=== PATIENT | male | born 1930 | race African-American/Black ===

== ENCOUNTER 2019-09-06 21:34 | Inpatient (IN) | payer MEDICARE, MEDICAID ==
[~2019-09-06] VITALS: Ht 170.2 cm; Wt 59.1 kg
--- NOTE | 2019-09-06 21:49 | Emergency Room Report ---
History of Present Illness General Chief Complaint: Generalized Weakness Source: Patient Present Illness HPI Is an 88-year-old male with no significant past medical history. He occasionally takes hydrochlorothiazide for high blood pressure. He presents with chief complaint of generalized weakness. He lives by himself. He said he did not eat much yesterday and decided to go to the nearby grocery store to get some food. He said as he was walking out from the grocery store to the bus station he felt increasing weakness. He said he was not diaphoretic. He has no pain. He has no nausea no vomiting. He just felt weakness. Got better when he grabbed on to something. Bystander noticed his condition and called 911. He got better once EMS got there and lay him down. He is asymptomatic right now. Never had this problem before. Denies any other complaint. No focal deficit. No slurred speech. Allergies: Coded Allergies: No Known Allergies (Unverified , 09/06/19) Patient History Past Medical History: see triage record, old chart reviewed Past Surgical History: none Pertinent Family History: none Social History: Denies: smoking Immunizations: other Reviewed Nursing Documentation: PMH: Agreed; PSxH: Agreed Nursing Documentation-PMH Past Medical History: No Stated History Review of Systems Constitutional: Reports: weakness Eye: Denies: eye pain, blurred vision ENT: Denies: ear pain, nose congestion, throat swelling Respiratory: Denies: cough, shortness of breath Cardiovascular: Denies: chest pain, palpitations Gastrointestinal: Denies: abdominal pain, diarrhea, nausea, vomiting Musculoskeletal: Denies: back pain, joint pain Skin: Denies: rash Neurological: Denies: headache, numbness Endocrine: Denies: increased thirst, increased urine Hematologic/Lymphatic: Denies: easy bruising All Other Systems: negative except mentioned in HPI Physical Exam Vital Signs Date Time Temp Pulse Resp B/P (MAP) Pulse Ox O2 Delivery O2 Flow Rate FiO2 09/06/19 21:30 97.5 104 18 170/109 (129) 98 Room Air Vitals with high blood pressure Sp02 EP Interpretation: reviewed, normal General Appearance: well appearing, no apparent distress, alert Head: normocephalic, atraumatic Eyes: bilateral eye PERRL, bilateral eye EOMI ENT: hearing grossly normal, normal pharynx Neck: full range of motion, supple, no meningismus Respiratory: chest non-tender, lungs clear, normal breath sounds Cardiovascular #1: regular rate, rhythm, no murmur Gastrointestinal: normal bowel sounds, non tender, no mass, no organomegaly, no bruit, non-distended Musculoskeletal: back normal, gait/station normal, normal range of motion Psychiatric: mood/affect normal Medical Decision Making Diagnostic Impression: Primary Impression: Episode of generalized weakness Additional Impressions: Near syncope Hypertension Qualified Codes: I10 - Essential (primary) hypertension ER Course Presents with acute onset of generalized weakness and near syncope. Blood pressure here initially was on the low end. Now normal after IV fluid. No evidence of ACS, PE, dissection. No focal deficit to indicate TIA or CVA. No arrhythmia here. Because of his age, will admit for further work-up. I discussed the case with Dr. Duong who will admit for Dr. Jones. EKG Diagnostic Results Rate: normal Rhythm: NSR ST Segments: no acute changes Rhythm Strip Diag. Results EP Interpretation: yes Rate: 84 Rhythm: NSR, no PVC's, no ectopy Chest X-Ray Diagnostic Results Chest X-Ray Diagnostic Results : Chest X-Ray Ordered: Yes # of Views/Limited/Complete: 1 View Indication: Shortness of Breath EP Interpretation: Yes Interpretation: no consolidation, no effusion, no pneumothorax, no acute cardiopulmonary disease Impression: No acute disease Electronically Signed by: Randy Fu MD Last Vital Signs Date Time Temp Pulse Resp B/P (MAP) Pulse Ox O2 Delivery O2 Flow Rate FiO2 09/06/19 21:30 97.5 104 18 170/109 (129) 98 Room Air Status: improved Disposition: ADMITTED INPATIENT Condition: Serious Randy Fu MD Sep 06, 2019 21:49
[2019-09-06 22:04] VITALS: BP 170/109
--- NOTE | 2019-09-06 22:15 | NUR ---
ED Nurse Note: Patient was brought in by ambulance c/o generalzied weaknesss. Pt stated he was walking and felt weak, sat down and wanted to be checked out. Patient presented calm, AAO x4, VSS at this time, skinis warm to touch.
[2019-09-06 22:25] LABS: BASOPHILS % (AUTO) 2.2 % (0.0-2.0); EOSINOPHILS % (AUTO) 0.3 % (0.0-3.0); HEMATOCRIT 50.3 % (42.0-52.0); HEMOGLOBIN 16.3 G/DL (14.2-18.0); LYMPHOCYTES % (AUTO) 11.9 % (20.0-45.0); MEAN CORPUSCULAR VOLUME 80 FL (80-99); MONOCYTES % (AUTO) 10.3 % (1.0-10.0); NEUTROPHILS % (AUTO) 75.3 % (45.0-75.0); PLATELET COUNT 705 K/UL (150-450); RED BLOOD COUNT 6.26 M/UL (4.70-6.10); RED CELL DISTRIBUTION WIDTH 12.9 % (11.6-14.8); WHITE BLOOD COUNT 9.8 K/UL (4.8-10.8)
--- NOTE | 2019-09-06 22:25 | Diagnostic Imaging Report ---
EXAM: XR Chest, 1 View CLINICAL HISTORY: SYNCOPE TECHNIQUE: Frontal view of the chest. COMPARISON: No relevant prior studies available. FINDINGS: Lungs: Unremarkable. No consolidation. Pleural space: Unremarkable. No pneumothorax. Heart: Unremarkable. No cardiomegaly. Mediastinum: Unremarkable. Bones joints: Unremarkable. IMPRESSION: No radiographic evidence of acute cardiopulmonary disease.
--- NOTE | 2019-09-06 22:29 | NUR ---
ED Nurse Note: Pt with x-ray tech.
[2019-09-06 22:33] LABS: ANION GAP 9 mmol/L (5-15); BLOOD UREA NITROGEN 15 mg/dL (7-18); CALCIUM 10.2 MG/DL (8.5-10.1); CARBON DIOXIDE 29 MMOL/L (21-32); CHLORIDE 104 MMOL/L (98-107); CREATININE 1.3 MG/DL (0.55-1.30); POTASSIUM 3.8 MMOL/L (3.5-5.1); SODIUM 142 MMOL/L (136-145)
[2019-09-06 22:34] LABS: ALANINE AMINOTRANSFERASE 23 U/L (12-78); ALBUMIN 3.8 G/DL (3.4-5.0); ALBUMIN/GLOBULIN RATIO 0.8 (1.0-2.7); ALKALINE PHOSPHATASE 92 U/L (46-116); ASPARTATE AMINO TRANSFERASE 22 U/L (15-37); BILIRUBIN,TOTAL 0.5 MG/DL (0.2-1.0)
[2019-09-06 23:54] VITALS: BP 122/96
[2019-09-07] VITALS (10 sets, daily range): BP systolic 117–190; BP diastolic 75–128
--- NOTE | 2019-09-07 | NUR ---
NURSE NOTES: Received pt from ELOY Pitts. Pt awake, alert, and talkative. Bed in lowest position. Call light within reach. Lung sounds clear. BP elevated. Pt ambulates steadily. Will call Dr. Duong and will continue to monitor.
--- NOTE | 2019-09-07 00:05 | NUR ---
ED Nurse Note: Patient was admited to Tele due to generalized weakness. Patient was transfered to the unit via gurney, by ACLS protocol, with all belongings. Patient AAO x4, VSS at this time.
[2019-09-07] MEDS ORDERED: HYDROCHLOROTH12.5 M2 ORAL (01:42)
--- NOTE | 2019-09-07 01:52 | NUR ---
NURSE NOTES: Called and left a message with Dr. Karen kennedy regarding admission orders. Awaiting call back
--- NOTE | 2019-09-07 02:08 | NUR ---
NURSE NOTES: Dr. Duong called back with the following meds: - tylenol 650 prn - ambulatory for DVT - troponin am - cbc bmp am - reg diet - hydralazine 10mg iv q6 prn for sbp>160 - continue home meds Will input orders and will continue to monitor.
--- NOTE | 2019-09-07 07:17 | NUR ---
HAND-OFF: Report given to ELOY Mac. Pt stable.
--- NOTE | 2019-09-07 07:20 | NUR ---
NURSE NOTES: Nurse report given by ELOY Guajardo. Patient's awake in bed, AO x 4, denies pain, no s/s of distress or SOB. Bed low and locked, call light within reach, side rails x2, cardiac cath lab radiology technologist is applied. IV is saline locked, patent and asymptomatic. All needs met. Will continue to monitor.
--- NOTE | 2019-09-07 08:35 | History and Physical ---
History of Present Illness General Date patient seen: Sep 07, 2019 Reason for Hospitalization: Generalized Weakness Present Illness HPI 88-year-old male with no significant past medical history. He occasionally takes hydrochlorothiazide for high blood pressure. He presents with chief complaint of generalized weakness. He lives by himself. He said he did not eat much the day of admission and decided to go to the nearby grocery store ( [facility]) to get some food at around 8 pm. He said as he was walking out from the grocery store to the bus station and he felt increasing weakness. He sat down and was unable to get up. Bystander called 911. He denies chest pain, sob, palpitations, loc, dizziness, lightheadedness,fever, chills, or diaphoresis. This has never happened to him in the past. He had no focal neurologic deficits , no slurred speech. No bowel or bladder incontinence or tongue biting PMH: HTN PSH: none social history: Denies toxic habits, lives alone, independent of ADLs family history: unknown to patient. . 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 Resuscitation status Full Code Advanced Directive on File Review of Systems Constitutional: Reports: weakness - all muscles; Denies: no symptoms, see HPI, chills, sweats, fever, malaise, other Eye: Denies: no symptoms, see HPI, eye pain, blurred vision, tearing, double vision, nose pain, nose congestion, acuity changes, discharge, other ENT: Denies: no symptoms, see HPI, ear pain, ear discharge, nose pain, nose congestion, throat pain, throat swelling, mouth pain, hearing loss, nasal discharge, other Respiratory: Denies: no symptoms, see HPI, cough, orthopnea, shortness of breath, stridor, wheezing, EVANS, sputum, other Cardiovascular: Denies: no symptoms, see HPI, chest pain, edema, palpitations, syncope, PND, other Gastrointestinal: Denies: no symptoms, see HPI, abdominal pain, constipation, diarrhea, nausea, vomiting, melena, hematemesis, other Genitourinary: Denies: no symptoms, see HPI, discharge, dysuria, frequency, hematuria, pain, retention, incontinence, urgency, vag bleed/dc, other Musculoskeletal: Denies: no symptoms, see HPI, back pain, gout, joint pain, joint swelling, muscle pain, muscle stiffness, other Skin: Denies: no symptoms, see HPI, rash, change in color, change in hair/nails , dryness, lesions, other Psychiatric: Denies: no symptoms, see HPI, prior hx, anxiety, depressed feelings, emotional problems, SI, HI, hallucinations, other Neurological: Denies: no symptoms, see HPI, headache, numbness, paresthesia, seizure, tingling, tremors, focal weakness, syncope, dizziness, other Endocrine: Denies: no symptoms, see HPI, excessive sweating, flushing, intolerance to temperature, increased thirst, increased urine, unexplained weight loss, other Hematologic/Lymphatic: Denies: no symptoms, see HPI, anemia, blood clots, easy bleeding, easy bruising, swollen glands, diathesis, other Physical Exam Physical Exam Narrative General Appearance: well appearing, no apparent distress, alert Head: normocephalic, atraumatic Eyes: bilateral eye PERRL, bilateral eye EOMI ENT: hearing grossly normal, normal pharynx, MM dry Neck: full range of motion, supple, no meningismus Respiratory: chest non-tender, lungs clear, normal breath sounds Cardiovascular: regular rate, rhythm, no murmur, no edema Gastrointestinal: normal bowel sounds, non tender, no mass, no organomegaly, no bruit, non-distended Musculoskeletal: back normal, gait/station normal, normal range of motion Psychiatric: mood/affect normal Neuro: Grossly intact Last 24 Hour Vital Signs Date Time Temp Pulse Resp B/P (MAP) Pulse Ox O2 Delivery O2 Flow Rate FiO2 09/07/19 07:59 98.0 96 18 150/98 (115) 95 09/07/19 05:37 97.5 58 18 164/102 94 Room Air 09/07/19 04:56 164/102 09/07/19 04:40 164/102 (122) 09/07/19 04:00 58 173/84 (113) 94 09/07/19 04:00 54 09/07/19 02:23 135/89 (104) 09/07/19 02:22 62 131/89 (103) 94 09/07/19 01:43 Room Air 09/07/19 01:22 81 190/114 (139) 95 09/07/19 01:19 82 09/07/19 00:00 83 183/128 (146) 09/06/19 23:54 97.5 67 18 122/96 98 Room Air 09/06/19 22:04 104 18 Room Air 09/06/19 22:04 97.5 18 170/109 98 Room Air 09/06/19 21:30 97.5 104 18 170/109 (129) 98 Room Air Intake and Output 09/06/19 09/07/19 19:00 07:00 # Voids 3 Laboratory Tests Test 09/06/19 22:00 09/06/19 22:11 White Blood Count 9.8 K/UL (4.8-10.8) Red Blood Count 6.26 M/UL (4.70-6.10) H Hemoglobin 16.3 G/DL (14.2-18.0) Hematocrit 50.3 % (42.0-52.0) Mean Corpuscular Volume 80 FL (80-99) Mean Corpuscular Hemoglobin 26.1 PG (27.0-31.0) L Mean Corpuscular Hemoglobin Concent 32.4 G/DL (32.0-36.0) Red Cell Distribution Width 12.9 % (11.6-14.8) Platelet Count 705 K/UL (150-450) H Mean Platelet Volume 5.6 FL (6.5-10.1) L Neutrophils (%) (Auto) 75.3 % (45.0-75.0) H Lymphocytes (%) (Auto) 11.9 % (20.0-45.0) L Monocytes (%) (Auto) 10.3 % (1.0-10.0) H Eosinophils (%) (Auto) 0.3 % (0.0-3.0) Basophils (%) (Auto) 2.2 % (0.0-2.0) H Sodium Level 142 MMOL/L (136-145) Potassium Level 3.8 MMOL/L (3.5-5.1) Chloride Level 104 MMOL/L (98-107) Carbon Dioxide Level 29 MMOL/L (21-32) Anion Gap 9 mmol/L (5-15) Blood Urea Nitrogen 15 mg/dL (7-18) Creatinine 1.3 MG/DL (0.55-1.30) Estimat Glomerular Filtration Rate mL/min (>60) Glucose Level 109 MG/DL (74-106) H Calcium Level 10.2 MG/DL (8.5-10.1) H Total Bilirubin 0.5 MG/DL (0.2-1.0) Aspartate Amino Transf (AST/SGOT) 22 U/L (15-37) Alanine Aminotransferase (ALT/SGPT) 23 U/L (12-78) Alkaline Phosphatase 92 U/L (46-116) Troponin I 0.019 ng/mL (0.000-0.056) Total Protein 8.6 G/DL (6.4-8.2) H Albumin 3.8 G/DL (3.4-5.0) Globulin 4.8 g/dL Albumin/Globulin Ratio 0.8 (1.0-2.7) L Urine Color Pending Urine Appearance Pending Urine pH Pending Urine Specific [place] Pending Urine Protein Pending Urine Glucose (UA) Pending Urine Ketones Pending Urine Blood Pending Urine Nitrite Pending Urine Bilirubin Pending Urine Urobilinogen Pending Urine Leukocyte Esterase Pending Height (Feet): 5 Height (Inches): 7.00 Weight (Pounds): 145 Medications Current Medications Medications (Trade) Dose Ordered Sig/Elliot Route PRN Reason Start Time Stop Time Status Last Admin Dose Admin Acetaminophen (Tylenol) 650 mg Q6H PRN ORAL Mild Pain/Temp > 100.5 09/07/19 02:15 10/07/19 02:14 Hydralazine HCl (Apresoline) 10 mg Q6H PRN IV for sbp>160 09/07/19 02:15 10/07/19 02:14 09/07/19 04:56 Hydrochlorothiazide (Hydrodiuril) 12.5 mg DAILY ORAL 09/07/19 09:00 10/07/19 08:59 Objective Narrative ECG , strip personally reviewed by me: NSR no acute st-t changes Assessment/Plan Problem List: (1) Hypertension ICD Codes: I10 - Essential (primary) hypertension SNOMED: 07616956 Qualifiers: Qualified Codes: I10 - Essential (primary) hypertension (2) Near syncope ICD Codes: R55 - Syncope and collapse SNOMED: 917885553 (3) Episode of generalized weakness ICD Codes: R53.1 - Weakness SNOMED: 20339480 Status: stable Assessment/Plan: 88 year old male with HTN presents with weakness and near syncope #Near syncope #weakness #Dehydration -Admit to telemetry -Cardiology consult -Hold HCTZ and DC on discharge -Start Amlodipine 5 mg daily. Hydralazine prn -Cardiology consult with Dr. Magallanes #LAUREL -Pre-renal due to dehydration in the setting of HCTZ -monitor renal function -Avoid nephrotoxic medications #Hypercalcemia -due to dehydration, monitor #HTN -discontinue HCTZ -Start Amlodipine 5 mg daily -Continue Hydralazine prn # Gamma gap- due to dehydration -Monitor VTEppx: scd and ambulation GI ppx: not needed Code status: Full code Diet: Cardiac I spent 70 minutes on this encounter. >50% spent on counselling and care coordination. I spent an additional 31 minutes in chart review. Time of this note may not reflect time of encounter Be Soares M.D. Sep 07, 2019 08:35
[2019-09-07] MEDS ORDERED: hydroCHLOROthiazide 12.5mg TAB ORAL SCH (09:00)
[2019-09-07 09:24] LABS: BASOPHILS % (AUTO) 1.6 % (0.0-2.0); EOSINOPHILS % (AUTO) 0.5 % (0.0-3.0); HEMATOCRIT 48.9 % (42.0-52.0); HEMOGLOBIN 15.8 G/DL (14.2-18.0); MEAN CORPUSCULAR VOLUME 81 FL (80-99); MONOCYTES % (AUTO) 17.3 % (1.0-10.0); NEUTROPHILS % (AUTO) 64.6 % (45.0-75.0); PLATELET COUNT 715 K/UL (150-450); RED BLOOD COUNT 6.06 M/UL (4.70-6.10); RED CELL DISTRIBUTION WIDTH 13.9 % (11.6-14.8)
[2019-09-07 10:12] LABS: ANION GAP 10 mmol/L (5-15); BLOOD UREA NITROGEN 12 mg/dL (7-18); CALCIUM 9.5 MG/DL (8.5-10.1); CARBON DIOXIDE 24 MMOL/L (21-32); CHLORIDE 104 MMOL/L (98-107); POTASSIUM 3.5 MMOL/L (3.5-5.1); SODIUM 138 MMOL/L (136-145)
--- NOTE | 2019-09-07 16:29 | Cardiac Electrophysiology PN ---
Subjective Subjective [id number] Objective Last 24 Hour Vital Signs Date Time Temp Pulse Resp B/P (MAP) Pulse Ox O2 Delivery O2 Flow Rate FiO2 09/07/19 12:30 161/102 09/07/19 12:00 81 09/07/19 12:00 98.5 86 18 161/102 (121) 96 09/07/19 09:11 Room Air 09/07/19 08:00 102 09/07/19 07:59 98.0 96 18 150/98 (115) 95 09/07/19 05:37 97.5 58 18 164/102 94 Room Air 09/07/19 04:56 164/102 09/07/19 04:40 164/102 (122) 09/07/19 04:00 58 173/84 (113) 94 09/07/19 04:00 54 09/07/19 02:23 135/89 (104) 09/07/19 02:22 62 131/89 (103) 94 09/07/19 01:43 Room Air 09/07/19 01:22 81 190/114 (139) 95 09/07/19 01:19 82 09/07/19 00:00 83 183/128 (146) 09/06/19 23:54 97.5 67 18 122/96 98 Room Air 09/06/19 22:04 104 18 Room Air 09/06/19 22:04 97.5 18 170/109 98 Room Air 09/06/19 21:30 97.5 104 18 170/109 (129) 98 Room Air Intake and Output 09/06/19 09/07/19 19:00 07:00 # Voids 3 Laboratory Tests Test 09/06/19 22:00 09/06/19 22:11 09/07/19 07:59 White Blood Count 9.8 K/UL (4.8-10.8) 11.0 K/UL (4.8-10.8) H Red Blood Count 6.26 M/UL (4.70-6.10) H 6.06 M/UL (4.70-6.10) Hemoglobin 16.3 G/DL (14.2-18.0) 15.8 G/DL (14.2-18.0) Hematocrit 50.3 % (42.0-52.0) 48.9 % (42.0-52.0) Mean Corpuscular Volume 80 FL (80-99) 81 FL (80-99) Mean Corpuscular Hemoglobin 26.1 PG (27.0-31.0) L 26.1 PG (27.0-31.0) L Mean Corpuscular Hemoglobin Concent 32.4 G/DL (32.0-36.0) 32.4 G/DL (32.0-36.0) Red Cell Distribution Width 12.9 % (11.6-14.8) 13.9 % (11.6-14.8) Platelet Count 705 K/UL (150-450) H 715 K/UL (150-450) H Mean Platelet Volume 5.6 FL (6.5-10.1) L 5.3 FL (6.5-10.1) L Neutrophils (%) (Auto) 75.3 % (45.0-75.0) H 64.6 % (45.0-75.0) Lymphocytes (%) (Auto) 11.9 % (20.0-45.0) L 16.0 % (20.0-45.0) L Monocytes (%) (Auto) 10.3 % (1.0-10.0) H 17.3 % (1.0-10.0) H Eosinophils (%) (Auto) 0.3 % (0.0-3.0) 0.5 % (0.0-3.0) Basophils (%) (Auto) 2.2 % (0.0-2.0) H 1.6 % (0.0-2.0) Sodium Level 142 MMOL/L (136-145) 138 MMOL/L (136-145) Potassium Level 3.8 MMOL/L (3.5-5.1) 3.5 MMOL/L (3.5-5.1) Chloride Level 104 MMOL/L (98-107) 104 MMOL/L (98-107) Carbon Dioxide Level 29 MMOL/L (21-32) 24 MMOL/L (21-32) Anion Gap 9 mmol/L (5-15) 10 mmol/L (5-15) Blood Urea Nitrogen 15 mg/dL (7-18) 12 mg/dL (7-18) Creatinine 1.3 MG/DL (0.55-1.30) 1.0 MG/DL (0.55-1.30) Estimat Glomerular Filtration Rate mL/min (>60) mL/min (>60) Glucose Level 109 MG/DL (74-106) H 100 MG/DL (74-106) Calcium Level 10.2 MG/DL (8.5-10.1) H 9.5 MG/DL (8.5-10.1) Total Bilirubin 0.5 MG/DL (0.2-1.0) Aspartate Amino Transf (AST/SGOT) 22 U/L (15-37) Alanine Aminotransferase (ALT/SGPT) 23 U/L (12-78) Alkaline Phosphatase 92 U/L (46-116) Troponin I 0.019 ng/mL (0.000-0.056) 0.017 ng/mL (0.000-0.056) Total Protein 8.6 G/DL (6.4-8.2) H Albumin 3.8 G/DL (3.4-5.0) Globulin 4.8 g/dL Albumin/Globulin Ratio 0.8 (1.0-2.7) L Urine Color Pending Urine Appearance Pending Urine pH Pending Urine Specific [place] Pending Urine Protein Pending Urine Glucose (UA) Pending Urine Ketones Pending Urine Blood Pending Urine Nitrite Pending Urine Bilirubin Pending Urine Urobilinogen Pending Urine Leukocyte Esterase Pending Nik Acuna MD Sep 07, 2019 16:29
--- NOTE | 2019-09-07 19:46 | NUR ---
NURSE NOTES: Nurse report given by ELOY Mac. Patient's awake in bed, AO x 3, denies pain, no s/s of distress or SOB. Bed low and locked, call light within reach, side rails x2, senior label specialist is on. IV is saline locked, patent and asymptomatic. All needs met. Will continue to monitor.
--- NOTE | 2019-09-07 19:48 | NUR ---
HAND-OFF: Report given to ELOY Dexter. Plan of care endorsed, patient's stable.
--- NOTE | 2019-09-07 21:30 | Consultation ---
DATE OF CONSULTATION: 09/07/2019 CARDIOLOGY CONSULTATION CONSULTING PHYSICIAN: Nik Acuna M.D. REFERRING PHYSICIAN: Antonio Jones M.D. REASON FOR CONSULTATION: hypertension and presyncope. HISTORY OF PRESENT ILLNESS: The patient is an 88-year-old gentleman with history of hypertension for which he takes hydrochlorothiazide, presented to the emergency with generalized weakness. The patient lives by himself. He said he did not eat much yesterday and decided to go to a nearby grocery store to get some food. As he was walking out from the grocery store, he felt increasing weakness. He was not diaphoretic and did not completely passed out. A bystander noticed his condition and called 911. Once the paramedics got there, they laid him on the floor and he felt better. The patient was then brought to the emergency room. His EKG shows sinus rhythm with left atrial enlargement and left axis deviation. REVIEW OF SYSTEMS: Negative other than what was mentioned in the history of present illness. PAST MEDICAL HISTORY: As mentioned above. FAMILY HISTORY: Noncontributory. SOCIAL HISTORY: He lives at home. Does not smoke or drink alcohol. PHYSICAL EXAMINATION: VITAL SIGNS: Blood pressure 165/102, pulse 86, respirations 18, and temperature 98.5. HEAD AND NECK: Showed no JVD or carotid bruits. LUNGS: Clear. CARDIOVASCULAR: Shows regular S1 and S2 with no gallop or murmur. ABDOMEN: Soft. EXTREMITIES: No pitting edema. LABORATORY AND DIAGNOSTIC DATA: His labs show white count of 11, hematocrit of 15.9, hematocrit of 49, and platelet count of 715,000. Sodium 138, potassium 3.5, BUN 12, and creatinine 1.1. Glucose of 100. Troponin negative x2. ASSESSMENT AND PLAN: 1. Sudden onset of weakness. His troponins are negative. EKG shows left axis deviation and no acute ischemic changes. We will get the echocardiogram and carotid duplex for further evaluation. 2. Hypertension. The patient is on p.r.n. hydralazine. I will discontinue hydrochlorothiazide and start him on Norvasc 5 mg daily. Continue on p.r.n. medications. 3. Severe thrombocytosis with platelet count of 715,000. Thank you very much for allowing me to participate in the care of this patient. Please do not hesitate to contact me for any questions regarding my evaluation. Nik Acuna M.D. DR: GET JOB#: [id number] CC:
--- NOTE | 2019-09-07 21:30 | NUR ---
NURSE NOTES: Pt became very confused and belligerent- alert x2, confused, angry, began to walk up and down the hallway and yell and tried to swat us, stating that he is in his apartment where he has lived for the past 10 years, pays rent here and that everyone here needs to leave, yelling profanities and that he would call the police and the [employer]
--- NOTE | 2019-09-07 21:40 | NUR ---
NURSE NOTES: MD Karen vu and Dr Luis Pandey called back, informed of current situation and to administer haldol 5 mg IM x1 and repeat dose once more if it is not effective in calming the patient and monitor response. Patient heart rate became very elevated, Dr said to give haldol and apply restraints if necessary. Reasses to see after haldol if heart rate decreases. No other new orders.
[2019-09-07] MEDS ORDERED: Haloperidol 5mg/ml Inj IM SCH (21:50)
--- NOTE | 2019-09-07 21:50 | NUR ---
NURSE NOTES: After trying to verbally calm patient unsuccessfully multiple times. Pt became very combative and was trying to hit, had to reapply restraints in order to calm patient, protect other patients and to administer medication haldol to calm patient.
[2019-09-07] MEDS ORDERED: Haloperidol 5mg/ml Inj IM PRN (22:00)
--- NOTE | 2019-09-08 00:29 | NUR ---
NURSE NOTES: Pt now resting in bed, heart rate decreased to 111 bpm.
[2019-09-08] MEDS ORDERED: Haloperidol 5mg/ml Inj IM SCH (03:35)
--- NOTE | 2019-09-08 04:00 | NUR ---
NURSE NOTES: Pt became very agitated and restless, trying to get up, yelling obscenities and threatening staff. Administered second dose of haldol IM. will continue to monitor
--- NOTE | 2019-09-08 07:55 | NUR ---
NURSE NOTES: Nurse report given by ELOY Dexter. Patient's awake, restless, agitated, yelling obscenities and threatening staffs. AO x 1. Bed low and locked, call light within reach, side rais x 3, safety precautions are applied, nonbehavioral restraints applied. Will continue to monitor.
--- NOTE | 2019-09-08 07:56 | Cardiac Electrophysiology PN ---
Assessment/Plan Assessment/Plan 1. Sudden onset of weakness. His troponins are negative. EKG shows left axis deviation and no acute ischemic changes. Echocardiogram and carotid duplex pending 2. Hypertension. The patient is on p.r.n. hydralazine and Norvasc 5 mg daily. 3. Severe thrombocytosis with platelet count of 715,000. 4. Agitation? etiology In restraints. ?Psych consult DW RN Subjective Subjective Very confused. In restraints after got agitated and kicking RN at 10 pm. Had sinus tach in 160s when agitated. Objective Last 24 Hour Vital Signs Date Time Temp Pulse Resp B/P (MAP) Pulse Ox O2 Delivery O2 Flow Rate FiO2 09/08/19 04:00 111 09/08/19 00:00 69 09/07/19 21:40 150 09/07/19 21:00 Room Air 09/07/19 20:00 84 09/07/19 20:00 98.4 91 20 122/84 (97) 99 09/07/19 16:00 97 09/07/19 16:00 97.9 95 18 117/75 (89) 99 09/07/19 12:30 161/102 09/07/19 12:00 81 09/07/19 12:00 98.5 86 18 161/102 (121) 96 09/07/19 09:11 Room Air 09/07/19 08:00 102 09/07/19 07:59 98.0 96 18 150/98 (115) 95 Intake and Output 09/07/19 09/08/19 19:00 07:00 Intake Total 1060 ml Balance 1060 ml Intake Oral 1060 ml # Voids 5 2 Laboratory Tests Test 09/07/19 07:59 White Blood Count 11.0 K/UL (4.8-10.8) H Red Blood Count 6.06 M/UL (4.70-6.10) Hemoglobin 15.8 G/DL (14.2-18.0) Hematocrit 48.9 % (42.0-52.0) Mean Corpuscular Volume 81 FL (80-99) Mean Corpuscular Hemoglobin 26.1 PG (27.0-31.0) L Mean Corpuscular Hemoglobin Concent 32.4 G/DL (32.0-36.0) Red Cell Distribution Width 13.9 % (11.6-14.8) Platelet Count 715 K/UL (150-450) H Mean Platelet Volume 5.3 FL (6.5-10.1) L Neutrophils (%) (Auto) 64.6 % (45.0-75.0) Lymphocytes (%) (Auto) 16.0 % (20.0-45.0) L Monocytes (%) (Auto) 17.3 % (1.0-10.0) H Eosinophils (%) (Auto) 0.5 % (0.0-3.0) Basophils (%) (Auto) 1.6 % (0.0-2.0) Sodium Level 138 MMOL/L (136-145) Potassium Level 3.5 MMOL/L (3.5-5.1) Chloride Level 104 MMOL/L (98-107) Carbon Dioxide Level 24 MMOL/L (21-32) Anion Gap 10 mmol/L (5-15) Blood Urea Nitrogen 12 mg/dL (7-18) Creatinine 1.0 MG/DL (0.55-1.30) Estimat Glomerular Filtration Rate mL/min (>60) Glucose Level 100 MG/DL (74-106) Calcium Level 9.5 MG/DL (8.5-10.1) Troponin I 0.017 ng/mL (0.000-0.056) Objective HEAD AND NECK: Showed no JVD or carotid bruits. LUNGS: Clear. CARDIOVASCULAR: Shows regular S1 and S2 with no gallop or murmur. ABDOMEN: Soft. EXTREMITIES: No pitting edema. Nik Acuna MD Sep 08, 2019 07:56
--- NOTE | 2019-09-08 07:57 | NUR ---
HAND-OFF: Report given to ELOY Mac.
--- NOTE | 2019-09-08 08:42 | NUR ---
NURSE NOTES: Nurse assessed patient and asked if he wants to take his morning medications and take blood pressure. He still agitated, belligerent and spoke profound languages. Patient refused everything. Will continue to monitor closely.
--- NOTE | 2019-09-08 08:46 | NUR ---
NURSE NOTES: Spoke to Viridiana from Dr. Jones and left message for covering Dr. Soares and informed the patient's situation. Requested psych consult for him and and psych medication PRN for him at this point. Waiting for response.
--- NOTE | 2019-09-08 08:57 | NUR ---
NURSE NOTES: Dr Soares called back and I informed her the patient's situation again. Doctor is aware and no new order at this time.
--- NOTE | 2019-09-08 10:15 | General Progress Note ---
Assessment/Plan Problem List: (1) Hypertension ICD Codes: I10 - Essential (primary) hypertension SNOMED: 43752825 Qualifiers: Qualified Codes: I10 - Essential (primary) hypertension (2) Near syncope ICD Codes: R55 - Syncope and collapse SNOMED: 951785049 (3) Episode of generalized weakness ICD Codes: R53.1 - Weakness SNOMED: 10518962 Status: stable Assessment/Plan: 88 year old male with HTN presents with weakness and near syncope #Near syncope #weakness #Dehydration -telemetry -Hold HCTZ and DC on discharge -Start Amlodipine 5 mg daily. Hydralazine prn -Cardiology consult with Dr. Magallanes -Echocardiogram, carotid US #agitation. ?Hospital delirium, no known psych history -psych consult -Haldol prn #LAUREL- resolving -Pre-renal due to dehydration in the setting of HCTZ -monitor renal function -Avoid nephrotoxic medications #Hypercalcemia -due to dehydration, monitor #Thrombosis- likely due to dehydration. Continue to monitor #HTN -discontinue HCTZ -Start Amlodipine 5 mg daily -Continue Hydralazine prn # Gamma gap- due to dehydration -Monitor VTEppx: scd and ambulation GI ppx: not needed Code status: Full code Diet: Cardiac I spent 36 minutes on this encounter. >50% spent on counselling and care coordination. d/w rn, d/w cardiology Time of this note may not reflect time of encounter Subjective Date patient seen: Sep 08, 2019 Allergies: Coded Allergies: No Known Allergies (Unverified , 09/06/19) Subjective Sleeping now after being very agitated. Reportedly patient became very agitated last night and had to be restrained. No psych history. VSS Objective Last 24 Hour Vital Signs Date Time Temp Pulse Resp B/P (MAP) Pulse Ox O2 Delivery O2 Flow Rate FiO2 09/08/19 09:00 Room Air 09/08/19 08:54 64 122/84 09/08/19 08:00 64 09/08/19 08:00 103 09/08/19 04:00 111 09/08/19 00:00 69 09/07/19 21:40 150 09/07/19 21:00 Room Air 09/07/19 20:00 84 09/07/19 20:00 98.4 91 20 122/84 (97) 99 09/07/19 16:00 97 09/07/19 16:00 97.9 95 18 117/75 (89) 99 09/07/19 12:30 161/102 09/07/19 12:00 81 09/07/19 12:00 98.5 86 18 161/102 (121) 96 Intake and Output 09/07/19 09/08/19 19:00 07:00 Intake Total 1060 ml Balance 1060 ml Intake Oral 1060 ml # Voids 5 2 Height (Feet): 5 Height (Inches): 7.00 Weight (Pounds): 145 Objective General Appearance: well appearing, no apparent distress, sleeping Neck: no jvd Respiratory: lungs clear, normal breath sounds Cardiovascular: regular rate, rhythm, no murmur, no edema Gastrointestinal: normal bowel sounds, non tender, no mass, no organomegaly, no bruit, non-distended Musculoskeletal: back normal, gait/station normal, normal range of motion Neuro: unable to assess Be Soares M.D. Sep 08, 2019 10:15
--- NOTE | 2019-09-08 16:42 | NUR ---
NURSE NOTES: Left message for Dr. Soares regarding update on patient's current situation. Patient wet himself and I wanted to clean him up and he is still agitated, belligerent and combative. I dont have any psych meds PRN for him. So I left message to Kristen from Dr. Jones's office. Awaiting for response.
--- NOTE | 2019-09-08 17:00 | NUR ---
NURSE NOTES: Spoke to Dr. soares about patient's situation and his wish to leave AMA. Dr. Soares stated that he cannot leave and there is a psych consult for him. Dr. Soares also orders Haloperidol 5mg IM PRN q6hr because patient is agitated and wanted to leave AMA and did not want to be clean. Orders acknowledged and carried out.
--- NOTE | 2019-09-08 17:15 | NUR ---
NURSE NOTES: Patient is noted with soiled clothing. Offered to help clean patient, patient refuses and attempts to kick staff. Attempted to explain to patient reason for being on restraints, patient becomes belligerent and agitated. Patient remained on bilateral soft wrist restraints for safety of others. Noted. Will continue to monitor patient.
--- NOTE | 2019-09-08 17:43 | NUR ---
NURSE NOTES: Spoke to Nurse washing and screening plant supervisor and she advised to call patient's family member to pick the patient home because patient is AO x 4 and wants to leave AMA, patient assessment showed sign of aggressiveness and belligerent, yet no confusion. Called patient' brother and left message, awaiting for response. No release of restraints at this time. Will let Dr. Soares know once patient's brother called back. Awaiting for update.
--- NOTE | 2019-09-08 19:00 | NUR ---
NURSE NOTES: Nurse able to convinced patient to be changed. Haldol was not used on patient. Patient is still agitated but followed command. Will continue to monitor.
--- NOTE | 2019-09-08 19:00 | NUR ---
NURSE NOTES: Patient stated he's hungry and he has not been eating since morning. However, patient has been refused meals since this morning and state: Get it out, I don't want it. I will eat when I get home."
--- NOTE | 2019-09-08 19:41 | NUR ---
HAND-OFF: Report given to ELOY Dexter. Plan of care endorsed. Patient's stable.
--- NOTE | 2019-09-08 19:43 | NUR ---
NURSE NOTES: Nurse report given by ELOY Mac. Patient's awake, sitting up in bed, AO x 3, denies pain, no s/s of distress or SOB. Bed low and locked, call light within reach, side rails x2, athletic monitor is on. IV is saline locked, patent and asymptomatic. All needs met. Bilateral soft wrist restraints on at this time but will reevaluate. Pt is following commands but still claiming he wants to leave. He knows he is at the hospital but we are monitoring carefully as pt is gathering belongings and told me he has told them all day he wants to leave and go home. Will continue to monitor. Addendum: 09/08/19 at 2058 by Guerita Rojas RN Pt alert x2, is confused at times from one conversation to the next. He recalls what he said and states something different once I ask him again. Addendum: 09/08/19 at 2102 by Guerita Rojas RN pt is trying to remove IV
[2019-09-08 20:00] VITALS: BP 172/116
--- NOTE | 2019-09-08 20:23 | NUR ---
NURSE NOTES: Pt BP is currently elevated at 172/116 and HR 106. Pt is sitting still, a little restless, but will recheck at 20:30. In no acute distress, breathing even and unlabored, no complaints of pain, all needs attended and monitoring pt close to nursing station
--- NOTE | 2019-09-08 20:45 | NUR ---
NURSE NOTES: Pt is alert x2, is confused at times from one conversation to the next. He recalls what he said and states something different once I ask him again- for instance, pt stated he wanted to go home and is expecting to go tomorrow to the charge nurse, but told me he is going home tonight. He is refusing to allow me to help him get cleaned up, is refusing food and drink, urinated on the linens and will not let me assist him to get cleaned. BP is still high at 167/108, will give hydralazine prn and reassess, closely monitoring pt at this time and will continue to .
--- NOTE | 2019-09-08 21:21 | NUR ---
NURSE NOTES: Pt initially refused hydralazine, before I wasted it, I was able to get pt to accept hydralazine, so readmin. Gave total 10 mg hydralazine IV.
--- NOTE | 2019-09-08 21:30 | NUR ---
NURSE NOTES: pt is resting in bed but does not want BP to be taken at this time. will try later.
--- NOTE | 2019-09-09 | NUR ---
NURSE NOTES: Pt refused orthostatic VS
--- NOTE | 2019-09-09 00:30 | Consultation ---
DATE OF CONSULTATION: 09/08/2019 CONSULTING PHYSICIAN: Adriana Contreras M.D. HISTORY OF PRESENT ILLNESS: This is an 88-year-old male with a history of hypertension who has been admitted to the hospital for medical stabilization. The patient is more confused than baseline. I was consulted to assess the patient for confusion and refusing care. The patient has been uncooperative with the staff and at times, refusing medications, refusing food, refusing to drink, refusing care. The patient has memory impairment. The patient is unable to understand, process, communicate rationally. His thought process is high and is refusing medication. The patient has episodes of confusion and forgetful. PAST PSYCHIATRY HISTORY: None known. He is not taking psychotropic medication outside of the hospital. PAST MEDICAL HISTORY: Hypertension. ALLERGIES: No known drug allergies. SUBSTANCE ABUSE HISTORY: No known history of illicit drug use or alcohol. MENTAL STATUS EXAMINATION: The patient is alert, oriented times self, place. Mood is irritable and anxious. Affect is flat. Thought process is concrete. Thought content, no suicidal or homicidal ideation. Cognition is impaired. Insight and judgment is impaired. ASSESSMENT: Madison I Acute encephalopathy, rule out dementia. Madison II Deferred. Madison III As above. Madison IV Low to moderate. Madison V 25. PLAN: 1. Start the patient on Zyprexa 5 mg at bedtime. 2. Continue Haldol 5 mg IM p.r.n. for agitation. 3. The patient lacks capacity to make decisions. The patient may now refuse medication or care. Adriana Contreras M.D. DR: MEHUL JOB#: [id number] CC:
--- NOTE | 2019-09-09 05:00 | NUR ---
NURSE NOTES: Discontinued bilateral soft wrist restraints. Pt is alert and oriented at this time, is cooperative and following commands. Pt is still not wanting to eat but did have some water, pt is high fall risk as he has unsteady gait and requires assistance. Pt is currently lying in semi fowlers in bed, bed is locked in lowest position, call light within reach, side rails x3 and bed alarm on. will continue to monitor.
[2019-09-09 07:12] LABS: BASOPHILS % (AUTO) 1.8 % (0.0-2.0); EOSINOPHILS % (AUTO) 0.4 % (0.0-3.0); HEMOGLOBIN 16.2 G/DL (14.2-18.0); LYMPHOCYTES % (AUTO) 13.1 % (20.0-45.0); MEAN CORPUSCULAR VOLUME 80 FL (80-99); MONOCYTES % (AUTO) 14.6 % (1.0-10.0); PLATELET COUNT 699 K/UL (150-450); RED BLOOD COUNT 6.22 M/UL (4.70-6.10); RED CELL DISTRIBUTION WIDTH 14.7 % (11.6-14.8)
[2019-09-09 07:32] LABS: ANION GAP 12 mmol/L (5-15); BLOOD UREA NITROGEN 16 mg/dL (7-18); CALCIUM 9.9 MG/DL (8.5-10.1); CARBON DIOXIDE 26 MMOL/L (21-32); CHLORIDE 103 MMOL/L (98-107); CREATININE 1.1 MG/DL (0.55-1.30); POTASSIUM 3.3 MMOL/L (3.5-5.1); SODIUM 141 MMOL/L (136-145)
--- NOTE | 2019-09-09 07:51 | NUR ---
HAND-OFF: Report given to ELOY Fischer.
[2019-09-09 08:00] VITALS: BP 131/91
[2019-09-09 12:00] VITALS: BP 133/77
--- NOTE | 2019-09-09 14:18 | Cardiology Report ---
APPROVED REPORT EXAM: Two-dimensional and M-mode echocardiogram with Doppler and color Doppler. INDICATION Dyspnea M-Mode DIMENSIONS IVSd1.3 (0.7-1.1cm)Left Atrium (MM)3.1 (1.6-4.0cm) LVDd4.7 (3.5-5.6cm)Aortic Root3.7 (2.0-3.7cm) PWd1.1 (0.7-1.1cm)Aortic Cusp Exc.1.6 (1.5-2.0cm) IVSs1.6 cm LVDs3.1 (2.5-4.0cm) PWs0.9 cm Technically difficult study due to poor acoustical windows. Normal left ventricular chamber size, systolic function and wall motion to extent visualized. Left ventricular ejection fraction estimated to be 60-65%. All other cardiac chamber sizes are within normal limits. Aortic valve calcification with normal cusp excursion . Mildly thickened mitral valve leaflets with normal excursion. Mild mitral annulus and aortic root calcification. Pulmonic valve not well visualized. IVC at normal size with physiologic collapse . A color flow and spectral Doppler study was performed and revealed: Mitral inflow indicates normal left ventricular diastolic function. Trace mitral regurgitation. Trace tricuspid regurgitation. Tricuspid systolic velocities suggests peak right ventricular systolic pressure of 13mmHg.
[2019-09-09 16:00] VITALS: BP 123/85
--- NOTE | 2019-09-09 16:11 | Cardiac Electrophysiology PN ---
Assessment/Plan Assessment/Plan 1. Sudden onset of weakness. His troponins are negative. EKG shows left axis deviation and no acute ischemic changes. Echocardiogram Nl EF and carotid duplex no blockage 2. Hypertension. The patient is on p.r.n. hydralazine and Norvasc 5 mg daily. 3. Severe thrombocytosis with platelet count of 715,000. 4. Agitation? etiology In restraints. DW RN Subjective Subjective Much more alert off restraints No CP or SOB. Objective Last 24 Hour Vital Signs Date Time Temp Pulse Resp B/P (MAP) Pulse Ox O2 Delivery O2 Flow Rate FiO2 09/09/19 12:00 97.7 85 20 133/77 (95) 96 09/09/19 12:00 70 09/09/19 09:17 109 131/91 09/09/19 09:00 Room Air 09/09/19 08:00 97.9 109 20 131/91 (104) 99 09/09/19 08:00 105 09/09/19 04:11 86 09/09/19 04:04 78 09/09/19 00:00 120 09/09/19 00:00 98 09/08/19 21:21 168/108 09/08/19 21:00 Room Air 09/08/19 20:00 97.7 106 20 172/116 (134) 96 09/08/19 20:00 96 Intake and Output 09/08/19 09/09/19 19:00 07:00 Intake Total 118 ml Balance 118 ml Intake Oral 118 ml # Voids 1 3 Laboratory Tests Test 09/09/19 06:25 White Blood Count 11.0 K/UL (4.8-10.8) H Red Blood Count 6.22 M/UL (4.70-6.10) H Hemoglobin 16.2 G/DL (14.2-18.0) Hematocrit 50.0 % (42.0-52.0) Mean Corpuscular Volume 80 FL (80-99) Mean Corpuscular Hemoglobin 25.9 PG (27.0-31.0) L Mean Corpuscular Hemoglobin Concent 32.3 G/DL (32.0-36.0) Red Cell Distribution Width 14.7 % (11.6-14.8) Platelet Count 699 K/UL (150-450) H Mean Platelet Volume 5.4 FL (6.5-10.1) L Neutrophils (%) (Auto) 70.0 % (45.0-75.0) Lymphocytes (%) (Auto) 13.1 % (20.0-45.0) L Monocytes (%) (Auto) 14.6 % (1.0-10.0) H Eosinophils (%) (Auto) 0.4 % (0.0-3.0) Basophils (%) (Auto) 1.8 % (0.0-2.0) Sodium Level 141 MMOL/L (136-145) Potassium Level 3.3 MMOL/L (3.5-5.1) L Chloride Level 103 MMOL/L (98-107) Carbon Dioxide Level 26 MMOL/L (21-32) Anion Gap 12 mmol/L (5-15) Blood Urea Nitrogen 16 mg/dL (7-18) Creatinine 1.1 MG/DL (0.55-1.30) Estimat Glomerular Filtration Rate mL/min (>60) Glucose Level 70 MG/DL (74-106) L Calcium Level 9.9 MG/DL (8.5-10.1) Objective HEAD AND NECK: No JVD or carotid bruits. LUNGS: Clear. CARDIOVASCULAR: Regular S1 and S2 with no gallop or murmur. ABDOMEN: Soft. EXTREMITIES: No pitting edema. Nik Acuna MD Sep 09, 2019 16:11
--- NOTE | 2019-09-09 17:28 | General Progress Note ---
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 SNOMED: 9087814 (2) Hypokalemia ICD Codes: E87.6 - Hypokalemia SNOMED: 16858016 (3) Acute encephalopathy ICD Codes: G93.40 - Encephalopathy, unspecified SNOMED: 03898695, 270565218 (4) Hypertension ICD Codes: I10 - Essential (primary) hypertension SNOMED: 76448252 Qualifiers: Qualified Codes: I10 - Essential (primary) hypertension (5) Near syncope ICD Codes: R55 - Syncope and collapse SNOMED: 509434535 (6) Episode of generalized weakness ICD Codes: R53.1 - Weakness SNOMED: 35500602 (7) Acute kidney injury ICD Codes: N17.9 - Acute kidney failure, unspecified SNOMED: 3389080, 16385475 Status: stable Assessment/Plan: 88 year old male with HTN presents with weakness and near syncope #Near syncope #generalized weakness #Dehydration #essential hypertension > TTE normal > Carotid ultrasound: negative >CXR negative -continue telemetry -Hold HCTZ and DC on discharge -Continue Amlodipine 5 mg daily. Hydralazine prn -Cardiology consult with Dr. Acuna- no further interventions -physical therapy evaluation today #acute encephlopathy, metabolic vs. psychiatric. Suspect possible underlying psychiatric disorder. Rule out dementia. May have had component of dehydration- IMPROVING agitation. ?Hospital delirium, no known psych history -Appreciate psych consult: Dr. Contreras -zyprexa 5mg PO QHS -Haldol prn -Per psychiatry patient lacks capacity to refuse care -Social work consult to locate family. Patient currently lives at home by himself #LAUREL- resolved -Holding HCTZ as above -monitor renal function -Avoid nephrotoxic medications #Hypercalcemia - resolved -due to dehydration, monitor #Thrombocytosis- -has not been improving with hydration -Appreciate hematology oncology consult, Dr. Su #HTN -discontinue HCTZ -Continue Amlodipine 5 mg daily -Continue Hydralazine prn FENPPX DVTPPX: Heparin SBQ GI PPX: none needed Fluids: NS @ 75 cc/hr Diet: Regular Lines: Peripheral PT/OT: Ordered Code status: Full code Dispo: Home with home health vs. SNF Reason for Continued Hospitalization: Acute encephalopathy, psychiatric disorder 38 minutes spent on this encounter. Discussed with RN, patient. > 50% spent on counseling and care coordination. Time of note may not reflect time patient was seen. Subjective Date patient seen: Sep 09, 2019 Constitutional: Denies: chills, diaphoresis, fever, malaise, weakness, other HEENT: Denies: eye pain, blurred vision, tearing, double vision, ear pain, ear discharge, nose pain, nose congestion, throat pain, throat swelling, mouth pain , mouth swelling, other Cardiovascular: Denies: chest pain, edema, irregular heart rate, lightheadedness, palpitations, syncope, other Respiratory: Denies: cough, orthopnea, shortness of breath, SOB with excertion , SOB at rest, sputum, stridor, wheezing, other Gastrointestinal/Abdominal: Denies: abdomen distended, abdominal pain, black stools, tarry stools, blood in stool, constipated, diarrhea, difficulty swallowing, nausea, poor appetite, poor fluid intake, rectal bleeding, vomiting , other Genitourinary: Denies: burning, discharge, frequency, flank pain, hematuria, incontinence, pain, urgency, other Neurologic/Psychiatric: Denies: anxiety, depressed, emotional problems, headache, numbness, paresthesia, pre-existing deficit, seizure, tingling, tremors, weakness, other Endocrine: Denies: excessive sweating, flushing, intolerance to cold, intolerance to heat, increased hunger, increased thirst, increased urine, unexplained weight gain, unexplained weight loss, other Hematologic/Lymphatic: Denies: anemia, easy bleeding, easy bruising, other Allergies: Coded Allergies: No Known Allergies (Unverified , 09/06/19) Subjective No acute events overnight per nursing patient in normal sinus rhythm throughout the night with occasional episodes of sinus tachycardia up to 120. No further episodes of near syncope or syncope. The patient feels stronger. Per bedside nurse patient is having less episodes of agitation. Patient denies any chest pain palpitations shortness of breath headache dizziness lightheadedness fever or chills. Objective Last 24 Hour Vital Signs Date Time Temp Pulse Resp B/P (MAP) Pulse Ox O2 Delivery O2 Flow Rate FiO2 09/09/19 12:00 97.7 85 20 133/77 (95) 96 09/09/19 12:00 70 09/09/19 09:17 109 131/91 09/09/19 09:00 Room Air 09/09/19 08:00 97.9 109 20 131/91 (104) 99 09/09/19 08:00 105 09/09/19 04:11 86 09/09/19 04:04 78 09/09/19 00:00 120 09/09/19 00:00 98 09/08/19 21:21 168/108 09/08/19 21:00 Room Air 09/08/19 20:00 97.7 106 20 172/116 (134) 96 09/08/19 20:00 96 Intake and Output 09/08/19 09/09/19 19:00 07:00 Intake Total 118 ml Balance 118 ml Intake Oral 118 ml # Voids 1 3 Laboratory Tests 09/09/19 06:25: White Blood Count 11.0H, Red Blood Count 6.22H, Hemoglobin 16.2, Hematocrit 50.0 , Mean Corpuscular Volume 80, Mean Corpuscular Hemoglobin 25.9L, Mean Corpuscular Hemoglobin Concent 32.3, Red Cell Distribution Width 14.7, Platelet Count 699H, Mean Platelet Volume 5.4L, Neutrophils (%) (Auto) 70.0, Lymphocytes (%) (Auto) 13.1L, Monocytes (%) (Auto) 14.6H, Eosinophils (%) (Auto) 0.4, Basophils (%) (Auto) 1.8, Sodium Level 141, Potassium Level 3.3L, Chloride Level 103, Carbon Dioxide Level 26, Anion Gap 12, Blood Urea Nitrogen 16, Creatinine 1.1, Estimat Glomerular Filtration Rate , Glucose Level 70L, Calcium Level 9.9 Height (Feet): 5 Height (Inches): 7.00 Weight (Pounds): 145 General Appearance: WD/WN, no apparent distress, alert EENT: PERRL/EOMI, normal ENT inspection Neck: non-tender, normal alignment Cardiovascular: normal peripheral pulses, normal rate, no JVD Respiratory/Chest: chest wall non-tender, lungs clear, normal breath sounds Abdomen: normal bowel sounds, non tender, soft, no organomegaly, no mass Extremities: normal range of motion, non-tender, other - Long fingernails Edema: other - No lower extremity edema bilaterally Neurologic: hotel clerk II-XII grossly normal, no motor/sensory deficits, alert, oriented x 3, responsive, normal mood/affect Skin: normal pigmentation, warm/dry Jace Cheung D.O. Sep 09, 2019 17:28
--- NOTE | 2019-09-09 19:55 | NUR ---
NURSE NOTES:REPORT GIVEN TO SIDDHARTH LYONS.
[2019-09-09 20:00] VITALS: BP 141/80
--- NOTE | 2019-09-09 20:10 | NUR ---
NURSE NOTES: Received Pt is resting on the bed and awake and alert and forgetful. On Tele monitor with SR. IV site intact and no sign of infiltration noted. Denied pain at this time. Educated Pt regarding urine specimen collection and Pt is verbally understanding. Placed fall precaution. Will continue to care plan.
[2019-09-09] MEDS: Heparin 5000 units/ml inj SUBQ SCH (21:37)
[2019-09-09 22:40] LABS: APPEARANCE,URINE SLIGHTLY CLOUDY; BILIRUBIN, URINE NEGATIVE (NEGATIVE); GLUCOSE, URINE (UA) NEGATIVE (NEGATIVE); KETONES,URINE 1+ (NEGATIVE); LEUKOCYTE ESTERASE ,URINE 1+ (NEGATIVE); NITRITE,URINE NEGATIVE (NEGATIVE); PH,URINE 5 (4.5-8.0); PROTEIN,URINE 1+ (NEGATIVE); UROBILINOGEN,URINE NORMAL MG/DL (0.0-1.0)
[2019-09-09 22:41] LABS: COLOR,URINE YELLOW
[2019-09-10] VITALS (7 sets, daily range): BP systolic 117–180; BP diastolic 81–110
[2019-09-10] MEDS: Haloperidol 5mg/ml Inj IM PRN ×2 (02:58→11:03)
--- NOTE | 2019-09-10 03:00 | NUR ---
NURSE NOTES: Pt is confused, agitated, resisting care and combative trying to kick to staff. Given Haldol prn medication and continue to monitor any change of condition. Placed fall precaution. motion alarms on. Will continue to care plan.
[2019-09-10] MEDS: Heparin 5000 units/ml inj SUBQ SCH ×2 (06:00→21:54)
--- NOTE | 2019-09-10 07:23 | NUR ---
HAND-OFF: Report given to ELOY Quiñones. Pt is resting on the bed and no sign of acute distress noted. .
--- NOTE | 2019-09-10 07:25 | NUR ---
NURSE NOTES: Received report from Peter Alaniz RN. Patient asleep in bed, opens eyes spontaneously, combative, resistive to care. On room air, respirations even and unlabored. Right upper arm 18g IV site infusing NS @ 75 cc/hr, asymptomatic. Bed locked in lowest position with side rails up x 3. All needs attended to. Call light within reach. Will continue to monitor.
--- NOTE | 2019-09-10 10:43 | NUR ---
NURSE NOTES: Patient refused lab draw x 2, explained need for labs and plan of care but patient is resistive to care. Dr. Cheung made aware.
--- NOTE | 2019-09-10 11:13 | Cardiac Electrophysiology PN ---
Assessment/Plan Assessment/Plan 1. Weakness. His troponins are negative. EKG shows left axis deviation and no acute ischemic changes. Echocardiogram Nl EF and carotid duplex no blockage 2. Hypertension. The patient is on p.r.n. hydralazine and Norvasc 5 mg daily. 3. Severe thrombocytosis with platelet count of 715,000. 4. Agitation? etiology In restraints. FU Psychiatry DW RN Subjective Subjective Alert off restraints No CP or SOB.Was agitated again today. Awaiting placement Objective Last 24 Hour Vital Signs Date Time Temp Pulse Resp B/P (MAP) Pulse Ox O2 Delivery O2 Flow Rate FiO2 09/10/19 08:37 63 117/81 09/10/19 08:00 97.5 63 18 117/81 (93) 97 09/10/19 07:48 57 09/10/19 04:00 77 09/10/19 04:00 97.2 96 19 165/105 (125) 97 09/10/19 03:51 165/105 09/10/19 00:00 95 09/10/19 00:00 97.5 82 19 150/85 (106) 97 09/09/19 21:00 Room Air 09/09/19 20:00 77 09/09/19 20:00 98.6 91 19 141/80 (100) 97 09/09/19 16:00 90 09/09/19 16:00 97.5 87 20 123/85 (98) 95 09/09/19 12:00 97.7 85 20 133/77 (95) 96 09/09/19 12:00 70 Intake and Output 09/09/19 09/10/19 19:00 07:00 Intake Total 600 ml 977 ml Output Total 400 ml Balance 200 ml 977 ml Intake Oral 600 ml 120 ml IV Total 857 ml Output Urine Total 400 ml # Voids 2 3 # Bowel Movements 4 Laboratory Tests Test 09/09/19 22:00 Urine Color Yellow Urine Appearance Slightly cloudy Urine pH 5 (4.5-8.0) Urine Specific [place] 1.025 (1.005-1.035) Urine Protein 1+ (NEGATIVE) H Urine Glucose (UA) Negative (NEGATIVE) Urine Ketones 1+ (NEGATIVE) H Urine Blood Negative (NEGATIVE) Urine Nitrite Negative (NEGATIVE) Urine Bilirubin Negative (NEGATIVE) Urine Urobilinogen Normal MG/DL (0.0-1.0) Urine Leukocyte Esterase 1+ (NEGATIVE) H Urine RBC 0 /HPF (0 - 0) Urine WBC 10-15 /HPF (0 - 0) H Urine Squamous Epithelial Cells Few /LPF (NONE/OCC) Urine Bacteria Few /HPF (NONE) Objective HEAD AND NECK: No JVD or carotid bruits. LUNGS: Clear. CARDIOVASCULAR: Regular S1 and S2 with no gallop or murmur. ABDOMEN: Soft. EXTREMITIES: No pitting edema. Nik Acuna MD Sep 10, 2019 11:13
--- NOTE | 2019-09-10 11:20 | NUR ---
PT NOTE Received MD order for PT evaluation. Patient currently combative, Nuria LYONS requesting to defer PT evaluation at this time. Will follow.
--- NOTE | 2019-09-10 12:00 | NUR ---
NURSE NOTES: Patient noted to be agitated, attempting to get out of bed with unsteady gait and attempting to remove devices. PRN haldol already given. Dr. Cheung notified and received order for bilateral soft wrist restraints, order noted and carried out. Will continue to monitor and attempt to educate on removal criteria.
--- NOTE | 2019-09-10 13:34 | Diagnostic Imaging Report ---
APPROVED REPORT CPT Code: 12928 Vascular Symptoms Syncope CAROTID (BILATERAL) - Imaging reveals no significant plaque within the right and left extracranial carotid arteries. The Doppler spectral flow analysis is within normal limits throughout the extracranial carotid arteries bilaterally. SUBCLAVIANS/VERTEBRALS - Imaging reveals both subclavians and vertebral arteries to be patent, without evidence of stenosis or steal.
[2019-09-10] MEDS ORDERED: Haloperidol 5mg/ml Inj IM PRN (13:56)
--- NOTE | 2019-09-10 13:58 | NUR ---
TRANSFER TO FLOOR: Patient transferred to med-surg room 410-1, per Dr. Cheung. Report given to ELOY Mills. Belongings given to receiving nurse
--- NOTE | 2019-09-10 14:05 | NUR ---
NURSE NOTES: Received pt from [facility] 1996. Pt is confused and sleepy. pt has bi wrist restrain. pt has intact iv access ANU 18G SL. skin is intact. all needs attended, bed is locked and is in the lowest position. call light within easy reach. will con ti8nue to monitor.
--- NOTE | 2019-09-10 16:00 | NUR ---
NURSE NOTES: called Dr YANG left massage regarding BP 180/110, waiting to call back. will continue to monitor.
--- NOTE | 2019-09-10 16:24 | General Progress Note ---
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 SNOMED: 1969988 (2) Hypokalemia ICD Codes: E87.6 - Hypokalemia SNOMED: 56946569 (3) Acute encephalopathy ICD Codes: G93.40 - Encephalopathy, unspecified SNOMED: 77320409, 875697877 (4) Hypertension ICD Codes: I10 - Essential (primary) hypertension SNOMED: 17936564 Qualifiers: Qualified Codes: I10 - Essential (primary) hypertension (5) Near syncope ICD Codes: R55 - Syncope and collapse SNOMED: 243523627 (6) Episode of generalized weakness ICD Codes: R53.1 - Weakness SNOMED: 72665982 (7) Acute kidney injury ICD Codes: N17.9 - Acute kidney failure, unspecified SNOMED: 7346785, 94585504 Status: stable Assessment/Plan: 88 year old male with HTN presents with weakness and near syncope #Near syncope #generalized weakness #Dehydration > TTE normal > Carotid ultrasound: negative >CXR negative > no events on telemetry -discontinue telemetry. Transfer to med surg -Cardiology consult with Dr. Acuna- no further interventions -physical therapy evaluation today #acute encephlopathy, metabolic vs. psychiatric. Suspect possible underlying psychiatric disorder vs. dementia. May have had component of dehydration- stable agitation. ?Hospital delirium, no known psych history -Appreciate psych consult: Dr. Contreras -zyprexa 5mg PO QHS -Haldol prn -Per psychiatry patient lacks capacity to refuse care -Social work consult to locate family. Patient currently lives at home by himself #LAUREL- resolved -Holding HCTZ as above -monitor renal function -Avoid nephrotoxic medications #Hypercalcemia - resolved -due to dehydration, monitor #Thrombocytosis- -has not been improving with hydration -Appreciate hematology oncology consult, Dr. Su #HTN -Hold HCTZ and DC on discharge -Increase Amlodipine to 10 mg daily. Hydralazine prn -Continue Amlodipine 5 mg daily -Continue Hydralazine prn FENPPX DVTPPX: Heparin SBQ GI PPX: none needed Fluids: none Diet: Regular Lines: Peripheral PT/OT: Ordered Code status: Full code Dispo: Home with home health vs. SNF Reason for Continued Hospitalization: Acute encephalopathy, psychiatric disorder 37 minutes spent on this encounter. Discussed with RN, patient and psychiatry. > 50% spent on counseling and care coordination. Time of note may not reflect time patient was seen. Subjective Date patient seen: Sep 10, 2019 ROS Limited/Unobtainable: Yes - Patient refusing to answer questions Allergies: Coded Allergies: No Known Allergies (Unverified , 09/06/19) Subjective No acute events overnight per nursing. Patient in normal sinus rhythm overnight. At night patient with episode of agitation, trying to kick staff. Currently refusing to answer any questions. Resting comfortably in bed Objective Last 24 Hour Vital Signs Date Time Temp Pulse Resp B/P (MAP) Pulse Ox O2 Delivery O2 Flow Rate FiO2 09/10/19 12:00 81 20 09/10/19 11:54 81 09/10/19 09:00 Room Air 09/10/19 08:37 63 117/81 09/10/19 08:00 97.5 63 18 117/81 (93) 97 09/10/19 07:48 57 09/10/19 04:00 77 09/10/19 04:00 97.2 96 19 165/105 (125) 97 09/10/19 03:51 165/105 09/10/19 00:00 95 09/10/19 00:00 97.5 82 19 150/85 (106) 97 09/09/19 21:00 Room Air 09/09/19 20:00 77 09/09/19 20:00 98.6 91 19 141/80 (100) 97 Intake and Output 09/09/19 09/10/19 19:00 07:00 Intake Total 600 ml 977 ml Output Total 400 ml Balance 200 ml 977 ml Intake Oral 600 ml 120 ml IV Total 857 ml Output Urine Total 400 ml # Voids 2 3 # Bowel Movements 4 Laboratory Tests 09/09/19 22:00: Urine Color Yellow, Urine Appearance Slightly cloudy, Urine pH 5, Urine Specific [place] 1.025, Urine Protein 1+H, Urine Glucose (UA) Negative, Urine Ketones 1+H, Urine Blood Negative, Urine Nitrite Negative, Urine Bilirubin Negative, Urine Urobilinogen Normal, Urine Leukocyte Esterase 1+H, Urine RBC 0, Urine WBC 10-15H, Urine Squamous Epithelial Cells Few, Urine Bacteria Few Height (Feet): 5 Height (Inches): 7.00 Weight (Pounds): 145 General Appearance: WD/WN, no apparent distress, alert EENT: PERRL/EOMI Neck: non-tender, normal alignment Cardiovascular: normal peripheral pulses, normal rate, regular rhythm, no JVD Respiratory/Chest: chest wall non-tender, lungs clear, normal breath sounds Abdomen: normal bowel sounds, non tender, soft, no organomegaly, no mass Extremities: normal range of motion, non-tender, normal inspection Edema: other - No lower extremity edema bilaterally Neurologic: immigration judge II-XII grossly normal, no motor/sensory deficits, alert, oriented x 3, responsive Skin: normal pigmentation, warm/dry Jace Cheung D.O. Sep 10, 2019 16:24
--- NOTE | 2019-09-10 16:45 | Cardiology Report ---
APPROVED REPORT EKG Measurement Heart [id number] Normal sinus rhythm Left axis deviation Minimal voltage criteria for LVH, may be normal variant Abnormal ECG
--- NOTE | 2019-09-10 16:59 | Cardiology Report ---
APPROVED REPORT EKG Measurement Heart [id number] Normal sinus rhythm Possible Left atrial enlargement Left axis deviation Abnormal ECG
[2019-09-10] MEDS: HydrALAZINE 25mg tab ORAL PRN (17:15)
--- NOTE | 2019-09-10 17:30 | Consultation ---
History of Present Illness General Chief Complaint: Generalized Weakness Present Illness Allergies: Coded Allergies: No Known Allergies (Unverified , 09/06/19) Medication History Scheduled Hydrochlorothiazide* (Hydrochlorothiazide*), 12.5 MG ORAL DAILY, (Reported) Patient History Healthcare decision maker research and insights executive filey Resuscitation status Full Code Advanced Directive on File Physical Exam Last 24 Hour Vital Signs Date Time Temp Pulse Resp B/P (MAP) Pulse Ox O2 Delivery O2 Flow Rate FiO2 09/10/19 17:15 180/110 09/10/19 17:15 82 180/110 09/10/19 16:00 97.9 82 17 180/110 (133) 99 09/10/19 14:00 97.9 82 18 158/108 (125) 99 09/10/19 12:00 81 20 09/10/19 11:54 81 09/10/19 09:00 Room Air 09/10/19 08:37 63 117/81 09/10/19 08:00 97.5 63 18 117/81 (93) 97 09/10/19 07:48 57 09/10/19 04:00 77 09/10/19 04:00 97.2 96 19 165/105 (125) 97 09/10/19 03:51 165/105 09/10/19 00:00 95 09/10/19 00:00 97.5 82 19 150/85 (106) 97 09/09/19 21:00 Room Air 09/09/19 20:00 77 09/09/19 20:00 98.6 91 19 141/80 (100) 97 Intake and Output 09/09/19 09/10/19 19:00 07:00 Intake Total 600 ml 977 ml Output Total 400 ml Balance 200 ml 977 ml Intake Oral 600 ml 120 ml IV Total 857 ml Output Urine Total 400 ml # Voids 2 3 # Bowel Movements 4 Laboratory Tests Test 09/09/19 22:00 Urine Color Yellow Urine Appearance Slightly cloudy Urine pH 5 (4.5-8.0) Urine Specific [place] 1.025 (1.005-1.035) Urine Protein 1+ (NEGATIVE) H Urine Glucose (UA) Negative (NEGATIVE) Urine Ketones 1+ (NEGATIVE) H Urine Blood Negative (NEGATIVE) Urine Nitrite Negative (NEGATIVE) Urine Bilirubin Negative (NEGATIVE) Urine Urobilinogen Normal MG/DL (0.0-1.0) Urine Leukocyte Esterase 1+ (NEGATIVE) H Urine RBC 0 /HPF (0 - 0) Urine WBC 10-15 /HPF (0 - 0) H Urine Squamous Epithelial Cells Few /LPF (NONE/OCC) Urine Bacteria Few /HPF (NONE) Height (Feet): 5 Height (Inches): 7.00 Weight (Pounds): 145 Medications Current Medications Medications (Trade) Dose Ordered Sig/Elliot Route PRN Reason Start Time Stop Time Status Last Admin Dose Admin Acetaminophen (Tylenol) 650 mg Q6H PRN ORAL Mild Pain/Temp > 100.5 09/10/19 13:56 10/10/19 13:55 Amlodipine Besylate (Norvasc) 5 mg ONCE ORAL 09/10/19 17:00 09/10/19 18:00 09/10/19 17:15 Amlodipine Besylate (Norvasc) 10 mg DAILY ORAL 09/11/19 09:00 10/11/19 08:59 Haloperidol Lactate (Haldol) 5 mg Q6H PRN IM Agitation 09/10/19 13:56 10/10/19 13:55 Heparin Sodium (Porcine) (Heparin 5000 units/ml) 5,000 units EVERY 8 HOURS SUBQ 09/10/19 22:00 10/09/19 21:59 Hydralazine HCl (Apresoline) 25 mg Q6H PRN ORAL SBP >160 09/10/19 17:00 10/10/19 16:59 09/10/19 17:15 Olanzapine (ZyPREXA) 5 mg BEDTIME ORAL 09/10/19 21:00 10/09/19 20:59 Assessment/Plan Assessment/Plan: Dictated note -- prim issue high plt Virgilio Su MD Sep 10, 2019 17:30
--- NOTE | 2019-09-10 19:14 | NUR ---
HAND-OFF: Report given to RICHA Giron RN. Pt is awake and stable. Endorsed to monitor BP.
--- NOTE | 2019-09-10 19:30 | NUR ---
NURSE NOTES: Received patient in no apparent distress. A&OX2 with confusion. IV site patent and intact. Restraint noted on bilateral wrist, radial pulse present, skin intact. Bed in lowest position. Call light within reach. Will continue to monitor.
[2019-09-11] VITALS (7 sets, daily range): BP systolic 105–161; BP diastolic 69–106
--- NOTE | 2019-09-11 | NUR ---
NURSE NOTES: Unable to do orthostatic VS. Patient combative, non compliant.
[2019-09-11] MEDS: Heparin 5000 units/ml inj SUBQ SCH ×3 (05:56→21:12)
--- NOTE | 2019-09-11 06:09 | Hematology/Onc Progress Note ---
Assessment/Plan Assessment/Plan # Thrombocytosis, likely reactive v from primary source --> for workup, at this time, have ordered for jak2 --> will evaluate liver and spleen r/o hepatosplenomegaly --> obtain peripheral smear, reviewed and no early immature cells noted # Erythrocytosis with elevated hgb for age --> currently 16.2 --> also may be related to underlying myeloprolif disorder --> jak2 has been ordered, pending --> fluids have been started # LEukocytosis r/o reactive process --> abx as needed # Hypercalcemia -- with elev Ca on admission --> current 10.2-->9.5 --> likely improved with ivf --> w/u if worsens # Near syncope --> generalized weakness # Dehydration --> ivf started # Essential hypertension --> per cards, TTE normal --> imaging reviewed --> Continue Amlodipine 5 mg daily. Hydralazine prn # Acute encephlopathy, metabolic vs. psychiatric. dehydration v psych --> psych eval --> Social work consult to locate family. Patient currently lives at home by himself # LAUREL- resolved --> Holding HCTZ as above --> monitor renal function Appreciate consultation and saurabh RN Subjective Constitutional: Denies: no symptoms, chills, fever, malaise, weakness, other HEENT: Denies: no symptoms, eye pain, blurred vision, tearing, double vision, ear pain, ear discharge, nose pain, nose congestion, throat pain, throat swelling, mouth pain, mouth swelling, other Cardiovascular: Denies: no symptoms, chest pain, edema, irregular heart rate, lightheadedness, palpitations, syncope, other Respiratory: Denies: no symptoms, cough, shortness of breath, SOB with excertion, SOB at rest, sputum, wheezing, other Gastrointestinal/Abdominal: Denies: no symptoms, abdomen distended, abdominal pain, black stools, tarry stools, blood in stool, constipated, diarrhea, difficulty swallowing, nausea, poor appetite, poor fluid intake, rectal bleeding , vomiting, other Genitourinary: Denies: no symptoms, burning, discharge, frequency, flank pain, hematuria, incontinence, pain, urgency, other Neurologic/Psychiatric: Denies: no symptoms, anxiety, depressed, emotional problems, headache, numbness, paresthesia, pre-existing deficit, seizure, tingling, tremors, weakness, other Endocrine: Denies: no symptoms, excessive sweating, flushing, intolerance to cold, intolerance to heat, increased hunger, increased thirst, increased urine, unexplained weight gain, unexplained weight loss, other Allergies: Coded Allergies: No Known Allergies (Unverified , 09/06/19) Subjective 09/11: no events to report, plt count pending, no f/c Objective Objective Current Medications Medications (Trade) Dose Ordered Sig/Elliot Route PRN Reason Start Time Stop Time Status Last Admin Dose Admin Acetaminophen (Tylenol) 650 mg Q6H PRN ORAL Mild Pain/Temp > 100.5 09/10/19 13:56 10/10/19 13:55 Amlodipine Besylate (Norvasc) 10 mg DAILY ORAL 09/11/19 09:00 10/11/19 08:59 Haloperidol Lactate (Haldol) 5 mg Q6H PRN IM Agitation 09/10/19 13:56 10/10/19 13:55 Heparin Sodium (Porcine) (Heparin 5000 units/ml) 5,000 units EVERY 8 HOURS SUBQ 09/10/19 22:00 10/09/19 21:59 09/11/19 05:56 Hydralazine HCl (Apresoline) 25 mg Q6H PRN ORAL SBP >160 09/10/19 17:00 10/10/19 16:59 09/10/19 17:15 Olanzapine (ZyPREXA) 5 mg BEDTIME ORAL 09/10/19 21:00 10/09/19 20:59 Last 24 Hour Vital Signs Date Time Temp Pulse Resp B/P (MAP) Pulse Ox O2 Delivery O2 Flow Rate FiO2 09/11/19 04:00 97.9 85 20 150/100 (117) 95 09/11/19 00:00 98.6 94 20 152/94 (113) 97 09/10/19 21:00 Room Air 09/10/19 20:00 98.3 92 21 147/90 (109) 97 09/10/19 18:04 161/102 (121) 09/10/19 17:15 180/110 09/10/19 17:15 82 180/110 09/10/19 16:00 97.9 82 17 180/110 (133) 99 09/10/19 14:00 97.9 82 18 158/108 (125) 99 09/10/19 12:00 81 20 09/10/19 11:54 81 09/10/19 09:00 Room Air 09/10/19 08:37 63 117/81 09/10/19 08:00 97.5 63 18 117/81 (93) 97 09/10/19 07:48 57 09/10/19 04:00 77 09/10/19 04:00 97.2 96 19 165/105 (125) 97 09/10/19 03:51 165/105 09/10/19 00:00 95 09/10/19 00:00 97.5 82 19 150/85 (106) 97 09/09/19 21:00 Room Air 09/09/19 20:00 77 09/09/19 20:00 98.6 91 19 141/80 (100) 97 09/09/19 16:00 90 09/09/19 16:00 97.5 87 20 123/85 (98) 95 09/09/19 12:00 97.7 85 20 133/77 (95) 96 09/09/19 12:00 70 09/09/19 09:17 109 131/91 09/09/19 09:00 Room Air 09/09/19 08:00 97.9 109 20 131/91 (104) 99 09/09/19 08:00 105 Intake and Output 09/10/19 09/11/19 19:00 07:00 Intake Total 32.5 ml Balance 32.5 ml IV Total 32.5 ml # Voids 2 Labs Test 09/09/19 06:25 09/09/19 22:00 White Blood Count 11.0 K/UL (4.8-10.8) Red Blood Count 6.22 M/UL (4.70-6.10) Hemoglobin 16.2 G/DL (14.2-18.0) Hematocrit 50.0 % (42.0-52.0) Mean Corpuscular Volume 80 FL (80-99) Mean Corpuscular Hemoglobin 25.9 PG (27.0-31.0) Mean Corpuscular Hemoglobin Concent 32.3 G/DL (32.0-36.0) Red Cell Distribution Width 14.7 % (11.6-14.8) Platelet Count 699 K/UL (150-450) Mean Platelet Volume 5.4 FL (6.5-10.1) Neutrophils (%) (Auto) 70.0 % (45.0-75.0) Lymphocytes (%) (Auto) 13.1 % (20.0-45.0) Monocytes (%) (Auto) 14.6 % (1.0-10.0) Eosinophils (%) (Auto) 0.4 % (0.0-3.0) Basophils (%) (Auto) 1.8 % (0.0-2.0) Sodium Level 141 MMOL/L (136-145) Potassium Level 3.3 MMOL/L (3.5-5.1) Chloride Level 103 MMOL/L (98-107) Carbon Dioxide Level 26 MMOL/L (21-32) Anion Gap 12 mmol/L (5-15) Blood Urea Nitrogen 16 mg/dL (7-18) Creatinine 1.1 MG/DL (0.55-1.30) Estimat Glomerular Filtration Rate mL/min (>60) Glucose Level 70 MG/DL (74-106) Calcium Level 9.9 MG/DL (8.5-10.1) Urine Color Yellow Urine Appearance Slightly cloudy Urine pH 5 (4.5-8.0) Urine Specific [place] 1.025 (1.005-1.035) Urine Protein 1+ (NEGATIVE) Urine Glucose (UA) Negative (NEGATIVE) Urine Ketones 1+ (NEGATIVE) Urine Blood Negative (NEGATIVE) Urine Nitrite Negative (NEGATIVE) Urine Bilirubin Negative (NEGATIVE) Urine Urobilinogen Normal MG/DL (0.0-1.0) Urine Leukocyte Esterase 1+ (NEGATIVE) Urine RBC 0 /HPF (0 - 0) Urine WBC 10-15 /HPF (0 - 0) Urine Squamous Epithelial Cells Few /LPF (NONE/OCC) Urine Bacteria Few /HPF (NONE) Height (Feet): 5 Height (Inches): 7.00 Weight (Pounds): 145 Objective Gen: Nad Pulm: Ctab, no cwr CV: rrr, no mgr Abd: soft, nt, nd Ext: no cce ++ restraints Virgilio Su MD Sep 11, 2019 06:09
[2019-09-11 06:22] LABS: BASOPHILS % (AUTO) 1.4 % (0.0-2.0); EOSINOPHILS % (AUTO) 0.4 % (0.0-3.0); HEMATOCRIT 52.7 % (42.0-52.0); HEMOGLOBIN 17.3 G/DL (14.2-18.0); MEAN CORPUSCULAR VOLUME 80 FL (80-99); MONOCYTES % (AUTO) 14.4 % (1.0-10.0); NEUTROPHILS % (AUTO) 69.8 % (45.0-75.0); PLATELET COUNT 722 K/UL (150-450); RED BLOOD COUNT 6.58 M/UL (4.70-6.10); RED CELL DISTRIBUTION WIDTH 14.3 % (11.6-14.8); WHITE BLOOD COUNT 10.5 K/UL (4.8-10.8)
[2019-09-11 06:44] LABS: ANION GAP 11 mmol/L (5-15); BLOOD UREA NITROGEN 15 mg/dL (7-18); CALCIUM 9.7 MG/DL (8.5-10.1); CARBON DIOXIDE 25 MMOL/L (21-32); CHLORIDE 105 MMOL/L (98-107); PHOSPHORUS 2.3 MG/DL (2.5-4.9); POTASSIUM 3.6 MMOL/L (3.5-5.1); SODIUM 141 MMOL/L (136-145)
--- NOTE | 2019-09-11 07:18 | NUR ---
HAND-OFF: Report given to Geen LYONS.
--- NOTE | 2019-09-11 07:30 | NUR ---
NURSE NOTES: Received pt from ELOY CHAUDHRY. Pt is confused and sleepy. pt has intact iv access ANU 18G SL. skin is intact. pt is NPO due to abd US. all needs attended, bed is locked and is in the lowest position. call light within easy reach. will con ti8nue to monitor.
[2019-09-11] MEDS: cefTRIAXone 1 GM in D5W 55 ML IVPB SCH (09:54)
--- NOTE | 2019-09-11 11:04 | Diagnostic Imaging Report ---
Indication: Abdominal pain Technique: Grayscale and duplex Doppler imaging of the abdomen performed. Comparison: None Findings: The liver is unremarkable. Doppler interrogation of the main portal vein shows patency with hepatopedal, monophasic flow. There is no biliary ductal dilatation identified. Gallbladder is unremarkable. CBD is 4.7 mm. The pancreas, aorta and IVC are largely obscured by bowel gas. Both kidneys appear unremarkable. There is no hydronephrosis. IMPRESSION: No acute findings
--- NOTE | 2019-09-11 11:30 | NUR ---
PT EVALUATION NOTE Patient seen for initial evaluation, see complete evaluation for details. Patient presents with generalized weakness and impaired balance which affects patient's ability to perform mobility tasks safely. Patient requires CGA/min assist for transfers and ambulation. Patient requires FWW for increased gait stability and safety. Patient will benefit from skilled inpatient PT intervention to address strength, balance and safety for improved level of functional mobility and increased safety awareness. Recommend discharge to SNF for further rehab once medically cleared by MD. Recommend FWW for transfers and ambulation. Addendum: 09/11/19 at 1240 by ARTURO TAYLOR PT Amended: Links added.
--- NOTE | 2019-09-11 11:33 | NUR ---
NURSE NOTES: Dr VALE visited pt and is notified about HTN and other V/S and lab results, no new order to RN. Will continue to monitor.
[2019-09-11] MEDS: HydrALAZINE 25mg tab ORAL PRN (11:47)
--- NOTE | 2019-09-11 14:07 | General Progress Note ---
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 SNOMED: 5656705 (2) Hypokalemia ICD Codes: E87.6 - Hypokalemia SNOMED: 87940929 (3) Acute encephalopathy ICD Codes: G93.40 - Encephalopathy, unspecified SNOMED: 29872986, 671881005 (4) Hypertension ICD Codes: I10 - Essential (primary) hypertension SNOMED: 57544344 Qualifiers: Qualified Codes: I10 - Essential (primary) hypertension (5) Near syncope ICD Codes: R55 - Syncope and collapse SNOMED: 499938585 (6) Episode of generalized weakness ICD Codes: R53.1 - Weakness SNOMED: 01219255 (7) Acute kidney injury ICD Codes: N17.9 - Acute kidney failure, unspecified SNOMED: 2380711, 25420704 Status: stable Assessment/Plan: 88 year old male with HTN presents with weakness and near syncope #Near syncope. No further episodes of near syncope or syncope while hospitalized. #generalized weakness, improving #Dehydration, improving > TTE normal > Carotid ultrasound: negative >CXR negative > no events on telemetry -Continue med surg -Cardiology consult with Dr. Acuna- no further interventions -physical therapy evaluation today #acute encephlopathy, metabolic vs. psychiatric. Suspect possible underlying psychiatric disorder vs. dementia and component of possible infection (uti). Likely had component of dehydration- stable agitation. ?Hospital delirium, no known psych history -Appreciate psych consult: Dr. Contreras -zyprexa 5mg PO QHS -Haldol prn -Per psychiatry patient lacks capacity to refuse care -Social work consult to locate family. Patient currently lives at home by himself #UTI > 1+ leik esterase, 10-15 WBC - Start Rocephin 1gm IV Q24hr (09/11 - ), plan for 5 days. - f/u urine culture #LAUREL- resolved -Holding HCTZ as above -monitor renal function -Avoid nephrotoxic medications #Hypercalcemia - resolved -due to dehydration, monitor #Thrombocytosis- -has not been improving with hydration -Appreciate hematology oncology consult, Dr. Su: Vinicius 2 sent, abdominal ultrasound to evaluate splenomegaly. May have underlying MDS. #HTN -Hold HCTZ and DC on discharge -Increase Amlodipine to 10 mg daily. Hydralazine prn FENPPX DVTPPX: Heparin SBQ GI PPX: none needed Fluids: none Diet: Regular Lines: Peripheral PT/OT: Ordered, pending today Code status: Full code Dispo: Home with home health vs. SNF Reason for Continued Hospitalization: Acute encephalopathy, psychiatric disorder , r/o dementia. Pending PT eval 36 minutes spent on this encounter. Discussed with RN and patient. > 50% spent on counseling and care coordination. Time of note may not reflect time patient was seen. Subjective Date patient seen: Sep 11, 2019 Constitutional: Denies: chills, diaphoresis, fever, malaise, weakness, other HEENT: Denies: eye pain, blurred vision, tearing, double vision, ear pain, ear discharge, nose pain, nose congestion, throat pain, throat swelling, mouth pain , mouth swelling, other Cardiovascular: Denies: chest pain, edema, irregular heart rate, lightheadedness, palpitations, syncope, other Respiratory: Denies: cough, orthopnea, shortness of breath, SOB with excertion , SOB at rest, sputum, stridor, wheezing, other Gastrointestinal/Abdominal: Denies: abdomen distended, abdominal pain, black stools, tarry stools, blood in stool, constipated, diarrhea, difficulty swallowing, nausea, poor appetite, poor fluid intake, rectal bleeding, vomiting , other Genitourinary: Denies: burning, discharge, frequency, flank pain, hematuria, incontinence, pain, urgency, other Neurologic/Psychiatric: Denies: anxiety, depressed, emotional problems, headache, numbness, paresthesia, pre-existing deficit, seizure, tingling, tremors, weakness, other Endocrine: Denies: excessive sweating, flushing, intolerance to cold, intolerance to heat, increased hunger, increased thirst, increased urine, unexplained weight gain, unexplained weight loss, other Hematologic/Lymphatic: Denies: anemia, easy bleeding, easy bruising, other Allergies: Coded Allergies: No Known Allergies (Unverified , 09/06/19) Subjective No acute events overnight per nursing. Patient continues to have agitation at night. But is calm during the day. Denies any other complaints. Denies chest pain, palpitations, fever, chills, cough, shortness of breath. Resting comfortably in bed eating. Patient refused to work with physical therapy yesterday so unable to complete evaluation Objective Last 24 Hour Vital Signs Date Time Temp Pulse Resp B/P (MAP) Pulse Ox O2 Delivery O2 Flow Rate FiO2 09/11/19 11:47 161/91 09/11/19 11:32 97.7 100 20 161/91 (114) 95 09/11/19 08:44 83 158/106 09/11/19 08:18 Room Air 09/11/19 08:00 98.2 83 20 158/106 (123) 97 09/11/19 04:00 97.9 85 20 150/100 (117) 95 09/11/19 00:00 98.6 94 20 152/94 (113) 97 09/10/19 21:00 Room Air 09/10/19 20:00 98.3 92 21 147/90 (109) 97 09/10/19 18:04 161/102 (121) 09/10/19 17:15 180/110 09/10/19 17:15 82 180/110 09/10/19 16:00 97.9 82 17 180/110 (133) 99 Intake and Output 09/10/19 09/11/19 19:00 07:00 Intake Total 32.5 ml 120 ml Balance 32.5 ml 120 ml Intake Oral 120 ml IV Total 32.5 ml # Voids 2 2 Laboratory Tests 09/11/19 04:38: White Blood Count 10.5, Red Blood Count 6.58H, Hemoglobin 17.3, Hematocrit 52.7H , Mean Corpuscular Volume 80, Mean Corpuscular Hemoglobin 26.3L, Mean Corpuscular Hemoglobin Concent 32.8, Red Cell Distribution Width 14.3, Platelet Count 722H, Mean Platelet Volume 5.3L, Neutrophils (%) (Auto) 69.8, Lymphocytes (%) (Auto) 14.0L, Monocytes (%) (Auto) 14.4H, Eosinophils (%) (Auto) 0.4, Basophils (%) (Auto) 1.4, Sodium Level 141, Potassium Level 3.6, Chloride Level 105, Carbon Dioxide Level 25, Anion Gap 11, Blood Urea Nitrogen 15, Creatinine 1.0, Estimat Glomerular Filtration Rate , Glucose Level 87, Calcium Level 9.7, Phosphorus Level 2.3L, Magnesium Level 2.2 Height (Feet): 5 Height (Inches): 7.00 Weight (Pounds): 130 General Appearance: WD/WN, no apparent distress, alert EENT: PERRL/EOMI, normal ENT inspection Neck: non-tender, normal alignment, supple Cardiovascular: normal peripheral pulses, normal rate, regular rhythm, no JVD Respiratory/Chest: chest wall non-tender, lungs clear, normal breath sounds Abdomen: normal bowel sounds, non tender, soft, no organomegaly, no mass Extremities: normal range of motion, non-tender, normal inspection Edema: other - No lower extremity edema bilaterally Neurologic: plant cytologist II-XII grossly normal, no motor/sensory deficits, alert, oriented x 3 Skin: normal pigmentation, warm/dry Jace Cheung D.O. Sep 11, 2019 14:07
--- NOTE | 2019-09-11 14:33 | Cardiac Electrophysiology PN ---
Assessment/Plan Assessment/Plan 1. Weakness. His troponins are negative. EKG shows left axis deviation and no acute ischemic changes. Echocardiogram Nl EF and carotid duplex no blockage 2. Hypertension. The patient is on p.r.n. hydralazine and Norvasc 5 mg daily. 3. Severe thrombocytosis with platelet count of 715,000. 4. Agitation? etiology FU Psychiatry DW RN Subjective Subjective Alert off restraints today No CP or SOB Objective Last 24 Hour Vital Signs Date Time Temp Pulse Resp B/P (MAP) Pulse Ox O2 Delivery O2 Flow Rate FiO2 09/11/19 11:47 161/91 09/11/19 11:32 97.7 100 20 161/91 (114) 95 09/11/19 08:44 83 158/106 09/11/19 08:18 Room Air 09/11/19 08:00 98.2 83 20 158/106 (123) 97 09/11/19 04:00 97.9 85 20 150/100 (117) 95 09/11/19 00:00 98.6 94 20 152/94 (113) 97 09/10/19 21:00 Room Air 09/10/19 20:00 98.3 92 21 147/90 (109) 97 09/10/19 18:04 161/102 (121) 09/10/19 17:15 180/110 09/10/19 17:15 82 180/110 09/10/19 16:00 97.9 82 17 180/110 (133) 99 Intake and Output 09/10/19 09/11/19 19:00 07:00 Intake Total 32.5 ml 120 ml Balance 32.5 ml 120 ml Intake Oral 120 ml IV Total 32.5 ml # Voids 2 2 Laboratory Tests Test 09/11/19 04:38 White Blood Count 10.5 K/UL (4.8-10.8) Red Blood Count 6.58 M/UL (4.70-6.10) H Hemoglobin 17.3 G/DL (14.2-18.0) Hematocrit 52.7 % (42.0-52.0) H Mean Corpuscular Volume 80 FL (80-99) Mean Corpuscular Hemoglobin 26.3 PG (27.0-31.0) L Mean Corpuscular Hemoglobin Concent 32.8 G/DL (32.0-36.0) Red Cell Distribution Width 14.3 % (11.6-14.8) Platelet Count 722 K/UL (150-450) H Mean Platelet Volume 5.3 FL (6.5-10.1) L Neutrophils (%) (Auto) 69.8 % (45.0-75.0) Lymphocytes (%) (Auto) 14.0 % (20.0-45.0) L Monocytes (%) (Auto) 14.4 % (1.0-10.0) H Eosinophils (%) (Auto) 0.4 % (0.0-3.0) Basophils (%) (Auto) 1.4 % (0.0-2.0) Sodium Level 141 MMOL/L (136-145) Potassium Level 3.6 MMOL/L (3.5-5.1) Chloride Level 105 MMOL/L (98-107) Carbon Dioxide Level 25 MMOL/L (21-32) Anion Gap 11 mmol/L (5-15) Blood Urea Nitrogen 15 mg/dL (7-18) Creatinine 1.0 MG/DL (0.55-1.30) Estimat Glomerular Filtration Rate mL/min (>60) Glucose Level 87 MG/DL (74-106) Calcium Level 9.7 MG/DL (8.5-10.1) Phosphorus Level 2.3 MG/DL (2.5-4.9) L Magnesium Level 2.2 MG/DL (1.8-2.4) Microbiology Date/Time Source Procedure Growth Status 09/09/19 22:00 Urine,Clean Catch Urine Culture - Preliminary NO GROWTH AFTER 24 HOURS Resulted Objective HEAD AND NECK: No JVD or carotid bruits. LUNGS: Clear. CARDIOVASCULAR: Regular S1 and S2 with no gallop or murmur. ABDOMEN: Soft. EXTREMITIES: No pitting edema. Nik Acuna MD Sep 11, 2019 14:33
--- NOTE | 2019-09-11 19:24 | NUR ---
HAND-OFF: Report given to RICHA Giron RN. Pt is awake and stable.
--- NOTE | 2019-09-11 19:30 | NUR ---
NURSE NOTES: Received patient in no apparent distress. A&OX2 with confusion. IV site patent and intact. Bed in lowest position. Call light within reach. Will continue to monitor.
[2019-09-12] VITALS: BP 132/89
[2019-09-12 04:00] VITALS: BP 135/86
[2019-09-12] MEDS: Heparin 5000 units/ml inj SUBQ SCH ×3 (05:27→21:31)
[2019-09-12 06:11] LABS: BASOPHILS % (AUTO) 2.1 % (0.0-2.0); EOSINOPHILS % (AUTO) 0.8 % (0.0-3.0); HEMATOCRIT 48.1 % (42.0-52.0); HEMOGLOBIN 15.7 G/DL (14.2-18.0); LYMPHOCYTES % (AUTO) 13.9 % (20.0-45.0); MEAN CORPUSCULAR VOLUME 80 FL (80-99); MONOCYTES % (AUTO) 15.8 % (1.0-10.0); NEUTROPHILS % (AUTO) 67.5 % (45.0-75.0); PLATELET COUNT 643 K/UL (150-450); RED BLOOD COUNT 5.99 M/UL (4.70-6.10); RED CELL DISTRIBUTION WIDTH 14.5 % (11.6-14.8); WHITE BLOOD COUNT 9.6 K/UL (4.8-10.8)
[2019-09-12 06:24] LABS: ANION GAP 4 mmol/L (5-15); BLOOD UREA NITROGEN 23 mg/dL (7-18); CALCIUM 9.2 MG/DL (8.5-10.1); CARBON DIOXIDE 27 MMOL/L (21-32); CHLORIDE 106 MMOL/L (98-107); CREATININE 1.2 MG/DL (0.55-1.30); POTASSIUM 3.8 MMOL/L (3.5-5.1); SODIUM 137 MMOL/L (136-145)
--- NOTE | 2019-09-12 07:29 | NUR ---
HAND-OFF: Report given to Osito LYONS.
--- NOTE | 2019-09-12 07:55 | NUR ---
NURSE NOTES: Received patient on bed, asleep. IV intact and patent. Bed in low and locked position, call light in reach. No signs of respiratory distress or pain. Room board updated, will continue to monitor.
[2019-09-12 08:00] VITALS: BP 149/97
[2019-09-12] MEDS: cefTRIAXone 1 GM in D5W 55 ML IVPB SCH (09:26)
--- NOTE | 2019-09-12 10:42 | Cardiac Electrophysiology PN ---
Assessment/Plan Assessment/Plan 1. Weakness. Troponins are negative. EKG shows left axis deviation and no acute ischemic changes. Echocardiogram Nl EF and carotid duplex no blockage 2. Hypertension. The patient is on p.r.n. hydralazine and Norvasc 5 mg daily. 3. Severe thrombocytosis with platelet count of 715,000. 4. Agitation? etiology FU Psychiatry 5. Placement DW RN Subjective Subjective Alert off restraints. Awaiting Home with home health vs SNIF. No CP or SOB Objective Last 24 Hour Vital Signs Date Time Temp Pulse Resp B/P (MAP) Pulse Ox O2 Delivery O2 Flow Rate FiO2 09/12/19 09:26 74 149/97 09/12/19 09:00 Room Air 09/12/19 08:00 97.6 18 149/97 (114) 98 09/12/19 04:00 98.0 74 19 135/86 (102) 95 09/12/19 00:00 97.6 90 19 132/89 (103) 95 09/11/19 20:17 Room Air 09/11/19 20:00 98.1 93 19 122/86 (98) 96 09/11/19 16:00 98.4 91 20 105/69 (81) 94 09/11/19 14:00 142/85 (104) 09/11/19 11:47 161/91 09/11/19 11:32 97.7 100 20 161/91 (114) 95 Intake and Output 09/11/19 09/12/19 18:59 06:59 Intake Total 775 ml 240 ml Output Total 200 ml Balance 575 ml 240 ml Intake Oral 720 ml 240 ml IV Total 55 ml Output Urine Total 200 ml # Voids 2 2 # Bowel Movements 2 Laboratory Tests Test 09/12/19 05:39 White Blood Count 9.6 K/UL (4.8-10.8) Red Blood Count 5.99 M/UL (4.70-6.10) Hemoglobin 15.7 G/DL (14.2-18.0) Hematocrit 48.1 % (42.0-52.0) Mean Corpuscular Volume 80 FL (80-99) Mean Corpuscular Hemoglobin 26.3 PG (27.0-31.0) L Mean Corpuscular Hemoglobin Concent 32.7 G/DL (32.0-36.0) Red Cell Distribution Width 14.5 % (11.6-14.8) Platelet Count 643 K/UL (150-450) H Mean Platelet Volume 5.4 FL (6.5-10.1) L Neutrophils (%) (Auto) 67.5 % (45.0-75.0) Lymphocytes (%) (Auto) 13.9 % (20.0-45.0) L Monocytes (%) (Auto) 15.8 % (1.0-10.0) H Eosinophils (%) (Auto) 0.8 % (0.0-3.0) Basophils (%) (Auto) 2.1 % (0.0-2.0) H Sodium Level 137 MMOL/L (136-145) Potassium Level 3.8 MMOL/L (3.5-5.1) Chloride Level 106 MMOL/L (98-107) Carbon Dioxide Level 27 MMOL/L (21-32) Anion Gap 4 mmol/L (5-15) L Blood Urea Nitrogen 23 mg/dL (7-18) H Creatinine 1.2 MG/DL (0.55-1.30) Estimat Glomerular Filtration Rate mL/min (>60) Glucose Level 104 MG/DL (74-106) Calcium Level 9.2 MG/DL (8.5-10.1) Microbiology Date/Time Source Procedure Growth Status 09/09/19 22:00 Urine,Clean Catch Urine Culture - Final NO GROWTH AFTER 48 HOURS Complete Objective HEAD AND NECK: No JVD or carotid bruits. LUNGS: Clear. CARDIOVASCULAR: Regular S1 and S2 with no gallop or murmur. ABDOMEN: Soft. EXTREMITIES: No pitting edema. Nik Acuna MD Sep 12, 2019 10:42
[2019-09-12] MEDS ORDERED: OLANZapine 2.5mg tab ORAL PRN (10:45)
[2019-09-12 12:00] VITALS: BP 148/100
--- NOTE | 2019-09-12 15:29 | Hematology/Onc Progress Note ---
Assessment/Plan Assessment/Plan # Thrombocytosis, likely reactive v from primary source --> for workup, at this time, have ordered for jak2 --> will evaluate liver and spleen r/o hepatosplenomegaly --> obtain peripheral smear, reviewed and no early immature cells noted --> plt trend 705k-->643k # Erythrocytosis with elevated hgb for age --> currently 16.2-->15.7 --> also may be related to underlying myeloprolif disorder --> jak2 has been ordered, pending --> fluids have been started --> OUTPATIENT sleep study as needed r/o aristeo # LEukocytosis r/o reactive process --> abx as needed # Hypercalcemia -- with elev Ca on admission --> current 10.2-->9.5 --> likely improved with ivf --> w/u if worsens # Near syncope --> generalized weakness # Dehydration --> ivf started # Essential hypertension --> per cards, TTE normal --> imaging reviewed --> Continue Amlodipine 5 mg daily. Hydralazine prn # Acute encephlopathy, metabolic vs. psychiatric. dehydration v psych --> psych eval --> Social work consult to locate family. Patient currently lives at home by himself # LAUREL- resolved --> Holding HCTZ as above --> monitor renal function # DVt ppx with scds Appreciate consultation and saurabh RN Subjective Constitutional: Denies: no symptoms, chills, fever, malaise, weakness, other HEENT: Denies: no symptoms, eye pain, blurred vision, tearing, double vision, ear pain, ear discharge, nose pain, nose congestion, throat pain, throat swelling, mouth pain, mouth swelling, other Cardiovascular: Denies: no symptoms, chest pain, edema, irregular heart rate, lightheadedness, palpitations, syncope, other Respiratory: Denies: no symptoms, cough, shortness of breath, SOB with excertion, SOB at rest, sputum, wheezing, other Gastrointestinal/Abdominal: Denies: no symptoms, abdomen distended, abdominal pain, black stools, tarry stools, blood in stool, constipated, diarrhea, difficulty swallowing, nausea, poor appetite, poor fluid intake, rectal bleeding , vomiting, other Genitourinary: Denies: no symptoms, burning, discharge, frequency, flank pain, hematuria, incontinence, pain, urgency, other Neurologic/Psychiatric: Denies: no symptoms, anxiety, depressed, emotional problems, headache, numbness, paresthesia, pre-existing deficit, seizure, tingling, tremors, weakness, other Allergies: Coded Allergies: No Known Allergies (Unverified , 09/06/19) Subjective 09/11: no events to report, plt count pending, no f/c 09/12: no events, no bleeding, A+O x2, labs reviewd, psych f/u Objective Objective Current Medications Medications (Trade) Dose Ordered Sig/Elliot Route PRN Reason Start Time Stop Time Status Last Admin Dose Admin Acetaminophen (Tylenol) 650 mg Q6H PRN ORAL Mild Pain/Temp > 100.5 09/10/19 13:56 10/10/19 13:55 Amlodipine Besylate (Norvasc) 10 mg DAILY ORAL 09/11/19 09:00 10/11/19 08:59 09/12/19 09:26 Ceftriaxone Sodium 1 gm/ Dextrose 55 ml @ 110 mls/hr Q24H IVPB 09/11/19 09:00 09/18/19 08:59 09/12/19 09:26 Haloperidol Lactate (Haldol) 5 mg Q6H PRN IM Agitation 09/10/19 13:56 10/10/19 13:55 Heparin Sodium (Porcine) (Heparin 5000 units/ml) 5,000 units EVERY 8 HOURS SUBQ 09/10/19 22:00 10/09/19 21:59 09/12/19 14:34 Hydralazine HCl (Apresoline) 25 mg Q6H PRN ORAL SBP >160 09/10/19 17:00 10/10/19 16:59 09/11/19 11:47 Olanzapine (ZyPREXA) 2.5 mg Q4H PRN ORAL agitation 09/12/19 10:45 10/12/19 10:44 Olanzapine (ZyPREXA) 5 mg BEDTIME ORAL 09/10/19 21:00 10/09/19 20:59 09/11/19 21:12 Last 24 Hour Vital Signs Date Time Temp Pulse Resp B/P (MAP) Pulse Ox O2 Delivery O2 Flow Rate FiO2 09/12/19 12:00 97.1 75 18 148/100 (116) 97 09/12/19 09:26 74 149/97 09/12/19 09:00 Room Air 09/12/19 08:00 97.6 18 149/97 (114) 98 09/12/19 04:00 98.0 74 19 135/86 (102) 95 09/12/19 00:00 97.6 90 19 132/89 (103) 95 09/11/19 20:17 Room Air 09/11/19 20:00 98.1 93 19 122/86 (98) 96 09/11/19 16:00 98.4 91 20 105/69 (81) 94 09/11/19 14:00 142/85 (104) 09/11/19 11:47 161/91 09/11/19 11:32 97.7 100 20 161/91 (114) 95 09/11/19 08:44 83 158/106 09/11/19 08:18 Room Air 09/11/19 08:00 98.2 83 20 158/106 (123) 97 09/11/19 04:00 97.9 85 20 150/100 (117) 95 09/11/19 00:00 98.6 94 20 152/94 (113) 97 09/10/19 21:00 Room Air 09/10/19 20:00 98.3 92 21 147/90 (109) 97 09/10/19 18:04 161/102 (121) 09/10/19 17:15 180/110 09/10/19 17:15 82 180/110 09/10/19 16:00 97.9 82 17 180/110 (133) 99 Intake and Output 09/11/19 09/12/19 18:59 06:59 Intake Total 775 ml 240 ml Output Total 200 ml Balance 575 ml 240 ml Intake Oral 720 ml 240 ml IV Total 55 ml Output Urine Total 200 ml # Voids 2 2 # Bowel Movements 2 Labs Test 09/09/19 22:00 09/11/19 04:38 09/12/19 05:39 Urine Color Yellow Urine Appearance Slightly cloudy Urine pH 5 (4.5-8.0) Urine Specific Graham 1.025 (1.005-1.035) Urine Protein 1+ (NEGATIVE) Urine Glucose (UA) Negative (NEGATIVE) Urine Ketones 1+ (NEGATIVE) Urine Blood Negative (NEGATIVE) Urine Nitrite Negative (NEGATIVE) Urine Bilirubin Negative (NEGATIVE) Urine Urobilinogen Normal MG/DL (0.0-1.0) Urine Leukocyte Esterase 1+ (NEGATIVE) Urine RBC 0 /HPF (0 - 0) Urine WBC 10-15 /HPF (0 - 0) Urine Squamous Epithelial Cells Few /LPF (NONE/OCC) Urine Bacteria Few /HPF (NONE) White Blood Count 10.5 K/UL (4.8-10.8) 9.6 K/UL (4.8-10.8) Red Blood Count 6.58 M/UL (4.70-6.10) 5.99 M/UL (4.70-6.10) Hemoglobin 17.3 G/DL (14.2-18.0) 15.7 G/DL (14.2-18.0) Hematocrit 52.7 % (42.0-52.0) 48.1 % (42.0-52.0) Mean Corpuscular Volume 80 FL (80-99) 80 FL (80-99) Mean Corpuscular Hemoglobin 26.3 PG (27.0-31.0) 26.3 PG (27.0-31.0) Mean Corpuscular Hemoglobin Concent 32.8 G/DL (32.0-36.0) 32.7 G/DL (32.0-36.0) Red Cell Distribution Width 14.3 % (11.6-14.8) 14.5 % (11.6-14.8) Platelet Count 722 K/UL (150-450) 643 K/UL (150-450) Mean Platelet Volume 5.3 FL (6.5-10.1) 5.4 FL (6.5-10.1) Neutrophils (%) (Auto) 69.8 % (45.0-75.0) 67.5 % (45.0-75.0) Lymphocytes (%) (Auto) 14.0 % (20.0-45.0) 13.9 % (20.0-45.0) Monocytes (%) (Auto) 14.4 % (1.0-10.0) 15.8 % (1.0-10.0) Eosinophils (%) (Auto) 0.4 % (0.0-3.0) 0.8 % (0.0-3.0) Basophils (%) (Auto) 1.4 % (0.0-2.0) 2.1 % (0.0-2.0) Sodium Level 141 MMOL/L (136-145) 137 MMOL/L (136-145) Potassium Level 3.6 MMOL/L (3.5-5.1) 3.8 MMOL/L (3.5-5.1) Chloride Level 105 MMOL/L (98-107) 106 MMOL/L (98-107) Carbon Dioxide Level 25 MMOL/L (21-32) 27 MMOL/L (21-32) Anion Gap 11 mmol/L (5-15) 4 mmol/L (5-15) Blood Urea Nitrogen 15 mg/dL (7-18) 23 mg/dL (7-18) Creatinine 1.0 MG/DL (0.55-1.30) 1.2 MG/DL (0.55-1.30) Estimat Glomerular Filtration Rate mL/min (>60) mL/min (>60) Glucose Level 87 MG/DL (74-106) 104 MG/DL (74-106) Calcium Level 9.7 MG/DL (8.5-10.1) 9.2 MG/DL (8.5-10.1) Phosphorus Level 2.3 MG/DL (2.5-4.9) Magnesium Level 2.2 MG/DL (1.8-2.4) Height (Feet): 5 Height (Inches): 7.00 Weight (Pounds): 130 Objective Gen: Nad Pulm: Ctab, no cwr CV: rrr, no mgr Abd: soft, nt, nd Ext: no cce ++ restraints Virgilio Su MD Sep 12, 2019 15:29
[2019-09-12 16:00] VITALS: BP 128/83
--- NOTE | 2019-09-12 19:21 | General Progress Note ---
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 SNOMED: 2388438 (2) Hypokalemia ICD Codes: E87.6 - Hypokalemia SNOMED: 96611193 (3) Acute encephalopathy ICD Codes: G93.40 - Encephalopathy, unspecified SNOMED: 58537258, 333816524 (4) Hypertension ICD Codes: I10 - Essential (primary) hypertension SNOMED: 24372907 Qualifiers: Qualified Codes: I10 - Essential (primary) hypertension (5) Near syncope ICD Codes: R55 - Syncope and collapse SNOMED: 745699964 (6) Episode of generalized weakness ICD Codes: R53.1 - Weakness SNOMED: 56345975 (7) Acute kidney injury ICD Codes: N17.9 - Acute kidney failure, unspecified SNOMED: 8185156, 69711403 Status: stable Assessment/Plan: 88 year old male with HTN presents with weakness and near syncope #Near syncope. No further episodes of near syncope or syncope while hospitalized. #generalized weakness, improving #Dehydration, improving > TTE normal > Carotid ultrasound: negative >CXR negative > no events on telemetry -Continue med surg -Cardiology consult with Dr. Acuna- no further interventions -physical therapy evaluation- recommending SNF rehab #acute encephlopathy, metabolic vs. psychiatric. Suspect possible underlying psychiatric disorder vs. dementia and component of possible infection (uti). Likely had component of dehydration- stable agitation. ?Hospital delirium, no known psych history -Appreciate psych consult: Dr. Contreras -zyprexa 5mg PO QHS -Haldol prn -Per psychiatry patient lacks capacity to refuse care -Social work consult to locate family. Patient currently lives at home by himself #UTI > 1+ leik esterase, 10-15 WBC - Continue Rocephin 1gm IV Q24hr (09/11 - ), plan for 5 days. - f/u urine culture- no growth so far #LAUREL- resolved -Holding HCTZ as above -monitor renal function -Avoid nephrotoxic medications #Hypercalcemia - resolved -due to dehydration, monitor #Thrombocytosis- -improving -Appreciate hematology oncology consult, Dr. Su: Vinicius 2 sent, abdominal ultrasound to evaluate splenomegaly. May have underlying MDS. #HTN -Hold HCTZ and DC on discharge -Increase Amlodipine to 10 mg daily. Hydralazine prn FENPPX DVTPPX: Heparin SBQ GI PPX: none needed Fluids: none Diet: Regular Lines: Peripheral PT/OT: Ordered, pending today Code status: Full code Dispo: SNF for rehab Reason for Continued Hospitalization: Placement 28 minutes spent on this encounter. Discussed with RN and patient. > 50% spent on counseling and care coordination. Time of note may not reflect time patient was seen. Subjective Date patient seen: Sep 12, 2019 Constitutional: Denies: chills, diaphoresis, fever, malaise, weakness, other HEENT: Denies: eye pain, blurred vision, tearing, double vision, ear pain, ear discharge, nose pain, nose congestion, throat pain, throat swelling, mouth pain , mouth swelling, other Cardiovascular: Denies: chest pain, edema, irregular heart rate, lightheadedness, palpitations, syncope, other Respiratory: Denies: cough, orthopnea, shortness of breath, SOB with excertion , SOB at rest, sputum, stridor, wheezing, other Gastrointestinal/Abdominal: Denies: abdomen distended, abdominal pain, black stools, tarry stools, blood in stool, constipated, diarrhea, difficulty swallowing, nausea, poor appetite, poor fluid intake, rectal bleeding, vomiting , other Genitourinary: Denies: burning, discharge, frequency, flank pain, hematuria, incontinence, pain, urgency, other Neurologic/Psychiatric: Denies: anxiety, depressed, emotional problems, headache, numbness, paresthesia, pre-existing deficit, seizure, tingling, tremors, weakness, other Endocrine: Denies: excessive sweating, flushing, intolerance to cold, intolerance to heat, increased hunger, increased thirst, increased urine, unexplained weight gain, unexplained weight loss, other Hematologic/Lymphatic: Denies: anemia, easy bleeding, easy bruising, other Allergies: Coded Allergies: No Known Allergies (Unverified , 09/06/19) Subjective No acute events overnight per nursing. Patient continues to have agitation at night. No agitation at night. Denies any other complaints. Denies chest pain, palpitations, fever, chills, cough, shortness of breath. Objective Last 24 Hour Vital Signs Date Time Temp Pulse Resp B/P (MAP) Pulse Ox O2 Delivery O2 Flow Rate FiO2 09/12/19 16:00 98.3 92 18 128/83 (98) 97 09/12/19 12:00 97.1 75 18 148/100 (116) 97 09/12/19 09:26 74 149/97 09/12/19 09:00 Room Air 09/12/19 08:00 97.6 18 149/97 (114) 98 09/12/19 04:00 98.0 74 19 135/86 (102) 95 09/12/19 00:00 97.6 90 19 132/89 (103) 95 09/11/19 20:17 Room Air 09/11/19 20:00 98.1 93 19 122/86 (98) 96 Intake and Output 09/11/19 09/12/19 19:00 07:00 Intake Total 775 ml 240 ml Output Total 200 ml Balance 575 ml 240 ml Intake Oral 720 ml 240 ml IV Total 55 ml Output Urine Total 200 ml # Voids 2 2 # Bowel Movements 2 Laboratory Tests 09/12/19 05:39: White Blood Count 9.6, Red Blood Count 5.99, Hemoglobin 15.7, Hematocrit 48.1, Mean Corpuscular Volume 80, Mean Corpuscular Hemoglobin 26.3L, Mean Corpuscular Hemoglobin Concent 32.7, Red Cell Distribution Width 14.5, Platelet Count 643H, Mean Platelet Volume 5.4L, Neutrophils (%) (Auto) 67.5, Lymphocytes (%) (Auto) 13.9L, Monocytes (%) (Auto) 15.8H, Eosinophils (%) (Auto) 0.8, Basophils (%) ( Auto) 2.1H, Sodium Level 137, Potassium Level 3.8, Chloride Level 106, Carbon Dioxide Level 27, Anion Gap 4L, Blood Urea Nitrogen 23H, Creatinine 1.2, Estimat Glomerular Filtration Rate , Glucose Level 104, Calcium Level 9.2 Height (Feet): 5 Height (Inches): 7.00 Weight (Pounds): 130 General Appearance: WD/WN, no apparent distress, alert EENT: PERRL/EOMI, normal ENT inspection Neck: non-tender, normal alignment, supple Cardiovascular: normal peripheral pulses, normal rate, regular rhythm, no JVD Respiratory/Chest: chest wall non-tender, lungs clear, normal breath sounds Abdomen: normal bowel sounds, non tender, soft, no organomegaly, no mass Extremities: normal range of motion, non-tender, normal inspection Edema: other - No lower extremity edema bilaterally 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 Sep 12, 2019 19:21
--- NOTE | 2019-09-12 19:30 | NUR ---
NURSE NOTES: Received report from ELOY Mcneill. Received pt laying in bed, AOx2, denies any pain, no distress noted. IV right upper arm patent and intact. Bed in lowest position and locked, side rails up x 3, call light within reach. Will continue to monitor.
--- NOTE | 2019-09-12 19:52 | NUR ---
HAND-OFF: Report given to RN Daus.
[2019-09-12 20:00] VITALS: BP 134/89
--- NOTE | 2019-09-12 21:12 | NUR ---
NURSE NOTES: Refused Zyprexa and Heparin sub. cut medication.
[2019-09-13] VITALS: BP 139/94
--- NOTE | 2019-09-13 01:03 | Progress Note ---
DATE: 09/12/2019 SUBJECTIVE: The patient is more alert and follows directions, however, he still has poor memory, as he is forgetful pulling out the IV while he was attempting to go to the bathroom. He is having waxing and waning consciousness, poor memory. MENTAL STATUS EXAMINATION: The patient is alert and oriented times to self. He knows he is in the hospital. He knew it is August. Mood is irritable. Affect is flat. Thought process is concrete. Thought content, no suicidal or homicidal ideation. Cognition is impaired. ASSESSMENT: Acute encephalopathy, improving. PLAN: 1. We will continue the olanzapine. 2. The patient may leave when medically cleared. Adriana Contreras M.D. DR: SIMON JOB#: [id number] CC:
[2019-09-13 04:00] VITALS: BP 142/101
[2019-09-13] MEDS: Heparin 5000 units/ml inj SUBQ SCH ×2 (05:31→22:00)
--- NOTE | 2019-09-13 07:00 | NUR ---
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 pt refusing to sit in bed, so the patient is standing by the counter inside the room pt refused medication, dr Che aware of noncompliance, per md not a candidate to sign ama or go home. House Sup aware
--- NOTE | 2019-09-13 07:01 | NUR ---
HAND-OFF: Report given to ELOY Mcneill. Pt sitting in the chair, stable condition.
[2019-09-13] MEDS: DiphenhydrAMINE 50mg/ml Inj IM SCH ×2 (07:34→08:42)
[2019-09-13] MEDS: LORazepam Inj 2mg/ml 1ml IM SCH ×2 (07:34→08:42)
--- NOTE | 2019-09-13 07:45 | NUR ---
NURSE NOTES: Patient became agitated and attempted to leave. Security was contacted as well as Dr. Contreras and Dr. Chinedu Scott. Patient refused IM dose prescribed by Dr. Contreras. Dr. Che placed another PO order but patient also refused. patient was talked back into his room but is still wanting to leave. MD Che stated patient cannot leave as his cognition is impaired as well as his gait and overall safety. A sitter order was placed. Charge nurse Long and mix house tender Ankit were also made aware.
[2019-09-13] MEDS ORDERED: LORazepam 1mg tab ORAL SCH (08:00)
--- NOTE | 2019-09-13 08:38 | NUR ---
NURSE NOTES: Dr. Che stated to give the IM dose per Dr. Contreras's order,a nd ok to hold patient for medication administration. Charge nurse and warehouse helper made aware. Security also notified.
--- NOTE | 2019-09-13 10:19 | NUR ---
NURSE NOTES: AT 1000, PATIENT IN THE ROOM IN THE SQUAT POSITION BY THE TV. PT REFUSED TO SIT IN BED. PT WALKED OUTSIDE THE ROOM, UNSTEADY GAIT, BALANCE ISSUES, THEN THE PATIENT FELL TO THE FLOOR FALL WAS WITNESSED BY P.T. STAFF AND GLAZIER HELPER. ASSISTED PT TO CHAIR, PT DENIES ANY PAIN, NO SKIN ISSUES PAGED AND TALKED TO DR JOHNSON, ONLY STAT EKG ORDERED DUE TO ELEVATED HR 120s. AWAITING EKG. HOUSE SUP AWARE. Addendum: 09/13/19 at 1022 by EMELINA JACOBSEN RN SITTER AT BEDSIDE NOW
--- NOTE | 2019-09-13 10:32 | NUR ---
*-* DISCHARGE PLANNING *-* PATIENT HAS BEEN REFERRED TO: [facility] P: [phone] F: [phone] EMAIL: [email or web address] Addendum: 09/13/19 at 1103 by SEBASTIEN BARBA also sent to : [facility] p: [phone] f: [phone] efax: [phone] email: [email or web address]
[2019-09-13] MEDS: cefTRIAXone 1 GM in D5W 55 ML IVPB SCH (10:41)
--- NOTE | 2019-09-13 11:00 | NUR ---
NURSE NOTES: Patient was was rechecked. Pupils are equal and reactive to light 3mm in diameter. Patient oriented to person, place and purpose but thought the year was 1998. Patient bilateral upper extremity strength is 3/5, peripheral pulses present. Bi lateral lower extremity strength 3/5. patient denies any pain and stated he did not fall on his head. patient was placed with a 1 to 1 sitter. He was educated on fall prevention and told to use his call light to summon a nurse or assistance before getting out of bed. He was asked if need to void and he replied no. he was advised that he would need assistance to get out of bed for any reason as he fell earlier. Patient said he understood.
--- NOTE | 2019-09-13 11:00 | NUR ---
NURSE NOTES: New IV started on right forearm 22 gauge. Site is intact, patent and asymptomatic. Old IV access removed and site covered.
--- NOTE | 2019-09-13 11:18 | Hematology/Onc Progress Note ---
Assessment/Plan Assessment/Plan # Thrombocytosis, likely reactive v from primary source --> will evaluate liver and spleen r/o hepatosplenomegaly --> obtain peripheral smear, reviewed and no early immature cells noted --> JAK2 as per pcp --> plt trend 705k-->643k # Erythrocytosis with elevated hgb for age --> currently 16.2-->15.7 --> also may be related to underlying myeloprolif disorder --> jak2 has been ordered, pending --> fluids have been started --> OUTPATIENT sleep study as needed r/o aristeo # LEukocytosis r/o reactive process --> abx as needed # Hypercalcemia -- with elev Ca on admission --> current 10.2-->9.5 --> likely improved with ivf --> w/u if worsens # Near syncope --> generalized weakness # Dehydration --> ivf started # Essential hypertension --> per cards, TTE normal --> imaging reviewed --> Continue Amlodipine 5 mg daily. Hydralazine prn # Acute encephlopathy, metabolic vs. psychiatric. dehydration v psych --> psych eval --> Social work consult to locate family. Patient currently lives at home by himself # LAUREL- resolved --> Holding HCTZ as above --> monitor renal function # DVt ppx with scds Appreciate consultation and saurabh RN Subjective Constitutional: Denies: no symptoms, chills, fever, malaise, weakness, other HEENT: Denies: no symptoms, eye pain, blurred vision, tearing, double vision, ear pain, ear discharge, nose pain, nose congestion, throat pain, throat swelling, mouth pain, mouth swelling, other Cardiovascular: Denies: no symptoms, chest pain, edema, irregular heart rate, lightheadedness, palpitations, syncope, other Respiratory: Denies: no symptoms, cough, shortness of breath, SOB with excertion, SOB at rest, sputum, wheezing, other Genitourinary: Denies: no symptoms, burning, discharge, frequency, flank pain, hematuria, incontinence, pain, urgency, other Neurologic/Psychiatric: Denies: no symptoms, anxiety, depressed, emotional problems, headache, numbness, paresthesia, pre-existing deficit, seizure, tingling, tremors, weakness, other Endocrine: Denies: no symptoms, excessive sweating, flushing, intolerance to cold, intolerance to heat, increased hunger, increased thirst, increased urine, unexplained weight gain, unexplained weight loss, other Allergies: Coded Allergies: No Known Allergies (Unverified , 09/06/19) Subjective 09/11: no events to report, plt count pending, no f/c 09/12: no events, no bleeding, A+O x2, labs reviewd, psych f/u 09/13: still remains somewhat anxious, labs noted, plt high Objective Objective Current Medications Medications (Trade) Dose Ordered Sig/Elliot Route PRN Reason Start Time Stop Time Status Last Admin Dose Admin Acetaminophen (Tylenol) 650 mg Q6H PRN ORAL Mild Pain/Temp > 100.5 09/10/19 13:56 10/10/19 13:55 Amlodipine Besylate (Norvasc) 10 mg DAILY ORAL 09/11/19 09:00 10/11/19 08:59 09/12/19 09:26 Ceftriaxone Sodium 1 gm/ Dextrose 55 ml @ 110 mls/hr Q24H IVPB 09/11/19 09:00 09/18/19 08:59 09/13/19 10:41 Haloperidol Lactate (Haldol) 5 mg Q6H PRN IM Agitation 09/10/19 13:56 10/10/19 13:55 Heparin Sodium (Porcine) (Heparin 5000 units/ml) 5,000 units EVERY 8 HOURS SUBQ 09/10/19 22:00 10/09/19 21:59 09/12/19 14:34 Hydralazine HCl (Apresoline) 25 mg Q6H PRN ORAL SBP >160 09/10/19 17:00 10/10/19 16:59 09/11/19 11:47 Olanzapine (ZyPREXA) 2.5 mg Q4H PRN ORAL agitation 09/12/19 10:45 10/12/19 10:44 Olanzapine (ZyPREXA) 5 mg BEDTIME ORAL 09/10/19 21:00 10/09/19 20:59 09/11/19 21:12 Last 24 Hour Vital Signs Date Time Temp Pulse Resp B/P (MAP) Pulse Ox O2 Delivery O2 Flow Rate FiO2 09/13/19 10:15 118 120 120 09/13/19 09:00 Room Air 09/13/19 04:00 98.0 72 19 142/101 (115) 97 09/13/19 00:00 98.2 77 19 139/94 (109) 96 09/12/19 21:00 Room Air 09/12/19 20:51 95 90 120 09/12/19 20:00 98.2 95 19 134/89 (104) 97 09/12/19 16:00 98.3 92 18 128/83 (98) 97 09/12/19 12:00 97.1 75 18 148/100 (116) 97 09/12/19 09:26 74 149/97 09/12/19 09:00 Room Air 09/12/19 08:00 97.6 18 149/97 (114) 98 09/12/19 04:00 98.0 74 19 135/86 (102) 95 09/12/19 00:00 97.6 90 19 132/89 (103) 95 09/11/19 20:17 Room Air 09/11/19 20:00 98.1 93 19 122/86 (98) 96 09/11/19 16:00 98.4 91 20 105/69 (81) 94 09/11/19 14:00 142/85 (104) 09/11/19 11:47 161/91 09/11/19 11:32 97.7 100 20 161/91 (114) 95 Intake and Output 09/12/19 09/13/19 19:00 07:00 Intake Total 655 ml Output Total 700 ml Balance 655 ml -700 ml Intake Oral 600 ml IV Total 55 ml Output Urine Total 700 ml # Voids 1 Labs Test 09/11/19 04:38 09/12/19 05:39 White Blood Count 10.5 K/UL (4.8-10.8) 9.6 K/UL (4.8-10.8) Red Blood Count 6.58 M/UL (4.70-6.10) 5.99 M/UL (4.70-6.10) Hemoglobin 17.3 G/DL (14.2-18.0) 15.7 G/DL (14.2-18.0) Hematocrit 52.7 % (42.0-52.0) 48.1 % (42.0-52.0) Mean Corpuscular Volume 80 FL (80-99) 80 FL (80-99) Mean Corpuscular Hemoglobin 26.3 PG (27.0-31.0) 26.3 PG (27.0-31.0) Mean Corpuscular Hemoglobin Concent 32.8 G/DL (32.0-36.0) 32.7 G/DL (32.0-36.0) Red Cell Distribution Width 14.3 % (11.6-14.8) 14.5 % (11.6-14.8) Platelet Count 722 K/UL (150-450) 643 K/UL (150-450) Mean Platelet Volume 5.3 FL (6.5-10.1) 5.4 FL (6.5-10.1) Neutrophils (%) (Auto) 69.8 % (45.0-75.0) 67.5 % (45.0-75.0) Lymphocytes (%) (Auto) 14.0 % (20.0-45.0) 13.9 % (20.0-45.0) Monocytes (%) (Auto) 14.4 % (1.0-10.0) 15.8 % (1.0-10.0) Eosinophils (%) (Auto) 0.4 % (0.0-3.0) 0.8 % (0.0-3.0) Basophils (%) (Auto) 1.4 % (0.0-2.0) 2.1 % (0.0-2.0) Sodium Level 141 MMOL/L (136-145) 137 MMOL/L (136-145) Potassium Level 3.6 MMOL/L (3.5-5.1) 3.8 MMOL/L (3.5-5.1) Chloride Level 105 MMOL/L (98-107) 106 MMOL/L (98-107) Carbon Dioxide Level 25 MMOL/L (21-32) 27 MMOL/L (21-32) Anion Gap 11 mmol/L (5-15) 4 mmol/L (5-15) Blood Urea Nitrogen 15 mg/dL (7-18) 23 mg/dL (7-18) Creatinine 1.0 MG/DL (0.55-1.30) 1.2 MG/DL (0.55-1.30) Estimat Glomerular Filtration Rate mL/min (>60) mL/min (>60) Glucose Level 87 MG/DL (74-106) 104 MG/DL (74-106) Calcium Level 9.7 MG/DL (8.5-10.1) 9.2 MG/DL (8.5-10.1) Phosphorus Level 2.3 MG/DL (2.5-4.9) Magnesium Level 2.2 MG/DL (1.8-2.4) Height (Feet): 5 Height (Inches): 7.00 Weight (Pounds): 130 Objective Gen: Nad Pulm: Ctab, no cwr CV: rrr, no mgr Abd: soft, nt, nd Ext: no cce ++ restraints Virgilio uS MD Sep 13, 2019 11:18
--- NOTE | 2019-09-13 11:22 | NUR ---
PT NOTE PT treatment deferred per Osito LYONS request, patient sedated due to agitation earlier. Will follow.
--- NOTE | 2019-09-13 12:19 | Cardiac Electrophysiology PN ---
Assessment/Plan Assessment/Plan 1. Weakness. Troponins are negative. EKG shows left axis deviation and no acute ischemic changes. Echocardiogram Nl EF and carotid duplex no blockage 2. Hypertension. The patient is on p.r.n. hydralazine and Norvasc 5 mg daily. 3. Severe thrombocytosis with platelet count of 715,000. 4. Agitation? etiology FU Psychiatry 5. Placement DW RN Subjective Subjective Alert off restraints. Sitter at bedside. Had a fall earlier today but no pain. No CP or SOB Objective Last 24 Hour Vital Signs Date Time Temp Pulse Resp B/P (MAP) Pulse Ox O2 Delivery O2 Flow Rate FiO2 09/13/19 10:15 118 120 120 09/13/19 09:00 Room Air 09/13/19 04:00 98.0 72 19 142/101 (115) 97 09/13/19 00:00 98.2 77 19 139/94 (109) 96 09/12/19 21:00 Room Air 09/12/19 20:51 95 90 120 09/12/19 20:00 98.2 95 19 134/89 (104) 97 09/12/19 16:00 98.3 92 18 128/83 (98) 97 Intake and Output 09/12/19 09/13/19 19:00 07:00 Intake Total 655 ml Output Total 700 ml Balance 655 ml -700 ml Intake Oral 600 ml IV Total 55 ml Output Urine Total 700 ml # Voids 1 Objective HEAD AND NECK: No JVD or carotid bruits. LUNGS: Clear. CARDIOVASCULAR: Regular S1 and S2 with no gallop or murmur. ABDOMEN: Soft. EXTREMITIES: No pitting edema. Nik Acuna MD Sep 13, 2019 12:19
[2019-09-13 12:26] LABS: BASOPHILS % (AUTO) 2.4 % (0.0-2.0); EOSINOPHILS % (AUTO) 0.2 % (0.0-3.0); HEMATOCRIT 52.9 % (42.0-52.0); HEMOGLOBIN 16.9 G/DL (14.2-18.0); LYMPHOCYTES % (AUTO) 12.9 % (20.0-45.0); MEAN CORPUSCULAR VOLUME 80 FL (80-99); MONOCYTES % (AUTO) 12.1 % (1.0-10.0); NEUTROPHILS % (AUTO) 72.4 % (45.0-75.0); PLATELET COUNT 745 K/UL (150-450); RED BLOOD COUNT 6.62 M/UL (4.70-6.10); RED CELL DISTRIBUTION WIDTH 14.5 % (11.6-14.8); WHITE BLOOD COUNT 8.1 K/UL (4.8-10.8)
--- NOTE | 2019-09-13 13:06 | General Progress Note ---
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 SNOMED: 8803561 (2) Hypokalemia ICD Codes: E87.6 - Hypokalemia SNOMED: 49904398 (3) Acute encephalopathy ICD Codes: G93.40 - Encephalopathy, unspecified SNOMED: 89615875, 534384128 (4) Hypertension ICD Codes: I10 - Essential (primary) hypertension SNOMED: 56039097 Qualifiers: Qualified Codes: I10 - Essential (primary) hypertension (5) Near syncope ICD Codes: R55 - Syncope and collapse SNOMED: 955893431 (6) Episode of generalized weakness ICD Codes: R53.1 - Weakness SNOMED: 82399866 (7) Acute kidney injury ICD Codes: N17.9 - Acute kidney failure, unspecified SNOMED: 3023422, 70593092 Status: stable Assessment/Plan: 88 year old male with HTN presents with weakness and near syncope #Near syncope. No further episodes of near syncope or syncope while hospitalized. #generalized weakness, improving #Dehydration, improving > TTE normal > Carotid ultrasound: negative >CXR negative > no events on telemetry -Continue med surg -Cardiology consult with Dr. Acuna- no further interventions -physical therapy evaluation- recommending SNF rehab #acute encephlopathy, metabolic vs. psychiatric. Suspect possible underlying psychiatric disorder vs. dementia and component of possible infection (uti). Likely had component of dehydration- Worsening agitation. ?Hospital delirium, no known psych history #mechanical fall. Suspected 2/2 weakness. No LOC or head trauma. -Appreciate psych consult: Dr. Contreras -zyprexa 5mg PO QHS -Haldol prn -Bilateral soft wrist restraints intermittently for agitation and combativeness. Patient has tried to hit and kicked the staff. -Per psychiatry patient lacks capacity to refuse care or Leave the hospital AMA -Social work consult to locate family. Patient currently lives at home by himself -CT head today - continue PT when able #UTI > 1+ leik esterase, 10-15 WBC - Continue Rocephin 1gm IV Q24hr (09/11 - ), plan for 5 days. - f/u urine culture- no growth so far #LAUREL- resolved -Holding HCTZ as above -monitor renal function -Avoid nephrotoxic medications #Hypercalcemia - resolved -due to dehydration, monitor #Thrombocytosis- -improving -Appreciate hematology oncology consult, Dr. Su: Vinicius 2 sent, abdominal ultrasound to evaluate splenomegaly. May have underlying MDS. #HTN -Hold HCTZ and DC on discharge -Increase Amlodipine to 10 mg daily. Hydralazine prn FENPPX DVTPPX: Heparin SBQ GI PPX: none needed Fluids: none Diet: Regular Lines: Peripheral PT/OT: Ordered Code status: Full code Dispo: SNF for rehab Reason for Continued Hospitalization: Placement, agitation/delerium 38 minutes spent on this encounter. Discussed with RN and patient. > 50% spent on counseling and care coordination. Time of note may not reflect time patient was seen. Subjective Date patient seen: Sep 13, 2019 ROS Limited/Unobtainable: Yes - Patient altered Allergies: Coded Allergies: No Known Allergies (Unverified , 09/06/19) Subjective No acute events overnight per nursing. Patient was agitated overnight. Requiring soft wrist restraints on and off. Given Haldol and Ativan PRN. The patient got out of bed and started to walk towards the elevator and had a witnessed fall. No loss of consciousness. No head trauma. The patient was not complaining of any pain anywhere. No bruising or bleeding noted anywhere. Denies chest pain, palpitations, fever, chills, cough, shortness of breath. Objective Last 24 Hour Vital Signs Date Time Temp Pulse Resp B/P (MAP) Pulse Ox O2 Delivery O2 Flow Rate FiO2 09/13/19 10:15 118 120 120 09/13/19 09:00 Room Air 09/13/19 04:00 98.0 72 19 142/101 (115) 97 09/13/19 00:00 98.2 77 19 139/94 (109) 96 09/12/19 21:00 Room Air 09/12/19 20:51 95 90 120 09/12/19 20:00 98.2 95 19 134/89 (104) 97 09/12/19 16:00 98.3 92 18 128/83 (98) 97 Intake and Output 09/12/19 09/13/19 18:59 06:59 Intake Total 655 ml Output Total 700 ml Balance 655 ml -700 ml Intake Oral 600 ml IV Total 55 ml Output Urine Total 700 ml # Voids 1 Laboratory Tests 09/13/19 11:40: White Blood Count 8.1, Red Blood Count 6.62H, Hemoglobin 16.9, Hematocrit 52.9H , Mean Corpuscular Volume 80, Mean Corpuscular Hemoglobin 25.6L, Mean Corpuscular Hemoglobin Concent 32.0, Red Cell Distribution Width 14.5, Platelet Count 745H, Mean Platelet Volume 5.5L, Neutrophils (%) (Auto) 72.4, Lymphocytes (%) (Auto) 12.9L, Monocytes (%) (Auto) 12.1H, Eosinophils (%) (Auto) 0.2, Basophils (%) (Auto) 2.4H Height (Feet): 5 Height (Inches): 7.00 Weight (Pounds): 130 General Appearance: WD/WN, alert, confused EENT: PERRL/EOMI, normal ENT inspection Neck: non-tender, normal alignment, supple Cardiovascular: normal peripheral pulses, normal rate, regular rhythm, no JVD Respiratory/Chest: chest wall non-tender, lungs clear, normal breath sounds Abdomen: normal bowel sounds, non tender, soft, no organomegaly, no mass Edema: other - No lower extremity edema bilaterally 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 Sep 13, 2019 13:06
--- NOTE | 2019-09-13 13:24 | NUR ---
NURSE NOTES: Patient became irate and attempted to get out of bed and strike [facility] sitter. MD Che was notified and bi lateral soft wrist restraints were initiated. Charge nurse aware.
--- NOTE | 2019-09-13 14:18 | NUR ---
RD ASSESSMENT & RECOMMENDATIONS SEE CARE ACTIVITY FOR COMPLETE ASSESSMENT DAILY ESTIMATED NEEDS: Needs based on Cardiac, 59kg 25-30 kcals/kg 9665-9723 total kcals 1-1.2 g protein/kg 59-71 g total protein 25-30 mL/kg 0141-2277 total fluid mLs NUTRITION DIAGNOSIS: Decreased sodium intake needs R/T HTN as evidenced by elev BPs, pt on hypotensive meds. CURRENT DIET: REGULAR PO DIET RECOMMENDATIONS: LOW NA, texture as tolerated ADDITIONAL RECOMMENDATIONS: * Calibrated bedscale wt * Monitor lytes, replete as needed (low mag 1.6), check f/up lytes * Monitor for continued good PO intake
[2019-09-13] MEDS ORDERED: LORazepam Inj 2mg/ml 1ml IV SCH (14:20)
[2019-09-13] MEDS ORDERED: LORazepam Inj 2mg/ml 1ml IV ONE (15:15)
[2019-09-13] MEDS ORDERED: Haloperidol 5mg/ml Inj IM PRN (15:15)
[2019-09-13] MEDS ORDERED: OLANZapine 2.5mg tab ORAL PRN (15:15)
--- NOTE | 2019-09-13 15:15 | NUR ---
PT UNABLE TO STAY STILL OR EVEN TO STAY IN BED. PT PUSHING AWAY SITTER LYNNE WHO IS JUST TRYING TO KEEP PT SAFE. CAN NOT SAFELY PERFORM CT HEAD, EVEN THOUGH IV SEDATION WAS GIVEN. BOTH ELOY KINGSTON AND FLOUR BLENDER HAS BEEN INFORMED. TJCiara 14:45
--- NOTE | 2019-09-13 15:20 | NUR ---
NURSE NOTES: Patient transferred down to telemetry. Report given to ELOY Odom. MRI Staff refused to take patient stating he was a risk. Endorsed to ELOY Odom who will notify MD Chinedu Scott. ARY Bartlett stayed as sitter.
--- NOTE | 2019-09-13 15:44 | NUR ---
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 98.0 HR 118 RR 19 B/P 142/101 IS: IVF NS @ 75ML/HR ROCEPHIN IV HEPARIN SUBC STEP DOWN STATUS
--- NOTE | 2019-09-13 15:46 | NUR ---
NURSE NOTES: Pt was transfered from 4E to tele room 212-1 pt is agitated, scratching, and attempting to bite staff.
[2019-09-13 16:00] VITALS: BP 149/109
[2019-09-13] MEDS ORDERED: HydrALAZINE 25mg tab ORAL PRN (17:00)
--- NOTE | 2019-09-13 19:54 | NUR ---
HAND-OFF: Report given to ghazala harrison.
--- NOTE | 2019-09-13 19:55 | NUR ---
NURSE NOTES: Got report from Neto LYONS. Pt in stable condition. Denies any pain. No s/s of distress or discomfort noted. Pt resting in bed comfortably. Bed in low and locked position, call light within reach, bedside table within reach. Continue to monitor.
--- NOTE | 2019-09-14 04:15 | Progress Note ---
DATE: 09/13/2019 SUBJECTIVE: The patient is easily agitated, was combative, and wants to leave against medical advice. The patient lacks capacity to make decision. The patient has poor insight. The patient is illogical, attempting to leave AMA, however, the patient lacks capacity . MENTAL STATUS EXAMINATION: The patient is alert and oriented times self. . Mood is agitated. Affect is flat. Thought process is concrete. Thought content, no suicidal or homicidal ideation. ASSESSMENT: Currently calm and stable. PLAN: 1. We will start the patient on Ativan t.i.d. 2. The patient's Zyprexa will be increased per primary physician. 3. Continue to follow and readjust the medications. Adriana Contreras M.D. DR: NOEMI JOB#: [id number] CC:
[2019-09-14] MEDS: Heparin 5000 units/ml inj SUBQ SCH ×3 (06:00→21:13)
--- NOTE | 2019-09-14 07:00 | NUR ---
HAND-OFF: Report given to Dia LYONS.
--- NOTE | 2019-09-14 07:52 | NUR ---
NURSE NOTES: I received the patient resting in bed. Patient does not display any signs of distress or SOB. Bed in the lowest position and call light within reach. I will continue to monitor the patient and implement care.
[2019-09-14 08:00] VITALS: BP 166/125
[2019-09-14] MEDS: LORazepam 0.5mg tab ORAL SCH ×3 (08:23→18:00)
[2019-09-14 09:00] VITALS: BP 148/108
[2019-09-14] MEDS: cefTRIAXone 1 GM in D5W 55 ML IVPB SCH (10:21)
[2019-09-14 10:26] LABS: BASOPHILS % (AUTO) 1.8 % (0.0-2.0); EOSINOPHILS % (AUTO) 0.3 % (0.0-3.0); HEMATOCRIT 51.8 % (42.0-52.0); HEMOGLOBIN 16.7 G/DL (14.2-18.0); LYMPHOCYTES % (AUTO) 13.7 % (20.0-45.0); MEAN CORPUSCULAR VOLUME 80 FL (80-99); MONOCYTES % (AUTO) 10.2 % (1.0-10.0); NEUTROPHILS % (AUTO) 74.1 % (45.0-75.0); PLATELET COUNT 757 K/UL (150-450); RED BLOOD COUNT 6.49 M/UL (4.70-6.10); RED CELL DISTRIBUTION WIDTH 14.3 % (11.6-14.8); WHITE BLOOD COUNT 8.7 K/UL (4.8-10.8)
[2019-09-14 10:36] LABS: ANION GAP 11 mmol/L (5-15); BLOOD UREA NITROGEN 18 mg/dL (7-18); CARBON DIOXIDE 25 MMOL/L (21-32); CHLORIDE 106 MMOL/L (98-107); POTASSIUM 3.6 MMOL/L (3.5-5.1); SODIUM 142 MMOL/L (136-145)
[2019-09-14 10:37] LABS: ALANINE AMINOTRANSFERASE 41 U/L (12-78); ALBUMIN 3.6 G/DL (3.4-5.0); ALBUMIN/GLOBULIN RATIO 0.8 (1.0-2.7); ALKALINE PHOSPHATASE 97 U/L (46-116); ASPARTATE AMINO TRANSFERASE 45 U/L (15-37); BILIRUBIN,TOTAL 0.5 MG/DL (0.2-1.0); CALCIUM 9.4 MG/DL (8.5-10.1); PHOSPHORUS 2.6 MG/DL (2.5-4.9)
[2019-09-14 10:50] VITALS: BP 144/101
[2019-09-14 12:00] VITALS: BP 148/108
--- NOTE | 2019-09-14 12:06 | NUR ---
PT Note Patient has been transferred to telemetry. Will hold off on PT for now; will need new orders to resume physical therapy.
--- NOTE | 2019-09-14 13:10 | NUR ---
NURSE NOTES: Patient is very combative and non-compliant. Patient is kicking at staff and trying to get out of bed. Patient refused to take his ativan. Soft wrist restraints are on the patient. Patient is screaming in his room. Bed in the lowest position and call light within reach.
--- NOTE | 2019-09-14 13:46 | General Progress Note ---
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 SNOMED: 3305143 (2) Hypokalemia ICD Codes: E87.6 - Hypokalemia SNOMED: 77276355 (3) Acute encephalopathy ICD Codes: G93.40 - Encephalopathy, unspecified SNOMED: 15887173, 047164930 (4) Hypertension ICD Codes: I10 - Essential (primary) hypertension SNOMED: 17299739 Qualifiers: Qualified Codes: I10 - Essential (primary) hypertension (5) Near syncope ICD Codes: R55 - Syncope and collapse SNOMED: 769844724 (6) Episode of generalized weakness ICD Codes: R53.1 - Weakness SNOMED: 64501840 (7) Acute kidney injury ICD Codes: N17.9 - Acute kidney failure, unspecified SNOMED: 4160408, 77301522 Status: stable Assessment/Plan: 88 year old male with HTN presents with weakness and near syncope #Near syncope. No further episodes of near syncope or syncope while hospitalized. #generalized weakness, improving #Dehydration, improving > TTE normal > Carotid ultrasound: negative >CXR negative > no events on telemetry -Continue med surg -Cardiology consult with Dr. Acuna- no further interventions -physical therapy evaluation- recommending SNF rehab #acute encephlopathy, metabolic vs. psychiatric. Suspect possible underlying psychiatric disorder vs. dementia and component of possible infection (uti). Likely had component of dehydration- Worsening agitation. ?Hospital delirium, no known psych history #mechanical fall. Suspected 2/2 weakness. No LOC or head trauma. -Appreciate psych consult: Dr. Contreras -zyprexa 5mg PO QHS -Haldol prn -Bilateral soft wrist restraints intermittently for agitation and combativeness. Patient has tried to hit and kicked the staff. -Per psychiatry patient lacks capacity to refuse care or Leave the hospital AMA -Social work consult to locate family. Patient currently lives at home by himself -CT head today - continue PT when able #UTI > 1+ leik esterase, 10-15 WBC - Continue Rocephin 1gm IV Q24hr (09/11 - ), plan for 5 days. - f/u urine culture- no growth so far #LAUREL- resolved -Holding HCTZ as above -monitor renal function -Avoid nephrotoxic medications #Hypercalcemia - resolved -due to dehydration, monitor #Thrombocytosis- -improving -Appreciate hematology oncology consult, Dr. Su: Vinicius 2 sent, abdominal ultrasound to evaluate splenomegaly. May have underlying MDS. #HTN -Hold HCTZ and DC on discharge -Increase Amlodipine to 10 mg daily. Hydralazine prn FENPPX DVTPPX: Heparin SBQ GI PPX: none needed Fluids: none Diet: Regular Lines: Peripheral PT/OT: Ordered Code status: Full code Dispo: SNF for rehab Reason for Continued Hospitalization: Placement, agitation/delerium 38 minutes spent on this encounter. Discussed with RN and patient. > 50% spent on counseling and care coordination. Time of note may not reflect time patient was seen. Subjective Allergies: Coded Allergies: No Known Allergies (Unverified , 09/06/19) Subjective No acute events overnight per nursing. Patient was agitated overnight. Requiring soft wrist restraints on and off. Given Haldol and Ativan PRN. The patient got out of bed and started to walk towards the elevator and had a witnessed fall. No loss of consciousness. No head trauma. The patient was not complaining of any pain anywhere. No bruising or bleeding noted anywhere. Denies chest pain, palpitations, fever, chills, cough, shortness of breath. Objective Last 24 Hour Vital Signs Date Time Temp Pulse Resp B/P (MAP) Pulse Ox O2 Delivery O2 Flow Rate FiO2 09/14/19 12:00 98.2 98 18 148/108 (121) 97 09/14/19 11:40 77 09/14/19 10:50 97 144/101 (115) 09/14/19 09:00 98.2 98 18 148/108 (121) 97 09/14/19 09:00 Room Air 09/14/19 08:24 116 166/125 09/14/19 08:00 97.0 116 20 166/125 (139) 93 09/14/19 07:49 116 09/14/19 04:00 107 09/14/19 00:00 99 09/13/19 21:00 Room Air 09/13/19 16:00 96.6 80 18 149/109 (122) 99 09/13/19 15:59 91 Intake and Output 09/13/19 09/14/19 19:00 07:00 Intake Total 655 ml Balance 655 ml Intake Oral 600 ml IV Total 55 ml # Voids 4 2 Laboratory Tests 09/14/19 09:28: White Blood Count 8.7, Red Blood Count 6.49H, Hemoglobin 16.7, Hematocrit 51.8, Mean Corpuscular Volume 80, Mean Corpuscular Hemoglobin 25.8L, Mean Corpuscular Hemoglobin Concent 32.3, Red Cell Distribution Width 14.3, Platelet Count 757H, Mean Platelet Volume 5.3L, Neutrophils (%) (Auto) 74.1, Lymphocytes (%) (Auto) 13.7L, Monocytes (%) (Auto) 10.2H, Eosinophils (%) (Auto) 0.3, Basophils (%) ( Auto) 1.8, Sodium Level 142, Potassium Level 3.6, Chloride Level 106, Carbon Dioxide Level 25, Anion Gap 11, Blood Urea Nitrogen 18, Creatinine 1.0, Estimat Glomerular Filtration Rate , Glucose Level 138H, Calcium Level 9.4, Phosphorus Level 2.6, Magnesium Level 2.1, Total Bilirubin 0.5, Aspartate Amino Transf (AST /SGOT) 45H, Alanine Aminotransferase (ALT/SGPT) 41, Alkaline Phosphatase 97, Total Protein 8.2, Albumin 3.6, Globulin 4.6, Albumin/Globulin Ratio 0.8L Height (Feet): 5 Height (Inches): 7.00 Weight (Pounds): 130 Jace Cheung D.O. Sep 14, 2019 13:46
--- NOTE | 2019-09-14 15:13 | Cardiac Electrophysiology PN ---
Assessment/Plan Assessment/Plan 1. Weakness. Troponins are negative. EKG shows left axis deviation and no acute ischemic changes. Echo Nl EF and carotid duplex no blockage 2. Hypertension. On Norvasc 5 mg daily. 3. Severe thrombocytosis with platelet count of 715,000. 4. Agitation? etiology FU Psychiatry 5. Placement DW RN Subjective Subjective Off restraints.Confused. Had a fall yesterday but no pain. No CP or SOB Objective Last 24 Hour Vital Signs Date Time Temp Pulse Resp B/P (MAP) Pulse Ox O2 Delivery O2 Flow Rate FiO2 09/14/19 12:00 98.2 98 18 148/108 (121) 97 09/14/19 11:40 77 09/14/19 10:50 97 144/101 (115) 09/14/19 09:00 98.2 98 18 148/108 (121) 97 09/14/19 09:00 Room Air 09/14/19 08:24 116 166/125 09/14/19 08:00 97.0 116 20 166/125 (139) 93 09/14/19 07:49 116 09/14/19 04:00 107 09/14/19 00:00 99 09/13/19 21:00 Room Air 09/13/19 16:00 96.6 80 18 149/109 (122) 99 09/13/19 15:59 91 Intake and Output 09/13/19 09/14/19 19:00 07:00 Intake Total 655 ml Balance 655 ml Intake Oral 600 ml IV Total 55 ml # Voids 4 2 Laboratory Tests Test 09/14/19 09:28 White Blood Count 8.7 K/UL (4.8-10.8) Red Blood Count 6.49 M/UL (4.70-6.10) H Hemoglobin 16.7 G/DL (14.2-18.0) Hematocrit 51.8 % (42.0-52.0) Mean Corpuscular Volume 80 FL (80-99) Mean Corpuscular Hemoglobin 25.8 PG (27.0-31.0) L Mean Corpuscular Hemoglobin Concent 32.3 G/DL (32.0-36.0) Red Cell Distribution Width 14.3 % (11.6-14.8) Platelet Count 757 K/UL (150-450) H Mean Platelet Volume 5.3 FL (6.5-10.1) L Neutrophils (%) (Auto) 74.1 % (45.0-75.0) Lymphocytes (%) (Auto) 13.7 % (20.0-45.0) L Monocytes (%) (Auto) 10.2 % (1.0-10.0) H Eosinophils (%) (Auto) 0.3 % (0.0-3.0) Basophils (%) (Auto) 1.8 % (0.0-2.0) Sodium Level 142 MMOL/L (136-145) Potassium Level 3.6 MMOL/L (3.5-5.1) Chloride Level 106 MMOL/L (98-107) Carbon Dioxide Level 25 MMOL/L (21-32) Anion Gap 11 mmol/L (5-15) Blood Urea Nitrogen 18 mg/dL (7-18) Creatinine 1.0 MG/DL (0.55-1.30) Estimat Glomerular Filtration Rate mL/min (>60) Glucose Level 138 MG/DL (74-106) H Calcium Level 9.4 MG/DL (8.5-10.1) Phosphorus Level 2.6 MG/DL (2.5-4.9) Magnesium Level 2.1 MG/DL (1.8-2.4) Total Bilirubin 0.5 MG/DL (0.2-1.0) Aspartate Amino Transf (AST/SGOT) 45 U/L (15-37) H Alanine Aminotransferase (ALT/SGPT) 41 U/L (12-78) Alkaline Phosphatase 97 U/L (46-116) Total Protein 8.2 G/DL (6.4-8.2) Albumin 3.6 G/DL (3.4-5.0) Globulin 4.6 g/dL Albumin/Globulin Ratio 0.8 (1.0-2.7) L Objective HEAD AND NECK: No JVD or carotid bruits. LUNGS: Clear. CARDIOVASCULAR: Regular S1 and S2 with no gallop or murmur. ABDOMEN: Soft. EXTREMITIES: No pitting edema. Nik Acuna MD Sep 14, 2019 15:13
[2019-09-14 16:00] VITALS: BP 147/96
--- NOTE | 2019-09-14 19:26 | NUR ---
HAND-OFF: Report given to Citlaly Figueroa RN.
[2019-09-14 20:00] VITALS: BP 150/110
--- NOTE | 2019-09-14 20:19 | General Progress Note ---
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 SNOMED: 4918691 (2) Hypokalemia ICD Codes: E87.6 - Hypokalemia SNOMED: 09076712 (3) Acute encephalopathy ICD Codes: G93.40 - Encephalopathy, unspecified SNOMED: 39547747, 983240318 (4) Hypertension ICD Codes: I10 - Essential (primary) hypertension SNOMED: 45209251 Qualifiers: Qualified Codes: I10 - Essential (primary) hypertension (5) Near syncope ICD Codes: R55 - Syncope and collapse SNOMED: 705960843 (6) Episode of generalized weakness ICD Codes: R53.1 - Weakness SNOMED: 97225112 (7) Acute kidney injury ICD Codes: N17.9 - Acute kidney failure, unspecified SNOMED: 8219050, 37450657 Status: stable Assessment/Plan: 88 year old male with HTN presents with weakness and near syncope #Near syncope. No further episodes of near syncope or syncope while hospitalized. #generalized weakness, improving #Dehydration, improving > TTE normal > Carotid ultrasound: negative >CXR negative > no events on telemetry -Continue med surg -Cardiology consult with Dr. Acuna- no further interventions -physical therapy evaluation- recommending SNF rehab #acute encephlopathy, metabolic and psychiatric. Suspect possible underlying psychiatric disorder vs. dementia and component of infection (uti). Likely had component of dehydration- Worsening agitation. ?Hospital delirium, no known psych history #mechanical fall. Suspected 2/2 weakness. No LOC or head trauma. -Appreciate psych consult: Dr. Contreras -zyprexa 5mg PO QHS -Haldol prn -Bilateral soft wrist restraints intermittently for agitation and combativeness. Patient has tried to hit and kicked the staff. -Per psychiatry patient lacks capacity to refuse care or Leave the hospital AMA -Social work consult to locate family. Patient currently lives at home by himself -CT head today. Will attempt to obtain CT head today. - continue PT when able #UTI > 1+ leik esterase, 10-15 WBC - Continue Rocephin 1gm IV Q24hr (09/11 - ), plan for 5 days. 09/15/19 - f/u urine culture- no growth so far #LAUREL- resolved -Holding HCTZ as above -monitor renal function -Avoid nephrotoxic medications #Hypercalcemia - resolved -due to dehydration, monitor #Thrombocytosis- -improving -Appreciate hematology oncology consult, Dr. Su: Vinicius 2 sent, abdominal ultrasound to evaluate splenomegaly. May have underlying MDS. #HTN -Hold HCTZ and DC on discharge -Continue amlodipine to 10 mg daily. Hydralazine prn FENPPX DVTPPX: Heparin SBQ GI PPX: none needed Fluids: none Diet: Regular Lines: Peripheral PT/OT: Ordered Code status: Full code Dispo: SNF for rehab Reason for Continued Hospitalization: Placement 39 minutes spent on this encounter. Discussed with RN and patient. > 50% spent on counseling and care coordination. Time of note may not reflect time patient was seen. Subjective Date patient seen: Sep 14, 2019 Constitutional: Denies: chills, diaphoresis, fever, malaise, weakness, other HEENT: Denies: eye pain, blurred vision, tearing, double vision, ear pain, ear discharge, nose pain, nose congestion, throat pain, throat swelling, mouth pain , mouth swelling, other Cardiovascular: Denies: chest pain, edema, irregular heart rate, lightheadedness, palpitations, syncope, other Respiratory: Denies: cough, orthopnea, shortness of breath, SOB with excertion , SOB at rest, sputum, stridor, wheezing, other Gastrointestinal/Abdominal: Denies: abdomen distended, abdominal pain, black stools, tarry stools, blood in stool, constipated, diarrhea, difficulty swallowing, nausea, poor appetite, poor fluid intake, rectal bleeding, vomiting , other Genitourinary: Denies: burning, discharge, frequency, flank pain, hematuria, incontinence, pain, urgency, other Neurologic/Psychiatric: Denies: anxiety, depressed, emotional problems, headache, numbness, paresthesia, pre-existing deficit, seizure, tingling, tremors, weakness, other Endocrine: Denies: excessive sweating, flushing, intolerance to cold, intolerance to heat, increased hunger, increased thirst, increased urine, unexplained weight gain, unexplained weight loss, other Hematologic/Lymphatic: Denies: anemia, easy bleeding, easy bruising, other Allergies: Coded Allergies: No Known Allergies (Unverified , 09/06/19) Subjective No acute events overnight per nursing. Patient's behavior is much improved. He still requires bilateral wrist restraints because of being combative and trying to hit staff periodically. Unable to obtain CT head yesterday due to patient agitation. Denies chest pain, palpitations, fever, chills, cough, shortness of breath. Objective Last 24 Hour Vital Signs Date Time Temp Pulse Resp B/P (MAP) Pulse Ox O2 Delivery O2 Flow Rate FiO2 09/14/19 16:07 65 09/14/19 16:00 98.7 79 20 147/96 (113) 98 09/14/19 12:00 98.2 98 18 148/108 (121) 97 09/14/19 11:40 77 09/14/19 10:50 97 144/101 (115) 09/14/19 09:00 98.2 98 18 148/108 (121) 97 09/14/19 09:00 Room Air 09/14/19 08:24 116 166/125 09/14/19 08:00 97.0 116 20 166/125 (139) 93 09/14/19 07:49 116 09/14/19 04:00 107 09/14/19 00:00 99 09/13/19 21:00 Room Air Intake and Output 09/13/19 09/14/19 18:59 06:59 Intake Total 655 ml Balance 655 ml Intake Oral 600 ml IV Total 55 ml # Voids 4 2 Laboratory Tests 09/14/19 09:28: White Blood Count 8.7, Red Blood Count 6.49H, Hemoglobin 16.7, Hematocrit 51.8, Mean Corpuscular Volume 80, Mean Corpuscular Hemoglobin 25.8L, Mean Corpuscular Hemoglobin Concent 32.3, Red Cell Distribution Width 14.3, Platelet Count 757H, Mean Platelet Volume 5.3L, Neutrophils (%) (Auto) 74.1, Lymphocytes (%) (Auto) 13.7L, Monocytes (%) (Auto) 10.2H, Eosinophils (%) (Auto) 0.3, Basophils (%) ( Auto) 1.8, Sodium Level 142, Potassium Level 3.6, Chloride Level 106, Carbon Dioxide Level 25, Anion Gap 11, Blood Urea Nitrogen 18, Creatinine 1.0, Estimat Glomerular Filtration Rate , Glucose Level 138H, Calcium Level 9.4, Phosphorus Level 2.6, Magnesium Level 2.1, Total Bilirubin 0.5, Aspartate Amino Transf (AST /SGOT) 45H, Alanine Aminotransferase (ALT/SGPT) 41, Alkaline Phosphatase 97, Total Protein 8.2, Albumin 3.6, Globulin 4.6, Albumin/Globulin Ratio 0.8L Height (Feet): 5 Height (Inches): 7.00 Weight (Pounds): 130 General Appearance: WD/WN, no apparent distress, alert, confused EENT: PERRL/EOMI, normal ENT inspection Neck: non-tender, normal alignment, supple Cardiovascular: normal peripheral pulses, normal rate, regular rhythm, no JVD Respiratory/Chest: chest wall non-tender, lungs clear, normal breath sounds Abdomen: normal bowel sounds, non tender, soft, no mass Extremities: normal range of motion, non-tender, normal inspection Edema: other - No lower extremity edema bilaterally Neurologic: tearer II-XII grossly normal, no motor/sensory deficits, alert, oriented x 3 Skin: normal pigmentation, warm/dry Jace Cheung D.O. Sep 14, 2019 20:19
[2019-09-15] VITALS: BP 158/117
[2019-09-15 04:00] VITALS: BP 150/110
[2019-09-15] MEDS: Heparin 5000 units/ml inj SUBQ SCH ×3 (06:00→21:07)
--- NOTE | 2019-09-15 07:00 | NUR ---
HAND-OFF: Report given to Ebenezer LYONS.
--- NOTE | 2019-09-15 07:47 | NUR ---
NURSE NOTES: Received report from ELOY Cohen. Patient in bed resting, no active s/s cardiac, respiratory distress noticed at this time. Patient on room air, SR with HR 78, AOx0-1. Patient on bilateral soft restraints, cap refill <3 sec, able to move. IV on right FA 22G, asymptomatic, patent, intact. Bed in lowest position, side rails upx3, call light within reach. Will continue to monitor.
[2019-09-15 08:00] VITALS: BP 141/96
--- NOTE | 2019-09-15 08:24 | Hematology/Onc Progress Note ---
Assessment/Plan Assessment/Plan # Thrombocytosis, likely reactive v from primary source --> will evaluate liver and spleen r/o hepatosplenomegaly --> obtain peripheral smear, reviewed and no early immature cells noted --> JAK2 as per pcp --> have called rn to f/u with results --> plt trend 705k-->643k # Erythrocytosis with elevated hgb for age --> currently 16.2-->15.7 --> also may be related to underlying myeloprolif disorder --> jak2 has been ordered, pending --> fluids have been started --> OUTPATIENT sleep study as needed r/o aristeo # LEukocytosis r/o reactive process --> abx as needed # Hypercalcemia -- with elev Ca on admission --> current 10.2-->9.5 --> likely improved with ivf --> w/u if worsens # Near syncope --> generalized weakness # Dehydration --> ivf started # Essential hypertension --> per cards, TTE normal --> imaging reviewed --> Continue Amlodipine 5 mg daily. Hydralazine prn # Acute encephlopathy, metabolic vs. psychiatric. dehydration v psych --> psych eval --> Social work consult to locate family. Patient currently lives at home by himself # LAUREL- resolved --> Holding HCTZ as above --> monitor renal function # DVt ppx with heparin sq Appreciate consultation and dw RN Subjective Constitutional: Denies: no symptoms, chills, fever, malaise, weakness, other HEENT: Denies: no symptoms, eye pain, blurred vision, tearing, double vision, ear pain, ear discharge, nose pain, nose congestion, throat pain, throat swelling, mouth pain, mouth swelling, other Cardiovascular: Denies: no symptoms, chest pain, edema, irregular heart rate, lightheadedness, palpitations, syncope, other Respiratory: Denies: no symptoms, cough, shortness of breath, SOB with excertion, SOB at rest, sputum, wheezing, other Gastrointestinal/Abdominal: Denies: no symptoms, abdomen distended, abdominal pain, black stools, tarry stools, blood in stool, constipated, diarrhea, difficulty swallowing, nausea, poor appetite, poor fluid intake, rectal bleeding , vomiting, other Genitourinary: Denies: no symptoms, burning, discharge, frequency, flank pain, hematuria, incontinence, pain, urgency, other Neurologic/Psychiatric: Denies: no symptoms, anxiety, depressed, emotional problems, headache, numbness, paresthesia, pre-existing deficit, seizure, tingling, tremors, weakness, other Endocrine: Denies: no symptoms, excessive sweating, flushing, intolerance to cold, intolerance to heat, increased hunger, increased thirst, increased urine, unexplained weight gain, unexplained weight loss, other Allergies: Coded Allergies: No Known Allergies (Unverified , 09/06/19) Subjective 09/11: no events to report, plt count pending, no f/c 09/12: no events, no bleeding, A+O x2, labs reviewd, psych f/u 09/13: still remains somewhat anxious, labs noted, plt high 09/15: no events, no bleeding, resting on room air, slightly combative Objective Objective Current Medications Medications (Trade) Dose Ordered Sig/Elliot Route PRN Reason Start Time Stop Time Status Last Admin Dose Admin Acetaminophen (Tylenol) 650 mg Q6H PRN ORAL Mild Pain/Temp > 100.5 09/13/19 15:30 10/10/19 15:29 Amlodipine Besylate (Norvasc) 10 mg DAILY ORAL 09/14/19 09:00 10/11/19 08:59 09/14/19 08:24 Ceftriaxone Sodium 1 gm/ Dextrose 55 ml @ 110 mls/hr Q24H IVPB 09/14/19 09:00 09/18/19 08:59 09/14/19 10:21 Haloperidol Lactate (Haldol) 5 mg Q6H PRN IM Agitation 09/13/19 15:15 10/10/19 15:14 09/14/19 13:03 Heparin Sodium (Porcine) (Heparin 5000 units/ml) 5,000 units EVERY 8 HOURS SUBQ 09/13/19 22:00 10/09/19 21:59 Hydralazine HCl (Apresoline) 25 mg Q6H PRN ORAL SBP >160 09/13/19 17:00 10/10/19 16:59 Lorazepam (Ativan) 0.5 mg TID ORAL 09/14/19 09:00 09/21/19 08:59 09/14/19 08:23 Olanzapine (ZyPREXA) 2.5 mg Q4H PRN ORAL agitation 09/13/19 15:15 10/12/19 15:14 Olanzapine (ZyPREXA) 5 mg BEDTIME ORAL 09/13/19 21:00 10/09/19 20:59 Sodium Chloride 1,000 ml @ 75 mls/hr [id number] IV 09/13/19 15:15 10/13/19 13:59 09/13/19 15:58 Last 24 Hour Vital Signs Date Time Temp Pulse Resp B/P (MAP) Pulse Ox O2 Delivery O2 Flow Rate FiO2 09/15/19 08:00 97.7 80 18 141/96 (111) 97 09/15/19 04:00 78 09/15/19 04:00 97.9 95 20 150/110 (123) 99 09/15/19 00:00 63 09/15/19 00:00 97.8 97 20 158/117 (131) 96 09/14/19 21:00 Room Air 09/14/19 20:00 114 09/14/19 20:00 97.4 100 20 150/110 (123) 97 09/14/19 16:07 65 09/14/19 16:00 98.7 79 20 147/96 (113) 98 09/14/19 12:00 98.2 98 18 148/108 (121) 97 09/14/19 11:40 77 09/14/19 10:50 97 144/101 (115) 09/14/19 09:00 98.2 98 18 148/108 (121) 97 09/14/19 09:00 Room Air 09/14/19 08:24 116 166/125 09/14/19 08:00 97.0 116 20 166/125 (139) 93 09/14/19 07:49 116 09/14/19 04:00 107 09/14/19 00:00 99 09/13/19 21:00 Room Air 09/13/19 20:00 120 09/13/19 16:00 96.6 80 18 149/109 (122) 99 09/13/19 15:59 91 09/13/19 10:15 118 120 120 09/13/19 09:00 Room Air Intake and Output 09/14/19 09/15/19 19:00 07:00 Intake Total 300 ml Balance 300 ml Intake Oral 300 ml # Voids 2 2 Labs Test 09/13/19 11:40 09/14/19 09:28 White Blood Count 8.1 K/UL (4.8-10.8) 8.7 K/UL (4.8-10.8) Red Blood Count 6.62 M/UL (4.70-6.10) 6.49 M/UL (4.70-6.10) Hemoglobin 16.9 G/DL (14.2-18.0) 16.7 G/DL (14.2-18.0) Hematocrit 52.9 % (42.0-52.0) 51.8 % (42.0-52.0) Mean Corpuscular Volume 80 FL (80-99) 80 FL (80-99) Mean Corpuscular Hemoglobin 25.6 PG (27.0-31.0) 25.8 PG (27.0-31.0) Mean Corpuscular Hemoglobin Concent 32.0 G/DL (32.0-36.0) 32.3 G/DL (32.0-36.0) Red Cell Distribution Width 14.5 % (11.6-14.8) 14.3 % (11.6-14.8) Platelet Count 745 K/UL (150-450) 757 K/UL (150-450) Mean Platelet Volume 5.5 FL (6.5-10.1) 5.3 FL (6.5-10.1) Neutrophils (%) (Auto) 72.4 % (45.0-75.0) 74.1 % (45.0-75.0) Lymphocytes (%) (Auto) 12.9 % (20.0-45.0) 13.7 % (20.0-45.0) Monocytes (%) (Auto) 12.1 % (1.0-10.0) 10.2 % (1.0-10.0) Eosinophils (%) (Auto) 0.2 % (0.0-3.0) 0.3 % (0.0-3.0) Basophils (%) (Auto) 2.4 % (0.0-2.0) 1.8 % (0.0-2.0) Sodium Level 142 MMOL/L (136-145) Potassium Level 3.6 MMOL/L (3.5-5.1) Chloride Level 106 MMOL/L (98-107) Carbon Dioxide Level 25 MMOL/L (21-32) Anion Gap 11 mmol/L (5-15) Blood Urea Nitrogen 18 mg/dL (7-18) Creatinine 1.0 MG/DL (0.55-1.30) Estimat Glomerular Filtration Rate mL/min (>60) Glucose Level 138 MG/DL (74-106) Calcium Level 9.4 MG/DL (8.5-10.1) Phosphorus Level 2.6 MG/DL (2.5-4.9) Magnesium Level 2.1 MG/DL (1.8-2.4) Total Bilirubin 0.5 MG/DL (0.2-1.0) Aspartate Amino Transf (AST/SGOT) 45 U/L (15-37) Alanine Aminotransferase (ALT/SGPT) 41 U/L (12-78) Alkaline Phosphatase 97 U/L (46-116) Total Protein 8.2 G/DL (6.4-8.2) Albumin 3.6 G/DL (3.4-5.0) Globulin 4.6 g/dL Albumin/Globulin Ratio 0.8 (1.0-2.7) Height (Feet): 5 Height (Inches): 7.00 Weight (Pounds): 130 Objective Gen: Nad Pulm: Ctab, no cwr CV: rrr, no mgr Abd: soft, nt, nd Ext: no cce ++ restraints Virgilio Su MD Sep 15, 2019 08:24
[2019-09-15] MEDS: LORazepam 0.5mg tab ORAL SCH ×4 (09:00→18:24)
[2019-09-15] MEDS: cefTRIAXone 1 GM in D5W 55 ML IVPB SCH (09:54)
--- NOTE | 2019-09-15 10:02 | NUR ---
NURSE NOTES: Patient able to answer date of today, stated my birthday [birth year], patient knows where he is, AAOx3-4 at this time, explained risk and disadvantages of not getting medication, patient refused.
--- NOTE | 2019-09-15 10:41 | NUR ---
NURSE NOTES: Called lab to clarify regard CASH-2 test, was informed they sent out test on 09/11, during the weekend result cannot be received. Dr. Su made aware, no new order given at this time. Will continue to monitor.
--- NOTE | 2019-09-15 10:52 | NUR ---
NURSE NOTES: Dr. Cheung at the bedside, made aware patient refused morning medication. Per MD administer antianxiety med when patient more agitated. Will continue to monitor.
--- NOTE | 2019-09-15 11:51 | NUR ---
TRANSFER TO FLOOR: Patient transferred to , per Dr. Cheung. Report given to ELOY Nava. Belongings and medications given to ELOY Nava. Family and or S/O informed of transfer.
[2019-09-15 12:00] VITALS: BP 130/89
--- NOTE | 2019-09-15 12:30 | NUR ---
NURSE NOTES: Received report from Ebenezer Owusu RN. Patient transferred to from Tele. Patient A&Ox3. On room air, no signs of distress or labored breathing. IV intact, patent, and infusing IV fluids. Restraints on, bilateral soft wrist. Bed in lowest position with call light in reach. Belongings checked and all accounted and validated. Will continue with plan of care.
[2019-09-15] MEDS ORDERED: Haloperidol 5mg/ml Inj IM PRN (15:15)
[2019-09-15] MEDS ORDERED: OLANZapine 2.5mg tab ORAL PRN (15:15)
--- NOTE | 2019-09-15 15:22 | General Progress Note ---
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 SNOMED: 0034262 (2) Hypokalemia ICD Codes: E87.6 - Hypokalemia SNOMED: 61290500 (3) Acute encephalopathy ICD Codes: G93.40 - Encephalopathy, unspecified SNOMED: 21736576, 908117431 (4) Hypertension ICD Codes: I10 - Essential (primary) hypertension SNOMED: 96928648 Qualifiers: Qualified Codes: I10 - Essential (primary) hypertension (5) Near syncope ICD Codes: R55 - Syncope and collapse SNOMED: 988482979 (6) Episode of generalized weakness ICD Codes: R53.1 - Weakness SNOMED: 26492750 (7) Acute kidney injury ICD Codes: N17.9 - Acute kidney failure, unspecified SNOMED: 6362058, 76601467 Status: stable Assessment/Plan: 88 year old male with HTN presents with weakness and near syncope #Near syncope. No further episodes of near syncope or syncope while hospitalized. #generalized weakness, improving #Dehydration, improving > TTE normal > Carotid ultrasound: negative >CXR negative > no events on telemetry -Continue med surg -Cardiology consult with Dr. Acuna- no further interventions -physical therapy evaluation- recommending SNF rehab #acute encephlopathy, psychiatric. Suspect possible underlying psychiatric disorder vs. dementia vs. delerium vs component of infection (uti) now treated. Likely had component of dehydration- Improving. No known psych history #mechanical fall. Suspected 2/2 weakness. No LOC or head trauma. -Appreciate psych consult: Dr. Contreras -zyprexa 5mg PO QHS -Haldol prn -Bilateral soft wrist restraints intermittently for agitation and combativeness. Patient has tried to hit and kicked the staff. -Per psychiatry patient lacks capacity to refuse care or Leave the hospital AMA -Social work consult to locate family. Patient currently lives at home by himself -CT head today. Will attempt to obtain CT head today. - continue PT when able #UTI > 1+ leik esterase, 10-15 WBC - s/p 5 days of Rocephin 1gm IV Q24hr (09/11 - 09/15/19) - f/u urine culture- no growth so far #LAUREL- resolved -Holding HCTZ as above -monitor renal function -Avoid nephrotoxic medications #Hypercalcemia - resolved -due to dehydration, monitor #Thrombocytosis- -improving -Appreciate hematology oncology consult, Dr. Su: Vinicius 2 sent, abdominal ultrasound to evaluate splenomegaly. May have underlying MDS. #HTN -Hold HCTZ and DC on discharge -Continue amlodipine to 10 mg daily. Hydralazine prn FENPPX DVTPPX: Heparin SBQ GI PPX: none needed Fluids: none Diet: Regular Lines: Peripheral PT/OT: Ordered Code status: Full code Dispo: SNF for rehab. Discharge to [facility] tomorrow Reason for Continued Hospitalization: Placement 37 minutes spent on this encounter. Discussed with RN and patient. > 50% spent on counseling and care coordination. Time of note may not reflect time patient was seen. Subjective Date patient seen: Sep 15, 2019 Constitutional: Denies: chills, diaphoresis, fever, malaise, weakness, other HEENT: Denies: eye pain, blurred vision, tearing, double vision, ear pain, ear discharge, nose pain, nose congestion, throat pain, throat swelling, mouth pain , mouth swelling, other Cardiovascular: Denies: chest pain, edema, irregular heart rate, lightheadedness, palpitations, syncope, other Respiratory: Denies: cough, orthopnea, shortness of breath, SOB with excertion , SOB at rest, sputum, stridor, wheezing, other Gastrointestinal/Abdominal: Denies: abdomen distended, abdominal pain, black stools, tarry stools, blood in stool, constipated, diarrhea, difficulty swallowing, nausea, poor appetite, poor fluid intake, rectal bleeding, vomiting , other Genitourinary: Denies: burning, discharge, frequency, flank pain, hematuria, incontinence, pain, urgency, other Neurologic/Psychiatric: Denies: anxiety, depressed, emotional problems, headache, numbness, paresthesia, pre-existing deficit, seizure, tingling, tremors, weakness, other Endocrine: Denies: excessive sweating, flushing, intolerance to cold, intolerance to heat, increased hunger, increased thirst, increased urine, unexplained weight gain, unexplained weight loss, other Hematologic/Lymphatic: Denies: anemia, easy bleeding, easy bruising, other Allergies: Coded Allergies: No Known Allergies (Unverified , 09/06/19) Subjective No acute events overnight per nursing. Patient more alert today. Per psychiatry still unable to make decisions for himself. Continues to be in restraints as patient is combative and trying to hit staff. Unable to obtain CT head due to patient agitation. Denies chest pain, palpitations, fever, chills, cough, shortness of breath. Objective Last 24 Hour Vital Signs Date Time Temp Pulse Resp B/P (MAP) Pulse Ox O2 Delivery O2 Flow Rate FiO2 09/15/19 12:00 97.7 77 18 130/89 (103) 98 09/15/19 09:00 80 141/96 09/15/19 09:00 Room Air 09/15/19 08:00 84 09/15/19 08:00 97.7 80 18 141/96 (111) 97 09/15/19 04:00 78 09/15/19 04:00 97.9 95 20 150/110 (123) 99 09/15/19 00:00 63 09/15/19 00:00 97.8 97 20 158/117 (131) 96 09/14/19 21:00 Room Air 09/14/19 20:00 114 09/14/19 20:00 97.4 100 20 150/110 (123) 97 09/14/19 16:07 65 09/14/19 16:00 98.7 79 20 147/96 (113) 98 Intake and Output 09/14/19 09/15/19 19:00 07:00 Intake Total 300 ml Balance 300 ml Intake Oral 300 ml # Voids 2 2 Height (Feet): 5 Height (Inches): 7.00 Weight (Pounds): 130 General Appearance: WD/WN, no apparent distress, alert, confused EENT: PERRL/EOMI, normal ENT inspection Neck: non-tender, normal alignment, supple Cardiovascular: normal peripheral pulses, normal rate, regular rhythm, no JVD Respiratory/Chest: chest wall non-tender, lungs clear, normal breath sounds Abdomen: normal bowel sounds, non tender, soft, no organomegaly Extremities: normal range of motion, non-tender Edema: other - No lower extremity edema bilaterally 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 Sep 15, 2019 15:22
[2019-09-15 16:00] VITALS: BP 120/80
[2019-09-15] MEDS ORDERED: HydrALAZINE 25mg tab ORAL PRN (17:00)
--- NOTE | 2019-09-15 18:22 | Cardiac Electrophysiology PN ---
Assessment/Plan Assessment/Plan 1. Weakness. No SD. EKG shows left axis deviation and no ischemic changes. Echo Nl EF and carotid duplex no blockage 2. Hypertension. On Norvasc 5 mg daily. 3. Severe thrombocytosis with platelet count of 715,000. 4. Agitation? etiology FU Psychiatry 5. Placement DW RN Subjective Subjective Off restraints.Confused. Couldn't stay still for CT scan. No CP or SOB Objective Last 24 Hour Vital Signs Date Time Temp Pulse Resp B/P (MAP) Pulse Ox O2 Delivery O2 Flow Rate FiO2 09/15/19 12:00 97.7 77 18 130/89 (103) 98 09/15/19 09:00 80 141/96 09/15/19 09:00 Room Air 09/15/19 08:00 84 09/15/19 08:00 97.7 80 18 141/96 (111) 97 09/15/19 04:00 78 09/15/19 04:00 97.9 95 20 150/110 (123) 99 09/15/19 00:00 63 09/15/19 00:00 97.8 97 20 158/117 (131) 96 09/14/19 21:00 Room Air 09/14/19 20:00 114 09/14/19 20:00 97.4 100 20 150/110 (123) 97 Intake and Output 09/14/19 09/15/19 19:00 07:00 Intake Total 300 ml Balance 300 ml Intake Oral 300 ml # Voids 2 2 Objective HEAD AND NECK: No JVD or carotid bruits. LUNGS: Clear. CARDIOVASCULAR: Regular S1 and S2 with no gallop or murmur. ABDOMEN: Soft. EXTREMITIES: No pitting edema. Nik Acuna MD Sep 15, 2019 18:22
--- NOTE | 2019-09-15 19:53 | NUR ---
HAND-OFF: Report given to ELOY Rangel and ELOY Dangelo.
[2019-09-15 20:00] VITALS: BP 138/89
--- NOTE | 2019-09-15 20:00 | NUR ---
NURSE NOTES: Received pt in bed and resting, no acute distress noticed at this time. Patient on bilateral soft restraints, skin intact. Bed in lowest position, call light within reach. Will continue to provide plan of care.
[2019-09-16 00:40] VITALS: BP 124/80
[2019-09-16 04:00] VITALS: BP 131/93
[2019-09-16] MEDS: Heparin 5000 units/ml inj SUBQ SCH ×2 (06:05→13:20)
--- NOTE | 2019-09-16 07:34 | NUR ---
HAND-OFF: Report given to Charles LYONS.
--- NOTE | 2019-09-16 07:43 | NUR ---
NURSE NOTES: Received pt in bed, sleeping. No s/s of distress/pain. IV on R FA 22g intact and patent, running NS @ 75 ml/hr. Bilateral soft restraints noted. No swelling and pulse present. Side rails x 3. Bed in the lowest, locked, and alarm on. Call light within reach. Will continue to monitor
[2019-09-16 08:00] VITALS: BP 168/115
[2019-09-16] MEDS: LORazepam 0.5mg tab ORAL SCH ×3 (09:00→12:17)
[2019-09-16] MEDS ORDERED: cefTRIAXone 1 GM in D5W 55 ML IVPB SCH (09:00)
[2019-09-16 12:00] VITALS: BP 161/95
--- NOTE | 2019-09-16 14:03 | Cardiac Electrophysiology PN ---
Assessment/Plan Assessment/Plan 1. Weakness. No NJ. EKG shows left axis deviation and no ischemic changes. Echo Nl EF and carotid duplex no blockage 2. Hypertension. On Norvasc 5 mg daily. 3. Severe thrombocytosis with platelet count of 715,000. 4. Agitation? etiology FU Psychiatry 5. Awaiting SNIF Placement DW RN Subjective Subjective On restraints.Confused. Couldn't stay still for CT scan. No CP or SOB Objective Last 24 Hour Vital Signs Date Time Temp Pulse Resp B/P (MAP) Pulse Ox O2 Delivery O2 Flow Rate FiO2 09/16/19 12:17 161/95 09/16/19 12:00 98.4 75 18 161/95 (117) 96 09/16/19 09:00 Room Air 09/16/19 09:00 92 168/115 09/16/19 08:00 97.2 92 20 168/115 (132) 97 09/16/19 04:00 97.5 71 19 131/93 (106) 95 09/16/19 00:40 97.8 58 19 124/80 (95) 09/15/19 21:00 Room Air 09/15/19 20:00 98.6 87 19 138/89 (105) 97 09/15/19 16:00 98.1 92 20 120/80 (93) 95 Intake and Output 09/15/19 09/16/19 19:00 07:00 Intake Total 1350 ml Balance 1350 ml Intake Oral 600 ml IV Total 750 ml # Voids 1 1 Objective HEAD AND NECK: No JVD or carotid bruits. LUNGS: Clear. CARDIOVASCULAR: Regular S1 and S2 with no gallop or murmur. ABDOMEN: Soft. EXTREMITIES: No pitting edema. Nik Acuna MD Sep 16, 2019 14:03
--- NOTE | 2019-09-16 14:08 | General Progress Note ---
Assessment/Plan Problem List: (1) Hypertension ICD Codes: I10 - Essential (primary) hypertension SNOMED: 82774569 Qualifiers: Qualified Codes: I10 - Essential (primary) hypertension (2) Near syncope ICD Codes: R55 - Syncope and collapse SNOMED: 456089413 (3) Episode of generalized weakness ICD Codes: R53.1 - Weakness SNOMED: 63708138 Status: stable Assessment/Plan: 88 year old male with HTN presents with weakness and near syncope #Near syncope #weakness #Dehydration -telemetry -Hold HCTZ and DC on discharge -Start Amlodipine 5 mg daily. Hydralazine prn -Cardiology consult with Dr. Magallanes -Echocardiogram, carotid US #agitation. ?Hospital delirium, no known psych history -psych consult -Haldol prn #LAUREL- resolving -Pre-renal due to dehydration in the setting of HCTZ -monitor renal function -Avoid nephrotoxic medications #Hypercalcemia -due to dehydration, monitor #Thrombosis- likely due to dehydration. Continue to monitor #HTN -discontinue HCTZ -Start Amlodipine 5 mg daily -Continue Hydralazine prn # Gamma gap- due to dehydration -Monitor VTEppx: scd and ambulation GI ppx: not needed Code status: Full code Diet: Cardiac I spent 36 minutes on this encounter. >50% spent on counselling and care coordination. d/w rn, d/w cardiology Time of this note may not reflect time of encounter Subjective Allergies: Coded Allergies: No Known Allergies (Unverified , 09/06/19) Subjective Sleeping now after being very agitated. Reportedly patient became very agitated last night and had to be restrained. No psych history. VSS Objective Last 24 Hour Vital Signs Date Time Temp Pulse Resp B/P (MAP) Pulse Ox O2 Delivery O2 Flow Rate FiO2 09/16/19 12:17 161/95 09/16/19 12:00 98.4 75 18 161/95 (117) 96 09/16/19 09:00 Room Air 09/16/19 09:00 92 168/115 09/16/19 08:00 97.2 92 20 168/115 (132) 97 09/16/19 04:00 97.5 71 19 131/93 (106) 95 09/16/19 00:40 97.8 58 19 124/80 (95) 09/15/19 21:00 Room Air 09/15/19 20:00 98.6 87 19 138/89 (105) 97 09/15/19 16:00 98.1 92 20 120/80 (93) 95 Intake and Output 09/15/19 09/16/19 19:00 07:00 Intake Total 1350 ml Balance 1350 ml Intake Oral 600 ml IV Total 750 ml # Voids 1 1 Height (Feet): 5 Height (Inches): 7.00 Weight (Pounds): 130 Objective General Appearance: well appearing, no apparent distress, sleeping Neck: no jvd Respiratory: lungs clear, normal breath sounds Cardiovascular: regular rate, rhythm, no murmur, no edema Gastrointestinal: normal bowel sounds, non tender, no mass, no organomegaly, no bruit, non-distended Musculoskeletal: back normal, gait/station normal, normal range of motion Neuro: unable to assess Be Soares M.D. Sep 16, 2019 14:08
--- NOTE | 2019-09-16 14:08 | Discharge Summary ---
Discharge Summary Hospital Course Date of Admission Sep 06, 2019 at 22:26 Date of Discharge Admitting Diagnosis SYNCOPE,WEAKNESS HPI Mane Cronin is a 89 year old male who was admitted on Sep 06, 2019 at 22:26 for Syncope, Weakness Consultations cardiology, Heme/onc, psychiatry Procedures Telemetry, ekg, echocardiogram Hospital Course 88 year old male with HTN presents with weakness and near syncope #Near syncope. No further episodes of near syncope or syncope while hospitalized. #generalized weakness, improving #Dehydration, improving > TTE normal > Carotid ultrasound: negative >CXR negative > no events on telemetry -Cardiology consult with Dr. Acnua- no further interventions -Discontinued HCTZ, started amlodipine -physical therapy evaluation- recommending SNF rehab #acute encephalopathy, psychiatric. Suspect possible underlying psychiatric disorder vs. dementia vs. delirium vs component of infection (uti) now treated. Likely had component of dehydration- Improved. No known psych history #mechanical fall. Suspected 2/2 weakness. No LOC or head trauma. -Appreciate psych consult: Dr. Contreras -zyprexa 5mg PO QHS -Haldol prn -Per psychiatry patient lacks capacity to refuse care or Leave the hospital AMA -Social work consult to locate family. Patient currently lives at home by himself #UTI > 1+ leuk esterase, 10-15 WBC - s/p 5 days of Rocephin 1gm IV Q24hr (09/11 - 09/15/19) - f/u urine culture- no growth so far #LAUREL- resolved -Discontinued HCTZ as above -monitor renal function -Avoid nephrotoxic medications #Hypercalcemia - resolved -due to dehydration, monitor #Thrombocytosis- -improving -Appreciate hematology oncology consult, Dr. Su: Vinicius 2 sent, abdominal US negative for splenomegaly.May have underlying MDS. #HTN -Held HCTZ and DC on discharge -Continue amlodipine to 10 mg daily. Hydralazine prn FENPPX DVTPPX: Heparin SBQ GI PPX: none needed Fluids: none Diet: Regular Lines: Peripheral PT/OT: Ordered Code status: Full code Dispo: SNF for rehab. 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 Discussed with RN and patient. > 50% spent on counseling and care coordination. Time of note may not reflect time patient was seen. Discharge Medications Continued Medications: Amlodipine Besylate* (Amlodipine Besylate*) 5 Mg Tablet 5 MG ORAL DAILY, TAB (This prescription has been renewed) Lorazepam* (Ativan*) 0.5 Mg Tablet 0.5 MG ORAL THREE TIMES A DAY, TAB (This prescription has been renewed) Olanzapine* (Zyprexa*) 5 Mg Tablet 5 MG ORAL BEDTIME, TAB (This prescription has been renewed) Discontinued Medications: Hydrochlorothiazide* (Hydrochlorothiazide*) 12.5 Mg Capsule 12.5 MG ORAL DAILY, CAP Discharge Condition Upon Discharge: stable Discharge Disposition Patient was discharged to [facility] Discharge Diagnoses: (1) Hypertension (2) Near syncope (3) Thrombocytosis (4) Acute encephalopathy (5) Acute kidney injury (6) Hypokalemia (7) Episode of generalized weakness Be Soares M.D. Sep 16, 2019 14:08
[2019-09-16 16:00] VITALS: BP 159/98
--- NOTE | 2019-09-16 16:00 | Hematology/Onc Progress Note ---
Assessment/Plan Assessment/Plan # Thrombocytosis, likely reactive v from primary source --> will evaluate liver and spleen r/o hepatosplenomegaly --> obtain peripheral smear, reviewed and no early immature cells noted --> JAK2 as per pcp --> have called rn to f/u with results (pending) --> plt trend 705k-->643k-->757k # Erythrocytosis with elevated hgb for age --> currently 16.2-->15.7 --> also may be related to underlying myeloprolif disorder --> jak2 has been ordered, pending --> fluids have been started --> OUTPATIENT sleep study as needed r/o aristeo # LEukocytosis r/o reactive process --> abx as needed # Hypercalcemia -- with elev Ca on admission --> current 10.2-->9.5 --> likely improved with ivf --> w/u if worsens # Near syncope --> generalized weakness # Dehydration --> ivf started # Essential hypertension --> per cards, TTE normal --> imaging reviewed --> Continue Amlodipine 5 mg daily. Hydralazine prn # Acute encephlopathy, metabolic vs. psychiatric. dehydration v psych --> psych eval --> Social work consult to locate family. Patient currently lives at home by himself # LAUREL- resolved --> Holding HCTZ as above --> monitor renal function # DVt ppx with heparin sq Appreciate consultation and dw RN Subjective Allergies: Coded Allergies: No Known Allergies (Unverified , 09/06/19) Subjective 09/11: no events to report, plt count pending, no f/c 09/12: no events, no bleeding, A+O x2, labs reviewd, psych f/u 09/13: still remains somewhat anxious, labs noted, plt high 09/15: no events, no bleeding, resting on room air, slightly combative Objective Objective Current Medications Medications (Trade) Dose Ordered Sig/Elliot Route PRN Reason Start Time Stop Time Status Last Admin Dose Admin Acetaminophen (Tylenol) 650 mg Q6H PRN ORAL Mild Pain/Temp > 100.5 09/15/19 15:30 10/10/19 15:29 Amlodipine Besylate (Norvasc) 10 mg DAILY ORAL 09/16/19 09:00 10/11/19 08:59 Haloperidol Lactate (Haldol) 5 mg Q6H PRN IM Agitation 09/15/19 15:15 10/10/19 15:14 Heparin Sodium (Porcine) (Heparin 5000 units/ml) 5,000 units EVERY 8 HOURS SUBQ 09/15/19 14:00 10/09/19 21:59 09/16/19 06:05 Hydralazine HCl (Apresoline) 25 mg Q6H PRN ORAL SBP >160 09/15/19 17:00 10/10/19 16:59 09/16/19 12:17 Lorazepam (Ativan) 0.5 mg TID ORAL 09/15/19 13:00 09/21/19 08:59 09/16/19 12:17 Olanzapine (ZyPREXA) 2.5 mg Q4H PRN ORAL agitation 09/15/19 15:15 10/12/19 15:14 Olanzapine (ZyPREXA) 5 mg BEDTIME ORAL 09/15/19 21:00 10/09/19 20:59 09/15/19 21:17 Sodium Chloride 1,000 ml @ 75 mls/hr [id number] IV 09/15/19 11:45 10/13/19 13:59 09/16/19 11:24 Last 24 Hour Vital Signs Date Time Temp Pulse Resp B/P (MAP) Pulse Ox O2 Delivery O2 Flow Rate FiO2 09/16/19 12:17 161/95 09/16/19 12:00 98.4 75 18 161/95 (117) 96 09/16/19 09:00 Room Air 09/16/19 09:00 92 168/115 09/16/19 08:00 97.2 92 20 168/115 (132) 97 09/16/19 04:00 97.5 71 19 131/93 (106) 95 09/16/19 00:40 97.8 58 19 124/80 (95) 09/15/19 21:00 Room Air 09/15/19 20:00 98.6 87 19 138/89 (105) 97 09/15/19 16:00 98.1 92 20 120/80 (93) 95 09/15/19 12:00 97.7 77 18 130/89 (103) 98 09/15/19 09:00 80 141/96 09/15/19 09:00 Room Air 09/15/19 08:00 84 09/15/19 08:00 97.7 80 18 141/96 (111) 97 09/15/19 04:00 78 09/15/19 04:00 97.9 95 20 150/110 (123) 99 09/15/19 00:00 63 09/15/19 00:00 97.8 97 20 158/117 (131) 96 09/14/19 21:00 Room Air 09/14/19 20:00 114 09/14/19 20:00 97.4 100 20 150/110 (123) 97 09/14/19 16:07 65 09/14/19 16:00 98.7 79 20 147/96 (113) 98 Intake and Output 09/15/19 09/16/19 19:00 07:00 Intake Total 1350 ml Balance 1350 ml Intake Oral 600 ml IV Total 750 ml # Voids 1 1 Labs Test 09/14/19 09:28 White Blood Count 8.7 K/UL (4.8-10.8) Red Blood Count 6.49 M/UL (4.70-6.10) Hemoglobin 16.7 G/DL (14.2-18.0) Hematocrit 51.8 % (42.0-52.0) Mean Corpuscular Volume 80 FL (80-99) Mean Corpuscular Hemoglobin 25.8 PG (27.0-31.0) Mean Corpuscular Hemoglobin Concent 32.3 G/DL (32.0-36.0) Red Cell Distribution Width 14.3 % (11.6-14.8) Platelet Count 757 K/UL (150-450) Mean Platelet Volume 5.3 FL (6.5-10.1) Neutrophils (%) (Auto) 74.1 % (45.0-75.0) Lymphocytes (%) (Auto) 13.7 % (20.0-45.0) Monocytes (%) (Auto) 10.2 % (1.0-10.0) Eosinophils (%) (Auto) 0.3 % (0.0-3.0) Basophils (%) (Auto) 1.8 % (0.0-2.0) Sodium Level 142 MMOL/L (136-145) Potassium Level 3.6 MMOL/L (3.5-5.1) Chloride Level 106 MMOL/L (98-107) Carbon Dioxide Level 25 MMOL/L (21-32) Anion Gap 11 mmol/L (5-15) Blood Urea Nitrogen 18 mg/dL (7-18) Creatinine 1.0 MG/DL (0.55-1.30) Estimat Glomerular Filtration Rate mL/min (>60) Glucose Level 138 MG/DL (74-106) Calcium Level 9.4 MG/DL (8.5-10.1) Phosphorus Level 2.6 MG/DL (2.5-4.9) Magnesium Level 2.1 MG/DL (1.8-2.4) Total Bilirubin 0.5 MG/DL (0.2-1.0) Aspartate Amino Transf (AST/SGOT) 45 U/L (15-37) Alanine Aminotransferase (ALT/SGPT) 41 U/L (12-78) Alkaline Phosphatase 97 U/L (46-116) Total Protein 8.2 G/DL (6.4-8.2) Albumin 3.6 G/DL (3.4-5.0) Globulin 4.6 g/dL Albumin/Globulin Ratio 0.8 (1.0-2.7) Height (Feet): 5 Height (Inches): 7.00 Weight (Pounds): 130 Objective Gen: Nad Pulm: Ctab, no cwr CV: rrr, no mgr Abd: soft, nt, nd Ext: no cce ++ restraints Virgilio Su MD Sep 16, 2019 16:00
[2019-09-16] MEDS ORDERED: AMLODIPINE BESYL5 MG ORAL (17:21)
[2019-09-16] MEDS ORDERED: ZYPREXA5 MG ORAL (17:30)
[2019-09-16] MEDS ORDERED: ATIVAN0.5 MG ORAL (17:30)
--- NOTE | 2019-09-16 17:43 | NUR ---
NURSE NOTES: Patient was discharged to [facility] in stable condition via ambulance personnel. Report was given to ELOY Canchola. ID and IV was removed. No s/s of infection on the removal site. Skin intact. Discharge instructions were given. Belongings were accounted for and given to patient.
--- NOTE | 2019-09-17 07:32 | Cardiology Report ---
APPROVED REPORT EKG Measurement Heart [id number] Sinus tachycardia Left anterior fascicular block Abnormal ECG
== END 2019-09-16 17:43 | DRG 683 ==
LOC: EDBD 21:34 → EMR 22:20 → 2E 22:26 → EDBEDREQ 22:41 → 4E 09-10 13:54 → 2E 09-13 14:54 → 4E 09-15 11:39
DX: N17.9 Acute kidney failure, unspecified (principal); G93.49 Other encephalopathy; R53.1 Weakness; I10 Essential (primary) hypertension; E86.0 Dehydration; E83.52 Hypercalcemia; D47.3 Essential (hemorrhagic) thrombocythemia; E87.6 Hypokalemia
CPT/HCPCS: 36415; 71045; 76700; 80048; 80053; 81003; 83735; 84100; 84484; 85025; 87086; 93005; 93306; 93880; 99285; J7030; J8499

== ENCOUNTER 2020-03-01 03:29 | Emergency (ER) | payer MEDICARE, MEDICAID ==
[~2020-03-01] VITALS: Ht 170.2 cm; Wt 65.8 kg
[~2020-03-01 03:29] MED LIST: AMLODIPINE BESYL5 MG ORAL; ASPIRIN81 MG ORAL; ATIVAN0.5 MG ORAL; CEPHALEXIN500 M1 ORAL; HYDREA500 MG ORAL; HYDROCHLOROTH12.5 M2 ORAL; NORVASC10 MG ORAL; ZYPREXA5 MG ORAL
[2020-03-01 03:36] VITALS: BP 122/65
--- NOTE | 2020-03-01 03:43 | Emergency Room Report ---
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 He presents with chief complaint of fall. Was found by his bed. Unwitnessed trauma. There is abrasion to his right knee. Patient history is limited because of his mental status. He denies any trauma today. He claimed that he fell yesterday. There is no obvious head injury. He is not on blood thinner. He denies any pain. Allergies: Coded Allergies: No Known Allergies (Unverified , 09/06/19) COVID-19 Screening Contact w/high risk pt: No Recent Travel to affected area: No Experienced COVID-19 symptoms?: No Patient History Past Medical History: see triage record, old chart reviewed, HTN Past Surgical History: other Pertinent Family History: none Social History: Denies: smoking Immunizations: other Reviewed Nursing Documentation: PMH: Agreed; PSxH: Agreed Nursing Documentation-PMH Hx Hypertension: Yes - dementia Review of Systems Eye: Denies: eye pain, blurred vision ENT: Denies: ear pain, nose congestion, throat swelling Respiratory: Denies: cough, shortness of breath Cardiovascular: Denies: chest pain, palpitations Gastrointestinal: Denies: abdominal pain, diarrhea, nausea, vomiting Musculoskeletal: Denies: back pain, joint pain Skin: Denies: rash Neurological: Denies: headache, numbness Endocrine: Denies: increased thirst, increased urine Hematologic/Lymphatic: Denies: easy bruising All Other Systems: negative except mentioned in HPI Physical Exam Vital Signs Date Time Temp Pulse Resp B/P (MAP) Pulse Ox O2 Delivery O2 Flow Rate FiO2 03/01/20 03:31 98.2 65 18 128/63 (84) 94 Room Air Vitals unremarkable Sp02 EP Interpretation: reviewed, normal General Appearance: well appearing, no apparent distress, alert Head: normocephalic, atraumatic Eyes: bilateral eye PERRL, bilateral eye EOMI ENT: hearing grossly normal, normal pharynx Neck: full range of motion, supple, no meningismus Respiratory: chest non-tender, lungs clear, normal breath sounds Cardiovascular #1: regular rate, rhythm, no murmur Gastrointestinal: normal bowel sounds, non tender, no mass, no organomegaly, no bruit, non-distended Musculoskeletal: back normal, normal range of motion, other - Skin abrasion to right knee Psychiatric: mood/affect normal Medical Decision Making Diagnostic Impression: Primary Impression: Fall Qualified Codes: W19.XXXA - Unspecified fall, initial encounter Additional Impression: Abrasion of knee, right Qualified Codes: S80.211A - Abrasion, right knee, initial encounter ER Course Patient presents with a fall. Even though there is no obvious head injury, I did a CT scan because patient is a poor historian. CT scan was negative. X- rays negative. Patient will be discharged back to intermediate. Other X-Ray Diagnostic Results Other X-Ray Diagnostic Results : X-Ray ordered: Knee x-rays, right # of Views/Limited Vs Complete: 3 View Indication: Pain EP Interpretation: Yes Interpretation: no dislocation, no soft tissue swelling, no fractures Impression: No acute disease Electronically Signed by: Randy Fu MD CT/MRI/US Diagnostic Results CT/MRI/US Diagnostic Results : Imaging Test Ordered: CT head Impression Negative per radiologist Last Vital Signs Date Time Temp Pulse Resp B/P (MAP) Pulse Ox O2 Delivery O2 Flow Rate FiO2 03/01/20 03:36 98.2 62 17 122/65 96 Room Air Status: improved Disposition: HOME, SELF-CARE Condition: Stable Additional Instructions: Fall precautions. Follow-up with your doctor in 7 days as needed. Return if worse. Randy Fu MD Mar 01, 2020 03:43
--- NOTE | 2020-03-01 04:45 | Diagnostic Imaging Report ---
EXAM: CT Head Without Intravenous Contrast CLINICAL HISTORY: TRAUMA TECHNIQUE: Axial computed tomography images of the head/brain without intravenous contrast. CTDI is 53 mGy and DLP is 1205 mGy-cm. One or more of the following dose reduction techniques were used: automated exposure control, adjustment of the mA and/or kV according to patient size, use of iterative reconstruction technique. COMPARISON: December 02, 2019. FINDINGS: Brain: No acute intracranial hemorrhage. No mass effect or midline shift. Chronic microangiopathic white matter disease, generalized involutional changes, and old lacunar infarcts. Ventricles: Ex vacuo dilatation of ventricles. Bones/joints: Unremarkable. No acute fracture. Soft tissues: Unremarkable. Sinuses: Mild chronic sinus disease. Mastoid air cells: Unremarkable as visualized. No mastoid effusion. IMPRESSION: No acute intracranial hemorrhage or skull fractures. Stable age-related changes.
--- NOTE | 2020-03-01 04:49 | Diagnostic Imaging Report ---
EXAM: XR Right Knee, 3 Views CLINICAL HISTORY: TRAUMA TECHNIQUE: Three views of the right knee. COMPARISON: No relevant prior studies available. FINDINGS: Bones/joints: Unremarkable. No acute fracture. No dislocation. Soft tissues: Unremarkable. IMPRESSION: No radiographic evidence of acute fracture or dislocation.
[2020-03-01 05:04] VITALS: BP 125/72
== END 2020-03-01 05:04 | disposition home or self-care (01) ==
LOC: EDBD 03:29 → EDUNIT# 03:29 → EMR 03:45
DX: S80.211A Abrasion, right knee, initial encounter (principal); F03.90 Unspecified dementia, unspecified severity, without behavioral disturbance, psychotic disturbance, mood disturbance, and anxiety; I10 Essential (primary) hypertension; W19.XXXA Unspecified fall, initial encounter; Y92.9 Unspecified place or not applicable
CPT/HCPCS: 70450; 99284

== ENCOUNTER 2020-05-11 09:33 | Inpatient (IN) | payer MEDICARE, MEDICAID ==
[~2020-05-11] VITALS: Ht 167.6 cm; Wt 66.7 kg
--- NOTE | 2020-05-11 09:45 | NUR ---
ED Nurse Note: Patient was brought in by ambulance from [facility] due to bright red blood in stool x 1 around 0400 today; patient taking ASA per medication records. Patient is awake, aox4, and verbally responsive. Patient is saturating 100% on room air, breathing even and unlabored. Skin is intact. Placed patient in hospital gown and cont. school lunch monitor. Patient denies pain at this time; denies n/v/diarrhea/constipation. ERMD present at bedside, performed rectal exam and collected occult blood sample. Established PIV on the right AC, collected blood and sent down to lab. Patient is afebrile, 97.2F orally. VSS on the monitor. Safety precautions in place. Will continue to monitor.
[2020-05-11 09:55] VITALS: BP 93/61
[2020-05-11] MEDS ORDERED: HYDRALAZINE HCL25 M1 ORAL (10:02)
[2020-05-11] MEDS ORDERED: METOPROLOL SUCC25 MG ORAL (10:02)
--- NOTE | 2020-05-11 10:08 | Emergency Room Report ---
History of Present Illness General Chief Complaint: Gastrointestinal Bleed Source: Patient, Medical Record, EMS Present Illness HPI Disclaimer: Please note that this report is being documented using DRAGON technology. This can lead to erroneous entry secondary to incorrect interpretation by the dictating instrument. HPI: 89-year-old male presents from nursing facility for evaluation of lower GI bleeding. The patient states he awoke this morning in his usual state of health when he was the bathroom and noted some bright red bleeding per rectum. Noted soft stools but denied kirk diarrhea. Denied any pain passing stools, recent abdominal pain, trauma. Takes aspirin but no other anticoagulants. No prior history of hemorrhoids or GI bleeds per patient. He denies nausea, vomiting, hemoptysis, chest pain, palpitations, shortness of breath otherwise. PMH: Polycythemia, renal dysfunction, dementia PSH: Reviewed Allergies: None reported Social Hx: Denies alcohol or drug use Allergies: Coded Allergies: No Known Allergies (Unverified , 09/06/19) COVID-19 Screening Contact w/high risk pt: Yes Recent Travel to affected area: No Experienced COVID-19 symptoms?: No COVID-19 Testing performed STONE POLISHER MACHINE: No Nursing Documentation-PMH Past Medical History: No History, Except For Hx Hypertension: Yes - dementia History Of Psychiatric Problem: Yes - Schizophreania Review of Systems All Other Systems: negative except mentioned in HPI Physical Exam Vital Signs Date Time Temp Pulse Resp B/P (MAP) Pulse Ox O2 Delivery O2 Flow Rate FiO2 05/11/20 09:35 97.9 84 14 96/62 (73) 99 Room Air General: Awake and alert, no acute distress HEENT: NC/AT. EOMI. Cardiovascular: RRR. S1 and S2 normal. No murmur appreciated Resp: Normal work of breathing. No cough, wheezing or crackles appreciated Abdomen: Abdomen is soft, nondistended. Nontender. Rectal exam shows soft stool in the rectal vault with moderate bright red blood. No palpable hemorrhoids or other masses appreciated. Mild melena as well. Skin: Intact. No abrasions, laceration or rash over the exposed skin MSK: Normal tone and bulk. Moving all extremities. No obvious deformity. Neuro: Awake and alert. Mentating appropriately. Medical Decision Making Diagnostic Impression: Primary Impression: GI bleed Additional Impressions: Anemia Polycythemia Acute kidney injury ER Course Is an 89-year-old male presenting for evaluation of bright red bleeding per rectum. Patient's rectal vault has moderate bright red blood and small amount of melena as well. Concern for GI bleed at this time. Protonix ordered. The patient denies any chest pain, lightheadedness at this time but does endorse mild fatigue. His blood pressure has been somewhat low compared to prior visits , hovering around 90 systolic. Labs were obtained showing a hemoglobin of 10.8 down from a previous level of 14. His white count, platelets are elevated as they have been on prior visits. He has been evaluated by hematology in the past. Mild AK I with a creatinine 1.5 slightly elevated BUN. Receiving IV fluids. Patient will be admitted to his PMD, Dr. Jones Laboratory Tests Test 05/11/20 09:40 White Blood Count 15.6 K/UL (4.8-10.8) H Red Blood Count 4.30 M/UL (4.70-6.10) L Hemoglobin 10.8 G/DL (14.2-18.0) L Hematocrit 35.5 % (42.0-52.0) L Mean Corpuscular Volume 83 FL (80-99) Mean Corpuscular Hemoglobin 25.2 PG (27.0-31.0) L Mean Corpuscular Hemoglobin Concent 30.5 G/DL (32.0-36.0) L Red Cell Distribution Width 18.7 % (11.6-14.8) H Platelet Count 905 K/UL (150-450) H Mean Platelet Volume 5.8 FL (6.5-10.1) L Neutrophils (%) (Auto) % (45.0-75.0) Lymphocytes (%) (Auto) % (20.0-45.0) Monocytes (%) (Auto) % (1.0-10.0) Eosinophils (%) (Auto) % (0.0-3.0) Basophils (%) (Auto) % (0.0-2.0) Differential Total Cells Counted 100 Neutrophils % (Manual) 79 % (45-75) H Lymphocytes % (Manual) 13 % (20-45) L Monocytes % (Manual) 8 % (1-10) Eosinophils % (Manual) 0 % (0-3) Basophils % (Manual) 0 % (0-2) Band Neutrophils 0 % (0-8) Platelet Estimate Increased H Platelet Morphology Giant Platelets Occasional Hypochromasia 1+ Anisocytosis 1+ Prothrombin Time 13.0 SEC (9.30-11.50) H Prothrombin Time INR 1.2 (0.9-1.1) H Activated Partial Thromboplast Time 29 SEC (23-33) Sodium Level 137 MMOL/L (136-145) Potassium Level 4.6 MMOL/L (3.5-5.1) Chloride Level 103 MMOL/L (98-107) Carbon Dioxide Level 26 MMOL/L (21-32) Anion Gap 8 mmol/L (5-15) Blood Urea Nitrogen 24 mg/dL (7-18) H Creatinine 1.5 MG/DL (0.55-1.30) H Estimated Glomerular Filtration Rate 53.7 mL/min (>60) Glucose Level 204 MG/DL (74-106) H Calcium Level 8.4 MG/DL (8.5-10.1) L EKG Diagnostic Results EKG Time: 10:24 Rate: normal Rhythm: NSR ST Segments: no acute changes Other Impression Sinus rhythm, left axis, no ST segment changes Rhythm Strip Diag. Results Rhythm Strip Time: 10:24 EP Interpretation: yes Rate: 60s Rhythm: NSR, no PVC's, no ectopy Last Vital Signs Date Time Temp Pulse Resp B/P (MAP) Pulse Ox O2 Delivery O2 Flow Rate FiO2 05/11/20 09:55 97.2 77 16 93/61 100 Room Air Disposition: ADMITTED INPATIENT Condition: Stable Referrals: Antonio Jones MD (PCP) Abraham Akhtar MD May 11, 2020 10:07
[2020-05-11 10:13] LABS: HEMATOCRIT 35.5 % (42.0-52.0); HEMOGLOBIN 10.8 G/DL (14.2-18.0); MEAN CORPUSCULAR VOLUME 83 FL (80-99); PLATELET COUNT 905 K/UL (150-450); RED CELL DISTRIBUTION WIDTH 18.7 % (11.6-14.8); WHITE BLOOD COUNT 15.6 K/UL (4.8-10.8)
--- NOTE | 2020-05-11 10:24 | NUR ---
ED Nurse Note: SLOAN notified and made aware regarding patient's records indicating diagnosis of Covid 19 03/11/2020. Patient does not present any symptoms at this time; afebrile, no respiratory distress noted. Will continue to monitor.
[2020-05-11 10:28] LABS: INR 1.2 (0.9-1.1)
[2020-05-11 10:30] VITALS: BP 86/59
[2020-05-11 10:30] LABS: ANION GAP 8 mmol/L (5-15); BLOOD UREA NITROGEN 24 mg/dL (7-18); CALCIUM 8.4 MG/DL (8.5-10.1); CARBON DIOXIDE 26 MMOL/L (21-32); CHLORIDE 103 MMOL/L (98-107); CREATININE 1.5 MG/DL (0.55-1.30); POTASSIUM 4.6 MMOL/L (3.5-5.1); SODIUM 137 MMOL/L (136-145)
--- NOTE | 2020-05-11 10:30 | NUR ---
ED Nurse Note: BECCA 86/59, SLOAN aware, verbal order received to give 1L of NS bolus. Will carry out.
[2020-05-11] MEDS ORDERED: Albuterol/Ipratropium 3ml neb HHN PRN (10:45)
[2020-05-11] MEDS ORDERED: Metoclopramide 10mg/2ml Inj IVP PRN (10:45)
[2020-05-11] MEDS ORDERED: LORazepam Inj 2mg/ml 1ml IV PRN (10:45)
--- NOTE | 2020-05-11 10:48 | NUR ---
ED Nurse Note: IV fluids ongoing; provided patient a urinal for urine sample.
[2020-05-11] MEDS ORDERED: Pantoprazole Inj IVP ONE (11:00)
--- NOTE | 2020-05-11 11:00 | NUR ---
ED Nurse Note: Urine collected via straight catheter, patient tolerated well; sent urine to lab.
--- NOTE | 2020-05-11 11:00 | NUR ---
ED Nurse Note: Patient unable to give urine sample at this time. Provided water, IV fluids ongoing.
--- NOTE | 2020-05-11 11:15 | NUR ---
ED Nurse Note: Report given to ELOY Queen via telephone.
--- NOTE | 2020-05-11 11:23 | NUR ---
RADIOLOGY DEPT., CHEST X-RAY DONE ON ADMIT FROM ED.MATTI
--- NOTE | 2020-05-11 11:28 | NUR ---
TRANSFER TO FLOOR: Patient transferred to Telemetry via gurney accompanied by advanced manufacturing technician and radio script writer ACLS protocol, as ordered, per Dr Jones. Report given to ELOY Queen. Belongings remained with patient and at bedside, list signed by receiving nurse.
[2020-05-11] MEDS ORDERED: D5 1/2NS 1,000 ML IV SCH (11:40)
[2020-05-11 11:45] VITALS: BP 120/73
--- NOTE | 2020-05-11 12:00 | NUR ---
NURSE NOTES: Patient stable AOx4 with no complaints of pain and no s/sx of distress. RR even and unlabored on RA. Per patient, symptoms started this am with sudden urge to have a BM that was bloody and scared him. Patient placed on alarm security or surveillance monitor. IV flushed and patent with bolus running at this time. Will let bolus complete before initiating fluids. VSS. Condom cath placed on patient. Yellow gown, yellow socks and bed alarm placed on patient. Side rails upx2, call light within reach, bed low and locked. Will continue to monitor.
[2020-05-11 12:26] LABS: APPEARANCE,URINE CLEAR; BILIRUBIN, URINE NEGATIVE (NEGATIVE); COLOR,URINE PALE YELLOW; GLUCOSE, URINE (UA) NEGATIVE (NEGATIVE); KETONES,URINE NEGATIVE (NEGATIVE); LEUKOCYTE ESTERASE ,URINE NEGATIVE (NEGATIVE); NITRITE,URINE NEGATIVE (NEGATIVE); PH,URINE 6 (4.5-8.0); PROTEIN,URINE NEGATIVE (NEGATIVE); UROBILINOGEN,URINE NORMAL MG/DL (0.0-1.0)
[2020-05-11] MEDS ORDERED: AMLODIPINE BESYL5 MG ORAL (12:47)
--- NOTE | 2020-05-11 13:15 | Diagnostic Imaging Report ---
Indication: Shortness of breath Technique: One view of the chest Comparison: 12/02/2019 Findings: Lungs and pleural spaces are clear. The heart size is normal. Aorta is tortuous and calcified. The upper mediastinum is unremarkable. No significant interim change Impression: Negative
[2020-05-11] MEDS ORDERED: Nulytely 4L ORAL ONE (14:00)
[2020-05-11 14:20] LABS: % IRON SATURATION 17 % (15-50); IRON 43 ug/dL (50-175); TOTAL IRON BINDING CAPACITY 260 ug/dL (250-450)
[2020-05-11 14:34] LABS: FERRITIN 127 NG/ML (8-388)
[2020-05-11 16:00] VITALS: BP 119/60
--- NOTE | 2020-05-11 16:11 | NUR ---
CASE MANAGEMENT:REVIEW 89 YR OLD MALE BIBA FROM [facility] CC: BLOOD IN STOOL SI: LGIB. LAUREL. ANEMIA 97.8 84 14 93/61 99% ON RA WBC+15.6 H/H-10.8/35.5 PLT+905 BUN+24 CR+1.5 IS: 1L NS BOLUS IV PROTONIX X1 IVF@100/HR : TO TELEMETRY UNIT INTERQUAL CRITERIA MET
[2020-05-11] MEDS: D5 1/2NS w/KCl 20mEq 1,000 ML IV SCH (16:15)
--- NOTE | 2020-05-11 16:20 | History and Physical ---
History of Present Illness General Date patient seen: May 11, 2020 Time patient seen: 13:00 Reason for Hospitalization: Gastrointestinal Bleed Present Illness HPI Disclaimer: Please note that this report is being documented using J-Kan[employer] technology. This can lead to erroneous entry secondary to incorrect interpretation by the dictating instrument. HPI: 89-year-old male presents from nursing facility for evaluation of lower GI bleeding. The patient states he awoke this morning in his usual state of health when he was the bathroom and noted some bright red bleeding per rectum. Noted soft stools but denied kirk diarrhea. Denied any pain passing stools, recent abdominal pain, trauma. Takes aspirin but no other anticoagulants. No prior history of hemorrhoids or GI bleeds per patient. He denies nausea, vomiting, hemoptysis, chest pain, palpitations, shortness of breath otherwise. Above history confirmed at bedside. Patient states he does not take any medications and was healthy prior to this presentation. Denies any prior hospitalization. However, records show that patient has been admitted in the past,. Last hemoglobin was 14 today's hemoglobin 10, and patient is more hypotensive than baseline with systolic in the 90s; however, patient denies any lightheadedness, dizziness, abdominal pain, nausea, vomiting. PMH: Polycythemia, renal dysfunction, dementia PSH: Reviewed Allergies: None reported Social Hx: Denies alcohol or drug use Allergies: Coded Allergies: No Known Allergies (Unverified , 09/06/19) COVID-19 Screening Contact w/high risk pt: Yes Recent Travel to affected area: No Experienced COVID-19 symptoms?: No Medication History Scheduled Amlodipine Besylate* (Amlodipine Besylate*), 5 MG ORAL DAILY, (Reported) Aspirin* (Aspirin*), 81 MG ORAL DAILY Hydroxyurea* (HYDREA 500mg*), 500 MG ORAL DAILY Metoprolol Succinate* (Metoprolol Succinate*), 37.5 MG ORAL DAILY, (Reported) Olanzapine* (Zyprexa*), 5 MG ORAL BEDTIME, (Reported) Scheduled PRN Hydralazine Hcl* (Hydralazine Hcl*), 25 MG ORAL EVERY 6 HOURS PRN for For High Blood Pressure, (Reported) Discontinued Medications Amlodipine Besylate (Norvasc), 10 MG ORAL DAILY Discontinued Reason: Medication dose changed Patient History Healthcare decision maker Resuscitation status Advanced Directive on File Review of Systems All Other Systems: negative except mentioned in HPI Physical Exam Last 24 Hour Vital Signs Date Time Temp Pulse Resp B/P (MAP) Pulse Ox O2 Delivery O2 Flow Rate FiO2 05/11/20 12:35 Room Air 05/11/20 11:33 97.9 66 16 101/58 100 Room Air 05/11/20 10:30 69 16 86/59 99 Room Air 05/11/20 09:55 97.2 77 16 93/61 100 Room Air 05/11/20 09:55 77 16 05/11/20 09:35 97.9 84 14 96/62 (73) 99 Room Air Laboratory Tests Test 05/11/20 09:40 05/11/20 10:00 White Blood Count 15.6 K/UL (4.8-10.8) H Red Blood Count 4.30 M/UL (4.70-6.10) L Hemoglobin 10.8 G/DL (14.2-18.0) L Hematocrit 35.5 % (42.0-52.0) L Mean Corpuscular Volume 83 FL (80-99) Mean Corpuscular Hemoglobin 25.2 PG (27.0-31.0) L Mean Corpuscular Hemoglobin Concent 30.5 G/DL (32.0-36.0) L Red Cell Distribution Width 18.7 % (11.6-14.8) H Platelet Count 905 K/UL (150-450) H Mean Platelet Volume 5.8 FL (6.5-10.1) L Neutrophils (%) (Auto) % (45.0-75.0) Lymphocytes (%) (Auto) % (20.0-45.0) Monocytes (%) (Auto) % (1.0-10.0) Eosinophils (%) (Auto) % (0.0-3.0) Basophils (%) (Auto) % (0.0-2.0) Differential Total Cells Counted 100 Neutrophils % (Manual) 79 % (45-75) H Lymphocytes % (Manual) 13 % (20-45) L Monocytes % (Manual) 8 % (1-10) Eosinophils % (Manual) 0 % (0-3) Basophils % (Manual) 0 % (0-2) Band Neutrophils 0 % (0-8) Other Cell Type Pathologist review Platelet Estimate Increased H Platelet Morphology Giant Platelets Occasional Hypochromasia 1+ Anisocytosis 1+ Reticulocyte Count 2.4 % (0.5-2.0) H Prothrombin Time 13.0 SEC (9.30-11.50) H Prothromb Time International Ratio 1.2 (0.9-1.1) H Activated Partial Thromboplast Time 29 SEC (23-33) Sodium Level 137 MMOL/L (136-145) Potassium Level 4.6 MMOL/L (3.5-5.1) Chloride Level 103 MMOL/L (98-107) Carbon Dioxide Level 26 MMOL/L (21-32) Anion Gap 8 mmol/L (5-15) Blood Urea Nitrogen 24 mg/dL (7-18) H Creatinine 1.5 MG/DL (0.55-1.30) H Estimat Glomerular Filtration Rate 53.7 mL/min (>60) Glucose Level 204 MG/DL (74-106) H Calcium Level 8.4 MG/DL (8.5-10.1) L Iron Level 43 ug/dL (50-175) L Total Iron Binding Capacity 260 ug/dL (250-450) Percent Iron Saturation 17 % (15-50) Unsaturated Iron Binding 217 ug/dL (112-346) Ferritin 127 NG/ML (8-388) Troponin I 0.014 ng/mL (0.000-0.056) Urine Color Pale yellow Urine Appearance Clear Urine pH 6 (4.5-8.0) Urine Specific [place] 1.010 (1.005-1.035) Urine Protein Negative (NEGATIVE) Urine Glucose (UA) Negative (NEGATIVE) Urine Ketones Negative (NEGATIVE) Urine Blood Negative (NEGATIVE) Urine Nitrite Negative (NEGATIVE) Urine Bilirubin Negative (NEGATIVE) Urine Urobilinogen Normal MG/DL (0.0-1.0) Urine Leukocyte Esterase Negative (NEGATIVE) Microbiology Date/Time Source Procedure Growth Status 05/11/20 10:35 Rectum Received Height (Feet): 5 Height (Inches): 7.00 Weight (Pounds): 152 Medications Current Medications Medications (Trade) Dose Ordered Sig/Elliot Route PRN Reason Start Time Stop Time Status Last Admin Dose Admin Acetaminophen (Tylenol) 650 mg Q4H PRN ORAL Mild Pain (Pain Scale 1-3) 05/11/20 10:45 06/10/20 10:44 Acetaminophen (Tylenol) 650 mg Q4H PRN ORAL Temp >100.5 05/11/20 10:45 06/10/20 10:44 Albuterol/ Ipratropium (Albuterol/ Ipratropium) 3 ml Q6H PRN HHN Shortness of Breath 05/11/20 10:45 05/16/20 10:44 Dextrose (Dextrose 50%) 25 ml Q30M PRN IV Hypoglycemia 05/11/20 10:45 08/09/20 10:44 Dextrose (Dextrose 50%) 50 ml Q30M PRN IV Hypoglycemia 05/11/20 10:45 08/09/20 10:44 Dextrose/ Electrolytes 1,000 ml @ 75 mls/hr [id number] IV 05/11/20 16:00 06/10/20 15:59 Diphenhydramine HCl (Benadryl) 25 mg Q6H PRN ORAL Itching/Pruritis 05/11/20 10:45 06/10/20 10:44 Lorazepam (Ativan 2mg/ml 1ml) 0.5 mg Q4H PRN IV For Anxiety 05/11/20 10:45 05/18/20 10:44 Metoclopramide HCl (Reglan) 10 mg Q6H PRN IVP Nausea & Vomiting 05/11/20 10:45 06/10/20 10:44 Ondansetron HCl (Zofran) 4 mg Q6H PRN IVP Nausea & Vomiting 05/11/20 10:45 06/10/20 10:44 Pantoprazole (Protonix) 40 mg BID IV 05/12/20 09:00 06/11/20 08:59 Zolpidem Tartrate (Ambien) 5 mg HSPRN PRN ORAL Insomnia 05/11/20 21:00 05/18/20 20:59 Objective Narrative GENERAL: No acute distress, appears comfortable, alert HEENT: NCAT, non-icteric eyes, pupils PERRLA Neck: No cervical lymphadenopathy, trachea midline CV: Regular rate and rhythm, no murmurs rubs or gallops RESP: Clear to auscultation bilaterally, no wheezes/rhonchi/crackles ABD: soft, non-distended, no TTP EXT: Normal muscle tone, +5/5 muscle strength NEURO: No obvious deficits, alert and oriented x3 Assessment/Plan Assessment/Plan: 89-year-old -[place] male with past medical history of hypertension, erythrocytosis, presents for bright red blood per rectum. #Bright red blood per rectum #Anemia -Hemoglobin of 10, 4 points below his last hemoglobin documented as 14 -Telemetry for hemodynamic monitoring -PRBC -FOBT -GI consult, appreciate recommendations #Hypertension -Hold hypertensive medications as patient's blood pressure is low -Resuscitate with fluids and PRBC #LAUREL -IV fluids -Monitor BMP -Monitor urine output -Nephrology consult, appreciate recommendations -Avoid nephrotoxic medications Leukocytosis -No signs of infection -Continue to monitor CBC -Hematology oncology consult 73 minutes spent with patient's case with more than 50% of time dedicated to care coordination and counseling. Including special list hematology, nephrology , gastroenterology, ER, nursing staff. The time of my note may not reflect the time of my patient encounter. I spent an additional 37 minutes on reviewing patient's chart from admission. This includes review of imaging, labs, notes, and interpretation of results. Katherin Mejia DO May 11, 2020 16:20
--- NOTE | 2020-05-11 16:22 | NUR ---
NURSE NOTES: Patient had a bloody BM about 300mL. Dr. Juares aware. Instructed that it is okay for patient to continue drinking golytely until BM is clear.
--- NOTE | 2020-05-11 17:14 | Consultation ---
DATE OF CONSULTATION: 05/11/2020 CONSULTING PHYSICIAN: José Luis Juares MD. CHIEF COMPLAINT: Rectal bleeding. HISTORY OF PRESENT ILLNESS: The patient is a very pleasant 89-year-old male without any prior medical history except for hypertension, presented to the hospital complaining of painless rectal bleeding. According to the patient, he never had this kind of problem before. He never had endoscopy and colonoscopy before, never been admitted to the hospital for any reason. PAST MEDICAL HISTORY: Only he has diagnosis of hypertension. History of polycythemia. PAST SURGICAL HISTORY: He had history of hernia repair. ALLERGIES: No known drug allergies. MEDICATIONS: Please see medication reconciliation list. SOCIAL HISTORY: The patient denies any tobacco, alcohol, or drug abuse. FAMILY HISTORY: Noncontributory. REVIEW OF SYSTEMS: A 10-point review of systems was performed and pertinent positives in HPI. PHYSICAL EXAMINATION: VITAL SIGNS: Temperature 97.9, pulse 66, respirations 16, blood pressure 101/58. HEENT: Normocephalic and atraumatic. Sclerae are anicteric. NECK: Supple. No evidence of obvious lymphadenopathy. CARDIOVASCULAR: Regular rate and rhythm. Plus S1-S2. LUNGS: Clear to auscultation bilaterally. ABDOMEN: Positive bowel sounds. Soft and nontender. No rebound. No guarding. No peritoneal sign. EXTREMITIES: No cyanosis, no clubbing, no edema. LABORATORY DATA: White count is 15, hemoglobin 10, hematocrit 35, platelet count is 905,000. ASSESSMENT AND PLAN: This is an 89-year-old male with past medical history of hypertension and polycythemia with elevated platelet count, presents to the hospital with painless rectal bleeding. Plan discussed with the patient. The patient needs an endoscopy and colonoscopy tomorrow. We are going to prep him with GoLYTELY today and perform that. Meanwhile, monitor H and H and transfuse as needed to keep hemoglobin above 7. José Luis Juares M.D. DR: ALISE JOB#: [id number] CC:
[2020-05-11 18:26] LABS: HEMATOCRIT 29.7 % (42.0-52.0); HEMOGLOBIN 9.4 G/DL (14.2-18.0); MEAN CORPUSCULAR VOLUME 80 FL (80-99); PLATELET COUNT 909 K/UL (150-450); RED BLOOD COUNT 3.71 M/UL (4.70-6.10); RED CELL DISTRIBUTION WIDTH 19.9 % (11.6-14.8); WHITE BLOOD COUNT 19.9 K/UL (4.8-10.8)
--- NOTE | 2020-05-11 18:53 | NUR ---
NURSE NOTES: Per nursing supervisor fitting, rapid test will be performed tomorrow.
--- NOTE | 2020-05-11 19:29 | NUR ---
HAND-OFF: Report given to Casandra Ferraro and Krupa LYONS. Patient stable. Plan of care endorsed. Aware that patient is scheduled for EGD and colonoscopy tomorrow and has already consented. Rapid test will be performed tomorrow. Endorsed that patient needs a blood transfusion consent signed prior to procedure.
--- NOTE | 2020-05-11 19:30 | NUR ---
Received report from ELOY Queen. Patient is awake alert and oriented x4 able to make needs known. No SOB or distress noted. air sampling and monitoring intact and functioning. Call light and bedside table within reach. Will continue plan of care.
[2020-05-11 20:00] VITALS: BP 113/75
[2020-05-11] MEDS ORDERED: Zolpidem 5mg tab ORAL PRN (21:00)
[2020-05-12] VITALS (8 sets, daily range): BP systolic 95–133; BP diastolic 59–83
[2020-05-12] MEDS: D5 1/2NS w/KCl 20mEq 1,000 ML IV SCH ×2 (05:26→17:57)
--- NOTE | 2020-05-12 06:59 | General Progress Note ---
Assessment/Plan Assessment/Plan: 89-year-old -[place] male with past medical history of hypertension, erythrocytosis, presents for bright red blood per rectum. #Bright red blood per rectum #Anemia -Hemoglobin of 10, 4 points below his last hemoglobin documented as 14 -Telemetry for hemodynamic monitoring -PRBC -FOBT pending -GI consult, appreciate recommendations -Plan for EGD/colon today #Hypertension -Hold hypertensive medications as patient's blood pressure is low -Resuscitate with fluids and PRBC #LAUREL -IV fluids -Monitor BMP -Monitor urine output -Nephrology consult, appreciate recommendations -Avoid nephrotoxic medications Leukocytosis -No signs of infection -Continue to monitor CBC -Hematology oncology consult, recs appreciated Time spent on encounter: 38 mins, 28 mins on counseling, coordination of care. D /w GI, Dr Juares, RN and pt. I spent an additional 31 minutes on reviewing patient's chart from admission. This includes review of imaging, labs, notes, and interpretation of results. Time of note doesn't reflect time of encounter. Subjective Allergies: Coded Allergies: No Known Allergies (Unverified , 09/06/19) Subjective No acute events overnight. Patient denies any further episodes of hematochezia. Patient states he tolerated prep well. No other issues at this time. Objective Last 24 Hour Vital Signs Date Time Temp Pulse Resp B/P (MAP) Pulse Ox O2 Delivery O2 Flow Rate FiO2 05/12/20 04:00 63 05/12/20 04:00 97.5 73 18 131/83 (99) 96 05/12/20 00:00 97.2 80 19 119/79 (92) 98 05/12/20 00:00 68 05/11/20 21:00 Room Air 05/11/20 20:00 97.5 81 18 113/75 (88) 99 05/11/20 20:00 112 05/11/20 16:00 96 05/11/20 16:00 97.5 79 20 119/60 (79) 100 05/11/20 12:35 Room Air 05/11/20 12:00 60 05/11/20 11:45 97.5 57 18 120/73 (89) 99 05/11/20 11:33 97.9 66 16 101/58 100 Room Air 05/11/20 10:30 69 16 86/59 99 Room Air 05/11/20 09:55 97.2 77 16 93/61 100 Room Air 05/11/20 09:55 77 16 05/11/20 09:35 97.9 84 14 96/62 (73) 99 Room Air Intake and Output 05/11/20 05/12/20 19:00 07:00 Intake Total 2000 ml Output Total 100 ml Balance 1900 ml Intake Oral 0 ml IV Total 2000 ml Output Urine Total 100 ml # Voids 1 1 # Bowel Movements 1 4 Laboratory Tests 05/11/20 09:40: White Blood Count 15.6H, Red Blood Count 4.30L, Hemoglobin 10.8L, Hematocrit 35.5L, Mean Corpuscular Volume 83, Mean Corpuscular Hemoglobin 25.2L, Mean Corpuscular Hemoglobin Concent 30.5L, Red Cell Distribution Width 18.7H, Platelet Count 905H, Mean Platelet Volume 5.8L, Neutrophils (%) (Auto) , Lymphocytes (%) (Auto) , Monocytes (%) (Auto) , Eosinophils (%) (Auto) , Basophils (%) (Auto) , Differential Total Cells Counted 100, Neutrophils % ( Manual) 79H, Lymphocytes % (Manual) 13L, Monocytes % (Manual) 8, Eosinophils % ( Manual) 0, Basophils % (Manual) 0, Band Neutrophils 0, Other Cell Type Pathologist review, Platelet Estimate IncreasedH, Platelet Morphology , Giant Platelets Occasional, Hypochromasia 1+, Anisocytosis 1+, Reticulocyte Count 2.4H , Prothrombin Time 13.0H, Prothromb Time International Ratio 1.2H, Activated Partial Thromboplast Time 29, Sodium Level 137, Potassium Level 4.6, Chloride Level 103, Carbon Dioxide Level 26, Anion Gap 8, Blood Urea Nitrogen 24H, Creatinine 1.5H, Estimat Glomerular Filtration Rate 53.7, Glucose Level 204H, Calcium Level 8.4L, Iron Level 43L, Total Iron Binding Capacity 260, Percent Iron Saturation 17, Unsaturated Iron Binding 217, Ferritin 127, Troponin I 0.014 05/11/20 10:00: Urine Color Pale yellow, Urine Appearance Clear, Urine pH 6, Urine Specific [place] 1.010, Urine Protein Negative, Urine Glucose (UA) Negative, Urine Ketones Negative, Urine Blood Negative, Urine Nitrite Negative, Urine Bilirubin Negative, Urine Urobilinogen Normal, Urine Leukocyte Esterase Negative 05/11/20 16:30: Stool Occult Blood [Pending] 05/11/20 17:20: White Blood Count 19.9H, Red Blood Count 3.71L, Hemoglobin 9.4L, Hematocrit 29.7L, Mean Corpuscular Volume 80, Mean Corpuscular Hemoglobin 25.4L, Mean Corpuscular Hemoglobin Concent 31.7L, Red Cell Distribution Width 19.9H, Platelet Count 909H, Mean Platelet Volume 5.9L, Neutrophils (%) (Auto) , Lymphocytes (%) (Auto) , Monocytes (%) (Auto) , Eosinophils (%) (Auto) , Basophils (%) (Auto) , Differential Total Cells Counted 100, Neutrophils % ( Manual) 75, Lymphocytes % (Manual) 18L, Monocytes % (Manual) 6, Eosinophils % ( Manual) 0, Basophils % (Manual) 0, Band Neutrophils 1, Platelet Estimate IncreasedH, Platelet Morphology Normal, Giant Platelets Occasional, Hypochromasia 1+, Anisocytosis 2+, Troponin I 0.016, Hypersegmented Polys Occasional, Microcytosis 1+ Height (Feet): 5 Height (Inches): 6.00 Weight (Pounds): 151 Objective General: NAD, A&O x 3, laying comfortably in bed HEENT: NCAT, EOMi, MMM CV: RRR, no murmurs, rubs, or gallops Pulm: CTAB, No wheezes, rhonchi, or rales, no accessory muscle usage or conversational dyspnea GI: Soft, nontender, nondistended, bowel sounds present Ext: No lower extremity edema bilaterally Skin: no rashes lesions or ulcers Msk: Joints symmetrical in upper extremity and lower extremity bilaterally, no joint swelling. Neuro: CN 2-12 grossly intact bilaterally, no focal signs. Shelby Chapin M.D. May 12, 2020 06:59
--- NOTE | 2020-05-12 07:37 | NUR ---
NURSE NOTES: Patient received from Arlene LYONS. Patient stable sleeping at this time. No s/sx of distress. RR even and unlabored on RA. IV fluids infusing through RT AC. Side rails upx2, call light within reach, bed low and locked. Will continue to monitor.
--- NOTE | 2020-05-12 07:47 | NUR ---
HAND-OFF: Report given to ELOY Rivera. Endorsed plan of care.
[2020-05-12] MEDS: Pantoprazole Inj IV SCH ×2 (08:18→17:58)
--- NOTE | 2020-05-12 08:33 | Pre-Procedure Note/Attestation ---
Pre-Procedure Note/Attestation Complete Prior to Procedure Planned Procedure: not applicable Procedure Narrative: esophagogastroduodenoscopy and colonoscopy Indications for Procedure Pre-Operative Diagnosis: GIB Attestation I attest that I discussed the nature of the procedure; its benefits; risks and complications; and alternatives (and the risks and benefits of such alternatives ), prior to the procedure, with the patient (or the patient's legal marketing sales representative). I attest that, if there was a reasonable possibility of needing a blood transfusion, the patient (or the patient's legal marketing sales representative) was given the [facility] standardized written summary, pursuant to the Oleksandr Rosette Blood Safety Act ([place] Health and Safety Code # 1645, as amended). I attest that I re-evaluated the patient just prior to the surgery and that there has been no change in the patient's H&P, except as documented below: José Luis Juares MD May 12, 2020 08:33
--- NOTE | 2020-05-12 10:41 | NUR ---
P.T Note: P.T evaluation completed and tx initiated. Please refer to P.T evaluation for current functional status. Pt is alert, O x 4 , forgetful at times, pleasant and cooperative. Pt denied pain but c/o generalized weakness and being unsteady. Pt required MIN A X 1 and verbal cues for Bed mobilities, transfers and gait/ambulation activities to give emphasis on safety awareness as pt is impulsive at times. Pt will be benefit from skilled P.T service to improve his strength, balance and endurance to increase his mobility independence and safety for return to PLOF. Recommend SNF for continued rehab intervention.
--- NOTE | 2020-05-12 11:30 | NUR ---
NURSE NOTES: Patient taken down for procedure.
[2020-05-12] MEDS ORDERED: NS 500ML IVPB ONE (11:50)
[2020-05-12] MEDS ORDERED: LR 1000ml ONE (12:00)
[2020-05-12] MEDS ORDERED: ePHEDrine 50mg/ml Inj ONE (12:00)
[2020-05-12] MEDS ORDERED: Lidocaine 1% MPF 10mg/ml 5ml ONE (12:00)
--- NOTE | 2020-05-12 12:20 | Consultation ---
History of Present Illness General Chief Complaint: Gastrointestinal Bleed Present Illness Allergies: Coded Allergies: No Known Allergies (Unverified , 09/06/19) Medication History Scheduled Amlodipine Besylate* (Amlodipine Besylate*), 5 MG ORAL DAILY, (Reported) Aspirin* (Aspirin*), 81 MG ORAL DAILY Hydroxyurea* (HYDREA 500mg*), 500 MG ORAL DAILY Metoprolol Succinate* (Metoprolol Succinate*), 37.5 MG ORAL DAILY, (Reported) Olanzapine* (Zyprexa*), 5 MG ORAL BEDTIME, (Reported) Scheduled PRN Hydralazine Hcl* (Hydralazine Hcl*), 25 MG ORAL EVERY 6 HOURS PRN for For High Blood Pressure, (Reported) Discontinued Medications Amlodipine Besylate (Norvasc), 10 MG ORAL DAILY Discontinued Reason: Medication dose changed Patient History Healthcare decision maker Resuscitation status Advanced Directive on File Physical Exam Last 24 Hour Vital Signs Date Time Temp Pulse Resp B/P (MAP) Pulse Ox O2 Delivery O2 Flow Rate FiO2 05/12/20 04:00 63 05/12/20 04:00 97.5 73 18 131/83 (99) 96 05/12/20 00:00 97.2 80 19 119/79 (92) 98 05/12/20 00:00 68 05/11/20 21:00 Room Air 05/11/20 20:00 97.5 81 18 113/75 (88) 99 05/11/20 20:00 112 05/11/20 16:00 96 05/11/20 16:00 97.5 79 20 119/60 (79) 100 05/11/20 12:35 Room Air Intake and Output 05/11/20 05/12/20 19:00 07:00 Intake Total 2000 ml Output Total 100 ml Balance 1900 ml Intake Oral 0 ml IV Total 2000 ml Output Urine Total 100 ml # Voids 1 1 # Bowel Movements 1 4 Laboratory Tests Test 05/11/20 16:30 05/11/20 17:20 Stool Occult Blood Pending White Blood Count 19.9 K/UL (4.8-10.8) H Red Blood Count 3.71 M/UL (4.70-6.10) L Hemoglobin 9.4 G/DL (14.2-18.0) L Hematocrit 29.7 % (42.0-52.0) L Mean Corpuscular Volume 80 FL (80-99) Mean Corpuscular Hemoglobin 25.4 PG (27.0-31.0) L Mean Corpuscular Hemoglobin Concent 31.7 G/DL (32.0-36.0) L Red Cell Distribution Width 19.9 % (11.6-14.8) H Platelet Count 909 K/UL (150-450) H Mean Platelet Volume 5.9 FL (6.5-10.1) L Neutrophils (%) (Auto) % (45.0-75.0) Lymphocytes (%) (Auto) % (20.0-45.0) Monocytes (%) (Auto) % (1.0-10.0) Eosinophils (%) (Auto) % (0.0-3.0) Basophils (%) (Auto) % (0.0-2.0) Differential Total Cells Counted 100 Neutrophils % (Manual) 75 % (45-75) Lymphocytes % (Manual) 18 % (20-45) L Monocytes % (Manual) 6 % (1-10) Eosinophils % (Manual) 0 % (0-3) Basophils % (Manual) 0 % (0-2) Band Neutrophils 1 % (0-8) Hypersegmented Polys Occasional Platelet Estimate Increased H Platelet Morphology Normal Giant Platelets Occasional Hypochromasia 1+ Anisocytosis 2+ Microcytosis 1+ Troponin I 0.016 ng/mL (0.000-0.056) Microbiology Date/Time Source Procedure Growth Status 05/12/20 09:40 Nasopharynx SARS-CoV-2 RdRp Gene Assay - Final Complete Height (Feet): 5 Height (Inches): 6.00 Weight (Pounds): 151 Medications Current Medications Medications (Trade) Dose Ordered Sig/Elliot Route PRN Reason Start Time Stop Time Status Last Admin Dose Admin Acetaminophen (Tylenol) 650 mg Q4H PRN ORAL Mild Pain (Pain Scale 1-3) 05/11/20 10:45 06/10/20 10:44 Acetaminophen (Tylenol) 650 mg Q4H PRN ORAL Temp >100.5 05/11/20 10:45 06/10/20 10:44 Albuterol/ Ipratropium (Albuterol/ Ipratropium) 3 ml Q6H PRN HHN Shortness of Breath 05/11/20 10:45 74/20 10:44 Dextrose (Dextrose 50%) 25 ml Q30M PRN IV Hypoglycemia 05/11/20 10:45 08/09/20 10:44 Dextrose (Dextrose 50%) 50 ml Q30M PRN IV Hypoglycemia 05/11/20 10:45 08/09/20 10:44 Dextrose/ Electrolytes 1,000 ml @ 75 mls/hr [id number] IV 05/11/20 16:00 06/10/20 15:59 05/12/20 05:26 Diphenhydramine HCl (Benadryl) 25 mg Q6H PRN ORAL Itching/Pruritis 05/11/20 10:45 06/10/20 10:44 Iron Sucrose 100 mg/Sodium Chloride 60 ml @ 240 mls/hr BEDTIME IV 05/12/20 21:00 05/16/20 21:14 Lorazepam (Ativan 2mg/ml 1ml) 0.5 mg Q4H PRN IV For Anxiety 05/11/20 10:45 05/18/20 10:44 Metoclopramide HCl (Reglan) 10 mg Q6H PRN IVP Nausea & Vomiting 05/11/20 10:45 06/10/20 10:44 Ondansetron HCl (Zofran) 4 mg Q6H PRN IVP Nausea & Vomiting 05/11/20 10:45 06/10/20 10:44 Pantoprazole (Protonix) 40 mg BID IV 05/12/20 09:00 06/11/20 08:59 05/12/20 08:18 Zolpidem Tartrate (Ambien) 5 mg HSPRN PRN ORAL Insomnia 05/11/20 21:00 05/18/20 20:59 Assessment/Plan Assessment/Plan: Hematology Consultation RFC: Humberto for HIGH PLT REQ MD: Karen SOTO 05/12/2020 HPI 89-year-old male well known to me, with HTN, very poor historian, in spite of being alert and oriented x4, presented to the ED via EMS with lightheadedness and near syncope, with gi bleed. EMS reports he was sitting on the ground next to his bed. He reports he was not seen nor did he fall. He had actually been preparing to go to the shower, and reports loss of appetite recently. Denies dizziness, numbness, tingling, weakness, any pain complaints at all, dysuria, hematuria, frequency, urgency, incomplete voiding, diarrhea, constipation, nausea, vomiting. of note, patient was just discharged from the hospital in September, for similar complaint. Had medication switched from HCTZ to amlodipine. He also was started on Zyprexa at that time for behavioral issues, to get egd/colo today. Seen by cardiology and recs noted, also with platelet count now 800-900 range, jak2 was positive last admission, results reviewed and has been sin past was aon asa and hydrea, now both dced PMH: HTN, High plt PSH: none social history: Denies toxic habits, lives alone, independent of ADLs family history: unknown to patient. Allergies: No Known Allergies (Unverified , 09/06/19) Medication History Scheduled Amlodipine Besylate* (Amlodipine Besylate*), 5 MG ORAL DAILY, (Reported) Lorazepam* (Ativan*), 0.5 MG ORAL THREE TIMES A DAY, (Reported) Olanzapine* (Zyprexa*), 5 MG ORAL BEDTIME, (Reported) Discontinued Medications Cephalexin* (Keflex*), 500 MG ORAL EVERY 6 HOURS Discontinued Reason: Pt stopped taking med Patient History Healthcare decision maker Resuscitation status Full Code Advanced Directive on File Review of Systems Constitutional: Reports: weakness Eye: Denies: no symptoms, see HPI, eye pain, blurred vision, tearing, double vision ENT: Denies: no symptoms, see HPI, ear pain, ear discharge, nose pain, nose congestion Respiratory: Denies: no symptoms, see HPI, cough, orthopnea Cardiovascular: Denies: no symptoms, see HPI, chest pain, edema Gastrointestinal: Denies: no symptoms, see HPI, abdominal pain, constipation Musculoskeletal: Denies: no symptoms, see HPI, back pain, gout Skin: Denies: no symptoms, see HPI, rash, change in color Psychiatric: Denies: no symptoms, see HPI, prior hx, anxiety Neurological: Reports: syncope, dizziness Endocrine: Denies: no symptoms, see HPI, excessive sweating, flushing Hematologic/Lymphatic: Denies: no symptoms, see HPI, anemia, blood clots, easy bleeding Physical Exam Physical Exam Narrative General Appearance: WD/WN, no apparent distress, alert EENT: PERRL/EOMI, normal ENT inspection Neck: non-tender, normal alignment, supple Cardiovascular: normal peripheral pulses, normal rate, regular rhythm, no JVD Respiratory/Chest: chest wall non-tender, lungs clear, normal breath sounds Abdomen: normal bowel sounds, non tender, soft, no organomegaly Extremities: normal range of motion, non-tender Edema: other - No lower extremity edema bilaterally Neurologic: supervisor furnace room II-XII grossly normal, no motor/sensory deficits, alert, oriented x 2, responsive Skin: normal pigmentation, warm/dry Labs noted Imaging: reviewed Assessment and Recs: # Essential Thrombocytosis, JAK2++, high-risk given age >60 meets the criteria, has consistently been elevated over the past 6 months, have reviewed last admissiona s well --> will evaluate liver and spleen r/o hepatosplenomegaly--> last admission did not show splenomegaly --> obtain peripheral smear, reviewed and no early immature cells noted --> JAK2 ++ again --> plt trend 705k-->643k-->757k-->811k-->791->909 --> START on hydrea 500mg pobid (smallest dose tablet)--> on 05/15 change to daily --> have discussed with Pcp --> If any lower ext symptoms, get duplex, at increased risk for dvt # Erythrocytosis with elevated hgb for age, also likely related to et --> currently 16.2-->16.1-->14.4 --> also may be related to underlying myeloprolif disorder --> OUTPATIENT sleep study as needed r/o aristeo # Anemia due to gi bleedingand iron deficiency --> on iv iron started --> 05/12 for colo and egd # LEukocytosis r/o reactive process, likely due to gi bleed --> abx as needed prn --> wbc trend: 8 -->20 # Hypercalcemia -- with elev Ca on admission --> current 9.1 --> likely improved with ivf --> w/u if worsens # Near syncope --> generalized weakness # Dehydration --> ivf started # Essential hypertension --> per cards, TTE normal --> imaging reviewed --> Continue Amlodipine # Acute encephlopathy, metabolic vs. psychiatric. dehydration v psych, improved --> psych eval --> Patient currently lives at home by himself # LAUREL- resolved --> Holding HCTZ as above --> monitor renal function # DVt ppx with scds Appreciate consultation and dw Virgilio Parra MD May 12, 2020 12:20
--- NOTE | 2020-05-12 12:38 | Endoscopy Procedure Note ---
Endoscopy Procedure Note General Indication for Procedure: gib Procedures Performed: colonoscopy Operative Findings/Diagnosis: multiple polyps Specimen: yes Pt Tolerated Procedure Well: Yes Estimated Blood Loss: none Anesthesia Anesthesiologist: yovany Anesthesia: MAC Inserted Devices Implant(s) used?: No Quality Quality of Bowel Preparation: Excellent Did scope reach the cecum?: Yes Was there any complications?: No GI Core Measures 50 yrs or older w/o bx or poly: Not Applicable 10yrs. F/U recommended: Not Applicable José Luis Juares MD May 12, 2020 12:38
--- NOTE | 2020-05-12 12:49 | Anethesia Preoperative Eval ---
Anesthesia Pre-op PMH/ROS General Date of Evaluation: May 12, 2020 Time of Evaluation: 12:00 Anesthesiologist: marshal ASA Score: ASA 3 Mallampati Score Class I : Soft palate, uvula, fauces, pillars visible Class II: Soft palate, uvula, fauces visible Class III: Soft palate, base of uvula visible Class IV: Only hard plate visible Mallampati Classification: Class II Surgeon: flaca Diagnosis: GI bleed Surgical Procedure: EGD/colonoscopy Anesthesia History: none Family History: no anesthesia problems Allergies: Coded Allergies: No Known Allergies (Unverified , 09/06/19) Medications: see eMAR Patient NPO?: Yes NPO Date: May 12, 2020 NPO Time: 00:01 Past Medical History Cardiovascular: Reports: HTN; Denies: CAD, MA, valve dz, arrhythmia, other Gastrointestinal/Genitourinary: Reports: other - GI bleed; Denies: GERD, CRI, ESRD Neurologic/Psychiatric: Denies: dementia, CVA, depression/anxiety, TIA, other Endocrine: Denies: DM, hypothyroidism, steroids, other HEENT: Denies: cataract (L), cataract (R), glaucoma, [place] (L), [place] (R), other Hematology/Immune: Reports: anemia; Denies: DVT, bleeding disorder, other Anesthesia Pre-op Phys. Exam Physician Exam Last Vital Signs Date Time Temp Pulse Resp B/P (MAP) Pulse Ox O2 Delivery O2 Flow Rate FiO2 05/12/20 04:00 63 05/12/20 04:00 97.5 18 131/83 (99) 96 05/11/20 21:00 Room Air Constitutional: NAD Neurologic: CN 2-12 intact Cardiovascular: RRR Respiratory: CTA Gastrointestinal: S/NT/ND Airway Exam Mallampati Classification 2 Mallampati Score: Class II MO: full ROM: full Dentures: no upper, no lower Anesthesia Pre-op A/P Labs Hematology Test 05/11/20 17:20 White Blood Count 19.9 K/UL (4.8-10.8) H Red Blood Count 3.71 M/UL (4.70-6.10) L Hemoglobin 9.4 G/DL (14.2-18.0) L Hematocrit 29.7 % (42.0-52.0) L Mean Corpuscular Volume 80 FL (80-99) Mean Corpuscular Hemoglobin 25.4 PG (27.0-31.0) L Mean Corpuscular Hemoglobin Concent 31.7 G/DL (32.0-36.0) L Red Cell Distribution Width 19.9 % (11.6-14.8) H Platelet Count 909 K/UL (150-450) H Mean Platelet Volume 5.9 FL (6.5-10.1) L Neutrophils (%) (Auto) % (45.0-75.0) Lymphocytes (%) (Auto) % (20.0-45.0) Monocytes (%) (Auto) % (1.0-10.0) Eosinophils (%) (Auto) % (0.0-3.0) Basophils (%) (Auto) % (0.0-2.0) Differential Total Cells Counted 100 Neutrophils % (Manual) 75 % (45-75) Lymphocytes % (Manual) 18 % (20-45) L Monocytes % (Manual) 6 % (1-10) Eosinophils % (Manual) 0 % (0-3) Basophils % (Manual) 0 % (0-2) Band Neutrophils 1 % (0-8) Hypersegmented Polys Occasional Platelet Estimate Increased H Platelet Morphology Normal Giant Platelets Occasional Hypochromasia 1+ Anisocytosis 2+ Microcytosis 1+ Chemistry Test 05/11/20 17:20 Troponin I 0.016 ng/mL (0.000-0.056) Studies Pre-op Studies: EKG - SR Pre-Antibiotics Drug: declined Kristan Soto SNACK [employer] MIXER OPERATOR May 12, 2020 12:49
--- NOTE | 2020-05-12 12:50 | Immediate Post-Op Evaluation ---
Immediate Post-Op Evalulation Immediate Post-Op Evalulation Procedure: EGD/Colonoscopy Date of Evaluation: May 12, 2020 Time of Evaluation: 12:45 IV Fluids: 500 Blood Pressure Systolic: 120 Blood Pressure Diastolic: 50 Pulse Rate: 65 Respiratory Rate: 14 O2 Sat by Pulse Oximetry: 99 Temperature (Fahrenheit): 97.7 Nausea: No Vomiting: No Complications none Patient Status: awake, reacts, patent Hydration Status: adequate Drug: none Kristan Soto CRNA May 12, 2020 12:50
--- NOTE | 2020-05-12 13:06 | Consultation ---
History of Present Illness General Chief Complaint: Gastrointestinal Bleed Reason for Consultation: [place] on CKD Present Illness HPI year-old male presents from nursing facility for evaluation of lower GI bleeding. The patient states he awoke this morning in his usual state of health when he was the bathroom and noted some bright red bleeding per rectum. Noted soft stools but denied kirk diarrhea. Denied any pain passing stools, recent abdominal pain, trauma. Takes aspirin but no other anticoagulants. No prior history of hemorrhoids or GI bleeds per patient. He denies nausea, vomiting, hemoptysis, chest pain, palpitations, shortness of breath otherwise. Above history confirmed at bedside. Patient states he does not take any medications and was healthy prior to this presentation. Denies any prior hospitalization. However, records show that patient has been admitted in the past,. Last hemoglobin was 14 today's hemoglobin 10, and patient is more hypotensive than baseline with systolic in the 90s; however, patient denies any lightheadedness, dizziness, abdominal pain, nausea, vomiting. Allergies: Coded Allergies: No Known Allergies (Unverified , 09/06/19) Medication History Scheduled Amlodipine Besylate* (Amlodipine Besylate*), 5 MG ORAL DAILY, (Reported) Aspirin* (Aspirin*), 81 MG ORAL DAILY Hydroxyurea* (HYDREA 500mg*), 500 MG ORAL DAILY Metoprolol Succinate* (Metoprolol Succinate*), 37.5 MG ORAL DAILY, (Reported) Olanzapine* (Zyprexa*), 5 MG ORAL BEDTIME, (Reported) Scheduled PRN Hydralazine Hcl* (Hydralazine Hcl*), 25 MG ORAL EVERY 6 HOURS PRN for For High Blood Pressure, (Reported) Discontinued Medications Amlodipine Besylate (Norvasc), 10 MG ORAL DAILY Discontinued Reason: Medication dose changed Patient History Healthcare decision maker Resuscitation status Advanced Directive on File Review of Systems ROS Narrative Unable to obtain due to dementia Physical Exam General Appearance: no apparent distress, alert, lethargic Lines, tubes and drains: peripheral HEENT: normocephalic, atraumatic Neck: non-tender, normal alignment Respiratory/Chest: chest wall non-tender, lungs clear Cardiovascular/Chest: normal rate, regular rhythm Abdomen: normal bowel sounds, non tender, soft Last 24 Hour Vital Signs Date Time Temp Pulse Resp B/P (MAP) Pulse Ox O2 Delivery O2 Flow Rate FiO2 6/30/20 12:50 60 16 120/66 100 Simple Mask 6 05/12/20 12:50 65 14 99 05/12/20 12:45 58 14 105/64 100 Simple Mask 6 05/12/20 12:40 97.7 69 22 95/59 100 Simple Mask 6 05/12/20 04:00 63 05/12/20 04:00 97.5 73 18 131/83 (99) 96 05/12/20 00:00 97.2 80 19 119/79 (92) 98 05/12/20 00:00 68 05/11/20 21:00 Room Air 05/11/20 20:00 97.5 81 18 113/75 (88) 99 05/11/20 20:00 112 05/11/20 16:00 96 05/11/20 16:00 97.5 79 20 119/60 (79) 100 Intake and Output 05/11/20 05/12/20 19:00 07:00 Intake Total 2000 ml Output Total 100 ml Balance 1900 ml Intake Oral 0 ml IV Total 2000 ml Output Urine Total 100 ml # Voids 1 1 # Bowel Movements 1 4 Laboratory Tests Test 05/11/20 16:30 05/11/20 17:20 Stool Occult Blood Positive (NEGATIVE) White Blood Count 19.9 K/UL (4.8-10.8) H Red Blood Count 3.71 M/UL (4.70-6.10) L Hemoglobin 9.4 G/DL (14.2-18.0) L Hematocrit 29.7 % (42.0-52.0) L Mean Corpuscular Volume 80 FL (80-99) Mean Corpuscular Hemoglobin 25.4 PG (27.0-31.0) L Mean Corpuscular Hemoglobin Concent 31.7 G/DL (32.0-36.0) L Red Cell Distribution Width 19.9 % (11.6-14.8) H Platelet Count 909 K/UL (150-450) H Mean Platelet Volume 5.9 FL (6.5-10.1) L Neutrophils (%) (Auto) % (45.0-75.0) Lymphocytes (%) (Auto) % (20.0-45.0) Monocytes (%) (Auto) % (1.0-10.0) Eosinophils (%) (Auto) % (0.0-3.0) Basophils (%) (Auto) % (0.0-2.0) Differential Total Cells Counted 100 Neutrophils % (Manual) 75 % (45-75) Lymphocytes % (Manual) 18 % (20-45) L Monocytes % (Manual) 6 % (1-10) Eosinophils % (Manual) 0 % (0-3) Basophils % (Manual) 0 % (0-2) Band Neutrophils 1 % (0-8) Hypersegmented Polys Occasional Platelet Estimate Increased H Platelet Morphology Normal Giant Platelets Occasional Hypochromasia 1+ Anisocytosis 2+ Microcytosis 1+ Troponin I 0.016 ng/mL (0.000-0.056) Microbiology Date/Time Source Procedure Growth Status 05/12/20 09:40 Nasopharynx SARS-CoV-2 RdRp Gene Assay - Final Complete Height (Feet): 5 Height (Inches): 6.00 Weight (Pounds): 151 Medications Current Medications Medications (Trade) Dose Ordered Sig/Elliot Route PRN Reason Start Time Stop Time Status Last Admin Dose Admin Acetaminophen (Tylenol) 650 mg Q4H PRN ORAL Mild Pain (Pain Scale 1-3) 05/11/20 10:45 06/10/20 10:44 Acetaminophen (Tylenol) 650 mg Q4H PRN ORAL Temp >100.5 05/11/20 10:45 06/10/20 10:44 Albuterol/ Ipratropium (Albuterol/ Ipratropium) 3 ml Q6H PRN HHN Shortness of Breath 05/11/20 10:45 05/16/20 10:44 Dextrose (Dextrose 50%) 25 ml Q30M PRN IV Hypoglycemia 05/11/20 10:45 08/09/20 10:44 Dextrose (Dextrose 50%) 50 ml Q30M PRN IV Hypoglycemia 05/11/20 10:45 08/09/20 10:44 Dextrose/ Electrolytes 1,000 ml @ 75 mls/hr [id number] IV 05/11/20 16:00 06/10/20 15:59 05/12/20 05:26 Diphenhydramine HCl (Benadryl) 25 mg Q6H PRN ORAL Itching/Pruritis 05/11/20 10:45 06/10/20 10:44 Hydroxyurea (Hydrea) 500 mg TWICE A DAY ORAL 05/12/20 12:30 05/17/20 12:29 Iron Sucrose 100 mg/Sodium Chloride 60 ml @ 240 mls/hr BEDTIME IV 05/12/20 21:00 05/16/20 21:14 Lorazepam (Ativan 2mg/ml 1ml) 0.5 mg Q4H PRN IV For Anxiety 05/11/20 10:45 05/18/20 10:44 Metoclopramide HCl (Reglan) 10 mg Q6H PRN IVP Nausea & Vomiting 05/11/20 10:45 06/10/20 10:44 Ondansetron HCl (Zofran) 4 mg Q6H PRN IVP Nausea & Vomiting 05/11/20 10:45 06/10/20 10:44 Pantoprazole (Protonix) 40 mg BID IV 05/12/20 09:00 06/11/20 08:59 05/12/20 08:18 Zolpidem Tartrate (Ambien) 5 mg HSPRN PRN ORAL Insomnia 05/11/20 21:00 05/18/20 20:59 Assessment/Plan Diagnosis [place] I: #LAUREL likely due prerenal azotemia in the setting of GI bleed- on baseline CKD? #GI bleed #h/o HTN #Iron deficiency #polycythemia #dementia - contineu IVF - GI eval - endoscopy today - prbc trasnfusion to maintain hemoglobin > 7.5 - on hydroxyuria - continue protonix - avoid nephrotoxins - strict I&Os - daily weights - monitor UOP - check BMP, mag and phos daily Times spent 70 minutes > 50% on care coordination and counseling Michael Ansari M.D. May 12, 2020 13:06
--- NOTE | 2020-05-12 13:10 | NUR ---
NURSE NOTES: Patient returned from egd and colonoscopy. Patient stable at this time.
[2020-05-12] MEDS: Hydroxyurea 500mg cap ORAL SCH ×2 (13:27→17:57)
[2020-05-12 15:58] LABS: HEMOGLOBIN 7.4 G/DL (14.2-18.0); MEAN CORPUSCULAR VOLUME 80 FL (80-99); PLATELET COUNT 801 K/UL (150-450); RED BLOOD COUNT 2.88 M/UL (4.70-6.10)
--- NOTE | 2020-05-12 16:24 | NUR ---
NURSE NOTES: CRITICAL VALUE OF WBC 42.[address] JACOBSEN WELL HGB 7.4, SHE STATED SHE WILL NOTIFY DR BLACKMON.
[2020-05-12 16:35] LABS: ANION GAP 10 mmol/L (5-15); CALCIUM 8.3 MG/DL (8.5-10.1); CARBON DIOXIDE 24 MMOL/L (21-32); CHLORIDE 107 MMOL/L (98-107); CREATININE 1.1 MG/DL (0.55-1.30); POTASSIUM 3.6 MMOL/L (3.5-5.1); SODIUM 141 MMOL/L (136-145)
[2020-05-12 16:45] LABS: BLOOD UREA NITROGEN 15 mg/dL (7-18)
--- NOTE | 2020-05-12 17:15 | NUR ---
NURSE NOTES: Blood bank informed staff anesthetist that blood was ready. Order was from yesterday. Dr. Su who was newly consulted contacted and order was received to transfuse ordered blood.
--- NOTE | 2020-05-12 17:45 | Procedure Note ---
DATE OF PROCEDURE: 05/12/2020 SURGEON: José Luis Juares MD. PROCEDURE: Upper endoscopy with biopsy, colonoscopy with biopsy, and snare polypectomy. ANESTHESIA: Per FINANCIAL OPERATIONS CLERK, Kristan Tarrillion. INSTRUMENT: Olympus adult flexible upper endoscope and colonoscope. INDICATION: GI bleeding. The procedure, risks, benefits, and possible consequences, including hemorrhage, aspiration, perforation and infection, and alternative treatments, were explained to the patient/legal guardian by Dr. José Luis Juares and the patient/legal guardian understood and accepted these risks. PROCEDURE IN DETAIL: After informed consent was obtained and the patient was adequately sedated, Olympus upper endoscope was advanced from the mouth to the second portion of the duodenum and retroflexion was performed in the stomach. The patient has history of atrophic gastritis. Random biopsy from antrum was obtained to rule out H. pylori infection. Otherwise, the rest of the upper endoscopic examination grossly looked within normal limit. At this time, the upper endoscope was retrieved. The patient was turned over for colonoscopy. First, rectal exam was performed which was positive for internal hemorrhoids. Then, the scope was advanced from the rectum to the cecum. Quality of prep was very good. The patient had two polyps in the cecum, sessile, roughly about 6 mm, removed with hot snare polypectomy technique. There was a large polyp in the proximal ascending colon, roughly about 1.5 cm, removed with hot snare polypectomy technique, but the polyp was lost to be retrieved. The patient had 2 other polyps in the hepatic flexure area, one removed with cold biopsy and another with snare. The rest of the exam grossly looked within normal limit. No active bleeding at this time. Some old blood was seen in the right colon. Retroflexion of rectum was performed and showed evidence of internal hemorrhoids. SUMMARY OF FINDINGS: 1. Multiple colonic polyps, status post removal. 2. Gastritis, status post biopsy. 3. Internal hemorrhoids. RECOMMENDATIONS: We will recommend capsule endoscopy for tomorrow to evaluate for small-bowel bleed. José Luis Juares M.D. DR: Aubrie JOB#: [id number] CC:
--- NOTE | 2020-05-12 18:05 | NUR ---
NURSE NOTES: Patient being transfused. VSS stable before and 15min prior. No adverse reaction noted and patient tolerating well. Will continue to monitor.
--- NOTE | 2020-05-12 19:14 | NUR ---
HAND-OFF: Report given to Gayla Lyn RN. Patient stable. Plan of care endorsed. Endorsed that patient will have capsule endoscopy tomorrow. Blood is transfusing now.
--- NOTE | 2020-05-12 20:02 | NUR ---
NURSE NOTES: Received patient in bed, awake, alert, with periods of forgetfulness/confusion. Blood transfusion is in place, no reaction noted, tolerating it well, IV site is clean dry and intact, patient is noted being weak with unsteady gate, needs staff assistance. Call light is within reach, bed is lowered, locked, alarm is on, will continue to monitor for comfort and safety.
[2020-05-12] MEDS ORDERED: Iron Sucrose 100 MG in NS 55 ML IV SCH (21:00)
[2020-05-12] MEDS: Iron Sucrose 100 MG in NS 55 ML IV SCH (21:24)
--- NOTE | 2020-05-12 22:55 | NUR ---
NURSE NOTES: Patient became agitated, using walker moved into hallway, was telling primary RN " get away from me, don't touch me" RN explained to the patient that she needs to flush the IV site and administer ordered medication, patient stated that he will call [employer]. Security was called, patient was escorted back to his room, CN and another RN offered to help, patient stated " get away from me, don't anybody touch me. Patient last seen in his room sitting on the bed.
--- NOTE | 2020-05-13 00:29 | Consultation ---
DATE OF CONSULTATION: 05/12/2020 CONSULTING PHYSICIAN: Adriana Contreras MD. HISTORY OF PRESENT ILLNESS: This is an 89-year-old male with a history of multiple medical issues including dementia, polycythemia who has been admitted to the hospital for medical stabilization. The patient has agitation outside of the hospital and he was placed on olanzapine. Here, he is confused, disoriented. Has episode of agitation. PAST MEDICAL HISTORY: Significant for hypertension, dementia, UTI. ALLERGIES: No known drug allergies. SUBSTANCE ABUSE HISTORY: No known history of illicit drug use or alcohol. MENTAL STATUS EXAMINATION: Patient is alert, disoriented to situation. Mood is anxious. Affect is flat. Thought process is concrete. Thought content, no suicidal or homicidal ideation. Cognition is impaired. Insight and judgment is impaired. ASSESSMENT: [place] I Dementia with behavior disturbance. [place] II Deferred. [place] III As above. [place] IV Low. [place] V 20. PLAN: 1. We will start the patient on Zyprexa 5 mg at bedtime 2. Ativan p.r.n. 3. Provide the patient with reality orientation and supportive therapy. Adriana Contreras M.D. DR: MEHUL JOB#: [id number] CC: KIRSTEN
[2020-05-13 04:00] VITALS: BP 129/78
--- NOTE | 2020-05-13 07:13 | General Progress Note ---
Assessment/Plan Assessment/Plan: 89-year-old -[place] male with past medical history of hypertension, erythrocytosis, presents for bright red blood per rectum. #Bright red blood per rectum #Anemia -Hemoglobin of 10, 4 points below his last hemoglobin documented as 14 -Telemetry for hemodynamic monitoring -PRBC -FOBT pending -GI consult, appreciate recommendations -05/12: s/p EGD/colon w/gastritis, colonic polyps and hemorrhoids -for capsule endoscopy today by GI #Hypertension -Hold hypertensive medications as patient's blood pressure is low -Resuscitate with fluids and PRBC #LAUREL - resolved -IV fluids -Monitor BMP -Nephrology consult, appreciate recommendations -Avoid nephrotoxic medications #Polycythemia/Essential Thrombosis #Leukocytosis -No signs of infection -Continue to monitor CBC -Hematology oncology consult, recs appreciated -d/w Heme lab findings, cont hydrea per Heme, ctm Time spent on encounter: 36 mins, 27 mins on counseling pt regarding hospital course/POC, coordination of care. D/w GI, Dr Juares, Dr. Su, RN and pt. Time of note doesn't reflect time of encounter. Subjective Allergies: Coded Allergies: No Known Allergies (Unverified , 09/06/19) Subjective F/u for GIB. S/p EGD/colonoscopy 05/12. S/p 1 U PRBC transfused overnight w/good response in Hgb. Pt wants to return to his [facility], explained to pt need for further workup and to cont to monitor CBC given recent hgb drop. Plan for capsule endoscopy today. Objective Last 24 Hour Vital Signs Date Time Temp Pulse Resp B/P (MAP) Pulse Ox O2 Delivery O2 Flow Rate FiO2 05/13/20 04:00 96.0 89 18 129/78 (95) 96 05/12/20 21:54 Room Air 05/12/20 20:00 97.5 101 18 133/80 (97) 98 05/12/20 20:00 92 05/12/20 16:00 97.6 116 20 114/81 (92) 98 05/12/20 16:00 116 05/12/20 13:00 97.9 73 19 126/68 100 Room Air 05/12/20 12:50 60 16 120/66 100 Simple Mask 6 05/12/20 12:50 65 14 99 05/12/20 12:45 58 14 105/64 100 Simple Mask 6 05/12/20 12:40 97.7 69 22 95/59 100 Simple Mask 6 05/12/20 12:00 70 05/12/20 09:00 Room Air 05/12/20 08:00 59 Intake and Output 05/12/20 05/13/20 19:00 07:00 Intake Total 1600 ml Balance 1600 ml Intake Oral 400 ml IV Total 1200 ml # Voids 5 # Bowel Movements 2 2 Laboratory Tests 05/12/20 15:45: White Blood Count 42.0#*H, Red Blood Count 2.88L, Hemoglobin 7.4L, Hematocrit 23.0L, Mean Corpuscular Volume 80, Mean Corpuscular Hemoglobin 25.5L, Mean Corpuscular Hemoglobin Concent 32.0, Red Cell Distribution Width 20.0H, Platelet Count 801H, Mean Platelet Volume 5.7L, Neutrophils (%) (Auto) , Lymphocytes (%) (Auto) , Monocytes (%) (Auto) , Eosinophils (%) (Auto) , Basophils (%) (Auto) , Differential Total Cells Counted 100, Neutrophils % ( Manual) 87H, Lymphocytes % (Manual) 4L, Monocytes % (Manual) 8, Eosinophils % ( Manual) 0, Basophils % (Manual) 0, Band Neutrophils 1, Nucleated Red Blood Cells 1, Platelet Estimate IncreasedH, Platelet Morphology Normal, Polychromasia 1+, Anisocytosis 3+, Microcytosis 1+, Sodium Level 141, Potassium Level 3.6, Chloride Level 107, Carbon Dioxide Level 24, Anion Gap 10, Blood Urea Nitrogen 15, Creatinine 1.1, Estimat Glomerular Filtration Rate > 60, Glucose Level 135H, Calcium Level 8.3L, Magnesium Level 1.9, Thyroid Stimulating Hormone (TSH) 3.068 Height (Feet): 5 Height (Inches): 6.00 Weight (Pounds): 151 Objective General: NAD, A&O x 3, sitting up in chair in hallway, comfortably HEENT: NCAT, EOMi, MMM CV: RRR, no murmurs, rubs, or gallops Pulm: CTAB, No wheezes, rhonchi, or rales, no accessory muscle usage or conversational dyspnea GI: Soft, nontender, nondistended, bowel sounds present Ext: No lower extremity edema bilaterally Skin: no rashes lesions or ulcers Msk: Joints symmetrical in upper extremity and lower extremity bilaterally, no joint swelling. Neuro: CN 2-12 grossly intact bilaterally, no focal signs. Shelby Chapin M.D. May 13, 2020 07:13
--- NOTE | 2020-05-13 07:16 | 48 Hour Post Anesthesia Eval ---
Post Anesthesia Evaluation Procedure: EGD/Colonoscopy Date of Evaluation: May 13, 2020 Time of Evaluation: 07:16 Blood Pressure Systolic: 129 0: 78 Pulse Rate: 65 Respiratory Rate: 16 O2 Sat by Pulse Oximetry: 98 Airway: patent Nausea: No Vomiting: No Hydration Status: adequate Cardiopulmonary Status: stable Mental Status/LOC: patient returned to baseline Post-Anesthesia Complications: none Follow-up care needed: N/A Kristan Soto CRNA May 13, 2020 07:16
--- NOTE | 2020-05-13 07:30 | NUR ---
NURSE NOTES: Received pt from ELOY Shukla, pt is awake and alert and sitting in hallway, pt is in RA , no SOB or acute respiratory distress noted. pt has intact iv access RAC SL, Pt refused iv fluid. no complain of pain at this moment. pt is NPO due to procedure today, Dr Chapin is on bed side and is aware about pt refuses meds and cares and heart monitoring, and asked to go home, Dr Chapin will F/U. all needs attended, bed is locked and is in the lowest position, call light within easy reach. will continue to monitor.
[2020-05-13 08:00] VITALS: BP 114/71
[2020-05-13] MEDS: D5 1/2NS w/KCl 20mEq 1,000 ML IV SCH (08:00)
[2020-05-13 08:49] LABS: HEMATOCRIT 26.6 % (42.0-52.0); HEMOGLOBIN 8.6 G/DL (14.2-18.0); MEAN CORPUSCULAR VOLUME 83 FL (80-99); PLATELET COUNT 803 K/UL (150-450); RED BLOOD COUNT 3.21 M/UL (4.70-6.10); RED CELL DISTRIBUTION WIDTH 19.6 % (11.6-14.8); WHITE BLOOD COUNT 20.8 K/UL (4.8-10.8)
--- NOTE | 2020-05-13 08:53 | Nephrology Progress Note ---
Assessment/Plan Plan #LAUREL likely due prerenal azotemia in the setting of GI bleed- on baseline CKD?-- > improved #GI bleed #h/o HTN #Iron deficiency #polycythemia #dementia - contineu IVF - GI eval - endoscopy today - prbc trasnfusion to maintain hemoglobin > 7.5 - on hydroxyuria - continue protonix - avoid nephrotoxins - strict I&Os - daily weights - monitor UOP - check BMP, mag and phos daily Times spent 70 minutes > 50% on care coordination and counseling Subjective ROS Limited/Unobtainable: No Constitutional: Reports: weakness HEENT: Denies: no symptoms, eye pain, blurred vision, tearing, double vision, ear pain, ear discharge, nose pain, nose congestion, throat pain, throat swelling, mouth pain, mouth swelling, other Genitourinary: Denies: no symptoms, burning, discharge, frequency, flank pain, hematuria, incontinence, pain, urgency, other Neurologic/Psychiatric: Denies: no symptoms, anxiety, depressed, emotional problems, headache, numbness, paresthesia, pre-existing deficit, seizure, tingling, tremors, weakness, other Subjective Vitals stable WBC downtrending hemoglobin stable Objective Objective Last 24 Hour Vital Signs Date Time Temp Pulse Resp B/P (MAP) Pulse Ox O2 Delivery O2 Flow Rate FiO2 05/13/20 08:00 97.8 91 20 114/71 (85) 98 05/13/20 07:16 65 16 98 05/13/20 04:00 96.0 89 18 129/78 (95) 96 05/12/20 21:54 Room Air 05/12/20 20:00 97.5 101 18 133/80 (97) 98 05/12/20 20:00 92 05/12/20 16:00 97.6 116 20 114/81 (92) 98 05/12/20 16:00 116 05/12/20 13:00 97.9 73 19 126/68 100 Room Air 05/12/20 12:50 60 16 120/66 100 Simple Mask 6 05/12/20 12:50 65 14 99 05/12/20 12:45 58 14 105/64 100 Simple Mask 6 05/12/20 12:40 97.7 69 22 95/59 100 Simple Mask 6 05/12/20 12:00 70 05/12/20 09:00 Room Air Intake and Output 05/12/20 05/13/20 19:00 07:00 Intake Total 1600 ml Balance 1600 ml Intake Oral 400 ml IV Total 1200 ml # Voids 5 # Bowel Movements 2 2 Laboratory Tests 05/12/20 15:45: White Blood Count 42.0#*H, Red Blood Count 2.88L, Hemoglobin 7.4L, Hematocrit 23.0L, Mean Corpuscular Volume 80, Mean Corpuscular Hemoglobin 25.5L, Mean Corpuscular Hemoglobin Concent 32.0, Red Cell Distribution Width 20.0H, Platelet Count 801H, Mean Platelet Volume 5.7L, Neutrophils (%) (Auto) , Lymphocytes (%) (Auto) , Monocytes (%) (Auto) , Eosinophils (%) (Auto) , Basophils (%) (Auto) , Differential Total Cells Counted 100, Neutrophils % ( Manual) 87H, Lymphocytes % (Manual) 4L, Monocytes % (Manual) 8, Eosinophils % ( Manual) 0, Basophils % (Manual) 0, Band Neutrophils 1, Nucleated Red Blood Cells 1, Platelet Estimate IncreasedH, Platelet Morphology Normal, Polychromasia 1+, Anisocytosis 3+, Microcytosis 1+, Sodium Level 141, Potassium Level 3.6, Chloride Level 107, Carbon Dioxide Level 24, Anion Gap 10, Blood Urea Nitrogen 15, Creatinine 1.1, Estimat Glomerular Filtration Rate > 60, Glucose Level 135H, Calcium Level 8.3L, Magnesium Level 1.9, Thyroid Stimulating Hormone (TSH) 3.068 05/13/20 08:30: White Blood Count 20.8#H, Red Blood Count 3.21L, Hemoglobin 8.6L, Hematocrit 26.6L, Mean Corpuscular Volume 83, Mean Corpuscular Hemoglobin 26.8L, Mean Corpuscular Hemoglobin Concent 32.3, Red Cell Distribution Width 19.6H, Platelet Count 803H, Mean Platelet Volume 5.7L, Neutrophils (%) (Auto) , Lymphocytes (%) (Auto) , Monocytes (%) (Auto) , Eosinophils (%) (Auto) , Basophils (%) (Auto) , Neutrophils % (Manual) [Pending], Lymphocytes % (Manual) [Pending], Platelet Estimate [Pending], Platelet Morphology [Pending], Sodium Level [Pending], Potassium Level [Pending], Chloride Level [Pending], Carbon Dioxide Level [Pending], Blood Urea Nitrogen [Pending], Creatinine [Pending], Estimat Glomerular Filtration Rate [Pending], Glucose Level [Pending], Calcium Level [Pending], Magnesium Level [Pending], Phosphorus Level [Pending] Height (Feet): 5 Height (Inches): 6.00 Weight (Pounds): 151 General Appearance: no apparent distress, alert EENT: PERRL/EOMI, normal ENT inspection Neck: non-tender, normal alignment Cardiovascular: normal peripheral pulses, normal rate Respiratory/Chest: chest wall non-tender, lungs clear Abdomen: normal bowel sounds, non tender, soft Neurologic: alert, oriented x 3 Michael Ansari M.D. May 13, 2020 08:53
[2020-05-13] MEDS: Hydroxyurea 500mg cap ORAL SCH ×2 (09:00→17:44)
[2020-05-13 09:08] LABS: ANION GAP 6 mmol/L (5-15); BLOOD UREA NITROGEN 13 mg/dL (7-18); CARBON DIOXIDE 26 MMOL/L (21-32); CHLORIDE 108 MMOL/L (98-107); PHOSPHORUS 3.7 MG/DL (2.5-4.9); POTASSIUM 3.9 MMOL/L (3.5-5.1); SODIUM 140 MMOL/L (136-145)
[2020-05-13] MEDS: Pantoprazole Inj IV SCH ×2 (09:10→17:44)
--- NOTE | 2020-05-13 09:29 | General Progress Note ---
Assessment/Plan Assessment/Plan: GIB s/p EGd and colonoscopy multiple polyps gastritis pending capsule endoscopy for today fu H&H Subjective ROS Limited/Unobtainable: No Allergies: Coded Allergies: No Known Allergies (Unverified , 09/06/19) Objective Last 24 Hour Vital Signs Date Time Temp Pulse Resp B/P (MAP) Pulse Ox O2 Delivery O2 Flow Rate FiO2 05/13/20 08:00 97.8 91 20 114/71 (85) 98 05/13/20 07:16 65 16 98 05/13/20 04:00 96.0 89 18 129/78 (95) 96 05/12/20 21:54 Room Air 05/12/20 20:00 97.5 101 18 133/80 (97) 98 05/12/20 20:00 92 05/12/20 16:00 97.6 116 20 114/81 (92) 98 05/12/20 16:00 116 05/12/20 13:00 97.9 73 19 126/68 100 Room Air 05/12/20 12:50 60 16 120/66 100 Simple Mask 6 05/12/20 12:50 65 14 99 05/12/20 12:45 58 14 105/64 100 Simple Mask 6 05/12/20 12:40 97.7 69 22 95/59 100 Simple Mask 6 05/12/20 12:00 70 Intake and Output 05/12/20 05/13/20 19:00 07:00 Intake Total 1600 ml Balance 1600 ml Intake Oral 400 ml IV Total 1200 ml # Voids 5 # Bowel Movements 2 2 Laboratory Tests 05/12/20 15:45: White Blood Count 42.0#*H, Red Blood Count 2.88L, Hemoglobin 7.4L, Hematocrit 23.0L, Mean Corpuscular Volume 80, Mean Corpuscular Hemoglobin 25.5L, Mean Corpuscular Hemoglobin Concent 32.0, Red Cell Distribution Width 20.0H, Platelet Count 801H, Mean Platelet Volume 5.7L, Neutrophils (%) (Auto) , Lymphocytes (%) (Auto) , Monocytes (%) (Auto) , Eosinophils (%) (Auto) , Basophils (%) (Auto) , Differential Total Cells Counted 100, Neutrophils % ( Manual) 87H, Lymphocytes % (Manual) 4L, Monocytes % (Manual) 8, Eosinophils % ( Manual) 0, Basophils % (Manual) 0, Band Neutrophils 1, Nucleated Red Blood Cells 1, Platelet Estimate IncreasedH, Platelet Morphology Normal, Polychromasia 1+, Anisocytosis 3+, Microcytosis 1+, Sodium Level 141, Potassium Level 3.6, Chloride Level 107, Carbon Dioxide Level 24, Anion Gap 10, Blood Urea Nitrogen 15, Creatinine 1.1, Estimat Glomerular Filtration Rate > 60, Glucose Level 135H, Calcium Level 8.3L, Magnesium Level 1.9, Thyroid Stimulating Hormone (TSH) 3.068 05/13/20 08:30: White Blood Count 20.8#H, Red Blood Count 3.21L, Hemoglobin 8.6L, Hematocrit 26.6L, Mean Corpuscular Volume 83, Mean Corpuscular Hemoglobin 26.8L, Mean Corpuscular Hemoglobin Concent 32.3, Red Cell Distribution Width 19.6H, Platelet Count 803H, Mean Platelet Volume 5.7L, Neutrophils (%) (Auto) , Lymphocytes (%) (Auto) , Monocytes (%) (Auto) , Eosinophils (%) (Auto) , Basophils (%) (Auto) , Neutrophils % (Manual) [Pending], Lymphocytes % (Manual) [Pending], Platelet Estimate [Pending], Platelet Morphology [Pending], Sodium Level 140, Potassium Level 3.9, Chloride Level 108H, Carbon Dioxide Level 26, Anion Gap 6, Blood Urea Nitrogen 13, Creatinine 1.0, Estimat Glomerular Filtration Rate > 60, Glucose Level 94, Calcium Level 9.0, Magnesium Level 2.1, Phosphorus Level 3.7 Height (Feet): 5 Height (Inches): 6.00 Weight (Pounds): 151 General Appearance: no apparent distress EENT: PERRL/EOMI Neck: supple Cardiovascular: normal rate Respiratory/Chest: decreased breath sounds Abdomen: normal bowel sounds, non tender, soft Extremities: non-tender José Luis Juares MD May 13, 2020 09:29
--- NOTE | 2020-05-13 10:02 | NUR ---
CASE MANAGEMENT:INITIAL REVIEW 89 YR OLD MALE MARYELLEN FROM [facility] CC;GI BLEED SI;LOWER GI BLEED. LAUREL. POLYCYTHEMIA. ANEMIA. 97.2 84 16 86/59 99% ON RA WBC 19.9 HGB 8.6 PLT 909 BUN 24 CR 1.5 BG 204 UA ~ NEGATIVE STOOL OB ~ POSITIVE COAG ~ PT 13.0 INR 1.2 CXR ~ NEGATIVE IS;IVF NS BOLUS PROTONIX IV ONCE PRBC TRANSFUSION X1 UNIT ADMITTED TO TELEMETRY TELE STATUS DCP;PATIENT IS FROM [facility] Addendum: 05/13/20 at 1044 by CYNDEE THOMAS LVN LVN CASE MANAGEMENT:REVIEW SI;GI BLEED. GASTRITIS. 96.0 116 20 133/80 96% ON RA WBC 42 H/H 7.4/23 PLT 803 IS;IRON SUCROSE IV HS PROTONIX IV BID REGLAN IV EGD/COLONOSCOPY TELEMETRY STATUS DCP;PATIENT IS FROM [facility] PLAN;CAPSULE ENDOSCOPY
[2020-05-13 12:00] VITALS: BP 127/81
--- NOTE | 2020-05-13 12:21 | Hematology/Onc Progress Note ---
Assessment/Plan Assessment/Plan Assessment and Recs: # Essential Thrombocytosis, JAK2++, high-risk given age >60 meets the criteria, has consistently been elevated over the past 6 months, have reviewed last admissiona s well --> will evaluate liver and spleen r/o hepatosplenomegaly--> last admission did not show splenomegaly --> obtain peripheral smear, reviewed and no early immature cells noted --> JAK2 ++ again --> plt trend 705k-->643k-->757k-->811k-->791->909-->806 --> START on hydrea 500mg pobid (smallest dose tablet)--> on 05/15 change to daily --> have discussed with Pcp --> If any lower ext symptoms, get duplex, at increased risk for dvt # Anemia due to gi bleedingand iron deficiency --> on iv iron started --> 05/12 for colo and egd-->polyps noted --> ferritin goal >200 # LEukocytosis r/o reactive process, likely due to gi bleed --> abx as needed prn --> wbc trend: 8 -->20-->40-->20 # Hypercalcemia -- with elev Ca on admission --> current 9.1 --> likely improved with ivf --> w/u if worsens # Near syncope --> generalized weakness # Dehydration --> ivf started # Essential hypertension --> per cards, TTE normal --> imaging reviewed --> Continue Amlodipine # Acute encephlopathy, metabolic vs. psychiatric. dehydration v psych, improved --> psych eval --> Patient currently lives at home by himself # LAUREL- resolved --> Holding HCTZ as above --> monitor renal function # DVt ppx with scds Appreciate consultation and saurabh RN Subjective Cardiovascular: Denies: no symptoms, chest pain, edema, irregular heart rate, lightheadedness, palpitations, syncope, other Respiratory: Denies: no symptoms, cough, shortness of breath, SOB with excertion, SOB at rest, sputum, wheezing, other Gastrointestinal/Abdominal: Denies: no symptoms, abdomen distended, abdominal pain, black stools, tarry stools, blood in stool, constipated, diarrhea, difficulty swallowing, nausea, poor appetite, poor fluid intake, rectal bleeding , vomiting, other Genitourinary: Denies: no symptoms, burning, discharge, frequency, flank pain, hematuria, incontinence, pain, urgency, other Neurologic/Psychiatric: Denies: no symptoms, anxiety, depressed, emotional problems, headache, numbness, paresthesia, pre-existing deficit, seizure, tingling, tremors, weakness, other Hematologic/Lymphatic: Denies: no symptoms, anemia, easy bleeding, easy bruising, adenopathy, other Allergies: Coded Allergies: No Known Allergies (Unverified , 09/06/19) Subjective 05/13 labs noted, no bleeding, wbc 21, hgb 8.6, is on hydrea Objective Objective Current Medications Medications (Trade) Dose Ordered Sig/Elliot Route PRN Reason Start Time Stop Time Status Last Admin Dose Admin Acetaminophen (Tylenol) 650 mg Q4H PRN ORAL Mild Pain (Pain Scale 1-3) 05/11/20 10:45 06/10/20 10:44 Acetaminophen (Tylenol) 650 mg Q4H PRN ORAL Temp >100.5 05/11/20 10:45 06/10/20 10:44 Albuterol/ Ipratropium (Albuterol/ Ipratropium) 3 ml Q6H PRN HHN Shortness of Breath 05/11/20 10:45 05/16/20 10:44 Dextrose (Dextrose 50%) 25 ml Q30M PRN IV Hypoglycemia 05/11/20 10:45 08/09/20 10:44 Dextrose (Dextrose 50%) 50 ml Q30M PRN IV Hypoglycemia 05/11/20 10:45 08/09/20 10:44 Dextrose/ Electrolytes 1,000 ml @ 75 mls/hr [id number] IV 05/11/20 16:00 06/10/20 15:59 05/12/20 05:26 Diphenhydramine HCl (Benadryl) 25 mg Q6H PRN ORAL Itching/Pruritis 05/11/20 10:45 06/10/20 10:44 Hydroxyurea (Hydrea) 500 mg TWICE A DAY ORAL 05/12/20 12:30 05/17/20 12:29 05/12/20 13:27 Iron Sucrose 100 mg/Sodium Chloride 60 ml @ 240 mls/hr BEDTIME IV 05/12/20 21:00 05/16/20 21:14 05/12/20 21:24 Lorazepam (Ativan 2mg/ml 1ml) 0.5 mg Q4H PRN IV For Anxiety 05/11/20 10:45 05/18/20 10:44 05/12/20 22:30 Metoclopramide HCl (Reglan) 10 mg Q6H PRN IVP Nausea & Vomiting 05/11/20 10:45 06/10/20 10:44 Olanzapine (ZyPREXA) 5 mg BEDTIME ORAL 05/13/20 21:00 06/27/20 20:59 Ondansetron HCl (Zofran) 4 mg Q6H PRN IVP Nausea & Vomiting 05/11/20 10:45 06/10/20 10:44 Pantoprazole (Protonix) 40 mg BID IV 05/12/20 09:00 06/11/20 08:59 05/13/20 09:10 Zolpidem Tartrate (Ambien) 5 mg HSPRN PRN ORAL Insomnia 05/11/20 21:00 05/18/20 20:59 Last 24 Hour Vital Signs Date Time Temp Pulse Resp B/P (MAP) Pulse Ox O2 Delivery O2 Flow Rate FiO2 05/13/20 08:00 97.8 91 20 114/71 (85) 98 05/13/20 07:16 65 16 98 05/13/20 04:00 96.0 89 18 129/78 (95) 96 05/12/20 21:54 Room Air 05/12/20 20:00 97.5 101 18 133/80 (97) 98 05/12/20 20:00 92 05/12/20 16:00 97.6 116 20 114/81 (92) 98 05/12/20 16:00 116 05/12/20 13:00 97.9 73 19 126/68 100 Room Air 05/12/20 12:50 60 16 120/66 100 Simple Mask 6 05/12/20 12:50 65 14 99 05/12/20 12:45 58 14 105/64 100 Simple Mask 6 05/12/20 12:40 97.7 69 22 95/59 100 Simple Mask 6 05/12/20 12:00 70 05/12/20 09:00 Room Air 05/12/20 08:00 59 05/12/20 04:00 63 05/12/20 04:00 97.5 73 18 131/83 (99) 96 05/12/20 00:00 97.2 80 19 119/79 (92) 98 05/12/20 00:00 68 05/11/20 21:00 Room Air 05/11/20 20:00 97.5 81 18 113/75 (88) 99 05/11/20 20:00 112 05/11/20 16:00 96 05/11/20 16:00 97.5 79 20 119/60 (79) 100 05/11/20 12:35 Room Air Intake and Output 05/12/20 05/13/20 19:00 07:00 Intake Total 1600 ml Balance 1600 ml Intake Oral 400 ml IV Total 1200 ml # Voids 5 # Bowel Movements 2 2 Labs Test 05/11/20 09:40 05/11/20 10:00 05/11/20 16:30 05/11/20 17:20 White Blood Count 15.6 K/UL (4.8-10.8) 19.9 K/UL (4.8-10.8) Red Blood Count 4.30 M/UL (4.70-6.10) 3.71 M/UL (4.70-6.10) Hemoglobin 10.8 G/DL (14.2-18.0) 9.4 G/DL (14.2-18.0) Hematocrit 35.5 % (42.0-52.0) 29.7 % (42.0-52.0) Mean Corpuscular Volume 83 FL (80-99) 80 FL (80-99) Mean Corpuscular Hemoglobin 25.2 PG (27.0-31.0) 25.4 PG (27.0-31.0) Mean Corpuscular Hemoglobin Concent 30.5 G/DL (32.0-36.0) 31.7 G/DL (32.0-36.0) Red Cell Distribution Width 18.7 % (11.6-14.8) 19.9 % (11.6-14.8) Platelet Count 905 K/UL (150-450) 909 K/UL (150-450) Mean Platelet Volume 5.8 FL (6.5-10.1) 5.9 FL (6.5-10.1) Neutrophils (%) (Auto) % (45.0-75.0) % (45.0-75.0) Lymphocytes (%) (Auto) % (20.0-45.0) % (20.0-45.0) Monocytes (%) (Auto) % (1.0-10.0) % (1.0-10.0) Eosinophils (%) (Auto) % (0.0-3.0) % (0.0-3.0) Basophils (%) (Auto) % (0.0-2.0) % (0.0-2.0) Differential Total Cells Counted 100 100 Neutrophils % (Manual) 79 % (45-75) 75 % (45-75) Lymphocytes % (Manual) 13 % (20-45) 18 % (20-45) Monocytes % (Manual) 8 % (1-10) 6 % (1-10) Eosinophils % (Manual) 0 % (0-3) 0 % (0-3) Basophils % (Manual) 0 % (0-2) 0 % (0-2) Band Neutrophils 0 % (0-8) 1 % (0-8) Other Cell Type Pathologist review Platelet Estimate Increased Increased Platelet Morphology Normal Giant Platelets Occasional Occasional Hypochromasia 1+ 1+ Anisocytosis 1+ 2+ Reticulocyte Count 2.4 % (0.5-2.0) Prothrombin Time 13.0 SEC (9.30-11.50) Prothromb Time International Ratio 1.2 (0.9-1.1) Activated Partial Thromboplast Time 29 SEC (23-33) Sodium Level 137 MMOL/L (136-145) Potassium Level 4.6 MMOL/L (3.5-5.1) Chloride Level 103 MMOL/L (98-107) Carbon Dioxide Level 26 MMOL/L (21-32) Anion Gap 8 mmol/L (5-15) Blood Urea Nitrogen 24 mg/dL (7-18) Creatinine 1.5 MG/DL (0.55-1.30) Estimat Glomerular Filtration Rate 53.7 mL/min (>60) Glucose Level 204 MG/DL (74-106) Calcium Level 8.4 MG/DL (8.5-10.1) Iron Level 43 ug/dL (50-175) Total Iron Binding Capacity 260 ug/dL (250-450) Percent Iron Saturation 17 % (15-50) Unsaturated Iron Binding 217 ug/dL (112-346) Ferritin 127 NG/ML (8-388) Troponin I 0.014 ng/mL (0.000-0.056) 0.016 ng/mL (0.000-0.056) Urine Color Pale yellow Urine Appearance Clear Urine pH 6 (4.5-8.0) Urine Specific [place] 1.010 (1.005-1.035) Urine Protein Negative (NEGATIVE) Urine Glucose (UA) Negative (NEGATIVE) Urine Ketones Negative (NEGATIVE) Urine Blood Negative (NEGATIVE) Urine Nitrite Negative (NEGATIVE) Urine Bilirubin Negative (NEGATIVE) Urine Urobilinogen Normal MG/DL (0.0-1.0) Urine Leukocyte Esterase Negative (NEGATIVE) Stool Occult Blood Positive (NEGATIVE) Hypersegmented Polys Occasional Microcytosis 1+ Test 05/12/20 15:45 05/13/20 08:30 White Blood Count 42.0 K/UL (4.8-10.8) 20.8 K/UL (4.8-10.8) Red Blood Count 2.88 M/UL (4.70-6.10) 3.21 M/UL (4.70-6.10) Hemoglobin 7.4 G/DL (14.2-18.0) 8.6 G/DL (14.2-18.0) Hematocrit 23.0 % (42.0-52.0) 26.6 % (42.0-52.0) Mean Corpuscular Volume 80 FL (80-99) 83 FL (80-99) Mean Corpuscular Hemoglobin 25.5 PG (27.0-31.0) 26.8 PG (27.0-31.0) Mean Corpuscular Hemoglobin Concent 32.0 G/DL (32.0-36.0) 32.3 G/DL (32.0-36.0) Red Cell Distribution Width 20.0 % (11.6-14.8) 19.6 % (11.6-14.8) Platelet Count 801 K/UL (150-450) 803 K/UL (150-450) Mean Platelet Volume 5.7 FL (6.5-10.1) 5.7 FL (6.5-10.1) Neutrophils (%) (Auto) % (45.0-75.0) % (45.0-75.0) Lymphocytes (%) (Auto) % (20.0-45.0) % (20.0-45.0) Monocytes (%) (Auto) % (1.0-10.0) % (1.0-10.0) Eosinophils (%) (Auto) % (0.0-3.0) % (0.0-3.0) Basophils (%) (Auto) % (0.0-2.0) % (0.0-2.0) Differential Total Cells Counted 100 100 Neutrophils % (Manual) 87 % (45-75) 88 % (45-75) Lymphocytes % (Manual) 4 % (20-45) 8 % (20-45) Monocytes % (Manual) 8 % (1-10) 3 % (1-10) Eosinophils % (Manual) 0 % (0-3) 0 % (0-3) Basophils % (Manual) 0 % (0-2) 1 % (0-2) Band Neutrophils 1 % (0-8) 0 % (0-8) Nucleated Red Blood Cells 1 /100 WBC Platelet Estimate Increased Increased Platelet Morphology Normal Normal Polychromasia 1+ Anisocytosis 3+ 2+ Microcytosis 1+ Sodium Level 141 MMOL/L (136-145) 140 MMOL/L (136-145) Potassium Level 3.6 MMOL/L (3.5-5.1) 3.9 MMOL/L (3.5-5.1) Chloride Level 107 MMOL/L (98-107) 108 MMOL/L (98-107) Carbon Dioxide Level 24 MMOL/L (21-32) 26 MMOL/L (21-32) Anion Gap 10 mmol/L (5-15) 6 mmol/L (5-15) Blood Urea Nitrogen 15 mg/dL (7-18) 13 mg/dL (7-18) Creatinine 1.1 MG/DL (0.55-1.30) 1.0 MG/DL (0.55-1.30) Estimat Glomerular Filtration Rate > 60 mL/min (>60) > 60 mL/min (>60) Glucose Level 135 MG/DL (74-106) 94 MG/DL (74-106) Calcium Level 8.3 MG/DL (8.5-10.1) 9.0 MG/DL (8.5-10.1) Magnesium Level 1.9 MG/DL (1.8-2.4) 2.1 MG/DL (1.8-2.4) Thyroid Stimulating Hormone (TSH) 3.068 uiU/mL (0.358-3.740) Hypochromasia 2+ Spherocytes 1+ Phosphorus Level 3.7 MG/DL (2.5-4.9) Height (Feet): 5 Height (Inches): 6.00 Weight (Pounds): 151 Objective Physical Exam Physical Exam Narrative General Appearance: WD/WN, no apparent distress, alert EENT: PERRL/EOMI, normal ENT inspection Neck: non-tender, normal alignment, supple Cardiovascular: normal peripheral pulses, normal rate, regular rhythm, no JVD Respiratory/Chest: chest wall non-tender, lungs clear, normal breath sounds Abdomen: normal bowel sounds, non tender, soft, no organomegaly Extremities: normal range of motion, non-tender Edema: other - No lower extremity edema bilaterally 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
[2020-05-13 16:00] VITALS: BP 166/95
[2020-05-13 16:33] LABS: HEMATOCRIT 28.5 % (42.0-52.0); HEMOGLOBIN 9.2 G/DL (14.2-18.0); MEAN CORPUSCULAR VOLUME 82 FL (80-99); PLATELET COUNT 892 K/UL (150-450); RED BLOOD COUNT 3.45 M/UL (4.70-6.10); RED CELL DISTRIBUTION WIDTH 20.4 % (11.6-14.8)
[2020-05-13 16:37] LABS: WHITE BLOOD COUNT 22.1 K/UL (4.8-10.8)
--- NOTE | 2020-05-13 17:05 | NUR ---
NURSE NOTES: Removed record equipment from pt as order and put in plastic bag with label and is in nursing station, DUONG Quinn is aware.
--- NOTE | 2020-05-13 17:07 | NUR ---
NURSE NOTES: Dr Chapin visited pt and is aware about WBC and other lab results and V/S, no new order to RN.
--- NOTE | 2020-05-13 17:30 | NUR ---
NURSE NOTES: Dr Chapin visited pt and RN asked if start diet for pt and again RN remind that pt refuses iv fluid, Dr Chapin will F/U. No new order to RN.
--- NOTE | 2020-05-13 19:41 | NUR ---
HAND-OFF: Report given to ELOY Dexter.pt is awake and stable, Endorsed plan of care. Endorsed to return recorder to GI nurse tomorrow morning.
--- NOTE | 2020-05-13 19:45 | NUR ---
NURSE NOTES: Patient received from Gene LYONS. Patient in stable condition. IV site on Right AC 20G leaking. Will insert new iv later on on shift. Saturating well on Room Air at 96%. Vital signs stable and in no acute distress. Bed in lowest position and locked. Bedside table and call light within reach. Will continue plan of care.
[2020-05-13 20:00] VITALS: BP 154/87
[2020-05-13] MEDS: Iron Sucrose 100 MG in NS 55 ML IV SCH (21:18)
--- NOTE | 2020-05-13 22:32 | Psych Consult Progress Note ---
Psychiatry Progress Note Psychiatry Progress Note Medications Current Medications Medications (Trade) Dose Ordered Sig/Elliot Route PRN Reason Start Time Stop Time Status Last Admin Dose Admin Acetaminophen (Tylenol) 650 mg Q4H PRN ORAL Mild Pain (Pain Scale 1-3) 05/11/20 10:45 06/10/20 10:44 Acetaminophen (Tylenol) 650 mg Q4H PRN ORAL Temp >100.5 05/11/20 10:45 06/10/20 10:44 Albuterol/ Ipratropium (Albuterol/ Ipratropium) 3 ml Q6H PRN HHN Shortness of Breath 05/11/20 10:45 05/16/20 10:44 Dextrose (Dextrose 50%) 25 ml Q30M PRN IV Hypoglycemia 05/11/20 10:45 08/09/20 10:44 Dextrose (Dextrose 50%) 50 ml Q30M PRN IV Hypoglycemia 05/11/20 10:45 08/09/20 10:44 Diphenhydramine HCl (Benadryl) 25 mg Q6H PRN ORAL Itching/Pruritis 05/11/20 10:45 06/10/20 10:44 Hydroxyurea (Hydrea) 500 mg TWICE A DAY ORAL 05/12/20 12:30 05/17/20 12:29 05/13/20 17:44 Iron Sucrose 100 mg/Sodium Chloride 60 ml @ 240 mls/hr BEDTIME IV 05/12/20 21:00 05/16/20 21:14 05/13/20 21:18 Lorazepam (Ativan 2mg/ml 1ml) 0.5 mg Q4H PRN IV For Anxiety 05/11/20 10:45 05/18/20 10:44 05/12/20 22:30 Metoclopramide HCl (Reglan) 10 mg Q6H PRN IVP Nausea & Vomiting 05/11/20 10:45 06/10/20 10:44 Olanzapine (ZyPREXA) 5 mg BEDTIME ORAL 05/13/20 21:00 06/27/20 20:59 05/13/20 21:18 Ondansetron HCl (Zofran) 4 mg Q6H PRN IVP Nausea & Vomiting 05/11/20 10:45 06/10/20 10:44 Pantoprazole (Protonix) 40 mg BID IV 05/12/20 09:00 06/11/20 08:59 05/13/20 17:44 Zolpidem Tartrate (Ambien) 5 mg HSPRN PRN ORAL Insomnia 05/11/20 21:00 05/18/20 20:59 Neurological/Psychiatric: Reports: anxiety, depressed, emotional problems Allergies: Coded Allergies: No Known Allergies (Unverified , 09/06/19) Objective Data Height (Feet): 5 Height (Inches): 6.00 Weight (Pounds): 151 General Appearance: no apparent distress, alert, confused, agitated Additional Comments: Patient is alert, disoriented to situation. Mood is anxious. Affect is flat. Thought process is concrete. Thought content, no suicidal or homicidal ideation. Cognition is impaired. Insight and judgment is impaired. Assessment/Plan Assessment/Plan: ASSESSMENT: [place] I Dementia with behavior disturbance. [place] II Deferred. [place] III As above. [place] IV Low. [place] V 20. PLAN: 1. We will start the patient on Zyprexa 5 mg at bedtime 2. Ativan p.r.n. 3. Provide the patient with reality orientation and supportive therapy. Adriana Contreras MD May 13, 2020 22:32
[2020-05-14] VITALS (8 sets, daily range): BP systolic 114–167; BP diastolic 59–106
[2020-05-14 05:50] LABS: ANION GAP 8 mmol/L (5-15); BASOPHILS % (AUTO) 1.1 % (0.0-2.0); BLOOD UREA NITROGEN 10 mg/dL (7-18); CALCIUM 8.7 MG/DL (8.5-10.1); CARBON DIOXIDE 29 MMOL/L (21-32); CHLORIDE 108 MMOL/L (98-107); CREATININE 1.1 MG/DL (0.55-1.30); EOSINOPHILS % (AUTO) 0.5 % (0.0-3.0); HEMATOCRIT 25.9 % (42.0-52.0); HEMOGLOBIN 8.2 G/DL (14.2-18.0); LYMPHOCYTES % (AUTO) 15.2 % (20.0-45.0); MEAN CORPUSCULAR VOLUME 84 FL (80-99); MONOCYTES % (AUTO) 14.1 % (1.0-10.0); NEUTROPHILS % (AUTO) 69.2 % (45.0-75.0); PLATELET COUNT 794 K/UL (150-450); POTASSIUM 3.8 MMOL/L (3.5-5.1); RED BLOOD COUNT 3.07 M/UL (4.70-6.10); RED CELL DISTRIBUTION WIDTH 19.8 % (11.6-14.8); SODIUM 145 MMOL/L (136-145); WHITE BLOOD COUNT 12.4 K/UL (4.8-10.8)
--- NOTE | 2020-05-14 07:09 | NUR ---
NURSE NOTES: Received report from ELOY Hawkins. Pt in bed asleep. Bed alarm on. No c/o pain. IV site in LFA 24G SL patent. Call light within easy reach. Side railsx3 up for safety. Call light within easy reach. Bed in lowest position and locked. 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 Will continue plan of care.
[2020-05-14] MEDS ORDERED: HydrALAZINE 25mg tab ORAL PRN (07:30)
--- NOTE | 2020-05-14 07:39 | NUR ---
HAND-OFF: Report given to Minsu RN. Patient is in stable condition. Endorsed plan of care.
--- NOTE | 2020-05-14 07:56 | Discharge Summary ---
Discharge Summary Hospital Course Date of Admission May 11, 2020 at 11:14 Date of Discharge Admitting Diagnosis LOWER G.I.BLEED HPI Mane Cronin is a 89 year old male who was admitted on May 11, 2020 at 11:14 for Lower Gi Blood PE: General: NAD, A&O x 3 HEENT: NCAT, EOMi, MMM CV: RRR, no murmurs, rubs, or gallops Pulm: CTAB, No wheezes, rhonchi, or rales, no accessory muscle usage or conversational dyspnea GI: Soft, nontender, nondistended, bowel sounds present Ext: No lower extremity edema bilaterally Skin: no rashes lesions or ulcers Msk: Joints symmetrical in upper extremity and lower extremity bilaterally, no joint swelling. Neuro: CN 2-12 grossly intact bilaterally, no focal signs. Hospital Course 89-year-old -[place] male with past medical history of hypertension, erythrocytosis, presents for bright red blood per rectum. Pt was given PRBC with good response in Hgb. GI consulted and patient underwent EGD/colonoscopy on 05/12 which revealed gastritis and colonic polyps and hemorrhoids. Patient underwent capsule endoscopy on 05/13. Patient with no further signs of bleeding, hemoglobin stable, patient to follow-up with GI as outpatient for capsule endoscopy results. During hospital admission, patient found to have LAUREL, nephrology consulted, creatinine improved with IV fluids. Patient with history of polycythemia/essential thrombosis, patient noted to have elevated leukocytosis, no signs of infection, afebrile. Hematology was consulted and patient was started on his hydroxyurea with improvement. Patient currently stable for DC back to SNF. Patient to follow-up with PCP, GI as outpatient for capsule endoscopy results. D/c diagnosis: #Bright red blood per rectum #Anemia #Hypertension #LAUREL - resolved #Polycythemia/Essential Thrombosis #Leukocytosis D/c planning 35 mins. Discharge Medications Continued Medications: Amlodipine Besylate* (Amlodipine Besylate*) 5 Mg Tablet 5 MG ORAL DAILY for HTN, TAB Aspirin* (Aspirin*) 81 Mg Tab.chew 81 MG ORAL DAILY for 10 Days, #10 TAB Hydralazine Hcl* (Hydralazine Hcl*) 25 Mg Tablet 25 MG ORAL EVERY 6 HOURS PRN for For High Blood Pressure, TAB 0 Refills Hydroxyurea* (HYDREA 500mg*) 500 Mg Capsule 500 MG ORAL DAILY for 10 Days, #10 CAP Metoprolol Succinate* (Metoprolol Succinate*) 25 Mg Tab.er.24h 37.5 MG ORAL DAILY for HTN, TAB Olanzapine* (Zyprexa*) 5 Mg Tablet 5 MG ORAL BEDTIME, TAB Discharge Condition Upon Discharge: stable Discharge Vital Signs Last Vital Signs Date Time Temp Pulse Resp B/P (MAP) Pulse Ox O2 Delivery O2 Flow Rate FiO2 05/14/20 04:00 58 05/14/20 04:00 98.0 21 167/106 (126) 96 05/13/20 21:00 Room Air 05/12/20 12:50 6 Discharge Disposition Patient was discharged to [facility] Shelby Chapin M.D. May 14, 2020 07:56
--- NOTE | 2020-05-14 08:50 | NUR ---
NURSE NOTES: Dr. Chapin paged for episode of sinus bradycardia with HR of 44. Dr. Chapin called back and ordered to hold Metoprolol today and Med reconciliation for discharge will be modified.
[2020-05-14] MEDS ORDERED: Aspirin Baby 81mg ORAL SCH (09:00)
[2020-05-14] MEDS ORDERED: Metoprolol Succinate XL 25mg tab ORAL SCH (09:00)
--- NOTE | 2020-05-14 09:03 | Hematology/Onc Progress Note ---
Assessment/Plan Assessment/Plan Assessment and Recs: # Essential Thrombocytosis, JAK2++, high-risk given age >60 meets the criteria, has consistently been elevated over the past 6 months, have reviewed last admissiona s well --> will evaluate liver and spleen r/o hepatosplenomegaly--> last admission did not show splenomegaly --> obtain peripheral smear, reviewed and no early immature cells noted --> JAK2 ++ again --> plt trend 705k-->643k-->757k-->811k-->791->909-->806-->794 --> START on hydrea 500mg pobid (smallest dose tablet)--> on 05/15 change to daily --> have discussed with Pcp --> If any lower ext symptoms, get duplex, at increased risk for dvt # Anemia due to gi bleedingand iron deficiency --> on iv iron started --> 05/12 for colo and egd-->polyps noted --> ferritin goal >200 # LEukocytosis r/o reactive process, likely due to gi bleed --> abx as needed prn --> wbc trend: 8 -->20-->40-->20-->12 --> on hydrea, needs to be adjusted as outpatient # Hypercalcemia -- with elev Ca on admission --> current 9.1 --> likely improved with ivf --> w/u if worsens # Near syncope --> generalized weakness # Dehydration --> ivf started # Essential hypertension --> per cards, TTE normal --> imaging reviewed --> Continue Amlodipine # Acute encephlopathy, metabolic vs. psychiatric. dehydration v psych, improved --> psych eval --> Patient currently lives at home by himself # LAUREL- resolved --> Holding HCTZ as above --> monitor renal function # DVt ppx with scds Appreciate consultation and saurabh RN Subjective Constitutional: Denies: no symptoms, chills, fever, malaise, weakness, other HEENT: Denies: no symptoms, eye pain, blurred vision, tearing, double vision, ear pain, ear discharge, nose pain, nose congestion, throat pain, throat swelling, mouth pain, mouth swelling, other Cardiovascular: Denies: no symptoms, chest pain, edema, irregular heart rate, lightheadedness, palpitations, syncope, other Respiratory: Denies: no symptoms, cough, shortness of breath, SOB with excertion, SOB at rest, sputum, wheezing, other Neurologic/Psychiatric: Denies: no symptoms, anxiety, depressed, emotional problems, headache, numbness, paresthesia, pre-existing deficit, seizure, tingling, tremors, weakness, other Endocrine: Denies: no symptoms, excessive sweating, flushing, intolerance to cold, intolerance to heat, increased hunger, increased thirst, increased urine, unexplained weight gain, unexplained weight loss, other Allergies: Coded Allergies: No Known Allergies (Unverified , 09/06/19) Subjective 05/13 labs noted, no bleeding, wbc 21, hgb 8.6, is on hydrea 05/14 is for dc today potentially, hr low in am, seen by pcpsaurabh her Objective Objective Current Medications Medications (Trade) Dose Ordered Sig/Elliot Route PRN Reason Start Time Stop Time Status Last Admin Dose Admin Acetaminophen (Tylenol) 650 mg Q4H PRN ORAL Mild Pain (Pain Scale 1-3) 05/11/20 10:45 06/10/20 10:44 Acetaminophen (Tylenol) 650 mg Q4H PRN ORAL Temp >100.5 05/11/20 10:45 06/10/20 10:44 Albuterol/ Ipratropium (Albuterol/ Ipratropium) 3 ml Q6H PRN HHN Shortness of Breath 05/11/20 10:45 05/16/20 10:44 Amlodipine Besylate (Norvasc) 5 mg DAILY ORAL 05/14/20 09:00 06/13/20 08:59 Aspirin (ASA) 81 mg DAILY ORAL 05/14/20 09:00 06/28/20 08:59 Dextrose (Dextrose 50%) 25 ml Q30M PRN IV Hypoglycemia 05/11/20 10:45 08/09/20 10:44 Dextrose (Dextrose 50%) 50 ml Q30M PRN IV Hypoglycemia 05/11/20 10:45 08/09/20 10:44 Diphenhydramine HCl (Benadryl) 25 mg Q6H PRN ORAL Itching/Pruritis 05/11/20 10:45 06/10/20 10:44 Hydralazine HCl (Apresoline) 25 mg Q6H PRN ORAL For High Blood Pressure 05/14/20 07:30 08/12/20 07:29 Hydroxyurea (Hydrea) 500 mg TWICE A DAY ORAL 05/12/20 12:30 05/17/20 12:29 05/13/20 17:44 Iron Sucrose 100 mg/Sodium Chloride 60 ml @ 240 mls/hr BEDTIME IV 05/12/20 21:00 05/16/20 21:14 05/13/20 21:18 Lorazepam (Ativan 2mg/ml 1ml) 0.5 mg Q4H PRN IV For Anxiety 05/11/20 10:45 05/18/20 10:44 05/12/20 22:30 Metoclopramide HCl (Reglan) 10 mg Q6H PRN IVP Nausea & Vomiting 05/11/20 10:45 06/10/20 10:44 Metoprolol Succinate (Toprol XL) 37.5 mg DAILY ORAL 05/14/20 09:00 08/12/20 08:59 Olanzapine (ZyPREXA) 5 mg BEDTIME ORAL 05/13/20 21:00 06/27/20 20:59 05/13/20 21:18 Ondansetron HCl (Zofran) 4 mg Q6H PRN IVP Nausea & Vomiting 05/11/20 10:45 06/10/20 10:44 Pantoprazole (Protonix) 40 mg BID IV 05/12/20 09:00 06/11/20 08:59 05/13/20 17:44 Zolpidem Tartrate (Ambien) 5 mg HSPRN PRN ORAL Insomnia 05/11/20 21:00 05/18/20 20:59 Last 24 Hour Vital Signs Date Time Temp Pulse Resp B/P (MAP) Pulse Ox O2 Delivery O2 Flow Rate FiO2 05/14/20 08:00 97.7 56 21 114/59 (77) 97 05/14/20 04:00 58 05/14/20 04:00 98.0 58 21 167/106 (126) 96 05/14/20 00:00 68 05/14/20 00:00 97.5 100 19 150/87 (108) 96 05/13/20 21:00 Room Air 05/13/20 20:00 96 05/13/20 20:00 98.6 115 19 154/87 (109) 98 05/13/20 16:00 97.7 95 20 166/95 (118) 98 05/13/20 15:20 98 05/13/20 12:00 97.8 73 20 127/81 (96) 98 05/13/20 11:27 58 05/13/20 09:03 85 05/13/20 09:00 Room Air 05/13/20 08:00 97.8 91 20 114/71 (85) 98 05/13/20 07:16 65 16 98 05/13/20 04:00 96.0 89 18 129/78 (95) 96 05/12/20 21:54 Room Air 05/12/20 20:00 97.5 101 18 133/80 (97) 98 05/12/20 20:00 92 05/12/20 16:00 97.6 116 20 114/81 (92) 98 05/12/20 16:00 116 05/12/20 13:00 97.9 73 19 126/68 100 Room Air 05/12/20 12:50 60 16 120/66 100 Simple Mask 6 05/12/20 12:50 65 14 99 05/12/20 12:45 58 14 105/64 100 Simple Mask 6 05/12/20 12:40 97.7 69 22 95/59 100 Simple Mask 6 05/12/20 12:00 70 Intake and Output 05/13/20 05/14/20 19:00 07:00 Output Total 750 ml Balance -750 ml Output Urine Total 750 ml # Voids 5 2 # Bowel Movements 2 Labs Test 05/11/20 09:40 05/11/20 10:00 05/11/20 16:30 05/11/20 17:20 White Blood Count 15.6 K/UL (4.8-10.8) 19.9 K/UL (4.8-10.8) Red Blood Count 4.30 M/UL (4.70-6.10) 3.71 M/UL (4.70-6.10) Hemoglobin 10.8 G/DL (14.2-18.0) 9.4 G/DL (14.2-18.0) Hematocrit 35.5 % (42.0-52.0) 29.7 % (42.0-52.0) Mean Corpuscular Volume 83 FL (80-99) 80 FL (80-99) Mean Corpuscular Hemoglobin 25.2 PG (27.0-31.0) 25.4 PG (27.0-31.0) Mean Corpuscular Hemoglobin Concent 30.5 G/DL (32.0-36.0) 31.7 G/DL (32.0-36.0) Red Cell Distribution Width 18.7 % (11.6-14.8) 19.9 % (11.6-14.8) Platelet Count 905 K/UL (150-450) 909 K/UL (150-450) Mean Platelet Volume 5.8 FL (6.5-10.1) 5.9 FL (6.5-10.1) Neutrophils (%) (Auto) % (45.0-75.0) % (45.0-75.0) Lymphocytes (%) (Auto) % (20.0-45.0) % (20.0-45.0) Monocytes (%) (Auto) % (1.0-10.0) % (1.0-10.0) Eosinophils (%) (Auto) % (0.0-3.0) % (0.0-3.0) Basophils (%) (Auto) % (0.0-2.0) % (0.0-2.0) Differential Total Cells Counted 100 100 Neutrophils % (Manual) 79 % (45-75) 75 % (45-75) Lymphocytes % (Manual) 13 % (20-45) 18 % (20-45) Monocytes % (Manual) 8 % (1-10) 6 % (1-10) Eosinophils % (Manual) 0 % (0-3) 0 % (0-3) Basophils % (Manual) 0 % (0-2) 0 % (0-2) Band Neutrophils 0 % (0-8) 1 % (0-8) Other Cell Type Pathologist review Platelet Estimate Increased Increased Platelet Morphology Normal Giant Platelets Occasional Occasional Hypochromasia 1+ 1+ Anisocytosis 1+ 2+ Reticulocyte Count 2.4 % (0.5-2.0) Prothrombin Time 13.0 SEC (9.30-11.50) Prothromb Time International Ratio 1.2 (0.9-1.1) Activated Partial Thromboplast Time 29 SEC (23-33) Sodium Level 137 MMOL/L (136-145) Potassium Level 4.6 MMOL/L (3.5-5.1) Chloride Level 103 MMOL/L (98-107) Carbon Dioxide Level 26 MMOL/L (21-32) Anion Gap 8 mmol/L (5-15) Blood Urea Nitrogen 24 mg/dL (7-18) Creatinine 1.5 MG/DL (0.55-1.30) Estimat Glomerular Filtration Rate 53.7 mL/min (>60) Glucose Level 204 MG/DL (74-106) Calcium Level 8.4 MG/DL (8.5-10.1) Iron Level 43 ug/dL (50-175) Total Iron Binding Capacity 260 ug/dL (250-450) Percent Iron Saturation 17 % (15-50) Unsaturated Iron Binding 217 ug/dL (112-346) Ferritin 127 NG/ML (8-388) Troponin I 0.014 ng/mL (0.000-0.056) 0.016 ng/mL (0.000-0.056) Urine Color Pale yellow Urine Appearance Clear Urine pH 6 (4.5-8.0) Urine Specific [place] 1.010 (1.005-1.035) Urine Protein Negative (NEGATIVE) Urine Glucose (UA) Negative (NEGATIVE) Urine Ketones Negative (NEGATIVE) Urine Blood Negative (NEGATIVE) Urine Nitrite Negative (NEGATIVE) Urine Bilirubin Negative (NEGATIVE) Urine Urobilinogen Normal MG/DL (0.0-1.0) Urine Leukocyte Esterase Negative (NEGATIVE) Stool Occult Blood Positive (NEGATIVE) Hypersegmented Polys Occasional Microcytosis 1+ Test 05/12/20 15:45 05/13/20 08:30 05/13/20 16:15 05/14/20 05:20 White Blood Count 42.0 K/UL (4.8-10.8) 20.8 K/UL (4.8-10.8) 22.1 K/UL (4.8-10.8) 12.4 K/UL (4.8-10.8) Red Blood Count 2.88 M/UL (4.70-6.10) 3.21 M/UL (4.70-6.10) 3.45 M/UL (4.70-6.10) 3.07 M/UL (4.70-6.10) Hemoglobin 7.4 G/DL (14.2-18.0) 8.6 G/DL (14.2-18.0) 9.2 G/DL (14.2-18.0) 8.2 G/DL (14.2-18.0) Hematocrit 23.0 % (42.0-52.0) 26.6 % (42.0-52.0) 28.5 % (42.0-52.0) 25.9 % (42.0-52.0) Mean Corpuscular Volume 80 FL (80-99) 83 FL (80-99) 82 FL (80-99) 84 FL (80- 99) Mean Corpuscular Hemoglobin 25.5 PG (27.0-31.0) 26.8 PG (27.0-31.0) 26.6 PG (27.0-31.0) 26.7 PG (27.0-31.0) Mean Corpuscular Hemoglobin Concent 32.0 G/DL (32.0-36.0) 32.3 G/DL (32.0-36.0) 32.2 G/DL (32.0-36.0) 31.6 G/DL (32.0-36.0) Red Cell Distribution Width 20.0 % (11.6-14.8) 19.6 % (11.6-14.8) 20.4 % (11.6-14.8) 19.8 % (11.6-14.8) Platelet Count 801 K/UL (150-450) 803 K/UL (150-450) 892 K/UL (150-450) 794 K/UL (150-450) Mean Platelet Volume 5.7 FL (6.5-10.1) 5.7 FL (6.5-10.1) 5.8 FL (6.5-10.1) 5.5 FL (6.5-10.1) Neutrophils (%) (Auto) % (45.0-75.0) % (45.0-75.0) % (45.0-75.0) 69.2 % (45.0-75.0) Lymphocytes (%) (Auto) % (20.0-45.0) % (20.0-45.0) % (20.0-45.0) 15.2 % (20.0-45.0) Monocytes (%) (Auto) % (1.0-10.0) % (1.0-10.0) % (1.0-10.0) 14.1 % (1.0-10.0) Eosinophils (%) (Auto) % (0.0-3.0) % (0.0-3.0) % (0.0-3.0) 0.5 % (0.0-3.0) Basophils (%) (Auto) % (0.0-2.0) % (0.0-2.0) % (0.0-2.0) 1.1 % (0.0-2.0) Differential Total Cells Counted 100 100 100 Neutrophils % (Manual) 87 % (45-75) 88 % (45-75) 80 % (45-75) Lymphocytes % (Manual) 4 % (20-45) 8 % (20-45) 14 % (20-45) Monocytes % (Manual) 8 % (1-10) 3 % (1-10) 5 % (1-10) Eosinophils % (Manual) 0 % (0-3) 0 % (0-3) 0 % (0-3) Basophils % (Manual) 0 % (0-2) 1 % (0-2) 1 % (0-2) Band Neutrophils 1 % (0-8) 0 % (0-8) 0 % (0-8) Nucleated Red Blood Cells 1 /100 WBC Platelet Estimate Increased Increased Increased Platelet Morphology Normal Normal Normal Polychromasia 1+ Anisocytosis 3+ 2+ 2+ Microcytosis 1+ Sodium Level 141 MMOL/L (136-145) 140 MMOL/L (136-145) 145 MMOL/L (136-145) Potassium Level 3.6 MMOL/L (3.5-5.1) 3.9 MMOL/L (3.5-5.1) 3.8 MMOL/L (3.5-5.1) Chloride Level 107 MMOL/L (98-107) 108 MMOL/L (98-107) 108 MMOL/L (98-107) Carbon Dioxide Level 24 MMOL/L (21-32) 26 MMOL/L (21-32) 29 MMOL/L (21-32) Anion Gap 10 mmol/L (5-15) 6 mmol/L (5-15) 8 mmol/L (5-15) Blood Urea Nitrogen 15 mg/dL (7-18) 13 mg/dL (7-18) 10 mg/dL (7-18) Creatinine 1.1 MG/DL (0.55-1.30) 1.0 MG/DL (0.55-1.30) 1.1 MG/DL (0.55-1.30) Estimat Glomerular Filtration Rate > 60 mL/min (>60) > 60 mL/min (>60) > 60 mL/min (>60) Glucose Level 135 MG/DL (74-106) 94 MG/DL (74-106) 104 MG/DL (74-106) Calcium Level 8.3 MG/DL (8.5-10.1) 9.0 MG/DL (8.5-10.1) 8.7 MG/DL (8.5-10.1) Magnesium Level 1.9 MG/DL (1.8-2.4) 2.1 MG/DL (1.8-2.4) Thyroid Stimulating Hormone (TSH) 3.068 uiU/mL (0.358-3.740) Hypochromasia 2+ 1+ Spherocytes 1+ Phosphorus Level 3.7 MG/DL (2.5-4.9) Height (Feet): 5 Height (Inches): 6.00 Weight (Pounds): 151 Objective Physical Exam Physical Exam Narrative General Appearance: WD/WN, no apparent distress, alert EENT: PERRL/EOMI, normal ENT inspection Neck: non-tender, normal alignment, supple Cardiovascular: normal peripheral pulses, normal rate, regular rhythm, no JVD Respiratory/Chest: chest wall non-tender, lungs clear, normal breath sounds Abdomen: normal bowel sounds, non tender, soft, no organomegaly Extremities: normal range of motion, non-tender Edema: other - No lower extremity edema bilaterally Neurologic: featherer II-XII grossly normal, no motor/sensory deficits, alert, oriented x 2, responsive Skin: normal pigmentation, warm/dry Virgilio Su MD May 14, 2020 09:03
[2020-05-14] MEDS: Hydroxyurea 500mg cap ORAL SCH ×2 (09:04→17:15)
[2020-05-14] MEDS: Pantoprazole Inj IV SCH ×2 (09:04→17:16)
--- NOTE | 2020-05-14 10:14 | NUR ---
*-*DISCHARGE PLANNING*-* PATIENT HAS BEEN REFERRED BACK TO: [facility] P: [phone]
--- NOTE | 2020-05-14 10:23 | Nephrology Progress Note ---
Assessment/Plan Plan #LAUREL likely due prerenal azotemia in the setting of GI bleed- on baseline CKD?-- > improved #GI bleed #h/o HTN #Iron deficiency #polycythemia #dementia - contineu IVF - GI eval - endoscopy today - prbc trasnfusion to maintain hemoglobin > 7.5 - on hydroxyuria - continue protonix - avoid nephrotoxins - strict I&Os - daily weights - monitor UOP - check BMP, mag and phos daily Times spent 70 minutes > 50% on care coordination and counseling Subjective ROS Limited/Unobtainable: No Constitutional: Reports: weakness HEENT: Denies: no symptoms, eye pain, blurred vision, tearing, double vision, ear pain, ear discharge, nose pain, nose congestion, throat pain, throat swelling, mouth pain, mouth swelling, other Genitourinary: Denies: no symptoms, burning, discharge, frequency, flank pain, hematuria, incontinence, pain, urgency, other Neurologic/Psychiatric: Denies: no symptoms, anxiety, depressed, emotional problems, headache, numbness, paresthesia, pre-existing deficit, seizure, tingling, tremors, weakness, other Subjective Vitals stable WBC downtrending hemoglobin stable Objective Objective Last 24 Hour Vital Signs Date Time Temp Pulse Resp B/P (MAP) Pulse Ox O2 Delivery O2 Flow Rate FiO2 05/14/20 09:04 56 114/59 05/14/20 09:00 56 114/59 05/14/20 09:00 Room Air 05/14/20 08:00 97.7 56 21 114/59 (77) 97 05/14/20 08:00 59 05/14/20 04:00 58 05/14/20 04:00 98.0 58 21 167/106 (126) 96 05/14/20 00:00 68 05/14/20 00:00 97.5 100 19 150/87 (108) 96 05/13/20 21:00 Room Air 05/13/20 20:00 96 05/13/20 20:00 98.6 115 19 154/87 (109) 98 05/13/20 16:00 97.7 95 20 166/95 (118) 98 05/13/20 15:20 98 05/13/20 12:00 97.8 73 20 127/81 (96) 98 05/13/20 11:27 58 Intake and Output 05/13/20 05/14/20 19:00 07:00 Output Total 750 ml Balance -750 ml Output Urine Total 750 ml # Voids 5 2 # Bowel Movements 2 Laboratory Tests 05/13/20 16:15: White Blood Count 22.1*H, Red Blood Count 3.45L, Hemoglobin 9.2L, Hematocrit 28.5L, Mean Corpuscular Volume 82, Mean Corpuscular Hemoglobin 26.6L, Mean Corpuscular Hemoglobin Concent 32.2, Red Cell Distribution Width 20.4H, Platelet Count 892H, Mean Platelet Volume 5.8L, Neutrophils (%) (Auto) , Lymphocytes (%) (Auto) , Monocytes (%) (Auto) , Eosinophils (%) (Auto) , Basophils (%) (Auto) , Differential Total Cells Counted 100, Neutrophils % ( Manual) 80H, Lymphocytes % (Manual) 14L, Monocytes % (Manual) 5, Eosinophils % ( Manual) 0, Basophils % (Manual) 1, Band Neutrophils 0, Platelet Estimate IncreasedH, Platelet Morphology Normal, Hypochromasia 1+, Anisocytosis 2+ 05/14/20 05:20: White Blood Count 12.4H, Red Blood Count 3.07L, Hemoglobin 8.2L, Hematocrit 25.9L, Mean Corpuscular Volume 84, Mean Corpuscular Hemoglobin 26.7L, Mean Corpuscular Hemoglobin Concent 31.6L, Red Cell Distribution Width 19.8H, Platelet Count 794H, Mean Platelet Volume 5.5L, Neutrophils (%) (Auto) 69.2, Lymphocytes (%) (Auto) 15.2L, Monocytes (%) (Auto) 14.1H, Eosinophils (%) (Auto ) 0.5, Basophils (%) (Auto) 1.1, Sodium Level 145, Potassium Level 3.8, Chloride Level 108H, Carbon Dioxide Level 29, Anion Gap 8, Blood Urea Nitrogen 10, Creatinine 1.1, Estimat Glomerular Filtration Rate > 60, Glucose Level 104, Calcium Level 8.7 Height (Feet): 5 Height (Inches): 6.00 Weight (Pounds): 151 Michael Ansari M.D. May 14, 2020 10:23
--- NOTE | 2020-05-14 10:36 | General Progress Note ---
Assessment/Plan Assessment/Plan: GIB s/p EGd and colonoscopy multiple polyps gastritis capsule endoscopy done pending reading fu H&H Subjective ROS Limited/Unobtainable: Yes Allergies: Coded Allergies: No Known Allergies (Unverified , 09/06/19) Objective Last 24 Hour Vital Signs Date Time Temp Pulse Resp B/P (MAP) Pulse Ox O2 Delivery O2 Flow Rate FiO2 05/14/20 09:04 56 114/59 05/14/20 09:00 56 114/59 05/14/20 09:00 Room Air 05/14/20 08:00 97.7 56 21 114/59 (77) 97 05/14/20 08:00 59 05/14/20 04:00 58 05/14/20 04:00 98.0 58 21 167/106 (126) 96 05/14/20 00:00 68 05/14/20 00:00 97.5 100 19 150/87 (108) 96 05/13/20 21:00 Room Air 05/13/20 20:00 96 05/13/20 20:00 98.6 115 19 154/87 (109) 98 05/13/20 16:00 97.7 95 20 166/95 (118) 98 05/13/20 15:20 98 05/13/20 12:00 97.8 73 20 127/81 (96) 98 05/13/20 11:27 58 Intake and Output 05/13/20 05/14/20 19:00 07:00 Output Total 750 ml Balance -750 ml Output Urine Total 750 ml # Voids 5 2 # Bowel Movements 2 Laboratory Tests 05/13/20 16:15: White Blood Count 22.1*H, Red Blood Count 3.45L, Hemoglobin 9.2L, Hematocrit 28.5L, Mean Corpuscular Volume 82, Mean Corpuscular Hemoglobin 26.6L, Mean Corpuscular Hemoglobin Concent 32.2, Red Cell Distribution Width 20.4H, Platelet Count 892H, Mean Platelet Volume 5.8L, Neutrophils (%) (Auto) , Lymphocytes (%) (Auto) , Monocytes (%) (Auto) , Eosinophils (%) (Auto) , Basophils (%) (Auto) , Differential Total Cells Counted 100, Neutrophils % ( Manual) 80H, Lymphocytes % (Manual) 14L, Monocytes % (Manual) 5, Eosinophils % ( Manual) 0, Basophils % (Manual) 1, Band Neutrophils 0, Platelet Estimate IncreasedH, Platelet Morphology Normal, Hypochromasia 1+, Anisocytosis 2+ 05/14/20 05:20: White Blood Count 12.4H, Red Blood Count 3.07L, Hemoglobin 8.2L, Hematocrit 25.9L, Mean Corpuscular Volume 84, Mean Corpuscular Hemoglobin 26.7L, Mean Corpuscular Hemoglobin Concent 31.6L, Red Cell Distribution Width 19.8H, Platelet Count 794H, Mean Platelet Volume 5.5L, Neutrophils (%) (Auto) 69.2, Lymphocytes (%) (Auto) 15.2L, Monocytes (%) (Auto) 14.1H, Eosinophils (%) (Auto ) 0.5, Basophils (%) (Auto) 1.1, Sodium Level 145, Potassium Level 3.8, Chloride Level 108H, Carbon Dioxide Level 29, Anion Gap 8, Blood Urea Nitrogen 10, Creatinine 1.1, Estimat Glomerular Filtration Rate > 60, Glucose Level 104, Calcium Level 8.7 Height (Feet): 5 Height (Inches): 6.00 Weight (Pounds): 151 General Appearance: alert EENT: PERRL/EOMI Neck: supple Cardiovascular: normal rate Respiratory/Chest: decreased breath sounds Abdomen: normal bowel sounds, non tender, soft Extremities: non-tender José Luis Juares MD May 14, 2020 10:36
--- NOTE | 2020-05-14 11:09 | NUR ---
*-*DISCHARGE PLANNED*-* PATIENT HAS BEEN ACCEPTED AND WILL BE DISCHARGED BACK TO: [facility] P: [phone] NURSE TO NURSE REPORT ROOM# 518.[facility]SP[facility] SET FOR 1:30PM S/W REAL [id number].
--- NOTE | 2020-05-14 12:01 | NUR ---
NURSE NOTES: Report given to ELOY Moncada @[facility].
--- NOTE | 2020-05-14 13:41 | NUR ---
HAND-OFF: Report given to ELOY Mckeon. Pt remains stable.
--- NOTE | 2020-05-14 13:45 | NUR ---
NURSE NOTES: Received report from ELOY Hurt. Pt. asleep in bed. Pt. arousable to name. No signs of pain or distress.
--- NOTE | 2020-05-14 13:50 | NUR ---
NURSE NOTES: Sharron/ARY states copious rectal bleeding was discovered upon standing to go to the bathroom. Pt. saturated a yenifer with kirk red blood. VS as follows: BP 150/86, HR 86, SPO2 96%. Pt. AAO to person and situation. Pt. denies dizziness or syncope. Pt. skin color normal for ethnicity, cap refill <3 seconds, warm, and dry. Breathing is regular and unlabored on room air. Pt. denies pain. Call placed to Dr. Chapin who will cancel discharge order. [employer] regulatory law specialist on site and updated that discharge is cancelled. Destiney/Admitting at [facility] updated by phone that interfacility transfer has been cancelled. Dr. Chapin states they will contact Dr. Juares for further orders. Neto/brake machine operator updated on the above.
--- NOTE | 2020-05-14 14:14 | NUR ---
NURSE NOTES: Pt had an active bleed with defecation of 100-150 ml of bright blood, Md Chapin notified and cancelled discharge. Md Chapin stated she will call Md Juares, all this was 3rd green party from ELOY Garcia
[2020-05-14 14:42] LABS: HEMATOCRIT 26.8 % (42.0-52.0); HEMOGLOBIN 8.3 G/DL (14.2-18.0); MEAN CORPUSCULAR VOLUME 85 FL (80-99); PLATELET COUNT 846 K/UL (150-450); RED BLOOD COUNT 3.16 M/UL (4.70-6.10); RED CELL DISTRIBUTION WIDTH 19.5 % (11.6-14.8); WHITE BLOOD COUNT 10.8 K/UL (4.8-10.8)
--- NOTE | 2020-05-14 14:52 | NUR ---
NURSE NOTES: Spoke with Dr. Chapin. made aware that H&H is stable at 8.3/26.8. Dr. Chapin states Dr. Juares has been updated and there are no new orders.
--- NOTE | 2020-05-14 19:30 | NUR ---
HAND-OFF: Report given to ELOY Galeano.
--- NOTE | 2020-05-14 19:43 | NUR ---
NURSE NOTES: Received report from ELOY Mckeon. Patient is on bed, alert, awake and oriented x 3. On regular diet, instructed and amenable. On room air with no desaturation reported. heading matcher and assembler is in placed, shows sinus rhythm and no chest pain at this time. IV site is on left forearm g-24 saline lock that is patent and intact. On fall precaution. Safety measurers are in placed, bed in lowest and locked position, call light button and bedside table is within reach, instructed to call for any assistance needed. Will continue plan of care.
[2020-05-14] MEDS: Iron Sucrose 100 MG in NS 55 ML IV SCH (20:46)
[2020-05-14] MEDS ORDERED: OLANZapine 2.5mg tab ORAL SCH (21:00)
--- NOTE | 2020-05-14 23:55 | Psych Consult Progress Note ---
Psychiatry Progress Note Psychiatry Progress Note Medications Current Medications Medications (Trade) Dose Ordered Sig/Elliot Route PRN Reason Start Time Stop Time Status Last Admin Dose Admin Acetaminophen (Tylenol) 650 mg Q4H PRN ORAL Mild Pain (Pain Scale 1-3) 05/11/20 10:45 06/10/20 10:44 Acetaminophen (Tylenol) 650 mg Q4H PRN ORAL Temp >100.5 05/11/20 10:45 06/10/20 10:44 Albuterol/ Ipratropium (Albuterol/ Ipratropium) 3 ml Q6H PRN HHN Shortness of Breath 05/11/20 10:45 05/16/20 10:44 Amlodipine Besylate (Norvasc) 5 mg DAILY ORAL 05/14/20 09:00 06/13/20 08:59 05/14/20 09:04 Dextrose (Dextrose 50%) 25 ml Q30M PRN IV Hypoglycemia 05/11/20 10:45 08/09/20 10:44 Dextrose (Dextrose 50%) 50 ml Q30M PRN IV Hypoglycemia 05/11/20 10:45 08/09/20 10:44 Diphenhydramine HCl (Benadryl) 25 mg Q6H PRN ORAL Itching/Pruritis 05/11/20 10:45 06/10/20 10:44 Hydralazine HCl (Apresoline) 25 mg Q6H PRN ORAL For High Blood Pressure 05/14/20 07:30 08/12/20 07:29 Iron Sucrose 100 mg/Sodium Chloride 60 ml @ 240 mls/hr BEDTIME IV 05/12/20 21:00 05/16/20 21:14 05/14/20 20:46 Lorazepam (Ativan 2mg/ml 1ml) 0.5 mg Q4H PRN IV For Anxiety 05/11/20 10:45 05/18/20 10:44 05/12/20 22:30 Metoclopramide HCl (Reglan) 10 mg Q6H PRN IVP Nausea & Vomiting 05/11/20 10:45 06/10/20 10:44 Olanzapine (ZyPREXA) 5 mg BEDTIME ORAL 05/13/20 21:00 06/27/20 20:59 05/14/20 20:46 Ondansetron HCl (Zofran) 4 mg Q6H PRN IVP Nausea & Vomiting 05/11/20 10:45 06/10/20 10:44 Pantoprazole (Protonix) 40 mg BID IV 05/12/20 09:00 06/11/20 08:59 05/14/20 17:16 Zolpidem Tartrate (Ambien) 5 mg HSPRN PRN ORAL Insomnia 05/11/20 21:00 05/18/20 20:59 Neurological/Psychiatric: Reports: anxiety, depressed, emotional problems Allergies: Coded Allergies: No Known Allergies (Unverified , 09/06/19) Objective Data Height (Feet): 5 Height (Inches): 6.00 Weight (Pounds): 151 Additional Comments: alert, disoriented to situation. Mood is anxious. Affect is flat. Thought process is concrete. Thought content, no suicidal or homicidal ideation. Cognition is impaired. Insight and judgment is impaired. Assessment/Plan Assessment/Plan: ASSESSMENT: [place] I Dementia with behavior disturbance. PLAN: 1. We will start the patient on Zyprexa 5 mg at bedtime 2. Ativan p.r.n. 3. Provide the patient with reality orientation and supportive therapy. Adriana Contreras MD May 14, 2020 23:55
[2020-05-15] VITALS (7 sets, daily range): BP systolic 109–140; BP diastolic 41–80
[2020-05-15 07:01] LABS: ANION GAP 10 mmol/L (5-15); BLOOD UREA NITROGEN 14 mg/dL (7-18); CALCIUM 8.3 MG/DL (8.5-10.1); CARBON DIOXIDE 24 MMOL/L (21-32); CHLORIDE 106 MMOL/L (98-107); CREATININE 1.2 MG/DL (0.55-1.30); POTASSIUM 3.9 MMOL/L (3.5-5.1); SODIUM 140 MMOL/L (136-145)
[2020-05-15 07:15] LABS: HEMATOCRIT 24.3 % (42.0-52.0); HEMOGLOBIN 7.8 G/DL (14.2-18.0); MEAN CORPUSCULAR VOLUME 85 FL (80-99); PLATELET COUNT 803 K/UL (150-450); RED BLOOD COUNT 2.85 M/UL (4.70-6.10); RED CELL DISTRIBUTION WIDTH 21.1 % (11.6-14.8); WHITE BLOOD COUNT 11.6 K/UL (4.8-10.8)
--- NOTE | 2020-05-15 07:24 | NUR ---
HAND-OFF: Report given to ELOY Naranjo. Patient is awake, eating breakfast in stable condition, no complaints made at this time. Plan of care endorsed.
--- NOTE | 2020-05-15 07:41 | NUR ---
NURSE NOTES: Received patient in bed awake. No SOB or acute distress. IV line intact. Will monitor for blood in stool. HOB elevated. Bed locked in lowest position. Call light within reach. Will continue plan of care.
[2020-05-15] MEDS: Pantoprazole Inj IV SCH ×4 (08:36→17:19)
--- NOTE | 2020-05-15 08:40 | General Progress Note ---
Assessment/Plan Assessment/Plan: 89-year-old -Serbian male with past medical history of hypertension, erythrocytosis, presents for bright red blood per rectum. #Lower GI Bleed #Acute blood loss Anemia #Bright red blood per rectum #Melena #Anemia -cont in-pt medical care -GI consult, appreciate recommendations -Transfuse for Hgb <7 -ctm CBC daily -05/12: s/p EGD/colon w/gastritis, colonic polyps and hemorrhoids -05/13: capsule endoscopy, no evidence of bleeding -d/w Dr. Juares, pt with another episode of melena this AM, ?polypectomy bleed , plan for repeat colonoscopy Monday #Hypertension -Hold hypertensive medications as patient's blood pressure is low -Resuscitate with fluids and PRBC -no BB 12/15 bradycardia -cont home amlodipine #LAUREL - resolved -IV fluids -Monitor BMP -Nephrology consult, appreciate recommendations -Avoid nephrotoxic medications #Polycythemia/Essential Thrombosis #Leukocytosis - resolved -No signs of infection -Continue to monitor CBC -Hematology oncology consult, recs appreciated -d/w Heme lab findings, cont hydrea per Heme, ctm Time spent on encounter: 35 mins, 24 mins on counseling pt regarding hospital course/POC, coordination of care. D/w GI, Dr Juares, RN and pt. Time of note doesn't reflect time of encounter. Subjective Allergies: Coded Allergies: No Known Allergies (Unverified , 09/06/19) Subjective F/u for GIB. S/p EGD/colonoscopy 05/12. S/p capsule endoscopy 05/14. Plan for pt to d/c back to SNF however pt had large BM melena yesterday, VSS, pt was kept overnight. Pt w/another episode of melena this AM. Pt denies any SOB, abd pain, CP at this time. Objective Last 24 Hour Vital Signs Date Time Temp Pulse Resp B/P (MAP) Pulse Ox O2 Delivery O2 Flow Rate FiO2 05/15/20 08:39 93 113/72 05/15/20 08:37 97.7 93 20 113/72 (86) 97 05/15/20 08:00 97.7 102 20 109/41 (63) 97 05/15/20 04:00 98.5 84 18 125/80 (95) 96 05/15/20 04:00 77 05/15/20 00:00 73 05/15/20 00:00 98.4 80 18 140/76 (97) 98 05/14/20 21:00 Room Air 05/14/20 20:00 78 05/14/20 20:00 98.7 76 18 137/77 (97) 96 05/14/20 19:00 84 17 125/83 (97) 97 05/14/20 16:00 74 05/14/20 16:00 98.6 102 16 118/86 (97) 96 05/14/20 14:00 86 16 150/86 (107) 96 05/14/20 12:00 69 05/14/20 12:00 97.5 64 17 116/68 (84) 97 05/14/20 09:04 56 114/59 05/14/20 09:00 56 114/59 05/14/20 09:00 Room Air Intake and Output 05/14/20 05/15/20 19:00 07:00 Intake Total 400 ml 800 ml Output Total 400 ml 900 ml Balance 0 ml -100 ml Intake Oral 400 ml 800 ml Output Urine Total 400 ml 900 ml # Voids 3 # Bowel Movements 2 Laboratory Tests 05/14/20 14:35: White Blood Count 10.8, Red Blood Count 3.16L, Hemoglobin 8.3L, Hematocrit 26.8L , Mean Corpuscular Volume 85, Mean Corpuscular Hemoglobin 26.3L, Mean Corpuscular Hemoglobin Concent 31.1L, Red Cell Distribution Width 19.5H, Platelet Count 846H, Mean Platelet Volume 5.2L, Neutrophils (%) (Auto) , Lymphocytes (%) (Auto) , Monocytes (%) (Auto) , Eosinophils (%) (Auto) , Basophils (%) (Auto) , Differential Total Cells Counted 100, Neutrophils % ( Manual) 67, Lymphocytes % (Manual) 20, Monocytes % (Manual) 12H, Eosinophils % ( Manual) 0, Basophils % (Manual) 1, Band Neutrophils 0, Platelet Estimate IncreasedH, Platelet Morphology Normal, Polychromasia 1+, Hypochromasia 1+, Anisocytosis 2+ 05/15/20 06:00: White Blood Count 11.6H, Red Blood Count 2.85L, Hemoglobin 7.8L, Hematocrit 24.3L, Mean Corpuscular Volume 85, Mean Corpuscular Hemoglobin 27.3, Mean Corpuscular Hemoglobin Concent 32.0, Red Cell Distribution Width 21.1H, Platelet Count 803H, Mean Platelet Volume 5.5L, Neutrophils (%) (Auto) , Lymphocytes (%) (Auto) , Monocytes (%) (Auto) , Eosinophils (%) (Auto) , Basophils (%) (Auto) , Differential Total Cells Counted 100, Neutrophils % ( Manual) 64, Lymphocytes % (Manual) 17L, Monocytes % (Manual) 17H, Eosinophils % (Manual) 1, Basophils % (Manual) 1, Band Neutrophils 0, Platelet Estimate IncreasedH, Platelet Morphology Normal, Hypochromasia 3+, Anisocytosis 3+, Sodium Level 140, Potassium Level 3.9, Chloride Level 106, Carbon Dioxide Level 24, Anion Gap 10, Blood Urea Nitrogen 14, Creatinine 1.2, Estimat Glomerular Filtration Rate > 60, Glucose Level 167H, Calcium Level 8.3L Height (Feet): 5 Height (Inches): 6.00 Weight (Pounds): 151 Objective General: NAD, A&O x 3, laying in bed comfortably HEENT: NCAT, EOMi, MMM CV: RRR, no murmurs, rubs, or gallops Pulm: CTAB, No wheezes, rhonchi, or rales, no accessory muscle usage or conversational dyspnea GI: Soft, nontender, nondistended, bowel sounds present Ext: No lower extremity edema bilaterally Skin: no rashes lesions or ulcers Msk: Joints symmetrical in upper extremity and lower extremity bilaterally, no joint swelling. Neuro: CN 2-12 grossly intact bilaterally, no focal signs. Shelby Chapin M.D. May 15, 2020 08:40
--- NOTE | 2020-05-15 08:46 | General Progress Note ---
Assessment/Plan Assessment/Plan: GIB s/p EGd and colonoscopy multiple polyps gastritis capsule endoscopy done >>> no active bleed ? post polypectomy bleed fu H&H transfuse to keep HGB above 7 plan repeat colonoscopy on Monday or sooner if sig bleed Subjective ROS Limited/Unobtainable: Yes Allergies: Coded Allergies: No Known Allergies (Unverified , 09/06/19) Objective Last 24 Hour Vital Signs Date Time Temp Pulse Resp B/P (MAP) Pulse Ox O2 Delivery O2 Flow Rate FiO2 05/15/20 08:39 93 113/72 05/15/20 08:37 97.7 93 20 113/72 (86) 97 05/15/20 08:00 97.7 102 20 109/41 (63) 97 05/15/20 04:00 98.5 84 18 125/80 (95) 96 05/15/20 04:00 77 05/15/20 00:00 73 05/15/20 00:00 98.4 80 18 140/76 (97) 98 05/14/20 21:00 Room Air 05/14/20 20:00 78 05/14/20 20:00 98.7 76 18 137/77 (97) 96 05/14/20 19:00 84 17 125/83 (97) 97 05/14/20 16:00 74 05/14/20 16:00 98.6 102 16 118/86 (97) 96 05/14/20 14:00 86 16 150/86 (107) 96 05/14/20 12:00 69 05/14/20 12:00 97.5 64 17 116/68 (84) 97 05/14/20 09:04 56 114/59 05/14/20 09:00 56 114/59 05/14/20 09:00 Room Air Intake and Output 05/14/20 05/15/20 19:00 07:00 Intake Total 400 ml 800 ml Output Total 400 ml 900 ml Balance 0 ml -100 ml Intake Oral 400 ml 800 ml Output Urine Total 400 ml 900 ml # Voids 3 # Bowel Movements 2 Laboratory Tests 05/14/20 14:35: White Blood Count 10.8, Red Blood Count 3.16L, Hemoglobin 8.3L, Hematocrit 26.8L , Mean Corpuscular Volume 85, Mean Corpuscular Hemoglobin 26.3L, Mean Corpuscular Hemoglobin Concent 31.1L, Red Cell Distribution Width 19.5H, Platelet Count 846H, Mean Platelet Volume 5.2L, Neutrophils (%) (Auto) , Lymphocytes (%) (Auto) , Monocytes (%) (Auto) , Eosinophils (%) (Auto) , Basophils (%) (Auto) , Differential Total Cells Counted 100, Neutrophils % ( Manual) 67, Lymphocytes % (Manual) 20, Monocytes % (Manual) 12H, Eosinophils % ( Manual) 0, Basophils % (Manual) 1, Band Neutrophils 0, Platelet Estimate IncreasedH, Platelet Morphology Normal, Polychromasia 1+, Hypochromasia 1+, Anisocytosis 2+ 05/15/20 06:00: White Blood Count 11.6H, Red Blood Count 2.85L, Hemoglobin 7.8L, Hematocrit 24.3L, Mean Corpuscular Volume 85, Mean Corpuscular Hemoglobin 27.3, Mean Corpuscular Hemoglobin Concent 32.0, Red Cell Distribution Width 21.1H, Platelet Count 803H, Mean Platelet Volume 5.5L, Neutrophils (%) (Auto) , Lymphocytes (%) (Auto) , Monocytes (%) (Auto) , Eosinophils (%) (Auto) , Basophils (%) (Auto) , Differential Total Cells Counted 100, Neutrophils % ( Manual) 64, Lymphocytes % (Manual) 17L, Monocytes % (Manual) 17H, Eosinophils % (Manual) 1, Basophils % (Manual) 1, Band Neutrophils 0, Platelet Estimate IncreasedH, Platelet Morphology Normal, Hypochromasia 3+, Anisocytosis 3+, Sodium Level 140, Potassium Level 3.9, Chloride Level 106, Carbon Dioxide Level 24, Anion Gap 10, Blood Urea Nitrogen 14, Creatinine 1.2, Estimat Glomerular Filtration Rate > 60, Glucose Level 167H, Calcium Level 8.3L Height (Feet): 5 Height (Inches): 6.00 Weight (Pounds): 151 General Appearance: alert EENT: PERRL/EOMI Neck: supple Cardiovascular: normal rate Respiratory/Chest: decreased breath sounds Abdomen: normal bowel sounds, non tender, soft Extremities: non-tender José Luis Juares MD May 15, 2020 08:46
[2020-05-15] MEDS ORDERED: Hydroxyurea 500mg cap ORAL SCH (09:00)
--- NOTE | 2020-05-15 10:14 | Nephrology Progress Note ---
Assessment/Plan Plan #LAUREL likely due prerenal azotemia in the setting of GI bleed- on baseline CKD?-- > improved #GI bleed #h/o HTN #Iron deficiency #polycythemia #dementia - contineu IVF - GI eval - endoscopy today - prbc trasnfusion to maintain hemoglobin > 7.5 - on hydroxyuria - continue protonix - avoid nephrotoxins - strict I&Os - daily weights - monitor UOP - check BMP, mag and phos daily Times spent 70 minutes > 50% on care coordination and counseling Subjective ROS Limited/Unobtainable: No Constitutional: Reports: weakness HEENT: Denies: no symptoms, eye pain, blurred vision, tearing, double vision, ear pain, ear discharge, nose pain, nose congestion, throat pain, throat swelling, mouth pain, mouth swelling, other Genitourinary: Denies: no symptoms, burning, discharge, frequency, flank pain, hematuria, incontinence, pain, urgency, other Neurologic/Psychiatric: Denies: no symptoms, anxiety, depressed, emotional problems, headache, numbness, paresthesia, pre-existing deficit, seizure, tingling, tremors, weakness, other Subjective Vitals stable WBC downtrending had a large bloody BM yesterday hemoglobin downtrending Objective Objective Last 24 Hour Vital Signs Date Time Temp Pulse Resp B/P (MAP) Pulse Ox O2 Delivery O2 Flow Rate FiO2 05/15/20 08:39 93 113/72 05/15/20 08:37 97.7 93 20 113/72 (86) 97 05/15/20 08:00 97.7 102 20 109/41 (63) 97 05/15/20 04:00 98.5 84 18 125/80 (95) 96 05/15/20 04:00 77 05/15/20 00:00 73 05/15/20 00:00 98.4 80 18 140/76 (97) 98 05/14/20 21:00 Room Air 05/14/20 20:00 78 05/14/20 20:00 98.7 76 18 137/77 (97) 96 05/14/20 19:00 84 17 125/83 (97) 97 05/14/20 16:00 74 05/14/20 16:00 98.6 102 16 118/86 (97) 96 05/14/20 14:00 86 16 150/86 (107) 96 05/14/20 12:00 69 05/14/20 12:00 97.5 64 17 116/68 (84) 97 Intake and Output 05/14/20 05/15/20 19:00 07:00 Intake Total 400 ml 800 ml Output Total 400 ml 900 ml Balance 0 ml -100 ml Intake Oral 400 ml 800 ml Output Urine Total 400 ml 900 ml # Voids 3 # Bowel Movements 2 Laboratory Tests 05/14/20 14:35: White Blood Count 10.8, Red Blood Count 3.16L, Hemoglobin 8.3L, Hematocrit 26.8L , Mean Corpuscular Volume 85, Mean Corpuscular Hemoglobin 26.3L, Mean Corpuscular Hemoglobin Concent 31.1L, Red Cell Distribution Width 19.5H, Platelet Count 846H, Mean Platelet Volume 5.2L, Neutrophils (%) (Auto) , Lymphocytes (%) (Auto) , Monocytes (%) (Auto) , Eosinophils (%) (Auto) , Basophils (%) (Auto) , Differential Total Cells Counted 100, Neutrophils % ( Manual) 67, Lymphocytes % (Manual) 20, Monocytes % (Manual) 12H, Eosinophils % ( Manual) 0, Basophils % (Manual) 1, Band Neutrophils 0, Platelet Estimate IncreasedH, Platelet Morphology Normal, Polychromasia 1+, Hypochromasia 1+, Anisocytosis 2+ 05/15/20 06:00: White Blood Count 11.6H, Red Blood Count 2.85L, Hemoglobin 7.8L, Hematocrit 24.3L, Mean Corpuscular Volume 85, Mean Corpuscular Hemoglobin 27.3, Mean Corpuscular Hemoglobin Concent 32.0, Red Cell Distribution Width 21.1H, Platelet Count 803H, Mean Platelet Volume 5.5L, Neutrophils (%) (Auto) , Lymphocytes (%) (Auto) , Monocytes (%) (Auto) , Eosinophils (%) (Auto) , Basophils (%) (Auto) , Differential Total Cells Counted 100, Neutrophils % ( Manual) 64, Lymphocytes % (Manual) 17L, Monocytes % (Manual) 17H, Eosinophils % (Manual) 1, Basophils % (Manual) 1, Band Neutrophils 0, Platelet Estimate IncreasedH, Platelet Morphology Normal, Hypochromasia 3+, Anisocytosis 3+, Sodium Level 140, Potassium Level 3.9, Chloride Level 106, Carbon Dioxide Level 24, Anion Gap 10, Blood Urea Nitrogen 14, Creatinine 1.2, Estimat Glomerular Filtration Rate > 60, Glucose Level 167H, Calcium Level 8.3L Height (Feet): 5 Height (Inches): 6.00 Weight (Pounds): 151 Michael Ansari M.D. May 15, 2020 10:14
--- NOTE | 2020-05-15 10:46 | NUR ---
RD ASSESSMENT & RECOMMENDATIONS SEE CARE ACTIVITY FOR COMPLETE ASSESSMENT DAILY ESTIMATED NEEDS: Needs based on Cardiac, advanced [age] 25-30 kcals/kg 3532-6355 total kcals 1-1.2 g protein/kg 69-82 g total protein 20-30ml/kcal mL/kg 1438-3607 total fluid mLs NUTRITION DIAGNOSIS: Altered GI fxn R/T GIB as evidenced by low Hgb 7.8, trend down, w/ episodes of bloody bm. CURRENT DIET: Was Regular, now CLD PO DIET RECOMMENDATIONS: LOW NA, texture as tolerated ADDITIONAL RECOMMENDATIONS: * Maintain calibrated bedscale wt * Add ensure Clear to CLD (240 kcal, 8g pro each) * Monitor for continued good PO intake * Monitor BG, need for NISS
--- NOTE | 2020-05-15 11:09 | Hematology/Onc Progress Note ---
Assessment/Plan Assessment/Plan Assessment and Recs: # Essential Thrombocytosis, JAK2++, high-risk given age >60 meets the criteria, has consistently been elevated over the past 6 months, have reviewed last admissiona s well --> will evaluate liver and spleen r/o hepatosplenomegaly--> last admission did not show splenomegaly --> obtain peripheral smear, reviewed and no early immature cells noted --> JAK2 ++ again --> plt trend 705k-->643k-->757k-->811k-->791->909-->806-->794->803 --> START on hydrea 500mg pobid (smallest dose tablet)--> on 05/15 change to daily --> OFF ASA --> have discussed with Pcp --> If any lower ext symptoms, get duplex, at increased risk for dvt # Anemia due to gi bleedingand iron deficiency --> on iv iron started --> 05/12 for colo and egd-->polyps noted --> ferritin goal >200 # LEukocytosis r/o reactive process, likely due to gi bleed --> abx as needed prn --> wbc trend: 8 -->20-->40-->20-->12 --> on hydrea, needs to be adjusted as outpatient # Hypercalcemia -- with elev Ca on admission --> current 9.1 --> likely improved with ivf --> w/u if worsens # Near syncope --> generalized weakness # Dehydration --> ivf started # Essential hypertension --> per cards, TTE normal --> imaging reviewed --> Continue Amlodipine # Acute encephlopathy, metabolic vs. psychiatric. dehydration v psych, improved --> psych eval --> Patient currently lives at home by himself # LAUREL- resolved --> Holding HCTZ as above --> monitor renal function # DVt ppx with scds Appreciate consultation and saurabh RN Subjective Constitutional: Denies: no symptoms, chills, fever, malaise, weakness, other HEENT: Denies: no symptoms, eye pain, blurred vision, tearing, double vision, ear pain, ear discharge, nose pain, nose congestion, throat pain, throat swelling, mouth pain, mouth swelling, other Cardiovascular: Denies: no symptoms, chest pain, edema, irregular heart rate, lightheadedness, palpitations, syncope, other Respiratory: Denies: no symptoms, cough, shortness of breath, SOB with excertion, SOB at rest, sputum, wheezing, other Gastrointestinal/Abdominal: Denies: no symptoms, abdomen distended, abdominal pain, black stools, tarry stools, blood in stool, constipated, diarrhea, difficulty swallowing, nausea, poor appetite, poor fluid intake, rectal bleeding , vomiting, other Genitourinary: Denies: no symptoms, burning, discharge, frequency, flank pain, hematuria, incontinence, pain, urgency, other Neurologic/Psychiatric: Denies: no symptoms, anxiety, depressed, emotional problems, headache, numbness, paresthesia, pre-existing deficit, seizure, tingling, tremors, weakness, other Endocrine: Denies: no symptoms, excessive sweating, flushing, intolerance to cold, intolerance to heat, increased hunger, increased thirst, increased urine, unexplained weight gain, unexplained weight loss, other Allergies: Coded Allergies: No Known Allergies (Unverified , 09/06/19) Subjective 05/13 labs noted, no bleeding, wbc 21, hgb 8.6, is on hydrea 05/14 is for dc today potentially, hr low in am, seen by pcp, saurabh her 05/15 labs noted, somewhat better, is on hydrea, plt improved Objective Objective Current Medications Medications (Trade) Dose Ordered Sig/Elliot Route PRN Reason Start Time Stop Time Status Last Admin Dose Admin Acetaminophen (Tylenol) 650 mg Q4H PRN ORAL Mild Pain (Pain Scale 1-3) 05/11/20 10:45 06/10/20 10:44 Acetaminophen (Tylenol) 650 mg Q4H PRN ORAL Temp >100.5 05/11/20 10:45 06/10/20 10:44 Albuterol/ Ipratropium (Albuterol/ Ipratropium) 3 ml Q6H PRN HHN Shortness of Breath 05/11/20 10:45 05/16/20 10:44 Amlodipine Besylate (Norvasc) 5 mg DAILY ORAL 05/14/20 09:00 06/13/20 08:59 05/15/20 08:39 Dextrose (Dextrose 50%) 25 ml Q30M PRN IV Hypoglycemia 05/11/20 10:45 08/09/20 10:44 Dextrose (Dextrose 50%) 50 ml Q30M PRN IV Hypoglycemia 05/11/20 10:45 08/09/20 10:44 Diphenhydramine HCl (Benadryl) 25 mg Q6H PRN ORAL Itching/Pruritis 05/11/20 10:45 06/10/20 10:44 Hydralazine HCl (Apresoline) 25 mg Q6H PRN ORAL For High Blood Pressure 05/14/20 07:30 08/12/20 07:29 Iron Sucrose 100 mg/Sodium Chloride 60 ml @ 240 mls/hr BEDTIME IV 05/12/20 21:00 05/16/20 21:14 05/14/20 20:46 Lorazepam (Ativan 2mg/ml 1ml) 0.5 mg Q4H PRN IV For Anxiety 05/11/20 10:45 05/18/20 10:44 05/12/20 22:30 Metoclopramide HCl (Reglan) 10 mg Q6H PRN IVP Nausea & Vomiting 05/11/20 10:45 06/10/20 10:44 Olanzapine (ZyPREXA) 5 mg BEDTIME ORAL 05/13/20 21:00 06/27/20 20:59 05/14/20 20:46 Ondansetron HCl (Zofran) 4 mg Q6H PRN IVP Nausea & Vomiting 05/11/20 10:45 06/10/20 10:44 Pantoprazole (Protonix) 40 mg BID IV 05/12/20 09:00 06/11/20 08:59 05/15/20 08:39 Polyethylene Glycol/ Electrolytes (Nulytely) 4,000 ml ONCE ORAL 05/17/20 14:00 05/17/20 23:59 Zolpidem Tartrate (Ambien) 5 mg HSPRN PRN ORAL Insomnia 05/11/20 21:00 05/18/20 20:59 Last 24 Hour Vital Signs Date Time Temp Pulse Resp B/P (MAP) Pulse Ox O2 Delivery O2 Flow Rate FiO2 05/15/20 08:39 93 113/72 05/15/20 08:37 97.7 93 20 113/72 (86) 97 05/15/20 08:00 97.7 102 20 109/41 (63) 97 05/15/20 04:00 98.5 84 18 125/80 (95) 96 05/15/20 04:00 77 05/15/20 00:00 73 05/15/20 00:00 98.4 80 18 140/76 (97) 98 05/14/20 21:00 Room Air 05/14/20 20:00 78 05/14/20 20:00 98.7 76 18 137/77 (97) 96 05/14/20 19:00 84 17 125/83 (97) 97 05/14/20 16:00 74 05/14/20 16:00 98.6 102 16 118/86 (97) 96 05/14/20 14:00 86 16 150/86 (107) 96 05/14/20 12:00 69 05/14/20 12:00 97.5 64 17 116/68 (84) 97 05/14/20 09:04 56 114/59 05/14/20 09:00 56 114/59 05/14/20 09:00 Room Air 05/14/20 08:00 97.7 56 21 114/59 (77) 97 05/14/20 08:00 59 05/14/20 04:00 58 05/14/20 04:00 98.0 58 21 167/106 (126) 96 05/14/20 00:00 68 05/14/20 00:00 97.5 100 19 150/87 (108) 96 05/13/20 21:00 Room Air 05/13/20 20:00 96 05/13/20 20:00 98.6 115 19 154/87 (109) 98 05/13/20 16:00 97.7 95 20 166/95 (118) 98 05/13/20 15:20 98 05/13/20 12:00 97.8 73 20 127/81 (96) 98 05/13/20 11:27 58 Intake and Output 05/14/20 05/15/20 19:00 07:00 Intake Total 400 ml 800 ml Output Total 400 ml 900 ml Balance 0 ml -100 ml Intake Oral 400 ml 800 ml Output Urine Total 400 ml 900 ml # Voids 3 # Bowel Movements 2 Labs Test 05/12/20 15:45 05/13/20 08:30 05/13/20 16:15 05/14/20 05:20 White Blood Count 42.0 K/UL (4.8-10.8) 20.8 K/UL (4.8-10.8) 22.1 K/UL (4.8-10.8) 12.4 K/UL (4.8-10.8) Red Blood Count 2.88 M/UL (4.70-6.10) 3.21 M/UL (4.70-6.10) 3.45 M/UL (4.70-6.10) 3.07 M/UL (4.70-6.10) Hemoglobin 7.4 G/DL (14.2-18.0) 8.6 G/DL (14.2-18.0) 9.2 G/DL (14.2-18.0) 8.2 G/DL (14.2-18.0) Hematocrit 23.0 % (42.0-52.0) 26.6 % (42.0-52.0) 28.5 % (42.0-52.0) 25.9 % (42.0-52.0) Mean Corpuscular Volume 80 FL (80-99) 83 FL (80-99) 82 FL (80-99) 84 FL (80- 99) Mean Corpuscular Hemoglobin 25.5 PG (27.0-31.0) 26.8 PG (27.0-31.0) 26.6 PG (27.0-31.0) 26.7 PG (27.0-31.0) Mean Corpuscular Hemoglobin Concent 32.0 G/DL (32.0-36.0) 32.3 G/DL (32.0-36.0) 32.2 G/DL (32.0-36.0) 31.6 G/DL (32.0-36.0) Red Cell Distribution Width 20.0 % (11.6-14.8) 19.6 % (11.6-14.8) 20.4 % (11.6-14.8) 19.8 % (11.6-14.8) Platelet Count 801 K/UL (150-450) 803 K/UL (150-450) 892 K/UL (150-450) 794 K/UL (150-450) Mean Platelet Volume 5.7 FL (6.5-10.1) 5.7 FL (6.5-10.1) 5.8 FL (6.5-10.1) 5.5 FL (6.5-10.1) Neutrophils (%) (Auto) % (45.0-75.0) % (45.0-75.0) % (45.0-75.0) 69.2 % (45.0-75.0) Lymphocytes (%) (Auto) % (20.0-45.0) % (20.0-45.0) % (20.0-45.0) 15.2 % (20.0-45.0) Monocytes (%) (Auto) % (1.0-10.0) % (1.0-10.0) % (1.0-10.0) 14.1 % (1.0-10.0) Eosinophils (%) (Auto) % (0.0-3.0) % (0.0-3.0) % (0.0-3.0) 0.5 % (0.0-3.0) Basophils (%) (Auto) % (0.0-2.0) % (0.0-2.0) % (0.0-2.0) 1.1 % (0.0-2.0) Differential Total Cells Counted 100 100 100 Neutrophils % (Manual) 87 % (45-75) 88 % (45-75) 80 % (45-75) Lymphocytes % (Manual) 4 % (20-45) 8 % (20-45) 14 % (20-45) Monocytes % (Manual) 8 % (1-10) 3 % (1-10) 5 % (1-10) Eosinophils % (Manual) 0 % (0-3) 0 % (0-3) 0 % (0-3) Basophils % (Manual) 0 % (0-2) 1 % (0-2) 1 % (0-2) Band Neutrophils 1 % (0-8) 0 % (0-8) 0 % (0-8) Nucleated Red Blood Cells 1 /100 WBC Platelet Estimate Increased Increased Increased Platelet Morphology Normal Normal Normal Polychromasia 1+ Anisocytosis 3+ 2+ 2+ Microcytosis 1+ Sodium Level 141 MMOL/L (136-145) 140 MMOL/L (136-145) 145 MMOL/L (136-145) Potassium Level 3.6 MMOL/L (3.5-5.1) 3.9 MMOL/L (3.5-5.1) 3.8 MMOL/L (3.5-5.1) Chloride Level 107 MMOL/L (98-107) 108 MMOL/L (98-107) 108 MMOL/L (98-107) Carbon Dioxide Level 24 MMOL/L (21-32) 26 MMOL/L (21-32) 29 MMOL/L (21-32) Anion Gap 10 mmol/L (5-15) 6 mmol/L (5-15) 8 mmol/L (5-15) Blood Urea Nitrogen 15 mg/dL (7-18) 13 mg/dL (7-18) 10 mg/dL (7-18) Creatinine 1.1 MG/DL (0.55-1.30) 1.0 MG/DL (0.55-1.30) 1.1 MG/DL (0.55-1.30) Estimat Glomerular Filtration Rate > 60 mL/min (>60) > 60 mL/min (>60) > 60 mL/min (>60) Glucose Level 135 MG/DL (74-106) 94 MG/DL (74-106) 104 MG/DL (74-106) Calcium Level 8.3 MG/DL (8.5-10.1) 9.0 MG/DL (8.5-10.1) 8.7 MG/DL (8.5-10.1) Magnesium Level 1.9 MG/DL (1.8-2.4) 2.1 MG/DL (1.8-2.4) Thyroid Stimulating Hormone (TSH) 3.068 uiU/mL (0.358-3.740) Hypochromasia 2+ 1+ Spherocytes 1+ Phosphorus Level 3.7 MG/DL (2.5-4.9) Test 05/14/20 14:35 05/15/20 06:00 White Blood Count 10.8 K/UL (4.8-10.8) 11.6 K/UL (4.8-10.8) Red Blood Count 3.16 M/UL (4.70-6.10) 2.85 M/UL (4.70-6.10) Hemoglobin 8.3 G/DL (14.2-18.0) 7.8 G/DL (14.2-18.0) Hematocrit 26.8 % (42.0-52.0) 24.3 % (42.0-52.0) Mean Corpuscular Volume 85 FL (80-99) 85 FL (80-99) Mean Corpuscular Hemoglobin 26.3 PG (27.0-31.0) 27.3 PG (27.0-31.0) Mean Corpuscular Hemoglobin Concent 31.1 G/DL (32.0-36.0) 32.0 G/DL (32.0-36.0) Red Cell Distribution Width 19.5 % (11.6-14.8) 21.1 % (11.6-14.8) Platelet Count 846 K/UL (150-450) 803 K/UL (150-450) Mean Platelet Volume 5.2 FL (6.5-10.1) 5.5 FL (6.5-10.1) Neutrophils (%) (Auto) % (45.0-75.0) % (45.0-75.0) Lymphocytes (%) (Auto) % (20.0-45.0) % (20.0-45.0) Monocytes (%) (Auto) % (1.0-10.0) % (1.0-10.0) Eosinophils (%) (Auto) % (0.0-3.0) % (0.0-3.0) Basophils (%) (Auto) % (0.0-2.0) % (0.0-2.0) Differential Total Cells Counted 100 100 Neutrophils % (Manual) 67 % (45-75) 64 % (45-75) Lymphocytes % (Manual) 20 % (20-45) 17 % (20-45) Monocytes % (Manual) 12 % (1-10) 17 % (1-10) Eosinophils % (Manual) 0 % (0-3) 1 % (0-3) Basophils % (Manual) 1 % (0-2) 1 % (0-2) Band Neutrophils 0 % (0-8) 0 % (0-8) Platelet Estimate Increased Increased Platelet Morphology Normal Normal Polychromasia 1+ Hypochromasia 1+ 3+ Anisocytosis 2+ 3+ Sodium Level 140 MMOL/L (136-145) Potassium Level 3.9 MMOL/L (3.5-5.1) Chloride Level 106 MMOL/L (98-107) Carbon Dioxide Level 24 MMOL/L (21-32) Anion Gap 10 mmol/L (5-15) Blood Urea Nitrogen 14 mg/dL (7-18) Creatinine 1.2 MG/DL (0.55-1.30) Estimat Glomerular Filtration Rate > 60 mL/min (>60) Glucose Level 167 MG/DL (74-106) Calcium Level 8.3 MG/DL (8.5-10.1) Height (Feet): 5 Height (Inches): 6.00 Weight (Pounds): 151 Objective Physical Exam Physical Exam Narrative General Appearance: WD/WN, no apparent distress, alert EENT: PERRL/EOMI, normal ENT inspection Neck: non-tender, normal alignment, supple Cardiovascular: normal peripheral pulses, normal rate, regular rhythm, no JVD Respiratory/Chest: chest wall non-tender, lungs clear, normal breath sounds Abdomen: normal bowel sounds, non tender, soft, no organomegaly Extremities: normal range of motion, non-tender Edema: other - No lower extremity edema bilaterally Neurologic: dip painter II-XII grossly normal, no motor/sensory deficits, alert, oriented x 2, responsive Skin: normal pigmentation, warm/dry Virgilio Su MD May 15, 2020 11:08
--- NOTE | 2020-05-15 13:00 | NUR ---
NURSE NOTES: pt transferred in stable condition from telemetry, pt talkative Ax3 forgetful. Pt bed in lowest position and locked, call light within reach. Skin assessment done no skin issues. Urinal at bedside. Pt belongings checked, walker at bedside. Will continue to monitor.
--- NOTE | 2020-05-15 13:00 | NUR ---
HAND-OFF: Patient transferred to [facility] in stable condition, report given to Nori LYONS. Belongings accounted for. For EGD and colonoscopy on 05/17, consent secured in chart.
[2020-05-15] MEDS ORDERED: HydrALAZINE 25mg tab ORAL PRN (13:30)
--- NOTE | 2020-05-15 13:58 | NUR ---
CASE MANAGEMENT: REVIEW 05/15/2020 SI:CHRONIC ATROPHIC GASTRIS W/ BLEEDING VS: T 97.7 HR 87 RR 20 B/P 118/77 SATS 99% ON RA LABS: WBC 11.6 HGB 7.8 HCT 24.3 GLU 167 CA 8.3 IS:VENOFER IV QHS PROTONIX IV BID NORVASC PO QD MED/SURG PLAN OF CARE: - continue IVF - GI eval - endoscopy today - prbc transfusion to maintain hemoglobin > 7.5
[2020-05-15] MEDS ORDERED: Albuterol/Ipratropium 3ml neb HHN PRN (14:00)
[2020-05-15] MEDS ORDERED: Metoclopramide 10mg/2ml Inj IVP PRN (14:00)
[2020-05-15] MEDS ORDERED: LORazepam Inj 2mg/ml 1ml IV PRN (14:00)
--- NOTE | 2020-05-15 14:27 | NUR ---
NURSE NOTES: charge nurse,will give report to Nestor/ELOY, pt in stable condition.
--- NOTE | 2020-05-15 19:29 | NUR ---
NURSE NOTES: Received report from Devang LYONS.The patient is alert and oriented x3 and does not seem to be in any distress at this time, Resp is even and unlabored and the bilateral lung sounds clear on auscultation. PIV on the LFA 22g saline log that is patent and was flushed with NS well tolerated.He does not seem to be in any distress at this time.Bed in low level. Bedside rails up x3 and alarm on, call light within easy reach. will continue to monitor
--- NOTE | 2020-05-15 19:37 | NUR ---
HAND-OFF: Report given to Barrett.
[2020-05-15] MEDS ORDERED: Zolpidem 5mg tab ORAL PRN (21:00)
[2020-05-15] MEDS: Iron Sucrose 100 MG in NS 55 ML IV SCH (21:03)
--- NOTE | 2020-05-15 23:25 | Psych Consult Progress Note ---
Psychiatry Progress Note Psychiatry Progress Note Medications Current Medications Medications (Trade) Dose Ordered Sig/Elliot Route PRN Reason Start Time Stop Time Status Last Admin Dose Admin Acetaminophen (Tylenol) 650 mg Q4H PRN ORAL Mild Pain (Pain Scale 1-3) 05/15/20 14:00 06/10/20 13:59 Acetaminophen (Tylenol) 650 mg Q4H PRN ORAL Temp >100.5 05/15/20 14:00 06/10/20 13:59 Albuterol/ Ipratropium (Albuterol/ Ipratropium) 3 ml Q6H PRN HHN Shortness of Breath 05/15/20 14:00 05/16/20 13:59 Amlodipine Besylate (Norvasc) 5 mg DAILY ORAL 05/15/20 13:30 06/13/20 08:59 Dextrose (Dextrose 50%) 25 ml Q30M PRN IV Hypoglycemia 05/15/20 13:45 08/09/20 10:44 Dextrose (Dextrose 50%) 50 ml Q30M PRN IV Hypoglycemia 05/15/20 13:45 08/09/20 10:44 Diphenhydramine HCl (Benadryl) 25 mg Q6H PRN ORAL Itching/Pruritis 05/15/20 14:00 06/10/20 13:59 Hydralazine HCl (Apresoline) 25 mg Q6H PRN ORAL For High Blood Pressure 05/15/20 13:30 08/12/20 07:29 Iron Sucrose 100 mg/Sodium Chloride 60 ml @ 240 mls/hr BEDTIME IV 05/15/20 21:00 05/16/20 21:14 05/15/20 21:03 Lorazepam (Ativan 2mg/ml 1ml) 0.5 mg Q4H PRN IV For Anxiety 05/15/20 14:00 05/18/20 13:59 Metoclopramide HCl (Reglan) 10 mg Q6H PRN IVP Nausea & Vomiting 05/15/20 14:00 06/10/20 13:59 Olanzapine (ZyPREXA) 5 mg BEDTIME ORAL 05/15/20 21:00 06/27/20 20:59 05/15/20 20:14 Ondansetron HCl (Zofran) 4 mg Q6H PRN IVP Nausea & Vomiting 05/15/20 14:00 06/10/20 13:59 Pantoprazole (Protonix) 40 mg BID IV 05/15/20 13:30 06/11/20 08:59 05/15/20 17:19 Polyethylene Glycol/ Electrolytes (Nulytely) 4,000 ml ONCE ORAL 05/17/20 14:00 05/17/20 23:59 Zolpidem Tartrate (Ambien) 5 mg HSPRN PRN ORAL Insomnia 05/15/20 21:00 05/18/20 20:59 Allergies: Coded Allergies: No Known Allergies (Unverified , 09/06/19) Objective Data Height (Feet): 5 Height (Inches): 6.00 Weight (Pounds): 151 Assessment/Plan Assessment/Plan: ASSESSMENT: [place] I Dementia with behavior disturbance. PLAN: 1. We will start the patient on Zyprexa 5 mg at bedtime 2. Ativan p.r.n. 3. Provide the patient with reality orientation and supportive therapy. Adriana Contreras MD May 15, 2020 23:24
[2020-05-16] VITALS: BP 148/90
[2020-05-16 04:00] VITALS: BP 112/82
--- NOTE | 2020-05-16 05:21 | NUR ---
NURSE NOTES: The patient was able to sleep for about 7 hrs last night and was able to ambulate himself with minimal assistance and sat on his bedside table. Resp is even and unlabored will continue to monitor
[2020-05-16 06:56] LABS: HEMATOCRIT 26.9 % (42.0-52.0); HEMOGLOBIN 8.6 G/DL (14.2-18.0); MEAN CORPUSCULAR VOLUME 86 FL (80-99); PLATELET COUNT 998 K/UL (150-450); RED BLOOD COUNT 3.12 M/UL (4.70-6.10); RED CELL DISTRIBUTION WIDTH 21.5 % (11.6-14.8); WHITE BLOOD COUNT 17.5 K/UL (4.8-10.8)
[2020-05-16 07:04] LABS: ANION GAP 10 mmol/L (5-15); BLOOD UREA NITROGEN 16 mg/dL (7-18); CALCIUM 9.1 MG/DL (8.5-10.1); CARBON DIOXIDE 26 MMOL/L (21-32); CHLORIDE 106 MMOL/L (98-107); CREATININE 1.1 MG/DL (0.55-1.30); POTASSIUM 4.2 MMOL/L (3.5-5.1); SODIUM 142 MMOL/L (136-145)
--- NOTE | 2020-05-16 07:18 | NUR ---
HAND-OFF: Report given to Rachel LYONS.
--- NOTE | 2020-05-16 07:36 | NUR ---
NURSE NOTES: Report received from ELOY Hyde. Patient received in bed, no SOB, alert and oriented x 3-4, verbal and able to make needs known, bed in lowest position with breaks engaged and alarm on, IV line on left forearm in place and intact, no c/o any pain or discomfort at this time, will continue to monitor and proceed with plan of care, call light within reach.
[2020-05-16 08:00] VITALS: BP 142/94
[2020-05-16] MEDS: Pantoprazole Inj IV SCH ×2 (08:43→18:14)
[2020-05-16 12:00] VITALS: BP 140/86
--- NOTE | 2020-05-16 12:03 | General Progress Note ---
Assessment/Plan Assessment/Plan: 89-year-old -[place] male with past medical history of hypertension, erythrocytosis, presents for bright red blood per rectum. #Lower GI Bleed #Acute blood loss Anemia #Bright red blood per rectum #Melena #Anemia -cont in-pt medical care -GI consult, appreciate recommendations -Transfuse for Hgb <7 -ctm CBC daily -05/12: s/p EGD/colon w/gastritis, colonic polyps and hemorrhoids -05/13: capsule endoscopy, no evidence of bleeding -Repeat endoscopic workup on Monday #Hypertension -cont amlodipine #LAUREL - resolved -IV fluids -Monitor BMP -Nephrology consult, appreciate recommendations -Avoid nephrotoxic medications #Polycythemia/Essential Thrombosis #Leukocytosis - resolved -No signs of infection -Continue to monitor CBC -d/w Heme lab findings, cont hydrea per Heme, ctm #Dementia with behavioral disturbance -Psychiatry recs appreciated, started on Zyprexa Time spent on encounter: 35 mins, 18 mins on counseling pt regarding hospital course/POC, coordination of care with RN, consulting MDs I spent an additional 35 minutes on review of medical records including prior records, consult notes, progress notes, procedures, imaging, labs, hemodynamics , and other clinical documentation. Time of note doesn't reflect time of encounter. Subjective Date patient seen: May 16, 2020 Time patient seen: 11:49 ROS Limited/Unobtainable: Yes Allergies: Coded Allergies: No Known Allergies (Unverified , 09/06/19) Subjective Follow up for LAUREL, acute blood loss anemia. No acute events overnight per RN. Hb 8.6 today Objective Last 24 Hour Vital Signs Date Time Temp Pulse Resp B/P (MAP) Pulse Ox O2 Delivery O2 Flow Rate FiO2 05/16/20 09:00 Room Air 05/16/20 08:44 88 142/94 05/16/20 08:00 97.0 88 18 142/94 (110) 97 05/16/20 04:00 98.0 81 20 112/82 (92) 99 05/16/20 00:00 98.1 89 18 148/90 (109) 99 05/15/20 21:00 Room Air 05/15/20 20:00 97.8 92 18 134/80 (98) 99 05/15/20 16:00 97.2 80 19 112/63 (79) 99 05/15/20 12:00 97.7 87 20 118/77 (91) 99 05/15/20 12:00 82 Intake and Output 05/15/20 05/16/20 19:00 07:00 Intake Total 400 ml Output Total 200 ml 450 ml Balance 200 ml -450 ml Intake Oral 400 ml Output Urine Total 200 ml 450 ml # Voids 1 3 Laboratory Tests 05/16/20 05:55: White Blood Count 17.5#H, Red Blood Count 3.12L, Hemoglobin 8.6L, Hematocrit 26.9L, Mean Corpuscular Volume 86, Mean Corpuscular Hemoglobin 27.6, Mean Corpuscular Hemoglobin Concent 32.0, Red Cell Distribution Width 21.5H, Platelet Count 998H, Mean Platelet Volume 5.7L, Neutrophils (%) (Auto) , Lymphocytes (%) (Auto) , Monocytes (%) (Auto) , Eosinophils (%) (Auto) , Basophils (%) (Auto) , Differential Total Cells Counted 100, Neutrophils % ( Manual) 71, Lymphocytes % (Manual) 17L, Monocytes % (Manual) 11H, Eosinophils % (Manual) 1, Basophils % (Manual) 0, Band Neutrophils 0, Platelet Estimate IncreasedH, Platelet Morphology Normal, Polychromasia 2+, Hypochromasia 1+, Anisocytosis 3+, Sodium Level 142, Potassium Level 4.2, Chloride Level 106, Carbon Dioxide Level 26, Anion Gap 10, Blood Urea Nitrogen 16, Creatinine 1.1, Estimat Glomerular Filtration Rate > 60, Glucose Level 112H, Calcium Level 9.1 Height (Feet): 5 Height (Inches): 6.00 Weight (Pounds): 151 General Appearance: alert, confused Neck: supple Cardiovascular: normal rate, regular rhythm Respiratory/Chest: lungs clear, normal breath sounds Abdomen: non tender, soft Amos Caraballo MD May 16, 2020 12:03
[2020-05-16 16:00] VITALS: BP 110/70
--- NOTE | 2020-05-16 19:18 | NUR ---
HAND-OFF: Report given to ELOY Boswell. Patient sitting upright in bed, awake and without any s/sx of distress. Plan of care endorsed.
--- NOTE | 2020-05-16 19:50 | NUR ---
NURSE NOTES: Patient in bed and awake; able to make needs known. IV intact and patent. Walker at bedside. Bed locked and in lowest position. Call light in reach. Will continue to to follow plan of care.
[2020-05-16 20:00] VITALS: BP 106/65
--- NOTE | 2020-05-16 20:37 | General Progress Note ---
Assessment/Plan Assessment/Plan: Assessment/Plan Assessment/Plan: GIB s/p EGd and colonoscopy multiple polyps gastritis capsule endoscopy done >>> no active bleed ? post polypectomy bleed fu H&H transfuse to keep HGB above 7 plan repeat colonoscopy on Monday or sooner if sig bleed Subjective Allergies: Coded Allergies: No Known Allergies (Unverified , 09/06/19) Subjective Above noted tolerating PO feels well no rectal bleeding Objective Last 24 Hour Vital Signs Date Time Temp Pulse Resp B/P (MAP) Pulse Ox O2 Delivery O2 Flow Rate FiO2 05/16/20 20:09 Room Air 05/16/20 20:00 97.8 98 19 106/65 (79) 96 05/16/20 16:00 97.2 81 18 110/70 (83) 95 05/16/20 12:00 98.8 100 20 140/86 (104) 96 05/16/20 09:00 Room Air 05/16/20 08:44 88 142/94 05/16/20 08:00 97.0 88 18 142/94 (110) 97 05/16/20 04:00 98.0 81 20 112/82 (92) 99 05/16/20 00:00 98.1 89 18 148/90 (109) 99 05/15/20 21:00 Room Air Intake and Output 05/15/20 05/16/20 19:00 07:00 Intake Total 400 ml Output Total 200 ml 450 ml Balance 200 ml -450 ml Intake Oral 400 ml Output Urine Total 200 ml 450 ml # Voids 1 3 Laboratory Tests 05/16/20 05:55: White Blood Count 17.5#H, Red Blood Count 3.12L, Hemoglobin 8.6L, Hematocrit 26.9L, Mean Corpuscular Volume 86, Mean Corpuscular Hemoglobin 27.6, Mean Corpuscular Hemoglobin Concent 32.0, Red Cell Distribution Width 21.5H, Platelet Count 998H, Mean Platelet Volume 5.7L, Neutrophils (%) (Auto) , Lymphocytes (%) (Auto) , Monocytes (%) (Auto) , Eosinophils (%) (Auto) , Basophils (%) (Auto) , Differential Total Cells Counted 100, Neutrophils % ( Manual) 71, Lymphocytes % (Manual) 17L, Monocytes % (Manual) 11H, Eosinophils % (Manual) 1, Basophils % (Manual) 0, Band Neutrophils 0, Platelet Estimate IncreasedH, Platelet Morphology Normal, Polychromasia 2+, Hypochromasia 1+, Anisocytosis 3+, Sodium Level 142, Potassium Level 4.2, Chloride Level 106, Carbon Dioxide Level 26, Anion Gap 10, Blood Urea Nitrogen 16, Creatinine 1.1, Estimat Glomerular Filtration Rate > 60, Glucose Level 112H, Calcium Level 9.1 Height (Feet): 5 Height (Inches): 6.00 Weight (Pounds): 151 Objective WDWN AA man NCAT supple CTA RR abd soft NT ND no edema Winter Delgado MD May 16, 2020 20:37
[2020-05-16] MEDS: Iron Sucrose 100 MG in NS 55 ML IV SCH (20:50)
--- NOTE | 2020-05-16 21:17 | Nephrology Progress Note ---
Assessment/Plan Plan #LAUREL likely due prerenal azotemia in the setting of GI bleed- on baseline CKD?-- > improved #GI bleed #h/o HTN #Iron deficiency #polycythemia #dementia - contineu IVF - GI eval - endoscopy today - prbc trasnfusion to maintain hemoglobin > 7.5 - on hydroxyuria - continue protonix - avoid nephrotoxins - strict I&Os - daily weights - monitor UOP - check BMP, mag and phos daily Times spent 70 minutes > 50% on care coordination and counseling Subjective Subjective Vitals stable hemoglobin stable Cr stable Objective Objective Last 24 Hour Vital Signs Date Time Temp Pulse Resp B/P (MAP) Pulse Ox O2 Delivery O2 Flow Rate FiO2 05/16/20 20:09 Room Air 05/16/20 20:00 97.8 98 19 106/65 (79) 96 05/16/20 16:00 97.2 81 18 110/70 (83) 95 05/16/20 12:00 98.8 100 20 140/86 (104) 96 05/16/20 09:00 Room Air 05/16/20 08:44 88 142/94 05/16/20 08:00 97.0 88 18 142/94 (110) 97 05/16/20 04:00 98.0 81 20 112/82 (92) 99 05/16/20 00:00 98.1 89 18 148/90 (109) 99 Intake and Output 05/15/20 05/16/20 19:00 07:00 Intake Total 400 ml Output Total 200 ml 450 ml Balance 200 ml -450 ml Intake Oral 400 ml Output Urine Total 200 ml 450 ml # Voids 1 3 Laboratory Tests 05/16/20 05:55: White Blood Count 17.5#H, Red Blood Count 3.12L, Hemoglobin 8.6L, Hematocrit 26.9L, Mean Corpuscular Volume 86, Mean Corpuscular Hemoglobin 27.6, Mean Corpuscular Hemoglobin Concent 32.0, Red Cell Distribution Width 21.5H, Platelet Count 998H, Mean Platelet Volume 5.7L, Neutrophils (%) (Auto) , Lymphocytes (%) (Auto) , Monocytes (%) (Auto) , Eosinophils (%) (Auto) , Basophils (%) (Auto) , Differential Total Cells Counted 100, Neutrophils % ( Manual) 71, Lymphocytes % (Manual) 17L, Monocytes % (Manual) 11H, Eosinophils % (Manual) 1, Basophils % (Manual) 0, Band Neutrophils 0, Platelet Estimate IncreasedH, Platelet Morphology Normal, Polychromasia 2+, Hypochromasia 1+, Anisocytosis 3+, Sodium Level 142, Potassium Level 4.2, Chloride Level 106, Carbon Dioxide Level 26, Anion Gap 10, Blood Urea Nitrogen 16, Creatinine 1.1, Estimat Glomerular Filtration Rate > 60, Glucose Level 112H, Calcium Level 9.1 Height (Feet): 5 Height (Inches): 6.00 Weight (Pounds): 151 Michael Ansari M.D. May 16, 2020 21:17
[2020-05-17] VITALS: BP 120/72
[2020-05-17 04:00] VITALS: BP 124/68
--- NOTE | 2020-05-17 07:30 | NUR ---
NURSE NOTES: RECEIVED PATIENT IN BED LYING ON THE SIDE. UNLABORED BREATHING . CALM AND COMFORTABLE. NO ACUTE RESP DISTRESS NOTED. HOB ELEVATED. BED IS IN THE LOWEST POSITION. SIDERAILS ARE UPX3. BED BRAKES AND ALARM ACTIVATED. CALL LIGHT IS WITHIN REACH. WILL CONT THE PLAN OF CARE.
--- NOTE | 2020-05-17 07:58 | NUR ---
HAND-OFF: Report given to BRYANNA Fan.
[2020-05-17 08:00] VITALS: BP 126/70
[2020-05-17] MEDS ORDERED: Zolpidem 5mg tab ORAL PRN (08:00)
[2020-05-17] MEDS ORDERED: LORazepam Inj 2mg/ml 1ml IV PRN (08:00)
--- NOTE | 2020-05-17 08:30 | NUR ---
NURSE NOTES: PATIENT SIGNED, D/T CONSENT. TOLERATING CLEARS LIQUID DIET WELL. ABLE TO SIT UP ON THE BED DURING MEAL. ABLE TO FOLLOW AND VBERBALIZE NEEDS. WILL CONT TO MONITOR.
[2020-05-17] MEDS: Pantoprazole Inj IV SCH ×2 (08:47→18:33)
[2020-05-17 09:08] LABS: HEMATOCRIT 26.2 % (42.0-52.0); MEAN CORPUSCULAR VOLUME 89 FL (80-99); PLATELET COUNT 989 K/UL (150-450); RED BLOOD COUNT 2.95 M/UL (4.70-6.10); RED CELL DISTRIBUTION WIDTH 22.7 % (11.6-14.8); WHITE BLOOD COUNT 18.6 K/UL (4.8-10.8)
[2020-05-17 09:23] LABS: ANION GAP 9 mmol/L (5-15); BLOOD UREA NITROGEN 15 mg/dL (7-18); CALCIUM 8.6 MG/DL (8.5-10.1); CARBON DIOXIDE 29 MMOL/L (21-32); CHLORIDE 108 MMOL/L (98-107); CREATININE 1.1 MG/DL (0.55-1.30); POTASSIUM 3.8 MMOL/L (3.5-5.1); SODIUM 146 MMOL/L (136-145)
[2020-05-17 12:00] VITALS: BP 127/79
--- NOTE | 2020-05-17 13:30 | General Progress Note ---
Assessment/Plan Assessment/Plan: Assessment/Plan Assessment/Plan: GIB s/p EGd and colonoscopy multiple polyps gastritis capsule endoscopy done >>> no active bleed ? post polypectomy bleed fu H&H transfuse to keep HGB above 7 plan repeat colonoscopy on Monday Subjective Allergies: Coded Allergies: No Known Allergies (Unverified , 09/06/19) Subjective Above noted tolerating PO feels well no rectal bleeding Objective Last 24 Hour Vital Signs Date Time Temp Pulse Resp B/P (MAP) Pulse Ox O2 Delivery O2 Flow Rate FiO2 05/17/20 12:00 98.0 70 19 127/79 (95) 97 05/17/20 09:00 Room Air 05/17/20 08:32 93 127/72 05/17/20 08:00 98.3 80 20 126/70 (88) 98 05/17/20 04:00 97.7 77 20 124/68 (86) 96 05/17/20 00:00 97.3 88 19 120/72 (88) 97 05/16/20 20:09 Room Air 05/16/20 20:00 97.8 98 19 106/65 (79) 96 05/16/20 16:00 97.2 81 18 110/70 (83) 95 Intake and Output 05/16/20 05/17/20 19:00 07:00 Intake Total 400 ml 480 ml Output Total 300 ml Balance 100 ml 480 ml Intake Oral 400 ml 480 ml Output Urine Total 300 ml # Voids 2 3 Laboratory Tests 05/17/20 06:20: White Blood Count 18.6H, Red Blood Count 2.95L, Hemoglobin 8.0L, Hematocrit 26.2L, Mean Corpuscular Volume 89, Mean Corpuscular Hemoglobin 27.3, Mean Corpuscular Hemoglobin Concent 30.8L, Red Cell Distribution Width 22.7H, Platelet Count 989H, Mean Platelet Volume 5.6L, Neutrophils (%) (Auto) , Lymphocytes (%) (Auto) , Monocytes (%) (Auto) , Eosinophils (%) (Auto) , Basophils (%) (Auto) , Differential Total Cells Counted 100, Neutrophils % ( Manual) 66, Lymphocytes % (Manual) 19L, Monocytes % (Manual) 15H, Eosinophils % (Manual) 0, Basophils % (Manual) 0, Band Neutrophils 0, Platelet Estimate IncreasedH, Platelet Morphology , Giant Platelets Occasional, Polychromasia 2+, Hypochromasia 1+, Anisocytosis 2+, Sodium Level 146H, Potassium Level 3.8, Chloride Level 108H, Carbon Dioxide Level 29, Anion Gap 9, Blood Urea Nitrogen 15, Creatinine 1.1, Estimat Glomerular Filtration Rate > 60, Glucose Level 80, Calcium Level 8.6 Height (Feet): 5 Height (Inches): 6.00 Weight (Pounds): 151 Objective WDWN AA man NCAT supple CTA RR abd soft NT ND no edema Winter Delgado MD May 17, 2020 13:30
--- NOTE | 2020-05-17 13:38 | General Progress Note ---
Assessment/Plan Assessment/Plan: 89-year-old -[place] male with past medical history of hypertension, erythrocytosis, presents for bright red blood per rectum. #Lower GI Bleed #Acute blood loss Anemia #Bright red blood per rectum #Melena #Anemia -cont in-pt medical care -GI consult, appreciate recommendations -Transfuse for Hgb <7 -ctm CBC -05/12: s/p EGD/colon w/gastritis, colonic polyps and hemorrhoids -05/13: capsule endoscopy, no evidence of bleeding -Repeat endoscopic workup tomorrow #Hypertension -cont amlodipine #LAUREL - resolved -IV fluids -Monitor BMP -Nephrology consult, appreciate recommendations -Avoid nephrotoxic medications #Polycythemia/Essential Thrombosis #Leukocytosis - resolved -No signs of infection -Continue to monitor CBC -d/w Heme lab findings, cont hydrea per Heme, ctm #Dementia with behavioral disturbance -Psychiatry recs appreciated, started on Zyprexa Time spent on encounter: 35 mins, 20 mins on counseling pt regarding hospital course/POC, coordination of care with RN, consulting MDs Time of note doesn't reflect time of encounter. Subjective Date patient seen: May 17, 2020 Time patient seen: 09:00 ROS Limited/Unobtainable: No Constitutional: Denies: chills, fever Cardiovascular: Denies: chest pain Respiratory: Denies: cough Gastrointestinal/Abdominal: Denies: abdominal pain Allergies: Coded Allergies: No Known Allergies (Unverified , 09/06/19) Subjective Follow up for LAUREL, acute blood loss anemia. No acute events overnight per RN. Hb 8.0 today Objective Last 24 Hour Vital Signs Date Time Temp Pulse Resp B/P (MAP) Pulse Ox O2 Delivery O2 Flow Rate FiO2 05/17/20 12:00 98.0 70 19 127/79 (95) 97 05/17/20 09:00 Room Air 05/17/20 08:32 93 127/72 05/17/20 08:00 98.3 80 20 126/70 (88) 98 05/17/20 04:00 97.7 77 20 124/68 (86) 96 05/17/20 00:00 97.3 88 19 120/72 (88) 97 05/16/20 20:09 Room Air 05/16/20 20:00 97.8 98 19 106/65 (79) 96 05/16/20 16:00 97.2 81 18 110/70 (83) 95 Intake and Output 05/16/20 05/17/20 19:00 07:00 Intake Total 400 ml 480 ml Output Total 300 ml Balance 100 ml 480 ml Intake Oral 400 ml 480 ml Output Urine Total 300 ml # Voids 2 3 Laboratory Tests 05/17/20 06:20: White Blood Count 18.6H, Red Blood Count 2.95L, Hemoglobin 8.0L, Hematocrit 26.2L, Mean Corpuscular Volume 89, Mean Corpuscular Hemoglobin 27.3, Mean Corpuscular Hemoglobin Concent 30.8L, Red Cell Distribution Width 22.7H, Platelet Count 989H, Mean Platelet Volume 5.6L, Neutrophils (%) (Auto) , Lymphocytes (%) (Auto) , Monocytes (%) (Auto) , Eosinophils (%) (Auto) , Basophils (%) (Auto) , Differential Total Cells Counted 100, Neutrophils % ( Manual) 66, Lymphocytes % (Manual) 19L, Monocytes % (Manual) 15H, Eosinophils % (Manual) 0, Basophils % (Manual) 0, Band Neutrophils 0, Platelet Estimate IncreasedH, Platelet Morphology , Giant Platelets Occasional, Polychromasia 2+, Hypochromasia 1+, Anisocytosis 2+, Sodium Level 146H, Potassium Level 3.8, Chloride Level 108H, Carbon Dioxide Level 29, Anion Gap 9, Blood Urea Nitrogen 15, Creatinine 1.1, Estimat Glomerular Filtration Rate > 60, Glucose Level 80, Calcium Level 8.6 Height (Feet): 5 Height (Inches): 6.00 Weight (Pounds): 151 General Appearance: no apparent distress, alert Neck: supple Cardiovascular: normal rate, regular rhythm Respiratory/Chest: lungs clear, normal breath sounds Abdomen: non tender, soft Amos Caraballo MD May 17, 2020 13:38
[2020-05-17] MEDS ORDERED: Nulytely 4L ORAL SCH ×2 (14:00)
[2020-05-17 15:57] VITALS: BP 122/81
--- NOTE | 2020-05-17 16:28 | Hematology/Onc Progress Note ---
Assessment/Plan Assessment/Plan Assessment and Recs: # Essential Thrombocytosis, JAK2++, high-risk given age >60 meets the criteria, has consistently been elevated over the past 6 months, have reviewed last admissiona s well --> will evaluate liver and spleen r/o hepatosplenomegaly--> last admission did not show splenomegaly --> obtain peripheral smear, reviewed and no early immature cells noted --> JAK2 ++ again --> plt trend 705k-->643k-->757k-->811k-->791->909-->806-->794->803-->989 --> START on hydrea 500mg pobid (smallest dose tablet)--> on 05/15 change to daily --> OFF ASA --> have discussed with Pcp --> If any lower ext symptoms, get duplex, at increased risk for dvt # Anemia due to gi bleedingand iron deficiency --> on iv iron started --> 05/12 for colo and egd-->polyps noted --> ferritin goal >200 --> hgb trend: 8 # LEukocytosis r/o reactive process, likely due to gi bleed --> abx as needed prn --> wbc trend: 8 -->20-->40-->20-->12-->18.6 --> on hydrea, needs to be adjusted as outpatient # Hypercalcemia -- with elev Ca on admission --> current 9.1 --> likely improved with ivf --> w/u if worsens # Near syncope --> generalized weakness # Dehydration --> ivf started # Essential hypertension --> per cards, TTE normal --> imaging reviewed --> Continue Amlodipine # Acute encephlopathy, metabolic vs. psychiatric. dehydration v psych, improved --> psych eval --> Patient currently lives at home by himself # LAUREL- resolved --> Holding HCTZ as above --> monitor renal function # DVt ppx with scds Appreciate consultation and saurabh RN Subjective Allergies: Coded Allergies: No Known Allergies (Unverified , 09/06/19) Subjective 05/13 labs noted, no bleeding, wbc 21, hgb 8.6, is on hydrea 05/14 is for dc today potentially, hr low in am, seen by pcpsaurabh her 05/15 labs noted, somewhat better, is on hydrea, plt improved 05/17 med surg, no events reported, wbc 18.6, afebrile Objective Objective Current Medications Medications (Trade) Dose Ordered Sig/Elliot Route PRN Reason Start Time Stop Time Status Last Admin Dose Admin Acetaminophen (Tylenol) 650 mg Q4H PRN ORAL Mild Pain (Pain Scale 1-3) 05/15/20 14:00 06/10/20 13:59 Acetaminophen (Tylenol) 650 mg Q4H PRN ORAL Temp >100.5 05/15/20 14:00 06/10/20 13:59 Amlodipine Besylate (Norvasc) 5 mg DAILY ORAL 05/15/20 13:30 06/13/20 08:59 05/17/20 08:32 Dextrose (Dextrose 50%) 25 ml Q30M PRN IV Hypoglycemia 05/15/20 13:45 08/09/20 10:44 Dextrose (Dextrose 50%) 50 ml Q30M PRN IV Hypoglycemia 05/15/20 13:45 08/09/20 10:44 Diphenhydramine HCl (Benadryl) 25 mg Q6H PRN ORAL Itching/Pruritis 05/15/20 14:00 06/10/20 13:59 Hydralazine HCl (Apresoline) 25 mg Q6H PRN ORAL For High Blood Pressure 05/15/20 13:30 08/12/20 07:29 Lorazepam (Ativan 2mg/ml 1ml) 0.5 mg Q4H PRN IV For Anxiety 05/17/20 08:00 05/20/20 07:59 Metoclopramide HCl (Reglan) 10 mg Q6H PRN IVP Nausea & Vomiting 05/15/20 14:00 06/10/20 13:59 Olanzapine (ZyPREXA) 5 mg BEDTIME ORAL 05/15/20 21:00 06/27/20 20:59 05/16/20 20:50 Ondansetron HCl (Zofran) 4 mg Q6H PRN IVP Nausea & Vomiting 05/15/20 14:00 06/10/20 13:59 Pantoprazole (Protonix) 40 mg BID IV 05/15/20 13:30 06/11/20 08:59 05/17/20 08:47 Polyethylene Glycol/ Electrolytes (Nulytely) 4,000 ml ONCE ORAL 05/17/20 14:00 05/17/20 23:59 05/17/20 14:40 Zolpidem Tartrate (Ambien) 5 mg HSPRN PRN ORAL Insomnia 05/17/20 08:00 05/20/20 07:59 Last 24 Hour Vital Signs Date Time Temp Pulse Resp B/P (MAP) Pulse Ox O2 Delivery O2 Flow Rate FiO2 05/17/20 15:57 98.3 74 18 122/81 (95) 98 05/17/20 12:00 98.0 70 19 127/79 (95) 97 05/17/20 09:00 Room Air 05/17/20 08:32 93 127/72 05/17/20 08:00 98.3 80 20 126/70 (88) 98 05/17/20 04:00 97.7 77 20 124/68 (86) 96 05/17/20 00:00 97.3 88 19 120/72 (88) 97 05/16/20 20:09 Room Air 05/16/20 20:00 97.8 98 19 106/65 (79) 96 05/16/20 16:00 97.2 81 18 110/70 (83) 95 05/16/20 12:00 98.8 100 20 140/86 (104) 96 05/16/20 09:00 Room Air 05/16/20 08:44 88 142/94 05/16/20 08:00 97.0 88 18 142/94 (110) 97 05/16/20 04:00 98.0 81 20 112/82 (92) 99 05/16/20 00:00 98.1 89 18 148/90 (109) 99 05/15/20 21:00 Room Air 05/15/20 20:00 97.8 92 18 134/80 (98) 99 Intake and Output 05/16/20 05/17/20 19:00 07:00 Intake Total 400 ml 480 ml Output Total 300 ml Balance 100 ml 480 ml Intake Oral 400 ml 480 ml Output Urine Total 300 ml # Voids 2 3 Labs Test 05/15/20 06:00 05/16/20 05:55 05/17/20 06:20 White Blood Count 11.6 K/UL (4.8-10.8) 17.5 K/UL (4.8-10.8) 18.6 K/UL (4.8-10.8) Red Blood Count 2.85 M/UL (4.70-6.10) 3.12 M/UL (4.70-6.10) 2.95 M/UL (4.70-6.10) Hemoglobin 7.8 G/DL (14.2-18.0) 8.6 G/DL (14.2-18.0) 8.0 G/DL (14.2-18.0) Hematocrit 24.3 % (42.0-52.0) 26.9 % (42.0-52.0) 26.2 % (42.0-52.0) Mean Corpuscular Volume 85 FL (80-99) 86 FL (80-99) 89 FL (80-99) Mean Corpuscular Hemoglobin 27.3 PG (27.0-31.0) 27.6 PG (27.0-31.0) 27.3 PG (27.0-31.0) Mean Corpuscular Hemoglobin Concent 32.0 G/DL (32.0-36.0) 32.0 G/DL (32.0-36.0) 30.8 G/DL (32.0-36.0) Red Cell Distribution Width 21.1 % (11.6-14.8) 21.5 % (11.6-14.8) 22.7 % (11.6-14.8) Platelet Count 803 K/UL (150-450) 998 K/UL (150-450) 989 K/UL (150-450) Mean Platelet Volume 5.5 FL (6.5-10.1) 5.7 FL (6.5-10.1) 5.6 FL (6.5-10.1) Neutrophils (%) (Auto) % (45.0-75.0) % (45.0-75.0) % (45.0-75.0) Lymphocytes (%) (Auto) % (20.0-45.0) % (20.0-45.0) % (20.0-45.0) Monocytes (%) (Auto) % (1.0-10.0) % (1.0-10.0) % (1.0-10.0) Eosinophils (%) (Auto) % (0.0-3.0) % (0.0-3.0) % (0.0-3.0) Basophils (%) (Auto) % (0.0-2.0) % (0.0-2.0) % (0.0-2.0) Differential Total Cells Counted 100 100 100 Neutrophils % (Manual) 64 % (45-75) 71 % (45-75) 66 % (45-75) Lymphocytes % (Manual) 17 % (20-45) 17 % (20-45) 19 % (20-45) Monocytes % (Manual) 17 % (1-10) 11 % (1-10) 15 % (1-10) Eosinophils % (Manual) 1 % (0-3) 1 % (0-3) 0 % (0-3) Basophils % (Manual) 1 % (0-2) 0 % (0-2) 0 % (0-2) Band Neutrophils 0 % (0-8) 0 % (0-8) 0 % (0-8) Platelet Estimate Increased Increased Increased Platelet Morphology Normal Normal Hypochromasia 3+ 1+ 1+ Anisocytosis 3+ 3+ 2+ Sodium Level 140 MMOL/L (136-145) 142 MMOL/L (136-145) 146 MMOL/L (136-145) Potassium Level 3.9 MMOL/L (3.5-5.1) 4.2 MMOL/L (3.5-5.1) 3.8 MMOL/L (3.5-5.1) Chloride Level 106 MMOL/L (98-107) 106 MMOL/L (98-107) 108 MMOL/L (98-107) Carbon Dioxide Level 24 MMOL/L (21-32) 26 MMOL/L (21-32) 29 MMOL/L (21-32) Anion Gap 10 mmol/L (5-15) 10 mmol/L (5-15) 9 mmol/L (5-15) Blood Urea Nitrogen 14 mg/dL (7-18) 16 mg/dL (7-18) 15 mg/dL (7-18) Creatinine 1.2 MG/DL (0.55-1.30) 1.1 MG/DL (0.55-1.30) 1.1 MG/DL (0.55-1.30) Estimat Glomerular Filtration Rate > 60 mL/min (>60) > 60 mL/min (>60) > 60 mL/min (>60) Glucose Level 167 MG/DL (74-106) 112 MG/DL (74-106) 80 MG/DL (74-106) Calcium Level 8.3 MG/DL (8.5-10.1) 9.1 MG/DL (8.5-10.1) 8.6 MG/DL (8.5-10.1) Polychromasia 2+ 2+ Giant Platelets Occasional Height (Feet): 5 Height (Inches): 6.00 Weight (Pounds): 151 Objective Physical Exam Physical Exam Narrative General Appearance: WD/WN, no apparent distress, alert EENT: PERRL/EOMI, normal ENT inspection Neck: non-tender, normal alignment, supple Cardiovascular: normal peripheral pulses, normal rate, regular rhythm, no JVD Respiratory/Chest: chest wall non-tender, lungs clear, normal breath sounds Abdomen: normal bowel sounds, non tender, soft, no organomegaly Extremities: normal range of motion, non-tender Edema: other - No lower extremity edema bilaterally 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
--- NOTE | 2020-05-17 17:32 | Nephrology Progress Note ---
Assessment/Plan Plan #LAUREL likely due prerenal azotemia in the setting of GI bleed- on baseline CKD?-- > improved #GI bleed #h/o HTN #Iron deficiency #polycythemia #dementia - D5W 500cc bolus - GI eval - endoscopy today - prbc trasnfusion to maintain hemoglobin > 7.5 - on hydroxyuria - continue protonix - avoid nephrotoxins - strict I&Os - daily weights - monitor UOP - check BMP, mag and phos daily Times spent 70 minutes > 50% on care coordination and counseling Subjective ROS Limited/Unobtainable: No Constitutional: Reports: weakness HEENT: Denies: no symptoms, eye pain, blurred vision, tearing, double vision, ear pain, ear discharge, nose pain, nose congestion, throat pain, throat swelling, mouth pain, mouth swelling, other Genitourinary: Denies: no symptoms, burning, discharge, frequency, flank pain, hematuria, incontinence, pain, urgency, other Neurologic/Psychiatric: Denies: no symptoms, anxiety, depressed, emotional problems, headache, numbness, paresthesia, pre-existing deficit, seizure, tingling, tremors, weakness, other Subjective Vitals stable hemoglobin stable Cr stable sodium 146 will give NS 500cc bolus Objective Objective Last 24 Hour Vital Signs Date Time Temp Pulse Resp B/P (MAP) Pulse Ox O2 Delivery O2 Flow Rate FiO2 05/17/20 15:57 98.3 74 18 122/81 (95) 98 05/17/20 12:00 98.0 70 19 127/79 (95) 97 05/17/20 09:00 Room Air 05/17/20 08:32 93 127/72 05/17/20 08:00 98.3 80 20 126/70 (88) 98 05/17/20 04:00 97.7 77 20 124/68 (86) 96 05/17/20 00:00 97.3 88 19 120/72 (88) 97 05/16/20 20:09 Room Air 05/16/20 20:00 97.8 98 19 106/65 (79) 96 Intake and Output 05/16/20 05/17/20 19:00 07:00 Intake Total 400 ml 480 ml Output Total 300 ml Balance 100 ml 480 ml Intake Oral 400 ml 480 ml Output Urine Total 300 ml # Voids 2 3 Laboratory Tests 05/17/20 06:20: White Blood Count 18.6H, Red Blood Count 2.95L, Hemoglobin 8.0L, Hematocrit 26.2L, Mean Corpuscular Volume 89, Mean Corpuscular Hemoglobin 27.3, Mean Corpuscular Hemoglobin Concent 30.8L, Red Cell Distribution Width 22.7H, Platelet Count 989H, Mean Platelet Volume 5.6L, Neutrophils (%) (Auto) , Lymphocytes (%) (Auto) , Monocytes (%) (Auto) , Eosinophils (%) (Auto) , Basophils (%) (Auto) , Differential Total Cells Counted 100, Neutrophils % ( Manual) 66, Lymphocytes % (Manual) 19L, Monocytes % (Manual) 15H, Eosinophils % (Manual) 0, Basophils % (Manual) 0, Band Neutrophils 0, Platelet Estimate IncreasedH, Platelet Morphology , Giant Platelets Occasional, Polychromasia 2+, Hypochromasia 1+, Anisocytosis 2+, Sodium Level 146H, Potassium Level 3.8, Chloride Level 108H, Carbon Dioxide Level 29, Anion Gap 9, Blood Urea Nitrogen 15, Creatinine 1.1, Estimat Glomerular Filtration Rate > 60, Glucose Level 80, Calcium Level 8.6 Height (Feet): 5 Height (Inches): 6.00 Weight (Pounds): 151 Michael Ansari M.D. May 17, 2020 17:32
[2020-05-17] MEDS ORDERED: D5W 1000ml 500 ML IV ONE (18:30)
--- NOTE | 2020-05-17 19:18 | NUR ---
HAND-OFF: Report given to RAYMUNDO.
[2020-05-17 20:00] VITALS: BP 104/54
[2020-05-18] VITALS (11 sets, daily range): BP systolic 104–140; BP diastolic 66–94
--- NOTE | 2020-05-18 03:30 | Progress Note ---
DATE: 05/17/2020 SUBJECTIVE: The patient is in bed, no acute distress noted. There is no agitation. No . The patient's mental condition is unchanged since previous encounter. MENTAL STATUS EXAMINATION: Awake, disoriented. Mood is anxious. Affect is flat. Thought process is disorganized. Thought content, no suicidal or homicidal ideation. Cognition is impaired. Insight and judgment are impaired. ASSESSMENT: Stable. PLAN: We will continue current medications. Adriana Contreras M.D. DR: URIAH JOB#: [id number] CC:
--- NOTE | 2020-05-18 06:43 | NUR ---
NURSE NOTES: Rapid COVID swab completed per protocol for upcoming GI procedure; specimen sent to lab. Given to
--- NOTE | 2020-05-18 07:13 | NUR ---
HAND-OFF: Report given to ELOY Kenny.
--- NOTE | 2020-05-18 07:30 | NUR ---
NURSE NOTES: Received patient in bed. Awake, A/O x4. On room air. Patient denies pain at this time. Sitting in high-fowlers, side rails up x2. IV in the Right forearm,site intact. Patient is a high fall risk d/t history of falls. CN aware, INTERNET MANAGER aware. Patietn placed close to the nurse's station for safety, yellow gown on , yellow socks in place. Call light placed within reach with return demonstration of call light use. Patient oriented to room and surroundings. Bed alarm placed on high sensitivity.
[2020-05-18] MEDS: Pantoprazole Inj IV SCH ×2 (08:22→17:33)
[2020-05-18 08:28] LABS: HEMATOCRIT 25.5 % (42.0-52.0); HEMOGLOBIN 7.7 G/DL (14.2-18.0); MEAN CORPUSCULAR VOLUME 90 FL (80-99); PLATELET COUNT 913 K/UL (150-450); RED BLOOD COUNT 2.84 M/UL (4.70-6.10); RED CELL DISTRIBUTION WIDTH 24.9 % (11.6-14.8)
[2020-05-18] MEDS ORDERED: Atropine Sulfate 0.4mg/ml inj IVP PRN (08:30)
[2020-05-18] MEDS ORDERED: DiphenhydrAMINE 50mg/ml Inj IVP PRN (08:30)
[2020-05-18] MEDS ORDERED: Midazolam 2mg/2ml Inj IVP PRN (08:30)
[2020-05-18] MEDS ORDERED: fentaNYL 100 mcg/2 mL IV PRN (08:30)
--- NOTE | 2020-05-18 08:37 | Anethesia Preoperative Eval ---
Anesthesia Pre-op PMH/ROS General Date of Evaluation: May 18, 2020 Time of Evaluation: 08:31 Anesthesiologist: radha ASA Score: ASA 4 Mallampati Score Class I : Soft palate, uvula, fauces, pillars visible Class II: Soft palate, uvula, fauces visible Class III: Soft palate, base of uvula visible Class IV: Only hard plate visible Mallampati Classification: Class II Surgeon: flaca Diagnosis: lgib Surgical Procedure: egd/colonoscopy Anesthesia History: none Social History: smoking - nonsmoker Family History: no anesthesia problems Allergies: Coded Allergies: No Known Allergies (Unverified , 09/06/19) Medications: see eMAR Patient NPO?: Yes NPO Date: May 12, 2020 NPO Time: 00:01 Past Medical History Cardiovascular: Reports: HTN, other - syncope Pulmonary: Reports: COPD, other - acute respiratory disease Gastrointestinal/Genitourinary: Reports: other - lgib, uti, dysphagia Neurologic/Psychiatric: Reports: dementia - schizophrenia, other - hx/o acute encephalopathy Hematology/Immune: Reports: anemia, bleeding disorder - polycythemia, essential thrombocytosis, COVID-19 exposure Anesthesia Pre-op Phys. Exam Physician Exam Last Vital Signs Date Time Temp Pulse Resp B/P (MAP) Pulse Ox O2 Delivery O2 Flow Rate FiO2 05/18/20 08:25 66 140/80 05/18/20 04:00 98.3 20 98 05/17/20 20:14 Room Air 05/12/20 12:50 6 Constitutional: NAD Neurologic: CN 2-12 intact Cardiovascular: RRR Respiratory: CTA Gastrointestinal: S/NT/ND Airway Exam Mallampati Score: Class II MO: limited Neck: flexible TMD: 2fb ROM: limited Anesthesia Pre-op A/P Labs Labs Test 05/16/20 05:55 05/17/20 06:20 05/18/20 07:25 White Blood Count 17.5 K/UL (4.8-10.8) 18.6 K/UL (4.8-10.8) 19.0 K/UL (4.8-10.8) Red Blood Count 3.12 M/UL (4.70-6.10) 2.95 M/UL (4.70-6.10) 2.84 M/UL (4.70-6.10) Hemoglobin 8.6 G/DL (14.2-18.0) 8.0 G/DL (14.2-18.0) 7.7 G/DL (14.2-18.0) Hematocrit 26.9 % (42.0-52.0) 26.2 % (42.0-52.0) 25.5 % (42.0-52.0) Mean Corpuscular Volume 86 FL (80-99) 89 FL (80-99) 90 FL (80-99) Mean Corpuscular Hemoglobin 27.6 PG (27.0-31.0) 27.3 PG (27.0-31.0) 27.1 PG (27.0-31.0) Mean Corpuscular Hemoglobin Concent 32.0 G/DL (32.0-36.0) 30.8 G/DL (32.0-36.0) 30.2 G/DL (32.0-36.0) Red Cell Distribution Width 21.5 % (11.6-14.8) 22.7 % (11.6-14.8) 24.9 % (11.6-14.8) Platelet Count 998 K/UL (150-450) 989 K/UL (150-450) 913 K/UL (150-450) Mean Platelet Volume 5.7 FL (6.5-10.1) 5.6 FL (6.5-10.1) 5.8 FL (6.5-10.1) Neutrophils (%) (Auto) % (45.0-75.0) % (45.0-75.0) % (45.0-75.0) Lymphocytes (%) (Auto) % (20.0-45.0) % (20.0-45.0) % (20.0-45.0) Monocytes (%) (Auto) % (1.0-10.0) % (1.0-10.0) % (1.0-10.0) Eosinophils (%) (Auto) % (0.0-3.0) % (0.0-3.0) % (0.0-3.0) Basophils (%) (Auto) % (0.0-2.0) % (0.0-2.0) % (0.0-2.0) Differential Total Cells Counted 100 100 100 Neutrophils % (Manual) 71 % (45-75) 66 % (45-75) 69 % (45-75) Lymphocytes % (Manual) 17 % (20-45) 19 % (20-45) 18 % (20-45) Monocytes % (Manual) 11 % (1-10) 15 % (1-10) 13 % (1-10) Eosinophils % (Manual) 1 % (0-3) 0 % (0-3) 0 % (0-3) Basophils % (Manual) 0 % (0-2) 0 % (0-2) 0 % (0-2) Band Neutrophils 0 % (0-8) 0 % (0-8) 0 % (0-8) Platelet Estimate Increased Increased Increased Platelet Morphology Normal Polychromasia 2+ 2+ 3+ Hypochromasia 1+ 1+ 1+ Anisocytosis 3+ 2+ 3+ Sodium Level 142 MMOL/L (136-145) 146 MMOL/L (136-145) 141 MMOL/L (136-145) Potassium Level 4.2 MMOL/L (3.5-5.1) 3.8 MMOL/L (3.5-5.1) 4.9 MMOL/L (3.5-5.1) Chloride Level 106 MMOL/L (98-107) 108 MMOL/L (98-107) 106 MMOL/L (98-107) Carbon Dioxide Level 26 MMOL/L (21-32) 29 MMOL/L (21-32) 26 MMOL/L (21-32) Anion Gap 10 mmol/L (5-15) 9 mmol/L (5-15) 9 mmol/L (5-15) Blood Urea Nitrogen 16 mg/dL (7-18) 15 mg/dL (7-18) 13 mg/dL (7-18) Creatinine 1.1 MG/DL (0.55-1.30) 1.1 MG/DL (0.55-1.30) 0.9 MG/DL (0.55-1.30) Estimat Glomerular Filtration Rate > 60 mL/min (>60) > 60 mL/min (>60) > 60 mL/min (>60) Glucose Level 112 MG/DL (74-106) 80 MG/DL (74-106) 80 MG/DL (74-106) Calcium Level 9.1 MG/DL (8.5-10.1) 8.6 MG/DL (8.5-10.1) 8.6 MG/DL (8.5-10.1) Giant Platelets Occasional Occasional Microbiology Date/Time Source Procedure Growth Status 05/18/20 06:33 Nasopharynx SARS-CoV-2 RdRp Gene Assay - Final Complete Risk Assessment & Plan Assessment: [email or web address] Plan: mac Status Change Before Surgery: No Pre-Antibiotics Drug: Mary Coreas MD May 18, 2020 08:37
[2020-05-18 08:39] LABS: ANION GAP 9 mmol/L (5-15); BLOOD UREA NITROGEN 13 mg/dL (7-18); CALCIUM 8.6 MG/DL (8.5-10.1); CARBON DIOXIDE 26 MMOL/L (21-32); CHLORIDE 106 MMOL/L (98-107); CREATININE 0.9 MG/DL (0.55-1.30); POTASSIUM 4.9 MMOL/L (3.5-5.1); SODIUM 141 MMOL/L (136-145)
--- NOTE | 2020-05-18 09:02 | Nephrology Progress Note ---
Assessment/Plan Plan #LAUREL likely due prerenal azotemia in the setting of GI bleed- on baseline CKD?-- > improved #GI bleed #h/o HTN #Iron deficiency #polycythemia #dementia - GI eval - endoscopy today - prbc trasnfusion to maintain hemoglobin > 7.5 - on hydroxyuria - continue protonix - avoid nephrotoxins - strict I&Os - daily weights - monitor UOP - check BMP, mag and phos daily Times spent 70 minutes > 50% on care coordination and counseling Subjective ROS Limited/Unobtainable: No Constitutional: Reports: weakness; Denies: no symptoms, chills, diaphoresis, fever, malaise, other HEENT: Denies: no symptoms, eye pain, blurred vision, tearing, double vision, ear pain, ear discharge, nose pain, nose congestion, throat pain, throat swelling, mouth pain, mouth swelling, other Genitourinary: Denies: no symptoms, burning, discharge, frequency, flank pain, hematuria, incontinence, pain, urgency, other Neurologic/Psychiatric: Denies: no symptoms, anxiety, depressed, emotional problems, headache, numbness, paresthesia, pre-existing deficit, seizure, tingling, tremors, weakness, other Subjective Vitals stable hemoglobin stable Cr stable plan for EGD today Objective Objective Last 24 Hour Vital Signs Date Time Temp Pulse Resp B/P (MAP) Pulse Ox O2 Delivery O2 Flow Rate FiO2 05/18/20 08:25 66 140/80 05/18/20 08:00 97.2 66 18 140/80 (100) 97 05/18/20 04:00 98.3 78 20 112/70 (84) 98 05/18/20 00:00 97.4 73 20 104/66 (79) 97 05/17/20 20:14 Room Air 05/17/20 20:00 97.5 90 20 104/54 (71) 94 05/17/20 15:57 98.3 74 18 122/81 (95) 98 05/17/20 12:00 98.0 70 19 127/79 (95) 97 Intake and Output 05/17/20 05/18/20 19:00 07:00 Intake Total 1100 ml 1000 ml Output Total 250 ml Balance 850 ml 1000 ml Intake Oral 1100 ml 1000 ml Output Urine Total 250 ml # Voids 4 2 # Bowel Movements 6 Laboratory Tests 05/18/20 07:25: White Blood Count 19.0H, Red Blood Count 2.84L, Hemoglobin 7.7L, Hematocrit 25.5L, Mean Corpuscular Volume 90, Mean Corpuscular Hemoglobin 27.1, Mean Corpuscular Hemoglobin Concent 30.2L, Red Cell Distribution Width 24.9H, Platelet Count 913H, Mean Platelet Volume 5.8L, Neutrophils (%) (Auto) , Lymphocytes (%) (Auto) , Monocytes (%) (Auto) , Eosinophils (%) (Auto) , Basophils (%) (Auto) , Neutrophils % (Manual) [Pending], Lymphocytes % (Manual) [Pending], Platelet Estimate [Pending], Platelet Morphology [Pending], Sodium Level 141, Potassium Level 4.9, Chloride Level 106, Carbon Dioxide Level 26, Anion Gap 9, Blood Urea Nitrogen 13, Creatinine 0.9, Estimat Glomerular Filtration Rate > 60, Glucose Level 80, Calcium Level 8.6 Height (Feet): 5 Height (Inches): 6.00 Weight (Pounds): 147 Michael Anasri M.D. May 18, 2020 09:02
--- NOTE | 2020-05-18 11:26 | NUR ---
NURSE NOTES: Patient sent off unit for GI procedure via gurney. VSS, no apparent distress.
[2020-05-18] MEDS ORDERED: Lidocaine 1% MPF 10mg/ml 5ml ONE (11:30)
--- NOTE | 2020-05-18 11:30 | General Progress Note ---
Assessment/Plan Status: stable, not improved, unchanged Assessment/Plan: Assessment/Plan: 89-year-old -[place] male with past medical history of hypertension, erythrocytosis, presents for bright red blood per rectum. #Lower GI Bleed #Acute blood loss Anemia #Bright red blood per rectum #Melena #Anemia -cont in-pt medical care -GI consult, appreciate recommendations -Transfuse for Hgb <7 -ctm CBC -05/12: s/p EGD/colon w/gastritis, colonic polyps and hemorrhoids -05/13: capsule endoscopy, no evidence of bleeding -Repeat endoscopic workup today #Hypertension -cont amlodipine #LAUREL - resolved -IV fluids -Monitor BMP -Nephrology consult, appreciate recommendations -Avoid nephrotoxic medications #Polycythemia/Essential Thrombosis #Leukocytosis - resolved -No signs of infection -Continue to monitor CBC -d/w Heme lab findings, cont hydrea per Heme, ctm #Dementia with behavioral disturbance -Psychiatry recs appreciated, started on Zyprexa Time spent on encounter: 35 mins, 20 mins on counseling pt regarding hospital course/POC, coordination of care with RN, consulting MDs Time of note doesn't reflect time of encounter. Subjective Date patient seen: May 18, 2020 Time patient seen: 11:25 ROS Limited/Unobtainable: No Constitutional: Reports: no symptoms; Denies: fever, weakness HEENT: Reports: no symptoms Cardiovascular: Reports: no symptoms Respiratory: Reports: no symptoms Gastrointestinal/Abdominal: Reports: abdominal pain Genitourinary: Reports: no symptoms Neurologic/Psychiatric: Reports: anxiety, emotional problems Endocrine: Reports: no symptoms Hematologic/Lymphatic: Reports: other Allergies: Coded Allergies: No Known Allergies (Unverified , 09/06/19) All Systems: reviewed and negative except above Objective Last 24 Hour Vital Signs Date Time Temp Pulse Resp B/P (MAP) Pulse Ox O2 Delivery O2 Flow Rate FiO2 05/18/20 09:00 Room Air 05/18/20 08:25 66 140/80 05/18/20 08:00 97.2 66 18 140/80 (100) 97 05/18/20 04:00 98.3 78 20 112/70 (84) 98 05/18/20 00:00 97.4 73 20 104/66 (79) 97 05/17/20 20:14 Room Air 05/17/20 20:00 97.5 90 20 104/54 (71) 94 05/17/20 15:57 98.3 74 18 122/81 (95) 98 05/17/20 12:00 98.0 70 19 127/79 (95) 97 Intake and Output 05/17/20 05/18/20 19:00 07:00 Intake Total 1100 ml 1000 ml Output Total 250 ml Balance 850 ml 1000 ml Intake Oral 1100 ml 1000 ml Output Urine Total 250 ml # Voids 4 2 # Bowel Movements 6 Laboratory Tests 05/18/20 07:25: White Blood Count 19.0H, Red Blood Count 2.84L, Hemoglobin 7.7L, Hematocrit 25.5L, Mean Corpuscular Volume 90, Mean Corpuscular Hemoglobin 27.1, Mean Corpuscular Hemoglobin Concent 30.2L, Red Cell Distribution Width 24.9H, Platelet Count 913H, Mean Platelet Volume 5.8L, Neutrophils (%) (Auto) , Lymphocytes (%) (Auto) , Monocytes (%) (Auto) , Eosinophils (%) (Auto) , Basophils (%) (Auto) , Differential Total Cells Counted 100, Neutrophils % ( Manual) 69, Lymphocytes % (Manual) 18L, Monocytes % (Manual) 13H, Eosinophils % (Manual) 0, Basophils % (Manual) 0, Band Neutrophils 0, Platelet Estimate IncreasedH, Platelet Morphology , Giant Platelets Occasional, Polychromasia 3+, Hypochromasia 1+, Anisocytosis 3+, Sodium Level 141, Potassium Level 4.9, Chloride Level 106, Carbon Dioxide Level 26, Anion Gap 9, Blood Urea Nitrogen 13 , Creatinine 0.9, Estimat Glomerular Filtration Rate > 60, Glucose Level 80, Calcium Level 8.6 Height (Feet): 5 Height (Inches): 6.00 Weight (Pounds): 147 General Appearance: WD/WN, no apparent distress, alert EENT: PERRL/EOMI, normal ENT inspection Neck: normal alignment, normal inspection Respiratory/Chest: chest wall non-tender Abdomen: normal bowel sounds, soft, no mass, tender Extremities: normal range of motion, normal inspection 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 May 18, 2020 11:30
--- NOTE | 2020-05-18 11:35 | Pre-Procedure Note/Attestation ---
Pre-Procedure Note/Attestation Complete Prior to Procedure Planned Procedure: not applicable Procedure Narrative: colonoscopy Indications for Procedure Pre-Operative Diagnosis: GIB Attestation I attest that I discussed the nature of the procedure; its benefits; risks and complications; and alternatives (and the risks and benefits of such alternatives ), prior to the procedure, with the patient (or the patient's legal employer relations representative). I attest that, if there was a reasonable possibility of needing a blood transfusion, the patient (or the patient's legal employer relations representative) was given the [facility] standardized written summary, pursuant to the Oleksandr [place] Blood Safety Act ([place] Health and Safety Code # 1645, as amended). I attest that I re-evaluated the patient just prior to the surgery and that there has been no change in the patient's H&P, except as documented below: José Luis Juares MD May 18, 2020 11:35
--- NOTE | 2020-05-18 11:40 | Pre-Procedure Note/Attestation ---
Pre-Procedure Note/Attestation Complete Prior to Procedure Procedure Narrative: EGD Indications for Procedure Pre-Operative Diagnosis: GIB Attestation I attest that I discussed the nature of the procedure; its benefits; risks and complications; and alternatives (and the risks and benefits of such alternatives ), prior to the procedure, with the patient (or the patient's legal labor service representative). I attest that, if there was a reasonable possibility of needing a blood transfusion, the patient (or the patient's legal labor service representative) was given the [facility] standardized written summary, pursuant to the [place]ks[place]r [place] Blood Safety Act ([place] Health and Safety Code # 1645, as amended). I attest that I re-evaluated the patient just prior to the surgery and that there has been no change in the patient's H&P, except as documented below: José Luis Juares MD May 18, 2020 11:40
--- NOTE | 2020-05-18 12:02 | Endoscopy Procedure Note ---
Endoscopy Procedure Note General Indication for Procedure: gib Procedures Performed: EGD, colonoscopy Operative Findings/Diagnosis: gastritis, diverticulosis Specimen: none Pt Tolerated Procedure Well: Yes Estimated Blood Loss: none Anesthesia Anesthesiologist: linda Anesthesia: MAC Inserted Devices Implant(s) used?: No Quality Quality of Bowel Preparation: Good Did scope reach the cecum?: Yes Was there any complications?: No GI Core Measures 50 yrs or older w/o bx or poly: Not Applicable 10yrs. F/U recommended: Not Applicable José Luis Juares MD May 18, 2020 12:02
--- NOTE | 2020-05-18 13:11 | NUR ---
CHARGE NURSE NOTE: WBC 32577, H@H 7.7.5. office notified.Spoke with .
--- NOTE | 2020-05-18 13:45 | Procedure Note ---
DATE OF PROCEDURE: 05/18/2020 SURGEON: José Luis Juares MD. REFERRING PHYSICIAN: Antonio Jones MD. PROCEDURE: Upper endoscopy and colonoscopy. ANESTHESIA: Per Dr. Disla. INSTRUMENT: Olympus adult flexible upper endoscope and colonoscope. INDICATION: GI bleeding. REASON FOR PROCEDURE: The procedure, risks, benefits, and possible consequences, including hemorrhage, aspiration, perforation and infection, and alternative treatments, were explained to the patient/legal guardian by Dr. José Luis Juares and the patient/legal guardian understood and accepted these risks. PROCEDURE IN DETAIL: After informed consent was obtained and the patient was adequately sedated, Olympus upper endoscope was advanced from mouth into the second portion of the duodenum and retroflexion was performed in the stomach. The patient has evidence of diffuse atrophic gastritis. No evidence of any active upper GI bleeding at this time. At this time, the upper endoscope was retrieved and the patient was turned over for colonoscopy. First, rectal exam was performed, which was positive for internal hemorrhoids. Then, the scope was advanced from the rectum into the cecum documented by appendix orifice, ileocecal valve, and right upper quadrant palpation. Quality of prep was very good. The patient had two polypectomy sites in the cecum looked okay. No active bleeding. We saw also scattered diverticulosis in this colon on the left side at least two which we have not seen in the last colonoscopy. No evidence of any blood or blood products or active bleeding seen in the colon at this time. Retroflexion of rectum showed evidence of small nonbleeding internal hemorrhoids. SUMMARY OF FINDINGS: 1. Atrophic gastritis. 2. Diverticulosis of the left colon. 3. Polypectomy sites in the cecum looked clear. 4. Internal hemorrhoids. RECOMMENDATIONS: 1. Resume diet. 2. Follow labs. 3. At this time, there is no active GI bleeding. I want to thank Dr. Jones for this kind referral. José Luis Juares M.D. DR: ALISE JOB#: [id number] CC:
--- NOTE | 2020-05-18 13:55 | NUR ---
CASE MANAGEMENT:REVIEW SI;LOWER GI BLEED W/MELENA. ANEMIA. GASTRITIS. 97.2 78 20 140/80 97% ON RA WBC 19.0 H/H 7.7/25.5 IS;REGLAN IV IVF NS EGD/COLONOSCOPY MED SURG STATUS DCP;PATIENT IS FROM [facility]
--- NOTE | 2020-05-18 16:22 | NUR ---
NURSE NOTES: Patient unable to give urine sample. Dr. Jimenez notified, awaiting a response.
--- NOTE | 2020-05-18 17:59 | NUR ---
NURSE NOTES: Patient unable to provide urine specimen by voiding. RN asked patient to allow in and out catheter but patient is non-compliant. Patient keeps stating he will urinate on his own.
--- NOTE | 2020-05-18 18:25 | NUR ---
NURSE NOTES: Urine collected via clean catch and sent down to lab.
[2020-05-18 18:49] LABS: BILIRUBIN, URINE NEGATIVE (NEGATIVE); COLOR,URINE PALE YELLOW; GLUCOSE, URINE (UA) NEGATIVE (NEGATIVE); KETONES,URINE NEGATIVE (NEGATIVE); LEUKOCYTE ESTERASE ,URINE 1+ (NEGATIVE); NITRITE,URINE NEGATIVE (NEGATIVE); PH,URINE 7 (4.5-8.0); PROTEIN,URINE NEGATIVE (NEGATIVE); UROBILINOGEN,URINE NORMAL MG/DL (0.0-1.0)
[2020-05-18 18:50] LABS: APPEARANCE,URINE CLEAR
--- NOTE | 2020-05-18 19:32 | NUR ---
NURSE NOTES: Received report from ELOY Kenny. AAO x 3, on room air. Commode and walker at bedside. IV site intact. No pain, no acute distress noted. No active bleeding noted. High fall risk. Bed alarm on, side rails up, lowest position, call light within reach. Will continue to monitor.
--- NOTE | 2020-05-18 19:37 | NUR ---
HAND-OFF: Report given to Lindsey LYONS.
--- NOTE | 2020-05-18 22:22 | Psych Consult Progress Note ---
Psychiatry Progress Note Psychiatry Progress Note Medications Current Medications Medications (Trade) Dose Ordered Sig/Elliot Route PRN Reason Start Time Stop Time Status Last Admin Dose Admin Acetaminophen (Tylenol) 650 mg Q4H PRN ORAL Mild Pain (Pain Scale 1-3) 05/15/20 14:00 06/10/20 13:59 Acetaminophen (Tylenol) 650 mg Q4H PRN ORAL Temp >100.5 05/15/20 14:00 06/10/20 13:59 Amlodipine Besylate (Norvasc) 5 mg DAILY ORAL 05/15/20 13:30 06/13/20 08:59 05/18/20 08:25 Dextrose (Dextrose 50%) 25 ml Q30M PRN IV Hypoglycemia 05/15/20 13:45 08/09/20 10:44 Dextrose (Dextrose 50%) 50 ml Q30M PRN IV Hypoglycemia 05/15/20 13:45 08/09/20 10:44 Diphenhydramine HCl (Benadryl) 25 mg Q6H PRN ORAL Itching/Pruritis 05/15/20 14:00 06/10/20 13:59 Hydralazine HCl (Apresoline) 25 mg Q6H PRN ORAL For High Blood Pressure 05/15/20 13:30 08/12/20 07:29 Lorazepam (Ativan 2mg/ml 1ml) 0.5 mg Q4H PRN IV For Anxiety 05/17/20 08:00 05/20/20 07:59 Metoclopramide HCl (Reglan) 10 mg Q6H PRN IVP Nausea & Vomiting 05/15/20 14:00 06/10/20 13:59 Olanzapine (ZyPREXA) 5 mg BEDTIME ORAL 05/15/20 21:00 06/27/20 20:59 05/18/20 20:29 Ondansetron HCl (Zofran) 4 mg Q6H PRN IVP Nausea & Vomiting 05/15/20 14:00 06/10/20 13:59 Pantoprazole (Protonix) 40 mg BID IV 05/15/20 13:30 06/11/20 08:59 05/18/20 17:33 Zolpidem Tartrate (Ambien) 5 mg HSPRN PRN ORAL Insomnia 05/17/20 08:00 05/20/20 07:59 Neurological/Psychiatric: Reports: anxiety, depressed, emotional problems Allergies: Coded Allergies: No Known Allergies (Unverified , 09/06/19) Objective Data Height (Feet): 5 Height (Inches): 6.00 Weight (Pounds): 147 Additional Comments: awake, disoriented. Mood is agitated. Affect is flat. Thought process, there is a paucity of thought content. Thought content, no suicidal or homicidal ideation. Cognition is impaired. Insight and judgment is impaired. Assessment/Plan Status: stable, not improved, unchanged Assessment/Plan: ASSESSMENT: [place] I Dementia with behavior disturbance. PLAN: 1. We will start the patient on Zyprexa 5 mg at bedtime 2. Ativan p.r.n. 3. Provide the patient with reality orientation and supportive therapy. Adriana Contreras MD May 18, 2020 22:22
[2020-05-19] VITALS: BP 137/99
[2020-05-19 04:00] VITALS: BP_SYST 109; BP_SYST 128; BP_DIAS 54; BP_DIAS 80
--- NOTE | 2020-05-19 07:41 | NUR ---
HAND-OFF: Report given to ELOY Siddiqi.
--- NOTE | 2020-05-19 07:47 | NUR ---
NURSE NOTES: Received report. pt is sitting up in the bed eating breakfast; meal tolerating well. no acute distress noted at this time. call light is within reach, will follow plan of care.
[2020-05-19 08:00] VITALS: BP 152/96
--- NOTE | 2020-05-19 08:14 | Nephrology Progress Note ---
Assessment/Plan Plan #LAUREL likely due prerenal azotemia in the setting of GI bleed- on baseline CKD?-- > improved #GI bleed #h/o HTN #Iron deficiency #polycythemia #dementia - GI eval - endoscopy today - prbc trasnfusion to maintain hemoglobin > 7.5 - on hydroxyuria - continue protonix - avoid nephrotoxins - strict I&Os - daily weights - monitor UOP - check BMP, mag and phos daily Times spent 70 minutes > 50% on care coordination and counseling Subjective ROS Limited/Unobtainable: No Constitutional: Reports: weakness HEENT: Denies: no symptoms, eye pain, blurred vision, tearing, double vision, ear pain, ear discharge, nose pain, nose congestion, throat pain, throat swelling, mouth pain, mouth swelling, other Genitourinary: Denies: no symptoms, burning, discharge, frequency, flank pain, hematuria, incontinence, pain, urgency, other Neurologic/Psychiatric: Denies: no symptoms, anxiety, depressed, emotional problems, headache, numbness, paresthesia, pre-existing deficit, seizure, tingling, tremors, weakness, other Subjective Vitals stable hemoglobin stable Cr stable plan for EGD today Objective Objective Last 24 Hour Vital Signs Date Time Temp Pulse Resp B/P (MAP) Pulse Ox O2 Delivery O2 Flow Rate FiO2 05/19/20 04:00 97.2 80 18 109/54 (72) 94 05/19/20 00:00 97.5 91 22 137/99 (112) 95 05/18/20 21:00 Room Air 05/18/20 20:00 97.3 92 22 132/94 (107) 94 05/18/20 15:34 98.1 98 18 117/74 (88) 98 05/18/20 12:55 97.2 62 14 122/74 100 Room Air 05/18/20 12:40 65 14 112/70 100 Room Air 05/18/20 12:30 67 13 133/82 100 Nasal Cannula 3 05/18/20 12:20 61 13 120/75 100 Nasal Cannula 3 05/18/20 12:15 61 14 110/75 100 Nasal Cannula 3 05/18/20 12:09 97.6 62 14 112/73 100 Nasal Cannula 3 05/18/20 09:00 Room Air 05/18/20 08:25 66 140/80 Intake and Output 05/18/20 05/19/20 19:00 07:00 Intake Total 710 ml 118 ml Output Total 600 ml Balance 710 ml -482 ml Intake Oral 460 ml IV Total 250 ml Other 118 ml Output Urine Total 600 ml Laboratory Tests 05/18/20 18:15: Urine Color Pale yellow, Urine Appearance Clear, Urine pH 7, Urine Specific [place] 1.010, Urine Protein Negative, Urine Glucose (UA) Negative, Urine Ketones Negative, Urine Blood Negative, Urine Nitrite Negative, Urine Bilirubin Negative, Urine Urobilinogen Normal, Urine Leukocyte Esterase 1+H, Urine RBC 0, Urine WBC 0-2, Urine Squamous Epithelial Cells None, Urine Bacteria Occasional Height (Feet): 5 Height (Inches): 6.00 Weight (Pounds): 147 Michael Ansari M.D. May 19, 2020 08:14
[2020-05-19 08:48] LABS: HEMATOCRIT 27.8 % (42.0-52.0); HEMOGLOBIN 8.4 G/DL (14.2-18.0); MEAN CORPUSCULAR VOLUME 90 FL (80-99); PLATELET COUNT 949 K/UL (150-450); RED BLOOD COUNT 3.09 M/UL (4.70-6.10); WHITE BLOOD COUNT 18.2 K/UL (4.8-10.8)
[2020-05-19 08:57] LABS: ANION GAP 11 mmol/L (5-15); BLOOD UREA NITROGEN 12 mg/dL (7-18); CALCIUM 8.7 MG/DL (8.5-10.1); CARBON DIOXIDE 26 MMOL/L (21-32); CHLORIDE 107 MMOL/L (98-107); CREATININE 1.1 MG/DL (0.55-1.30); POTASSIUM 3.8 MMOL/L (3.5-5.1); SODIUM 143 MMOL/L (136-145)
[2020-05-19] MEDS: Pantoprazole Inj IV SCH (09:02)
--- NOTE | 2020-05-19 10:44 | NUR ---
RD ASSESSMENT & RECOMMENDATIONS SEE CARE ACTIVITY FOR COMPLETE ASSESSMENT DAILY ESTIMATED NEEDS: Needs based on Cardiac, advanced [age]kg 25-30 kcals/kg 0868-2819 total kcals 1-1.2 g protein/kg 69-82 g total protein 20-30ml/kcal mL/kg 6649-4050 total fluid mLs NUTRITION DIAGNOSIS: Altered GI fxn R/T GIB as evidenced by low Hgb 7.8, trend down, w/ episodes of bloody bm, now s/p Endoscopy w/ colonoscopy w/ no evidence of GIB per MD. CURRENT DIET: cardiac PO DIET RECOMMENDATIONS: LOW NA, texture as tolerated ADDITIONAL RECOMMENDATIONS: * Rec to recalibrate bed scale wt * Add Ensure Enlive BID (350 kcal, 20g pro each) * Monitor for continued good PO intake * Monitor BG, need for NISS
--- NOTE | 2020-05-19 11:10 | Hematology/Onc Progress Note ---
Assessment/Plan Assessment/Plan Assessment and Recs: # Essential Thrombocytosis, JAK2++, high-risk given age >60 meets the criteria, has consistently been elevated over the past 6 months, have reviewed last admissiona s well --> will evaluate liver and spleen r/o hepatosplenomegaly--> last admission did not show splenomegaly --> obtain peripheral smear, reviewed and no early immature cells noted --> JAK2 ++ again --> plt trend 705k-->643k-->757k-->811k-->791->909-->806-->794->803-->989 -->949 --> START on hydrea 500mg pobid (smallest dose tablet)--> on 05/15 change to daily --> OFF ASA --> have discussed with Pcp --> If any lower ext symptoms, get duplex, at increased risk for dvt # Anemia due to gi bleedingand iron deficiency --> on iv iron started --> 05/12 for colo and egd-->polyps noted --> ferritin goal >200 --> hgb trend: 8 -->8.9->8.4 # LEukocytosis r/o reactive process, likely due to gi bleed --> abx as needed prn --> wbc trend: 8 -->20-->40-->20-->12-->18.6 --> on hydrea, needs to be adjusted as outpatient # Hypercalcemia -- with elev Ca on admission --> current 9.1 --> likely improved with ivf --> w/u if worsens # Near syncope --> generalized weakness # Dehydration --> ivf started # Essential hypertension --> per cards, TTE normal --> imaging reviewed --> Continue Amlodipine # Acute encephlopathy, metabolic vs. psychiatric. dehydration v psych, improved --> psych eval --> Patient currently lives at home by himself # LAUREL- resolved --> Holding HCTZ as above --> monitor renal function # DVt ppx with scds # DC PLANNING--> needs outpatient f/u stat at our off --> [phone] pls schedule within several days of dc --> for high plt count, need to monitor hydrea and asa use Appreciate consultation and dw RN Subjective Constitutional: Denies: no symptoms, chills, fever, malaise, weakness, other HEENT: Denies: no symptoms, eye pain, blurred vision, tearing, double vision, ear pain, ear discharge, nose pain, nose congestion, throat pain, throat swelling, mouth pain, mouth swelling, other Genitourinary: Denies: no symptoms, burning, discharge, frequency, flank pain, hematuria, incontinence, pain, urgency, other Neurologic/Psychiatric: Denies: no symptoms, anxiety, depressed, emotional problems, headache, numbness, paresthesia, pre-existing deficit, seizure, tingling, tremors, weakness, other Endocrine: Denies: no symptoms, excessive sweating, flushing, intolerance to cold, intolerance to heat, increased hunger, increased thirst, increased urine, unexplained weight gain, unexplained weight loss, other Hematologic/Lymphatic: Denies: no symptoms, anemia, easy bleeding, easy bruising, adenopathy, other Allergies: Coded Allergies: No Known Allergies (Unverified , 09/06/19) Subjective 05/13 labs noted, no bleeding, wbc 21, hgb 8.6, is on hydrea 05/14 is for dc today potentially, hr low in am, seen by pcp, dw her 05/15 labs noted, somewhat better, is on hydrea, plt improved 05/17 med surg, no events reported, wbc 18.6, afebrile 05/18 labs noted, no bleeding, meds reviewed 05/19 patient is cleared for dc, have dw pcp and rn, need outpatient followup stat Objective Objective Current Medications Medications (Trade) Dose Ordered Sig/Elliot Route PRN Reason Start Time Stop Time Status Last Admin Dose Admin Acetaminophen (Tylenol) 650 mg Q4H PRN ORAL Mild Pain (Pain Scale 1-3) 05/15/20 14:00 06/10/20 13:59 Acetaminophen (Tylenol) 650 mg Q4H PRN ORAL Temp >100.5 05/15/20 14:00 06/10/20 13:59 Amlodipine Besylate (Norvasc) 5 mg DAILY ORAL 05/15/20 13:30 06/13/20 08:59 05/19/20 09:02 Dextrose (Dextrose 50%) 25 ml Q30M PRN IV Hypoglycemia 05/15/20 13:45 08/09/20 10:44 Dextrose (Dextrose 50%) 50 ml Q30M PRN IV Hypoglycemia 05/15/20 13:45 08/09/20 10:44 Diphenhydramine HCl (Benadryl) 25 mg Q6H PRN ORAL Itching/Pruritis 05/15/20 14:00 06/10/20 13:59 Hydralazine HCl (Apresoline) 25 mg Q6H PRN ORAL For High Blood Pressure 05/15/20 13:30 08/12/20 07:29 Lorazepam (Ativan 2mg/ml 1ml) 0.5 mg Q4H PRN IV For Anxiety 05/17/20 08:00 05/20/20 07:59 Metoclopramide HCl (Reglan) 10 mg Q6H PRN IVP Nausea & Vomiting 05/15/20 14:00 06/10/20 13:59 Olanzapine (ZyPREXA) 5 mg BEDTIME ORAL 05/15/20 21:00 06/27/20 20:59 05/18/20 20:29 Ondansetron HCl (Zofran) 4 mg Q6H PRN IVP Nausea & Vomiting 05/15/20 14:00 06/10/20 13:59 Pantoprazole (Protonix) 40 mg BID IV 05/15/20 13:30 06/11/20 08:59 05/19/20 09:02 Zolpidem Tartrate (Ambien) 5 mg HSPRN PRN ORAL Insomnia 05/17/20 08:00 05/20/20 07:59 Last 24 Hour Vital Signs Date Time Temp Pulse Resp B/P (MAP) Pulse Ox O2 Delivery O2 Flow Rate FiO2 05/19/20 09:02 105 152/96 05/19/20 09:00 Room Air 05/19/20 08:00 98.4 105 20 152/96 (114) 96 05/19/20 04:00 97.2 80 18 109/54 (72) 94 05/19/20 00:00 97.5 91 22 137/99 (112) 95 05/18/20 21:00 Room Air 05/18/20 20:00 97.3 92 22 132/94 (107) 94 05/18/20 15:34 98.1 98 18 117/74 (88) 98 7/6/20 12:55 97.2 62 14 122/74 100 Room Air 05/18/20 12:40 65 14 112/70 100 Room Air 05/18/20 12:30 67 13 133/82 100 Nasal Cannula 3 05/18/20 12:20 61 13 120/75 100 Nasal Cannula 3 05/18/20 12:15 61 14 110/75 100 Nasal Cannula 3 05/18/20 12:09 97.6 62 14 112/73 100 Nasal Cannula 3 05/18/20 09:00 Room Air 05/18/20 08:25 66 140/80 05/18/20 08:00 97.2 66 18 140/80 (100) 97 05/18/20 04:00 98.3 78 20 112/70 (84) 98 05/18/20 00:00 97.4 73 20 104/66 (79) 97 05/17/20 20:14 Room Air 05/17/20 20:00 97.5 90 20 104/54 (71) 94 05/17/20 15:57 98.3 74 18 122/81 (95) 98 05/17/20 12:00 98.0 70 19 127/79 (95) 97 Intake and Output 05/18/20 05/19/20 19:00 07:00 Intake Total 710 ml 118 ml Output Total 600 ml Balance 710 ml -482 ml Intake Oral 460 ml IV Total 250 ml Other 118 ml Output Urine Total 600 ml Labs Test 05/17/20 06:20 05/18/20 07:25 05/18/20 18:15 05/19/20 08:10 White Blood Count 18.6 K/UL (4.8-10.8) 19.0 K/UL (4.8-10.8) 18.2 K/UL (4.8-10.8) Red Blood Count 2.95 M/UL (4.70-6.10) 2.84 M/UL (4.70-6.10) 3.09 M/UL (4.70-6.10) Hemoglobin 8.0 G/DL (14.2-18.0) 7.7 G/DL (14.2-18.0) 8.4 G/DL (14.2-18.0) Hematocrit 26.2 % (42.0-52.0) 25.5 % (42.0-52.0) 27.8 % (42.0-52.0) Mean Corpuscular Volume 89 FL (80-99) 90 FL (80-99) 90 FL (80-99) Mean Corpuscular Hemoglobin 27.3 PG (27.0-31.0) 27.1 PG (27.0-31.0) 27.2 PG (27.0-31.0) Mean Corpuscular Hemoglobin Concent 30.8 G/DL (32.0-36.0) 30.2 G/DL (32.0-36.0) 30.3 G/DL (32.0-36.0) Red Cell Distribution Width 22.7 % (11.6-14.8) 24.9 % (11.6-14.8) 24.0 % (11.6-14.8) Platelet Count 989 K/UL (150-450) 913 K/UL (150-450) 949 K/UL (150-450) Mean Platelet Volume 5.6 FL (6.5-10.1) 5.8 FL (6.5-10.1) 5.3 FL (6.5-10.1) Neutrophils (%) (Auto) % (45.0-75.0) % (45.0-75.0) % (45.0-75.0) Lymphocytes (%) (Auto) % (20.0-45.0) % (20.0-45.0) % (20.0-45.0) Monocytes (%) (Auto) % (1.0-10.0) % (1.0-10.0) % (1.0-10.0) Eosinophils (%) (Auto) % (0.0-3.0) % (0.0-3.0) % (0.0-3.0) Basophils (%) (Auto) % (0.0-2.0) % (0.0-2.0) % (0.0-2.0) Differential Total Cells Counted 100 100 100 Neutrophils % (Manual) 66 % (45-75) 69 % (45-75) 68 % (45-75) Lymphocytes % (Manual) 19 % (20-45) 18 % (20-45) 17 % (20-45) Monocytes % (Manual) 15 % (1-10) 13 % (1-10) 12 % (1-10) Eosinophils % (Manual) 0 % (0-3) 0 % (0-3) 0 % (0-3) Basophils % (Manual) 0 % (0-2) 0 % (0-2) 2 % (0-2) Band Neutrophils 0 % (0-8) 0 % (0-8) 1 % (0-8) Platelet Estimate Increased Increased Increased Platelet Morphology Giant Platelets Occasional Occasional Occasional Polychromasia 2+ 3+ 2+ Hypochromasia 1+ 1+ 1+ Anisocytosis 2+ 3+ 3+ Sodium Level 146 MMOL/L (136-145) 141 MMOL/L (136-145) 143 MMOL/L (136-145) Potassium Level 3.8 MMOL/L (3.5-5.1) 4.9 MMOL/L (3.5-5.1) 3.8 MMOL/L (3.5-5.1) Chloride Level 108 MMOL/L (98-107) 106 MMOL/L (98-107) 107 MMOL/L (98-107) Carbon Dioxide Level 29 MMOL/L (21-32) 26 MMOL/L (21-32) 26 MMOL/L (21-32) Anion Gap 9 mmol/L (5-15) 9 mmol/L (5-15) 11 mmol/L (5-15) Blood Urea Nitrogen 15 mg/dL (7-18) 13 mg/dL (7-18) 12 mg/dL (7-18) Creatinine 1.1 MG/DL (0.55-1.30) 0.9 MG/DL (0.55-1.30) 1.1 MG/DL (0.55-1.30) Estimat Glomerular Filtration Rate > 60 mL/min (>60) > 60 mL/min (>60) > 60 mL/min (>60) Glucose Level 80 MG/DL (74-106) 80 MG/DL (74-106) 115 MG/DL (74-106) Calcium Level 8.6 MG/DL (8.5-10.1) 8.6 MG/DL (8.5-10.1) 8.7 MG/DL (8.5-10.1) Urine Color Pale yellow Urine Appearance Clear Urine pH 7 (4.5-8.0) Urine Specific [place] 1.010 (1.005-1.035) Urine Protein Negative (NEGATIVE) Urine Glucose (UA) Negative (NEGATIVE) Urine Ketones Negative (NEGATIVE) Urine Blood Negative (NEGATIVE) Urine Nitrite Negative (NEGATIVE) Urine Bilirubin Negative (NEGATIVE) Urine Urobilinogen Normal MG/DL (0.0-1.0) Urine Leukocyte Esterase 1+ (NEGATIVE) Urine RBC 0 /HPF (0 - 0) Urine WBC 0-2 /HPF (0 - 0) Urine Squamous Epithelial Cells None /LPF (NONE/OCC) Urine Bacteria Occasional /HPF (NONE) Height (Feet): 5 Height (Inches): 6.00 Weight (Pounds): 147 Objective Physical Exam Physical Exam Narrative General Appearance: WD/WN, no apparent distress, alert EENT: PERRL/EOMI, normal ENT inspection Neck: non-tender, normal alignment, supple Cardiovascular: normal peripheral pulses, normal rate, regular rhythm, no JVD Respiratory/Chest: chest wall non-tender, lungs clear, normal breath sounds Abdomen: normal bowel sounds, non tender, soft, no organomegaly Extremities: normal range of motion, non-tender Edema: other - No lower extremity edema bilaterally 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
--- NOTE | 2020-05-19 11:32 | General Progress Note ---
Assessment/Plan Status: stable, not improved, unchanged Assessment/Plan: GIB s/p EGD and colonoscopy no recurrent bleed stable H&H ok for dc Subjective ROS Limited/Unobtainable: Yes Allergies: Coded Allergies: No Known Allergies (Unverified , 09/06/19) Objective Last 24 Hour Vital Signs Date Time Temp Pulse Resp B/P (MAP) Pulse Ox O2 Delivery O2 Flow Rate FiO2 05/19/20 09:02 105 152/96 05/19/20 09:00 Room Air 05/19/20 08:00 98.4 105 20 152/96 (114) 96 05/19/20 04:00 97.2 80 18 109/54 (72) 94 05/19/20 00:00 97.5 91 22 137/99 (112) 95 05/18/20 21:00 Room Air 05/18/20 20:00 97.3 92 22 132/94 (107) 94 05/18/20 15:34 98.1 98 18 117/74 (88) 98 05/18/20 12:55 97.2 62 14 122/74 100 Room Air 05/18/20 12:40 65 14 112/70 100 Room Air 05/18/20 12:30 67 13 133/82 100 Nasal Cannula 3 05/18/20 12:20 61 13 120/75 100 Nasal Cannula 3 05/18/20 12:15 61 14 110/75 100 Nasal Cannula 3 05/18/20 12:09 97.6 62 14 112/73 100 Nasal Cannula 3 Intake and Output 05/18/20 05/19/20 19:00 07:00 Intake Total 710 ml 118 ml Output Total 600 ml Balance 710 ml -482 ml Intake Oral 460 ml IV Total 250 ml Other 118 ml Output Urine Total 600 ml Laboratory Tests 05/18/20 18:15: Urine Color Pale yellow, Urine Appearance Clear, Urine pH 7, Urine Specific [place] 1.010, Urine Protein Negative, Urine Glucose (UA) Negative, Urine Ketones Negative, Urine Blood Negative, Urine Nitrite Negative, Urine Bilirubin Negative, Urine Urobilinogen Normal, Urine Leukocyte Esterase 1+H, Urine RBC 0, Urine WBC 0-2, Urine Squamous Epithelial Cells None, Urine Bacteria Occasional 05/19/20 08:10: White Blood Count 18.2H, Red Blood Count 3.09L, Hemoglobin 8.4L, Hematocrit 27.8L, Mean Corpuscular Volume 90, Mean Corpuscular Hemoglobin 27.2, Mean Corpuscular Hemoglobin Concent 30.3L, Red Cell Distribution Width 24.0H, Platelet Count 949H, Mean Platelet Volume 5.3L, Neutrophils (%) (Auto) , Lymphocytes (%) (Auto) , Monocytes (%) (Auto) , Eosinophils (%) (Auto) , Basophils (%) (Auto) , Differential Total Cells Counted 100, Neutrophils % ( Manual) 68, Lymphocytes % (Manual) 17L, Monocytes % (Manual) 12H, Eosinophils % (Manual) 0, Basophils % (Manual) 2, Band Neutrophils 1, Platelet Estimate IncreasedH, Platelet Morphology , Giant Platelets Occasional, Polychromasia 2+, Hypochromasia 1+, Anisocytosis 3+, Sodium Level 143, Potassium Level 3.8, Chloride Level 107, Carbon Dioxide Level 26, Anion Gap 11, Blood Urea Nitrogen 12, Creatinine 1.1, Estimat Glomerular Filtration Rate > 60, Glucose Level 115H , Calcium Level 8.7 Height (Feet): 5 Height (Inches): 6.00 Weight (Pounds): 147 General Appearance: no apparent distress EENT: normal ENT inspection Neck: supple Cardiovascular: normal peripheral pulses Respiratory/Chest: decreased breath sounds Abdomen: normal bowel sounds, non tender, soft Extremities: non-tender José Luis Juares MD May 19, 2020 11:32
[2020-05-19 12:00] VITALS: BP 134/87
--- NOTE | 2020-05-19 12:14 | NUR ---
*-*DISCHARGE PLANNING*-* PATIENT HAS BEEN REFERRED BACK TO: [facility] P: [phone]
--- NOTE | 2020-05-19 12:17 | NUR ---
*-*DISCHARGE PLANNING*-* PATIENT HAS BEEN REFERRED BACK TO: [facility] P: [phone] ADISSION UNAVAILABLE, CALL BACK
--- NOTE | 2020-05-19 12:43 | Discharge Summary ---
Discharge Summary Hospital Course Date of Admission May 11, 2020 at 11:14 Date of Discharge Admitting Diagnosis LOWER G.I.BLEED HPI Mane Cronin is a 89 year old male who was admitted on May 11, 2020 at 11:14 for Lower Gi Blood Consultations GI, Nephrology, Hematology/oncology, psych Procedures Endoscopy Hospital Course 89-year-old -Russian male with past medical history of hypertension, erythrocytosis, presents for bright red blood per rectum. Pt was given PRBC with good response in Hgb. GI consulted and patient underwent EGD/colonoscopy on 05/12 which revealed gastritis and colonic polyps and hemorrhoids. Patient underwent capsule endoscopy on 05/13. Patient with no further signs of bleeding, hemoglobin stable, patient to follow-up with GI as outpatient. During hospital admission, patient found to have LAUREL, nephrology consulted, creatinine improved with IV fluids. Patient with history of polycythemia/essential thrombosis, patient noted to have elevated leukocytosis, no signs of infection, afebrile. Hematology was consulted and patient was started on his hydroxyurea with improvement. Pateint had repeat endoscopy and colonoscopy that did not show any sign of bleeding. Patient currently stable for DC back to SNF. Patient to follow-up with PCP, GI as outpatient. Time spent on encounter: 35 mins, 20 mins on counseling pt regarding hospital course/POC, coordination of care with RN, consulting MDs Discharge Condition Upon Discharge: stable Discharge Vital Signs Last Vital Signs Date Time Temp Pulse Resp B/P (MAP) Pulse Ox O2 Delivery O2 Flow Rate FiO2 05/19/20 12:00 97.7 88 18 134/87 (103) 94 05/19/20 09:00 Room Air 05/18/20 12:30 3 Discharge Disposition Patient was discharged to Discharge Diagnoses: (1) GI bleed (2) Polycythemia (3) JAK2 gene mutation (4) Thrombocytosis (5) UTI (urinary tract infection) (6) HTN (hypertension) (7) Acute kidney injury Bruce Jimenez M.D. May 19, 2020 12:43
--- NOTE | 2020-05-19 13:25 | NUR ---
*-*DISCHARGE PLANNED*-* PATIENT HAS BEEN ACCEPTED AND WILL BE DISCHARGED BACK TO: [facility] P: [phone] FOR NURSE TO NURSE REPORT ROOM# [id number]. [facility] SET FOR 3:30 S/W REAL [id number].
--- NOTE | 2020-05-19 13:30 | NUR ---
PT NOTE Multiple attempts made to see patient for PT treatment, patient declined. Patient scheduled to be discharged to SNF today, will follow.
--- NOTE | 2020-05-19 14:36 | NUR ---
NURSE NOTES: Called [facility]. Gave report to ELOY Rodriguez, that patient will be returning to the facility. Also notified Jennifer about order to schedule appointment for patient to see Dr uS due to high platelet and thrombocytosis.
--- NOTE | 2020-05-19 16:45 | NUR ---
NURSE NOTES: Patient is discharged to [facility] without any signs of distress. Patient is awake and alert. A&O X3. Respiration is even and unlabored on room air. Patient denies any pain at this time. Belongings checked; patient signed inventory paper. skin is clear and intact. Patient is provided with after-care instructions, provided with medication teaching, and instructed to follow-up with any MD's appointment; patient verbalized understanding of after-care instructions. IV site and wrist band removed. Patient transported via [facility] accompanied by two gliding pilot instructor.
[2020-05-20] MEDS ORDERED: Hydroxyurea 500mg cap ORAL SCH (09:00)
== END 2020-05-19 16:41 | DRG 377 ==
LOC: EDUNIT# 09:33 → EDBD 09:33 → EMR 10:02 → EDBEDREQ 10:06 → EDBEDREQSVC 10:39 → EDBEDREQ 11:04 → 2E 11:14 → 4E 05-15 13:43
PROC: 30233N1 Transfusion of Nonautologous Red Blood Cells into Peripheral Vein, Percutaneous Approach (ICD-10-PCS; principal; 2020-05-12 12:09)
PROC: 0DBH8ZZ Excision of Cecum, Via Natural or Artificial Opening Endoscopic (ICD-10-PCS; principal; 2020-05-12 12:09)
PROC: 0DB78ZX Excision of Stomach, Pylorus, Via Natural or Artificial Opening Endoscopic, Diagnostic (ICD-10-PCS; principal; 2020-05-12 12:09)
PROC: 0DBK8ZZ Excision of Ascending Colon, Via Natural or Artificial Opening Endoscopic (ICD-10-PCS; principal; 2020-05-12 12:09)
PROC: 0DBL8ZZ Excision of Transverse Colon, Via Natural or Artificial Opening Endoscopic (ICD-10-PCS; principal; 2020-05-12 12:09)
DX: K29.41 Chronic atrophic gastritis with bleeding (principal); G93.41 Metabolic encephalopathy; N17.9 Acute kidney failure, unspecified; N39.0 Urinary tract infection, site not specified; F03.91 Unspecified dementia, unspecified severity, with behavioral disturbance; D62 Acute posthemorrhagic anemia; E83.52 Hypercalcemia; D12.0 Benign neoplasm of cecum; D75.1 Secondary polycythemia; D47.3 Essential (hemorrhagic) thrombocythemia; Z15.89 Genetic susceptibility to other disease; K63.5 Polyp of colon; K64.8 Other hemorrhoids; K57.90 Diverticulosis of intestine, part unspecified, without perforation or abscess without bleeding
CPT/HCPCS: 36415; 71045; 80048; 81003; 82270; 82728; 83540; 83550; 83735; 84100; 84443; 84484; 85007; 85025; 85044; 85060; 85610; 85730; 86850; 86900; 86901; 86920; 87081; 93005; 94003; 94150; 99285; J7030; U0002

== ENCOUNTER 2020-05-26 15:32 | Inpatient (IN) | payer MEDICARE, MEDICAID ==
[~2020-05-26] VITALS: Ht 170.2 cm; Wt 59.0 kg
[~2020-05-26 15:32] MED LIST changes: +HYDRALAZINE HCL25 M1 ORAL; +METOPROLOL SUCC25 MG ORAL
[2020-05-26 15:52] VITALS: BP 128/71
[2020-05-26 16:44] LABS: HEMATOCRIT 22.8 % (42.0-52.0); MEAN CORPUSCULAR VOLUME 87 FL (80-99); PLATELET COUNT 701 K/UL (150-450); RED BLOOD COUNT 2.61 M/UL (4.70-6.10); RED CELL DISTRIBUTION WIDTH 23.4 % (11.6-14.8); WHITE BLOOD COUNT 10.8 K/UL (4.8-10.8)
[2020-05-26] MEDS ORDERED: PANTOPRAZOLE SO40 MG ORAL (16:46)
[2020-05-26 16:52] LABS: HEMOGLOBIN 6.6 G/DL (14.2-18.0)
[2020-05-26 16:53] LABS: ANION GAP 7 mmol/L (5-15); BLOOD UREA NITROGEN 22 mg/dL (7-18); CALCIUM 8.9 MG/DL (8.5-10.1); CARBON DIOXIDE 28 MMOL/L (21-32); CHLORIDE 110 MMOL/L (98-107); POTASSIUM 4.4 MMOL/L (3.5-5.1); SODIUM 145 MMOL/L (136-145)
[2020-05-26 16:53] LABS: APPEARANCE,URINE CLEAR; BILIRUBIN, URINE NEGATIVE (NEGATIVE); COLOR,URINE PALE YELLOW; GLUCOSE, URINE (UA) NEGATIVE (NEGATIVE); KETONES,URINE NEGATIVE (NEGATIVE); LEUKOCYTE ESTERASE ,URINE NEGATIVE (NEGATIVE); NITRITE,URINE NEGATIVE (NEGATIVE); PH,URINE 5 (4.5-8.0); PROTEIN,URINE NEGATIVE (NEGATIVE); UROBILINOGEN,URINE NORMAL MG/DL (0.0-1.0)
[2020-05-26 16:55] LABS: ALANINE AMINOTRANSFERASE 15 U/L (12-78); ALBUMIN 3.2 G/DL (3.4-5.0); ALBUMIN/GLOBULIN RATIO 0.9 (1.0-2.7); ALKALINE PHOSPHATASE 107 U/L (46-116); ASPARTATE AMINO TRANSFERASE 14 U/L (15-37); BILIRUBIN,TOTAL 0.2 MG/DL (0.2-1.0)
[2020-05-26 17:00] VITALS: BP 130/69
--- NOTE | 2020-05-26 17:03 | Diagnostic Imaging Report ---
Indication: Shortness of breath Technique: One view of the chest Comparison: 05/11/2020 Findings: Less optimal inspiration currently There is some retrocardiac consolidation. Lungs pleural spaces are otherwise clear. The heart size is normal. The aorta is ectatic. Impression: Patchy retrocardiac consolidation, could indicate pneumonia, could in part be artifact of suboptimal inspiration. Correlate with clinical findings
[2020-05-26] MEDS ORDERED: Pantoprazole 80 MG in NS 250 ML IV ONE (18:15)
[2020-05-26] MEDS ORDERED: Albuterol/Ipratropium 3ml neb HHN PRN (18:15)
[2020-05-26] MEDS ORDERED: HydrALAZINE 25mg tab ORAL PRN (18:30)
[2020-05-26 19:04] VITALS: BP 142/88
--- NOTE | 2020-05-26 19:36 | Emergency Room Report ---
History of Present Illness General Chief Complaint: Abnormal Labs Source: Patient, Medical Record Present Illness HPI 89-year-old male presents the ED for abnormal labs. Sent from senior living facility for reported low hemoglobin. Patient states he feels okay but feels somewhat weak. Denies blood in stool. Denies fevers or chills. Denies chest pain. Denies nausea or vomiting. No other aggravating relieving factors. 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 COVID-19 Screening: Negative COVID-19 COVID-19 Testing Source: 04/29/20 per [facility] Patient History Past Medical History: HTN, GI bleed, seizures Social History: Denies: smoking, alcohol use, drug use Immunizations: UTD Reviewed Nursing Documentation: PMH: Agreed; PSxH: Agreed Nursing Documentation-PMH Past Medical History: No History, Except For Hx Hypertension: Yes Hx Gastrointestinal Problems: Yes - dysphagia, gi bleed History Of Psychiatric Problem: Yes - schizophrenia Review of Systems All Other Systems: negative except mentioned in HPI Physical Exam Vital Signs Date Time Temp Pulse Resp B/P (MAP) Pulse Ox O2 Delivery O2 Flow Rate FiO2 05/26/20 15:38 97.9 93 20 128/71 (90) 93 Room Air Sp02 EP Interpretation: reviewed, normal General Appearance: no apparent distress, alert, GCS 15, non-toxic Head: normocephalic, atraumatic Eyes: bilateral eye normal inspection, bilateral eye PERRL ENT: hearing grossly normal, normal pharynx, no angioedema, normal voice Neck: full range of motion, supple/symm/no masses Respiratory: chest non-tender, lungs clear, normal breath sounds, speaking full sentences Cardiovascular #1: regular rate, rhythm, no edema Cardiovascular #2: 2+ carotid (R), 2+ carotid (L), 2+ radial (R), 2+ radial (L) , 2+ dorsalis pedis (R), 2+ dorsalis pedis (L) Gastrointestinal: normal bowel sounds, non tender, soft, non-distended, no guarding, no rebound Rectal: deferred Genitourinary: normal inspection, no CVA tenderness Musculoskeletal: back normal, normal range of motion, gait/station normal, non- tender Neurologic: alert, motor strength/tone normal, oriented x3, sensory intact, responsive, speech normal Psychiatric: judgement/insight normal, memory normal, mood/affect normal, no suicidal/homicidal ideation Reflexes: 3+ bicep (R), 3+ bicep (L), 3+ tricep (R), 3+ tricep (L), 3+ knee (R) , 3+ knee (L) Lymphatic: no adenopathy Medical Decision Making Diagnostic Impression: Primary Impression: LGI bleed Additional Impression: Anemia Qualified Codes: D64.9 - Anemia, unspecified ER Course Hospital Course 89 yo M presents for weakness, reportedly low Hb Differential diagnoses include: UGIB, LGIB, anemia Clinical course Patient placed on 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 After initial history and physical I ordered labs, IV fluids, CXR Labs - no leukocytosis, Hb/Hct 6.6/22.8. electrolytes ok EKG - NSR no acute ischemic changes interpreted by me CXR - ?retrocardiac consolidation Fecal occult positive Patient has no fever. No cough. No leukocytosis. Antibiotics given. Given Protonix. Blood ordered and transfused Case discussed with Dr. Adler and he agreed to accept the patient to his service for further care and support I feel this is a highly complex case requiring extensive working including EKG/ Rhythm strip, Xray/CT/US, Blood/urine lab work, repeat exams while in ED, and administration of strong opiates/narcotics for pain control, admission to hospital or close patient follow up. Diagnosis - LGIB, anemia Patient admitted to floor in serious condition Labs Test 05/26/20 16:20 05/26/20 16:40 White Blood Count 10.8 K/UL (4.8-10.8) Red Blood Count 2.61 M/UL (4.70-6.10) Hemoglobin 6.6 G/DL (14.2-18.0) Hematocrit 22.8 % (42.0-52.0) Mean Corpuscular Volume 87 FL (80-99) Mean Corpuscular Hemoglobin 25.3 PG (27.0-31.0) Mean Corpuscular Hemoglobin Concent 29.0 G/DL (32.0-36.0) Red Cell Distribution Width 23.4 % (11.6-14.8) Platelet Count 701 K/UL (150-450) Mean Platelet Volume 6.0 FL (6.5-10.1) Neutrophils (%) (Auto) % (45.0-75.0) Lymphocytes (%) (Auto) % (20.0-45.0) Monocytes (%) (Auto) % (1.0-10.0) Eosinophils (%) (Auto) % (0.0-3.0) Basophils (%) (Auto) % (0.0-2.0) Differential Total Cells Counted 100 Neutrophils % (Manual) 64 % (45-75) Lymphocytes % (Manual) 16 % (20-45) Monocytes % (Manual) 20 % (1-10) Eosinophils % (Manual) 0 % (0-3) Basophils % (Manual) 0 % (0-2) Band Neutrophils 0 % (0-8) Nucleated Red Blood Cells 1 /100 WBC Platelet Estimate Increased Platelet Morphology Normal Polychromasia 2+ Hypochromasia 2+ Anisocytosis 3+ Prothrombin Time 11.4 SEC (9.30-11.50) Prothromb Time International Ratio 1.0 (0.9-1.1) Activated Partial Thromboplast Time 28 SEC (23-33) Sodium Level 145 MMOL/L (136-145) Potassium Level 4.4 MMOL/L (3.5-5.1) Chloride Level 110 MMOL/L (98-107) Carbon Dioxide Level 28 MMOL/L (21-32) Anion Gap 7 mmol/L (5-15) Blood Urea Nitrogen 22 mg/dL (7-18) Creatinine 1.0 MG/DL (0.55-1.30) Estimat Glomerular Filtration Rate > 60 mL/min (>60) Glucose Level 99 MG/DL (74-106) Calcium Level 8.9 MG/DL (8.5-10.1) Total Bilirubin 0.2 MG/DL (0.2-1.0) Aspartate Amino Transf (AST/SGOT) 14 U/L (15-37) Alanine Aminotransferase (ALT/SGPT) 15 U/L (12-78) Alkaline Phosphatase 107 U/L (46-116) Total Protein 6.9 G/DL (6.4-8.2) Albumin 3.2 G/DL (3.4-5.0) Globulin 3.7 g/dL Albumin/Globulin Ratio 0.9 (1.0-2.7) Lipase 199 U/L (73-393) Urine Color Pale yellow Urine Appearance Clear Urine pH 5 (4.5-8.0) Urine Specific [place] 1.015 (1.005-1.035) Urine Protein Negative (NEGATIVE) Urine Glucose (UA) Negative (NEGATIVE) Urine Ketones Negative (NEGATIVE) Urine Blood Negative (NEGATIVE) Urine Nitrite Negative (NEGATIVE) Urine Bilirubin Negative (NEGATIVE) Urine Urobilinogen Normal MG/DL (0.0-1.0) Urine Leukocyte Esterase Negative (NEGATIVE) EKG Diagnostic Results Rate: normal Rhythm: NSR ST Segments: no acute changes ASA given to the pt in ED: No Rhythm Strip Diag. Results EP Interpretation: yes Rhythm: NSR, no PVC's, no ectopy Chest X-Ray Diagnostic Results Chest X-Ray Diagnostic Results : Chest X-Ray Ordered: Yes # of Views/Limited/Complete: 1 View Indication: Other EP Interpretation: Yes Interpretation: no effusion, no pneumothorax, other - retrocardiac consolidation Impression: Other - ?PNA Electronically Signed by: Electronically signed by Murtaza Julien MD Last Vital Signs Date Time Temp Pulse Resp B/P (MAP) Pulse Ox O2 Delivery O2 Flow Rate FiO2 05/26/20 19:04 97.9 85 17 142/88 94 Room Air Status: improved Disposition: ADMITTED INPATIENT Condition: Serious Referrals: Antonio Jones MD (PCP) Murtaza Julien MD May 26, 2020 19:36
[2020-05-26 22:00] VITALS: BP 158/97
[2020-05-27] VITALS: BP 150/84
[2020-05-27] MEDS: D5 1/2NS 1,000 ML IV SCH ×3 (00:35→20:51)
[2020-05-27] MEDS ORDERED: AMLODIPINE BESY10 MG ORAL (03:58)
[2020-05-27 04:00] VITALS: BP 135/80
[2020-05-27] MEDS: Pantoprazole 80 MG in NS 250 ML IV SCH ×3 (05:43→23:34)
--- NOTE | 2020-05-27 06:46 | Consultation ---
History of Present Illness General Chief Complaint: Abnormal Labs Present Illness Allergies: Coded Allergies: No Known Allergies (Unverified , 09/06/19) Medication History Scheduled Amlodipine Besylate* (Amlodipine Besylate*), 10 MG ORAL DAILY, (Reported) Aspirin* (Aspirin*), 81 MG ORAL DAILY Hydroxyurea* (HYDREA 500mg*), 500 MG ORAL DAILY Olanzapine* (Zyprexa*), 5 MG ORAL BEDTIME, (Reported) Pantoprazole* (Pantoprazole*), 40 MG ORAL DAILY, (Reported) Scheduled PRN Hydralazine Hcl* (Hydralazine Hcl*), 25 MG ORAL EVERY 6 HOURS PRN for For High Blood Pressure, (Reported) Patient History Healthcare decision maker Resuscitation status Advanced Directive on File Physical Exam Last 24 Hour Vital Signs Date Time Temp Pulse Resp B/P (MAP) Pulse Ox O2 Delivery O2 Flow Rate FiO2 05/27/20 04:00 97.9 58 16 135/80 (98) 97 05/27/20 04:00 60 05/27/20 00:00 60 05/27/20 00:00 96.6 71 20 150/84 (106) 99 05/26/20 22:00 98.8 82 20 158/97 (117) 99 05/26/20 22:00 Room Air 05/26/20 21:55 86 05/26/20 21:35 97.9 85 17 149/89 94 Room Air 05/26/20 21:25 97.9 83 05/26/20 21:10 98.7 83 05/26/20 19:40 98.7 82 05/26/20 19:25 98.0 91 05/26/20 19:04 97.9 85 17 142/88 94 Room Air 05/26/20 17:00 97.9 85 19 130/69 95 Room Air 05/26/20 15:52 97.9 93 20 128/71 93 Room Air 05/26/20 15:38 97.9 93 20 128/71 (90) 93 Room Air Intake and Output 05/26/20 05/27/20 19:00 07:00 Intake Total 1000 ml 503 ml Output Total 2050 ml Balance 1000 ml -1547 ml Intake Oral 0 ml IV Total 1000 ml 253 ml Blood Product 250 ml Output Urine Total 2050 ml Laboratory Tests Test 7/14/20 16:20 05/26/20 16:40 White Blood Count 10.8 K/UL (4.8-10.8) Red Blood Count 2.61 M/UL (4.70-6.10) L Hemoglobin 6.6 G/DL (14.2-18.0) *L Hematocrit 22.8 % (42.0-52.0) L Mean Corpuscular Volume 87 FL (80-99) Mean Corpuscular Hemoglobin 25.3 PG (27.0-31.0) L Mean Corpuscular Hemoglobin Concent 29.0 G/DL (32.0-36.0) L Red Cell Distribution Width 23.4 % (11.6-14.8) H Platelet Count 701 K/UL (150-450) H Mean Platelet Volume 6.0 FL (6.5-10.1) L Neutrophils (%) (Auto) % (45.0-75.0) Lymphocytes (%) (Auto) % (20.0-45.0) Monocytes (%) (Auto) % (1.0-10.0) Eosinophils (%) (Auto) % (0.0-3.0) Basophils (%) (Auto) % (0.0-2.0) Differential Total Cells Counted 100 Neutrophils % (Manual) 64 % (45-75) Lymphocytes % (Manual) 16 % (20-45) L Monocytes % (Manual) 20 % (1-10) H Eosinophils % (Manual) 0 % (0-3) Basophils % (Manual) 0 % (0-2) Band Neutrophils 0 % (0-8) Nucleated Red Blood Cells 1 /100 WBC Platelet Estimate Increased H Platelet Morphology Normal Polychromasia 2+ Hypochromasia 2+ Anisocytosis 3+ Prothrombin Time 11.4 SEC (9.30-11.50) Prothromb Time International Ratio 1.0 (0.9-1.1) Activated Partial Thromboplast Time 28 SEC (23-33) Sodium Level 145 MMOL/L (136-145) Potassium Level 4.4 MMOL/L (3.5-5.1) Chloride Level 110 MMOL/L (98-107) H Carbon Dioxide Level 28 MMOL/L (21-32) Anion Gap 7 mmol/L (5-15) Blood Urea Nitrogen 22 mg/dL (7-18) H Creatinine 1.0 MG/DL (0.55-1.30) Estimat Glomerular Filtration Rate > 60 mL/min (>60) Glucose Level 99 MG/DL (74-106) Calcium Level 8.9 MG/DL (8.5-10.1) Total Bilirubin 0.2 MG/DL (0.2-1.0) Aspartate Amino Transf (AST/SGOT) 14 U/L (15-37) L Alanine Aminotransferase (ALT/SGPT) 15 U/L (12-78) Alkaline Phosphatase 107 U/L (46-116) Total Protein 6.9 G/DL (6.4-8.2) Albumin 3.2 G/DL (3.4-5.0) L Globulin 3.7 g/dL Albumin/Globulin Ratio 0.9 (1.0-2.7) L Lipase 199 U/L (73-393) Urine Color Pale yellow Urine Appearance Clear Urine pH 5 (4.5-8.0) Urine Specific [place] 1.015 (1.005-1.035) Urine Protein Negative (NEGATIVE) Urine Glucose (UA) Negative (NEGATIVE) Urine Ketones Negative (NEGATIVE) Urine Blood Negative (NEGATIVE) Urine Nitrite Negative (NEGATIVE) Urine Bilirubin Negative (NEGATIVE) Urine Urobilinogen Normal MG/DL (0.0-1.0) Urine Leukocyte Esterase Negative (NEGATIVE) Microbiology Date/Time Source Procedure Growth Status 05/26/20 18:30 Rectum Received Height (Feet): 5 Height (Inches): 7.00 Weight (Pounds): 130 Medications Current Medications Medications (Trade) Dose Ordered Sig/Elliot Route PRN Reason Start Time Stop Time Status Last Admin Dose Admin Acetaminophen (Tylenol) 650 mg Q4H PRN ORAL Mild Pain (Pain Scale 1-3) 05/26/20 18:15 06/25/20 18:14 Albuterol/ Ipratropium (Albuterol/ Ipratropium) 3 ml Q6H PRN HHN Shortness of Breath 05/26/20 18:15 05/31/20 18:14 Dextrose (Dextrose 50%) 25 ml Q30M PRN IV Hypoglycemia 05/26/20 18:15 08/24/20 18:14 Dextrose (Dextrose 50%) 50 ml Q30M PRN IV Hypoglycemia 05/26/20 18:15 08/24/20 18:14 Dextrose/Sodium Chloride 1,000 ml @ 75 mls/hr [id number] IV 05/26/20 19:13 06/25/20 19:12 05/27/20 00:35 Diphenhydramine HCl (Benadryl) 25 mg Q6H PRN ORAL Itching/Pruritis 05/26/20 18:15 06/25/20 18:14 Hydralazine HCl (Apresoline) 25 mg Q6H PRN ORAL For High Blood Pressure 05/26/20 18:30 08/24/20 18:29 Olanzapine (ZyPREXA) 5 mg BEDTIME ORAL 05/26/20 21:00 07/10/20 20:59 05/26/20 22:11 Ondansetron HCl (Zofran) 4 mg Q6H PRN IVP Nausea & Vomiting 05/26/20 18:15 06/25/20 18:14 Pantoprazole 80 mg/Sodium Chloride 250 ml @ 25 mls/hr Q10H IV 05/27/20 04:00 06/26/20 03:59 05/27/20 05:43 Assessment/Plan Assessment/Plan: Hematology Consultation RFC: Humberto for HIGH PLT REQ MD: Karen SOTO 05/27/2020 HPI 89-year-old male well known to me, with HTN, very poor historian, in spite of being alert and oriented x4, presented to the ED via EMS with lightheadedness and near syncope, with gi bleed. EMS reports he was sitting on the ground next to his bed. He reports he was not seen nor did he fall. He had actually been preparing to go to the shower, and reports loss of appetite recently. Denies dizziness, numbness, tingling, weakness, any pain complaints at all, dysuria, hematuria, frequency, urgency, incomplete voiding, diarrhea, constipation, nausea, vomiting. of note, patient was just discharged from the hospital in September, for similar complaint. Has at this time a hgb 6.6. Had medication switched from HCTZ to amlodipine. Had recently a egd/colo. Also with occult +, platelet count now 7-1k range, jak2 was positive last admission, results reviewed and has been sin past was aon asa and hydrea, now both dced PMH: HTN, High plt PSH: none social history: Denies toxic habits, lives alone, independent of ADLs family history: unknown to patient. Allergies: No Known Allergies (Unverified , 09/06/19) Medication History Scheduled Amlodipine Besylate* (Amlodipine Besylate*), 5 MG ORAL DAILY, (Reported) Lorazepam* (Ativan*), 0.5 MG ORAL THREE TIMES A DAY, (Reported) Olanzapine* (Zyprexa*), 5 MG ORAL BEDTIME, (Reported) Discontinued Medications Cephalexin* (Keflex*), 500 MG ORAL EVERY 6 HOURS Discontinued Reason: Pt stopped taking med Patient History Healthcare decision maker Resuscitation status Full Code Advanced Directive on File Review of Systems Constitutional: Reports: weakness Eye: Denies: no symptoms, see HPI, eye pain, blurred vision, tearing, double vision ENT: Denies: no symptoms, see HPI, ear pain, ear discharge, nose pain, nose congestion Respiratory: Denies: no symptoms, see HPI, cough, orthopnea Cardiovascular: Denies: no symptoms, see HPI, chest pain, edema Gastrointestinal: Denies: no symptoms, see HPI, abdominal pain, constipation Musculoskeletal: Denies: no symptoms, see HPI, back pain, gout Skin: Denies: no symptoms, see HPI, rash, change in color Psychiatric: Denies: no symptoms, see HPI, prior hx, anxiety Neurological: Reports: syncope, dizziness Endocrine: Denies: no symptoms, see HPI, excessive sweating, flushing Hematologic/Lymphatic: Denies: no symptoms, see HPI, anemia, blood clots, easy bleeding Physical Exam Physical Exam Narrative General Appearance: WD/WN, no apparent distress, alert EENT: PERRL/EOMI, normal ENT inspection Neck: non-tender, normal alignment, supple Cardiovascular: normal peripheral pulses, normal rate, regular rhythm, no JVD Respiratory/Chest: chest wall non-tender, lungs clear, normal breath sounds Abdomen: normal bowel sounds, non tender, soft, no organomegaly Extremities: normal range of motion, non-tender Edema: other - No lower extremity edema bilaterally 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, no motor/sensory deficits, alert, oriented x 2, responsive Skin: normal pigmentation, warm/dry Labs noted Imaging: reviewed Assessment and Recs: # Essential Thrombocytosis, JAK2++, high-risk given age >60 meets the criteria, has consistently been elevated over the past 6 months, have reviewed last admissiona s well --> will evaluate liver and spleen r/o hepatosplenomegaly--> last admission did not show splenomegaly --> obtain peripheral smear, reviewed and no early immature cells noted --> JAK2 ++ again --> plt trend 705k-->794->803-->989 -->949-->701 --> When gi bleed resolves, START on hydrea 500mg pobid (smallest dose tablet)-- > on 05/15 change to daily --> OFF ASA --> have discussed with Pcp --> If any lower ext symptoms, get duplex, at increased risk for dvt # Anemia due to gi bleedingand iron deficiency --> on iv iron started --> 05/12 for colo and egd-->polyps noted --> ferritin goal >200 --> hgb trend: 8 -->8.9->8.4 # LEukocytosis r/o reactive process, likely due to gi bleed --> abx as needed prn --> wbc trend: 8 -->20-->40-->20-->12-->18.6-->11 --> on hydrea, needs to be adjusted as outpatient # Hypercalcemia -- with elev Ca on admission --> current 9.1 --> likely improved with ivf --> w/u if worsens # Near syncope --> generalized weakness # Dehydration --> ivf started # Essential hypertension --> per cards, TTE normal --> imaging reviewed --> Continue Amlodipine # Acute encephlopathy, metabolic vs. psychiatric. dehydration v psych, improved --> psych eval --> Patient currently lives at home by himself # LAUREL- resolved --> Holding HCTZ as above --> monitor renal function # DVt ppx with scds # DC PLANNING--> needs outpatient f/u stat at our offce --> [phone] pls schedule within several days of dc --> for high plt count, need to monitor hydrea and asa use Appreciate consultation and dw Virgilio Parra MD May 27, 2020 06:46
[2020-05-27 07:18] LABS: HEMATOCRIT 30.6 % (42.0-52.0); HEMOGLOBIN 9.4 G/DL (14.2-18.0); MEAN CORPUSCULAR VOLUME 87 FL (80-99); PLATELET COUNT 678 K/UL (150-450); RED BLOOD COUNT 3.51 M/UL (4.70-6.10); RED CELL DISTRIBUTION WIDTH 19.2 % (11.6-14.8); WHITE BLOOD COUNT 9.4 K/UL (4.8-10.8)
--- NOTE | 2020-05-27 07:27 | History and Physical ---
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 Patient denies weakness, fatigue, dizziness , chest pain, dyspnea. Denies any overt bleeding. In ED fecal occult blood was positive, Hb 6.6, given 2 units RBC and referred for admission. Family History: None Social History: Denies alcohol or tobacco Allergies: Coded Allergies: No Known Allergies (Unverified , 09/06/19) COVID-19 Screening Contact w/high risk pt: No Recent Travel to affected area: No Experienced COVID-19 symptoms?: No Medication History Scheduled Amlodipine Besylate* (Amlodipine Besylate*), 10 MG ORAL DAILY, (Reported) Aspirin* (Aspirin*), 81 MG ORAL DAILY Hydroxyurea* (HYDREA 500mg*), 500 MG ORAL DAILY Olanzapine* (Zyprexa*), 5 MG ORAL BEDTIME, (Reported) Pantoprazole* (Pantoprazole*), 40 MG ORAL DAILY, (Reported) Scheduled PRN Hydralazine Hcl* (Hydralazine Hcl*), 25 MG ORAL EVERY 6 HOURS PRN for For High Blood Pressure, (Reported) Patient History Healthcare decision maker Resuscitation status Advanced Directive on File Review of Systems Constitutional: Denies: chills, fever Eye: Denies: eye pain Respiratory: Denies: cough Cardiovascular: Denies: chest pain, edema Gastrointestinal: Denies: abdominal pain, melena, hematemesis Musculoskeletal: Denies: back pain Skin: Denies: rash Neurological: Denies: headache Hematologic/Lymphatic: Denies: anemia, blood clots, easy bleeding, easy bruising Physical Exam General Appearance: no apparent distress, alert HEENT: atraumatic, anicteric Neck: normal alignment, supple Respiratory/Chest: lungs clear, normal breath sounds, no respiratory distress Cardiovascular/Chest: normal rate, regular rhythm Abdomen: non tender, soft, no organomegaly, no mass Extremities: non-tender, normal inspection 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, no motor/sensory deficits, alert Last 24 Hour Vital Signs Date Time Temp Pulse Resp B/P (MAP) Pulse Ox O2 Delivery O2 Flow Rate FiO2 05/27/20 04:00 97.9 58 16 135/80 (98) 97 05/27/20 04:00 60 05/27/20 00:00 60 05/27/20 00:00 96.6 71 20 150/84 (106) 99 05/26/20 22:00 98.8 82 20 158/97 (117) 99 05/26/20 22:00 Room Air 05/26/20 21:55 86 05/26/20 21:35 97.9 85 17 149/89 94 Room Air 05/26/20 21:25 97.9 83 05/26/20 21:10 98.7 83 05/26/20 19:40 98.7 82 05/26/20 19:25 98.0 91 05/26/20 19:04 97.9 85 17 142/88 94 Room Air 05/26/20 17:00 97.9 85 19 130/69 95 Room Air 05/26/20 15:52 97.9 93 20 128/71 93 Room Air 05/26/20 15:38 97.9 93 20 128/71 (90) 93 Room Air Intake and Output 05/26/20 05/27/20 19:00 07:00 Intake Total 1000 ml 503 ml Output Total 2050 ml Balance 1000 ml -1547 ml Intake Oral 0 ml IV Total 1000 ml 253 ml Blood Product 250 ml Output Urine Total 2050 ml Laboratory Tests Test 05/26/20 16:20 05/26/20 16:40 05/27/20 06:39 White Blood Count 10.8 K/UL (4.8-10.8) 9.4 K/UL (4.8-10.8) Red Blood Count 2.61 M/UL (4.70-6.10) L 3.51 M/UL (4.70-6.10) L Hemoglobin 6.6 G/DL (14.2-18.0) *L 9.4 G/DL (14.2-18.0) #L Hematocrit 22.8 % (42.0-52.0) L 30.6 % (42.0-52.0) #L Mean Corpuscular Volume 87 FL (80-99) 87 FL (80-99) Mean Corpuscular Hemoglobin 25.3 PG (27.0-31.0) L 26.8 PG (27.0-31.0) L Mean Corpuscular Hemoglobin Concent 29.0 G/DL (32.0-36.0) L 30.7 G/DL (32.0-36.0) L Red Cell Distribution Width 23.4 % (11.6-14.8) H 19.2 % (11.6-14.8) H Platelet Count 701 K/UL (150-450) H 678 K/UL (150-450) H Mean Platelet Volume 6.0 FL (6.5-10.1) L 5.3 FL (6.5-10.1) L Neutrophils (%) (Auto) % (45.0-75.0) % (45.0-75.0) Lymphocytes (%) (Auto) % (20.0-45.0) % (20.0-45.0) Monocytes (%) (Auto) % (1.0-10.0) % (1.0-10.0) Eosinophils (%) (Auto) % (0.0-3.0) % (0.0-3.0) Basophils (%) (Auto) % (0.0-2.0) % (0.0-2.0) Differential Total Cells Counted 100 Neutrophils % (Manual) 64 % (45-75) Pending Lymphocytes % (Manual) 16 % (20-45) L Pending Monocytes % (Manual) 20 % (1-10) H Eosinophils % (Manual) 0 % (0-3) Basophils % (Manual) 0 % (0-2) Band Neutrophils 0 % (0-8) Nucleated Red Blood Cells 1 /100 WBC Platelet Estimate Increased H Pending Platelet Morphology Normal Pending Polychromasia 2+ Hypochromasia 2+ Anisocytosis 3+ Prothrombin Time 11.4 SEC (9.30-11.50) Prothromb Time International Ratio 1.0 (0.9-1.1) Activated Partial Thromboplast Time 28 SEC (23-33) Sodium Level 145 MMOL/L (136-145) Pending Potassium Level 4.4 MMOL/L (3.5-5.1) Pending Chloride Level 110 MMOL/L (98-107) H Pending Carbon Dioxide Level 28 MMOL/L (21-32) Pending Anion Gap 7 mmol/L (5-15) Blood Urea Nitrogen 22 mg/dL (7-18) H Pending Creatinine 1.0 MG/DL (0.55-1.30) Pending Estimat Glomerular Filtration Rate > 60 mL/min (>60) Pending Glucose Level 99 MG/DL (74-106) Pending Calcium Level 8.9 MG/DL (8.5-10.1) Pending Total Bilirubin 0.2 MG/DL (0.2-1.0) Aspartate Amino Transf (AST/SGOT) 14 U/L (15-37) L Alanine Aminotransferase (ALT/SGPT) 15 U/L (12-78) Alkaline Phosphatase 107 U/L (46-116) Total Protein 6.9 G/DL (6.4-8.2) Albumin 3.2 G/DL (3.4-5.0) L Globulin 3.7 g/dL Albumin/Globulin Ratio 0.9 (1.0-2.7) L Lipase 199 U/L (73-393) Urine Color Pale yellow Urine Appearance Clear Urine pH 5 (4.5-8.0) Urine Specific [place] 1.015 (1.005-1.035) Urine Protein Negative (NEGATIVE) Urine Glucose (UA) Negative (NEGATIVE) Urine Ketones Negative (NEGATIVE) Urine Blood Negative (NEGATIVE) Urine Nitrite Negative (NEGATIVE) Urine Bilirubin Negative (NEGATIVE) Urine Urobilinogen Normal MG/DL (0.0-1.0) Urine Leukocyte Esterase Negative (NEGATIVE) Microbiology Date/Time Source Procedure Growth Status 05/26/20 18:30 Rectum Received Height (Feet): 5 Height (Inches): 7.00 Weight (Pounds): 130 Medications Current Medications Medications (Trade) Dose Ordered Sig/Elliot Route PRN Reason Start Time Stop Time Status Last Admin Dose Admin Acetaminophen (Tylenol) 650 mg Q4H PRN ORAL Mild Pain (Pain Scale 1-3) 05/26/20 18:15 06/25/20 18:14 Albuterol/ Ipratropium (Albuterol/ Ipratropium) 3 ml Q6H PRN HHN Shortness of Breath 05/26/20 18:15 05/31/20 18:14 Dextrose (Dextrose 50%) 25 ml Q30M PRN IV Hypoglycemia 05/26/20 18:15 08/24/20 18:14 Dextrose (Dextrose 50%) 50 ml Q30M PRN IV Hypoglycemia 05/26/20 18:15 08/24/20 18:14 Dextrose/Sodium Chloride 1,000 ml @ 75 mls/hr [id number] IV 05/26/20 19:13 06/25/20 19:12 05/27/20 00:35 Diphenhydramine HCl (Benadryl) 25 mg Q6H PRN ORAL Itching/Pruritis 05/26/20 18:15 06/25/20 18:14 Hydralazine HCl (Apresoline) 25 mg Q6H PRN ORAL For High Blood Pressure 05/26/20 18:30 08/24/20 18:29 Olanzapine (ZyPREXA) 5 mg BEDTIME ORAL 05/26/20 21:00 07/10/20 20:59 05/26/20 22:11 Ondansetron HCl (Zofran) 4 mg Q6H PRN IVP Nausea & Vomiting 05/26/20 18:15 06/25/20 18:14 Pantoprazole 80 mg/Sodium Chloride 250 ml @ 25 mls/hr Q10H IV 05/27/20 04:00 06/26/20 03:59 05/27/20 05:43 Assessment/Plan Assessment/Plan: 89-year-old -[place] male with past medical history of hypertension, dementia, 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 was presents from SNF with Hb 6.3, FOB+ #Acute blood loss Anemia #FOB+ -admit to inpatient -given 2 units RBC in ED -Protonix drip -hold ASA/anticoagulants -Monitor CBC closely -GI consulted -Hematology consutled #Hypertension -hold amlodipine -start Hydralazine prn #Essential Thrombosis -hold Hydrea for niw -Heme consulted #Dementia with behavioral disturbance -Psychiatry consult I spent 75 minutes on this patient's case, and 36 minutes was dedicated to counseling and/or care coordination with RN, ED team, account consultant MDs I spent an additional 36 minutes on review of medical records including prior hospital records, consult notes, progress notes, procedures, imaging, labs, hemodynamics, and other clinical documentation. Amos Caraballo MD May 27, 2020 07:27
[2020-05-27 07:53] LABS: ANION GAP 8 mmol/L (5-15); BLOOD UREA NITROGEN 14 mg/dL (7-18); CARBON DIOXIDE 26 MMOL/L (21-32); CHLORIDE 106 MMOL/L (98-107); CREATININE 0.9 MG/DL (0.55-1.30); POTASSIUM 3.8 MMOL/L (3.5-5.1); SODIUM 140 MMOL/L (136-145)
[2020-05-27 08:00] VITALS: BP 147/87
--- NOTE | 2020-05-27 09:24 | Consultation ---
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 Patient denies weakness, fatigue, dizziness , chest pain, dyspnea. Denies any overt bleeding. In ED fecal occult blood was positive, Hb 6.6, given 2 units RBC and referred for admission. Allergies: Coded Allergies: No Known Allergies (Unverified , 09/06/19) Medication History Scheduled Amlodipine Besylate* (Amlodipine Besylate*), 10 MG ORAL DAILY, (Reported) Aspirin* (Aspirin*), 81 MG ORAL DAILY Hydroxyurea* (HYDREA 500mg*), 500 MG ORAL DAILY Olanzapine* (Zyprexa*), 5 MG ORAL BEDTIME, (Reported) Pantoprazole* (Pantoprazole*), 40 MG ORAL DAILY AC BREAKFAST, (Reported) Scheduled PRN Hydralazine Hcl* (Hydralazine Hcl*), 25 MG ORAL EVERY 6 HOURS PRN for For High Blood Pressure, (Reported) Patient History Healthcare decision maker Resuscitation status Advanced Directive on File Review of Systems All Other Systems: negative except mentioned in HPI Physical Exam Last 24 Hour Vital Signs Date Time Temp Pulse Resp B/P (MAP) Pulse Ox O2 Delivery O2 Flow Rate FiO2 05/27/20 08:14 Room Air 05/27/20 08:00 97.5 56 18 147/87 (107) 99 05/27/20 04:00 97.9 58 16 135/80 (98) 97 05/27/20 04:00 60 05/27/20 00:00 60 05/27/20 00:00 96.6 71 20 150/84 (106) 99 05/26/20 22:00 98.8 82 20 158/97 (117) 99 05/26/20 22:00 Room Air 05/26/20 21:55 86 05/26/20 21:35 97.9 85 17 149/89 94 Room Air 05/26/20 21:25 97.9 83 05/26/20 21:10 98.7 83 05/26/20 19:40 98.7 82 05/26/20 19:25 98.0 91 05/26/20 19:04 97.9 85 17 142/88 94 Room Air 05/26/20 17:00 97.9 85 19 130/69 95 Room Air 05/26/20 15:52 97.9 93 20 128/71 93 Room Air 05/26/20 15:38 97.9 93 20 128/71 (90) 93 Room Air Intake and Output 05/26/20 05/27/20 19:00 07:00 Intake Total 1000 ml 728 ml Output Total 2050 ml Balance 1000 ml -1322 ml Intake Oral 0 ml IV Total 1000 ml 478 ml Blood Product 250 ml Output Urine Total 2050 ml # Bowel Movements 1 Laboratory Tests Test 05/26/20 16:20 05/26/20 16:40 05/27/20 06:39 White Blood Count 10.8 K/UL (4.8-10.8) 9.4 K/UL (4.8-10.8) Red Blood Count 2.61 M/UL (4.70-6.10) L 3.51 M/UL (4.70-6.10) L Hemoglobin 6.6 G/DL (14.2-18.0) *L 9.4 G/DL (14.2-18.0) #L Hematocrit 22.8 % (42.0-52.0) L 30.6 % (42.0-52.0) #L Mean Corpuscular Volume 87 FL (80-99) 87 FL (80-99) Mean Corpuscular Hemoglobin 25.3 PG (27.0-31.0) L 26.8 PG (27.0-31.0) L Mean Corpuscular Hemoglobin Concent 29.0 G/DL (32.0-36.0) L 30.7 G/DL (32.0-36.0) L Red Cell Distribution Width 23.4 % (11.6-14.8) H 19.2 % (11.6-14.8) H Platelet Count 701 K/UL (150-450) H 678 K/UL (150-450) H Mean Platelet Volume 6.0 FL (6.5-10.1) L 5.3 FL (6.5-10.1) L Neutrophils (%) (Auto) % (45.0-75.0) % (45.0-75.0) Lymphocytes (%) (Auto) % (20.0-45.0) % (20.0-45.0) Monocytes (%) (Auto) % (1.0-10.0) % (1.0-10.0) Eosinophils (%) (Auto) % (0.0-3.0) % (0.0-3.0) Basophils (%) (Auto) % (0.0-2.0) % (0.0-2.0) Differential Total Cells Counted 100 Neutrophils % (Manual) 64 % (45-75) Pending Lymphocytes % (Manual) 16 % (20-45) L Pending Monocytes % (Manual) 20 % (1-10) H Eosinophils % (Manual) 0 % (0-3) Basophils % (Manual) 0 % (0-2) Band Neutrophils 0 % (0-8) Nucleated Red Blood Cells 1 /100 WBC Platelet Estimate Increased H Pending Platelet Morphology Normal Pending Polychromasia 2+ Hypochromasia 2+ Anisocytosis 3+ Prothrombin Time 11.4 SEC (9.30-11.50) Prothromb Time International Ratio 1.0 (0.9-1.1) Activated Partial Thromboplast Time 28 SEC (23-33) Sodium Level 145 MMOL/L (136-145) 140 MMOL/L (136-145) Potassium Level 4.4 MMOL/L (3.5-5.1) 3.8 MMOL/L (3.5-5.1) Chloride Level 110 MMOL/L (98-107) H 106 MMOL/L (98-107) Carbon Dioxide Level 28 MMOL/L (21-32) 26 MMOL/L (21-32) Anion Gap 7 mmol/L (5-15) 8 mmol/L (5-15) Blood Urea Nitrogen 22 mg/dL (7-18) H 14 mg/dL (7-18) Creatinine 1.0 MG/DL (0.55-1.30) 0.9 MG/DL (0.55-1.30) Estimat Glomerular Filtration Rate > 60 mL/min (>60) > 60 mL/min (>60) Glucose Level 99 MG/DL (74-106) 94 MG/DL (74-106) Calcium Level 8.9 MG/DL (8.5-10.1) 9.0 MG/DL (8.5-10.1) Total Bilirubin 0.2 MG/DL (0.2-1.0) Aspartate Amino Transf (AST/SGOT) 14 U/L (15-37) L Alanine Aminotransferase (ALT/SGPT) 15 U/L (12-78) Alkaline Phosphatase 107 U/L (46-116) Total Protein 6.9 G/DL (6.4-8.2) Albumin 3.2 G/DL (3.4-5.0) L Globulin 3.7 g/dL Albumin/Globulin Ratio 0.9 (1.0-2.7) L Lipase 199 U/L (73-393) Urine Color Pale yellow Urine Appearance Clear Urine pH 5 (4.5-8.0) Urine Specific [place] 1.015 (1.005-1.035) Urine Protein Negative (NEGATIVE) Urine Glucose (UA) Negative (NEGATIVE) Urine Ketones Negative (NEGATIVE) Urine Blood Negative (NEGATIVE) Urine Nitrite Negative (NEGATIVE) Urine Bilirubin Negative (NEGATIVE) Urine Urobilinogen Normal MG/DL (0.0-1.0) Urine Leukocyte Esterase Negative (NEGATIVE) Microbiology Date/Time Source Procedure Growth Status 05/26/20 18:30 Rectum Received Height (Feet): 5 Height (Inches): 7.00 Weight (Pounds): 130 Medications Current Medications Medications (Trade) Dose Ordered Sig/Elliot Route PRN Reason Start Time Stop Time Status Last Admin Dose Admin Acetaminophen (Tylenol) 650 mg Q4H PRN ORAL Mild Pain (Pain Scale 1-3) 05/26/20 18:15 06/25/20 18:14 Albuterol/ Ipratropium (Albuterol/ Ipratropium) 3 ml Q6H PRN HHN Shortness of Breath 05/26/20 18:15 05/31/20 18:14 Dextrose (Dextrose 50%) 25 ml Q30M PRN IV Hypoglycemia 05/26/20 18:15 08/24/20 18:14 Dextrose (Dextrose 50%) 50 ml Q30M PRN IV Hypoglycemia 05/26/20 18:15 08/24/20 18:14 Dextrose/Sodium Chloride 1,000 ml @ 75 mls/hr [id number] IV 7/14/20 19:13 06/25/20 19:12 05/27/20 08:33 Diphenhydramine HCl (Benadryl) 25 mg Q6H PRN ORAL Itching/Pruritis 05/26/20 18:15 06/25/20 18:14 Hydralazine HCl (Apresoline) 25 mg Q6H PRN ORAL For High Blood Pressure 05/26/20 18:30 08/24/20 18:29 Olanzapine (ZyPREXA) 5 mg BEDTIME ORAL 05/26/20 21:00 07/10/20 20:59 05/26/20 22:11 Ondansetron HCl (Zofran) 4 mg Q6H PRN IVP Nausea & Vomiting 05/26/20 18:15 06/25/20 18:14 Pantoprazole 80 mg/Sodium Chloride 250 ml @ 25 mls/hr Q10H IV 05/27/20 04:00 06/26/20 03:59 05/27/20 05:43 Objective Narrative General Appearance: no apparent distress, alert HEENT: atraumatic, anicteric Neck: normal alignment, supple Respiratory/Chest: lungs clear, normal breath sounds, no respiratory distress Cardiovascular/Chest: normal rate, regular rhythm Abdomen: non tender, soft, no organomegaly, no mass Extremities: non-tender, normal inspection 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 May 27, 2020 09:24
[2020-05-27 12:00] VITALS: BP 154/85
--- NOTE | 2020-05-27 13:08 | General Progress Note ---
Assessment/Plan Problem List: (1) Colon polyps ICD Codes: K63.5 - Polyp of colon SNOMED: 87465912 (2) Gastritis ICD Codes: K29.70 - Gastritis, unspecified, without bleeding SNOMED: 2682625 (3) LGI bleed ICD Codes: K92.2 - Gastrointestinal hemorrhage, unspecified SNOMED: 43322271 (4) Anemia ICD Codes: D64.9 - Anemia, unspecified SNOMED: 062144246 Qualifiers: Qualified Codes: D64.9 - Anemia, unspecified (5) Acute blood loss anemia ICD Codes: D62 - Acute posthemorrhagic anemia SNOMED: 893329713 (6) JAK2 gene mutation ICD Codes: Z15.89 - Genetic susceptibility to other disease SNOMED: 15497802 (7) HTN (hypertension) ICD Codes: I10 - Essential (primary) hypertension SNOMED: 39285128 (8) Thrombocytosis ICD Codes: D47.3 - Essential (hemorrhagic) thrombocythemia SNOMED: 2089695 Assessment/Plan: chart reviewed multiple GI procedures in the last admission EGD/colonoscopy x2/capsule endoscopy fu H&H keep on clears prep today and plan GI procedures if rebleeds Subjective ROS Limited/Unobtainable: Yes Allergies: Coded Allergies: No Known Allergies (Unverified , 09/06/19) Objective Last 24 Hour Vital Signs Date Time Temp Pulse Resp B/P (MAP) Pulse Ox O2 Delivery O2 Flow Rate FiO2 05/27/20 12:00 97.9 52 20 154/85 (108) 98 05/27/20 08:14 Room Air 05/27/20 08:00 97.5 56 18 147/87 (107) 99 05/27/20 08:00 55 05/27/20 04:00 97.9 58 16 135/80 (98) 97 05/27/20 04:00 60 05/27/20 00:00 60 05/27/20 00:00 96.6 71 20 150/84 (106) 99 05/26/20 22:00 98.8 82 20 158/97 (117) 99 05/26/20 22:00 Room Air 05/26/20 21:55 86 05/26/20 21:35 97.9 85 17 149/89 94 Room Air 05/26/20 21:25 97.9 83 05/26/20 21:10 98.7 83 05/26/20 19:40 98.7 82 05/26/20 19:25 98.0 91 05/26/20 19:04 97.9 85 17 142/88 94 Room Air 05/26/20 17:00 97.9 85 19 130/69 95 Room Air 05/26/20 15:52 97.9 93 20 128/71 93 Room Air 05/26/20 15:38 97.9 93 20 128/71 (90) 93 Room Air Intake and Output 05/26/20 05/27/20 19:00 07:00 Intake Total 1000 ml 728 ml Output Total 2050 ml Balance 1000 ml -1322 ml Intake Oral 0 ml IV Total 1000 ml 478 ml Blood Product 250 ml Output Urine Total 2050 ml # Bowel Movements 1 Laboratory Tests 05/26/20 16:20: White Blood Count 10.8, Red Blood Count 2.61L, Hemoglobin 6.6*L, Hematocrit 22.8L, Mean Corpuscular Volume 87, Mean Corpuscular Hemoglobin 25.3L, Mean Corpuscular Hemoglobin Concent 29.0L, Red Cell Distribution Width 23.4H, Platelet Count 701H, Mean Platelet Volume 6.0L, Neutrophils (%) (Auto) , Lymphocytes (%) (Auto) , Monocytes (%) (Auto) , Eosinophils (%) (Auto) , Basophils (%) (Auto) , Differential Total Cells Counted 100, Neutrophils % ( Manual) 64, Lymphocytes % (Manual) 16L, Monocytes % (Manual) 20H, Eosinophils % (Manual) 0, Basophils % (Manual) 0, Band Neutrophils 0, Nucleated Red Blood Cells 1, Platelet Estimate IncreasedH, Platelet Morphology Normal, Polychromasia 2+, Hypochromasia 2+, Anisocytosis 3+, Prothrombin Time 11.4, Prothromb Time International Ratio 1.0, Activated Partial Thromboplast Time 28, Sodium Level 145, Potassium Level 4.4, Chloride Level 110H, Carbon Dioxide Level 28, Anion Gap 7, Blood Urea Nitrogen 22H, Creatinine 1.0, Estimat Glomerular Filtration Rate > 60, Glucose Level 99, Calcium Level 8.9, Total Bilirubin 0.2, Aspartate Amino Transf (AST/SGOT) 14L, Alanine Aminotransferase ( ALT/SGPT) 15, Alkaline Phosphatase 107, Total Protein 6.9, Albumin 3.2L, Globulin 3.7, Albumin/Globulin Ratio 0.9L, Lipase 199 05/26/20 16:40: Urine Color Pale yellow, Urine Appearance Clear, Urine pH 5, Urine Specific [place] 1.015, Urine Protein Negative, Urine Glucose (UA) Negative, Urine Ketones Negative, Urine Blood Negative, Urine Nitrite Negative, Urine Bilirubin Negative, Urine Urobilinogen Normal, Urine Leukocyte Esterase Negative 05/27/20 06:39: White Blood Count 9.4, Red Blood Count 3.51L, Hemoglobin 9.4#L, Hematocrit 30.6# L, Mean Corpuscular Volume 87, Mean Corpuscular Hemoglobin 26.8L, Mean Corpuscular Hemoglobin Concent 30.7L, Red Cell Distribution Width 19.2H, Platelet Count 678H, Mean Platelet Volume 5.3L, Neutrophils (%) (Auto) , Lymphocytes (%) (Auto) , Monocytes (%) (Auto) , Eosinophils (%) (Auto) , Basophils (%) (Auto) , Differential Total Cells Counted 100, Neutrophils % ( Manual) 63, Lymphocytes % (Manual) 13L, Monocytes % (Manual) 22H, Eosinophils % (Manual) 2, Basophils % (Manual) 0, Band Neutrophils 0, Platelet Estimate IncreasedH, Platelet Morphology Normal, Polychromasia 3+, Hypochromasia 1+, Anisocytosis 2+, Sodium Level 140, Potassium Level 3.8, Chloride Level 106, Carbon Dioxide Level 26, Anion Gap 8, Blood Urea Nitrogen 14, Creatinine 0.9, Estimat Glomerular Filtration Rate > 60, Glucose Level 94, Calcium Level 9.0 Height (Feet): 5 Height (Inches): 7.00 Weight (Pounds): 130 General Appearance: alert EENT: normal ENT inspection Neck: supple Cardiovascular: normal rate Respiratory/Chest: lungs clear Abdomen: normal bowel sounds, non tender, soft Extremities: non-tender José Luis Juares MD May 27, 2020 13:08
[2020-05-27] MEDS ORDERED: Polyethylene Glycol 238gm bottle ORAL SCH (15:00)
--- NOTE | 2020-05-27 15:36 | Neurology Progress Note ---
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 Patient denies weakness, fatigue, dizziness , chest pain, dyspnea. Denies any overt bleeding. In ED fecal occult blood was positive, Hb 6.6, given 2 units RBC and referred for admission. Pt confused, hypoactive Objective Physical Exam Last Vital Signs Date Time Temp Pulse Resp B/P (MAP) Pulse Ox O2 Delivery O2 Flow Rate FiO2 05/27/20 12:00 51 05/27/20 12:00 97.9 20 154/85 (108) 98 05/27/20 08:14 Room Air Laboratory Tests Test 05/26/20 16:20 05/26/20 16:40 05/26/20 17:34 05/27/20 06:39 White Blood Count 10.8 K/UL (4.8-10.8) 9.4 K/UL (4.8-10.8) Red Blood Count 2.61 M/UL (4.70-6.10) L 3.51 M/UL (4.70-6.10) L Hemoglobin 6.6 G/DL (14.2-18.0) *L 9.4 G/DL (14.2-18.0) #L Hematocrit 22.8 % (42.0-52.0) L 30.6 % (42.0-52.0) #L Mean Corpuscular Volume 87 FL (80-99) 87 FL (80-99) Mean Corpuscular Hemoglobin 25.3 PG (27.0-31.0) L 26.8 PG (27.0-31.0) L Mean Corpuscular Hemoglobin Concent 29.0 G/DL (32.0-36.0) L 30.7 G/DL (32.0-36.0) L Red Cell Distribution Width 23.4 % (11.6-14.8) H 19.2 % (11.6-14.8) H Platelet Count 701 K/UL (150-450) H 678 K/UL (150-450) H Mean Platelet Volume 6.0 FL (6.5-10.1) L 5.3 FL (6.5-10.1) L Neutrophils (%) (Auto) % (45.0-75.0) % (45.0-75.0) Lymphocytes (%) (Auto) % (20.0-45.0) % (20.0-45.0) Monocytes (%) (Auto) % (1.0-10.0) % (1.0-10.0) Eosinophils (%) (Auto) % (0.0-3.0) % (0.0-3.0) Basophils (%) (Auto) % (0.0-2.0) % (0.0-2.0) Differential Total Cells Counted 100 100 Neutrophils % (Manual) 64 % (45-75) 63 % (45-75) Lymphocytes % (Manual) 16 % (20-45) L 13 % (20-45) L Monocytes % (Manual) 20 % (1-10) H 22 % (1-10) H Eosinophils % (Manual) 0 % (0-3) 2 % (0-3) Basophils % (Manual) 0 % (0-2) 0 % (0-2) Band Neutrophils 0 % (0-8) 0 % (0-8) Nucleated Red Blood Cells 1 /100 WBC Platelet Estimate Increased H Increased H Platelet Morphology Normal Normal Polychromasia 2+ 3+ Hypochromasia 2+ 1+ Anisocytosis 3+ 2+ Prothrombin Time 11.4 SEC (9.30-11.50) Prothromb Time International Ratio 1.0 (0.9-1.1) Activated Partial Thromboplast Time 28 SEC (23-33) Sodium Level 145 MMOL/L (136-145) 140 MMOL/L (136-145) Potassium Level 4.4 MMOL/L (3.5-5.1) 3.8 MMOL/L (3.5-5.1) Chloride Level 110 MMOL/L (98-107) H 106 MMOL/L (98-107) Carbon Dioxide Level 28 MMOL/L (21-32) 26 MMOL/L (21-32) Anion Gap 7 mmol/L (5-15) 8 mmol/L (5-15) Blood Urea Nitrogen 22 mg/dL (7-18) H 14 mg/dL (7-18) Creatinine 1.0 MG/DL (0.55-1.30) 0.9 MG/DL (0.55-1.30) Estimat Glomerular Filtration Rate > 60 mL/min (>60) > 60 mL/min (>60) Glucose Level 99 MG/DL (74-106) 94 MG/DL (74-106) Calcium Level 8.9 MG/DL (8.5-10.1) 9.0 MG/DL (8.5-10.1) Total Bilirubin 0.2 MG/DL (0.2-1.0) Aspartate Amino Transf (AST/SGOT) 14 U/L (15-37) L Alanine Aminotransferase (ALT/SGPT) 15 U/L (12-78) Alkaline Phosphatase 107 U/L (46-116) Total Protein 6.9 G/DL (6.4-8.2) Albumin 3.2 G/DL (3.4-5.0) L Globulin 3.7 g/dL Albumin/Globulin Ratio 0.9 (1.0-2.7) L Lipase 199 U/L (73-393) Urine Color Pale yellow Urine Appearance Clear Urine pH 5 (4.5-8.0) Urine Specific [place] 1.015 (1.005-1.035) Urine Protein Negative (NEGATIVE) Urine Glucose (UA) Negative (NEGATIVE) Urine Ketones Negative (NEGATIVE) Urine Blood Negative (NEGATIVE) Urine Nitrite Negative (NEGATIVE) Urine Bilirubin Negative (NEGATIVE) Urine Urobilinogen Normal MG/DL (0.0-1.0) Urine Leukocyte Esterase Negative (NEGATIVE) Lab Scanned Report Blood Bank/Transfusion General: well developed Head: normocophalic Neck: no rigidity EENT: benign Neurologic Exam Mental Status: awake Speech: normal speech Cranial Nerve II: visual rees Cranial Nerves III, IV, : PERRLA Cranial Nerve V: normal facial sensations Cranial Nerve VIII: normal hearing Cranial Nerve X: no voice hoarseness Motor System: normal muscle tone Sensory: normal pinprick Objective alert but confused mves all 4 Impression/Recommendations Problems: (1) Acute encephalopathy (2) Syncope (3) Hypokalemia (4) Essential thrombocytosis (5) Acute kidney injury (6) Polycythemia (7) UTI (urinary tract infection) (8) Anemia (9) LGI bleed (10) Acute blood loss anemia (11) Gastritis (12) Thrombocytosis (13) HTN (hypertension) (14) Colon polyps (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
[2020-05-27 16:00] VITALS: BP 168/92
[2020-05-27 20:00] VITALS: BP 137/78
[2020-05-28] VITALS: BP 144/70
[2020-05-28 04:00] VITALS: BP 145/82
[2020-05-28 07:22] LABS: HEMATOCRIT 32.9 % (42.0-52.0); MEAN CORPUSCULAR VOLUME 87 FL (80-99); PLATELET COUNT 694 K/UL (150-450); RED BLOOD COUNT 3.77 M/UL (4.70-6.10); RED CELL DISTRIBUTION WIDTH 18.8 % (11.6-14.8); WHITE BLOOD COUNT 7.4 K/UL (4.8-10.8)
[2020-05-28 07:43] LABS: INR 1.1 (0.9-1.1)
[2020-05-28 07:47] LABS: ANION GAP 7 mmol/L (5-15); BLOOD UREA NITROGEN 9 mg/dL (7-18); CALCIUM 8.8 MG/DL (8.5-10.1); CARBON DIOXIDE 29 MMOL/L (21-32); CHLORIDE 107 MMOL/L (98-107); POTASSIUM 3.9 MMOL/L (3.5-5.1); SODIUM 143 MMOL/L (136-145)
[2020-05-28 08:00] VITALS: BP 157/91
[2020-05-28] MEDS: Pantoprazole 80 MG in NS 250 ML IV SCH ×3 (09:41→21:00)
--- NOTE | 2020-05-28 09:54 | Nephrology Progress Note ---
Assessment/Plan Plan #Acute blood loss Anemia #Essential Thrombosis #Hypertension #Dementia with behavioral disturbance -prbc transfusion -Protonix drip -hold ASA/anticoagulants -Monitor CBC closely -GI consulted -Hematology consutled -hold amlodipine for now -start Hydralazine prn -hold Hydrea Subjective ROS Limited/Unobtainable: No Constitutional: Reports: malaise, weakness HEENT: Denies: no symptoms, eye pain, blurred vision, tearing, double vision, ear pain, ear discharge, nose pain, nose congestion, throat pain, throat swelling, mouth pain, mouth swelling, other Genitourinary: Denies: no symptoms, burning, discharge, frequency, flank pain, hematuria, incontinence, pain, urgency, other Neurologic/Psychiatric: Denies: no symptoms, anxiety, depressed, emotional problems, headache, numbness, paresthesia, pre-existing deficit, seizure, tingling, tremors, weakness, other Subjective hemoglobin stable vitals stable Objective Objective Last 24 Hour Vital Signs Date Time Temp Pulse Resp B/P (MAP) Pulse Ox O2 Delivery O2 Flow Rate FiO2 05/28/20 08:00 97.5 66 20 157/91 (113) 98 05/28/20 04:00 97.4 57 20 145/82 (103) 98 05/28/20 03:33 55 05/28/20 00:00 97.4 87 20 144/70 (94) 99 05/27/20 23:47 58 05/27/20 20:00 Room Air 05/27/20 20:00 97.5 85 20 137/78 (97) 98 05/27/20 19:01 121 05/27/20 16:52 168/92 05/27/20 16:00 90 05/27/20 16:00 97.7 82 18 168/92 (117) 99 05/27/20 12:00 51 05/27/20 12:00 97.9 52 20 154/85 (108) 98 Intake and Output 05/27/20 05/28/20 19:00 07:00 Intake Total 340 ml 1017 ml Output Total 800 ml 950 ml Balance -460 ml 67 ml Intake Oral 240 ml IV Total 100 ml 1017 ml Output Urine Total 800 ml 950 ml # Bowel Movements 1 2 Laboratory Tests 05/28/20 06:12: White Blood Count 7.4, Red Blood Count 3.77L, Hemoglobin 10.0L, Hematocrit 32.9L , Mean Corpuscular Volume 87, Mean Corpuscular Hemoglobin 26.5L, Mean Corpuscular Hemoglobin Concent 30.4L, Red Cell Distribution Width 18.8H, Platelet Count 694H, Mean Platelet Volume 5.4L, Neutrophils (%) (Auto) , Lymphocytes (%) (Auto) , Monocytes (%) (Auto) , Eosinophils (%) (Auto) , Basophils (%) (Auto) , Differential Total Cells Counted 100, Neutrophils % ( Manual) 60, Lymphocytes % (Manual) 17L, Monocytes % (Manual) 23H, Eosinophils % (Manual) 0, Basophils % (Manual) 0, Band Neutrophils 0, Platelet Estimate IncreasedH, Platelet Morphology Normal, Polychromasia 3+, Hypochromasia 1+, Anisocytosis 1+, Prothrombin Time 12.2H, Prothromb Time International Ratio 1.1 , Sodium Level 143, Potassium Level 3.9, Chloride Level 107, Carbon Dioxide Level 29, Anion Gap 7, Blood Urea Nitrogen 9, Creatinine 1.0, Estimat Glomerular Filtration Rate > 60, Glucose Level 91, Calcium Level 8.8 Height (Feet): 5 Height (Inches): 7.00 Weight (Pounds): 130 General Appearance: WD/WN, no apparent distress EENT: PERRL/EOMI, normal ENT inspection Neck: non-tender, normal alignment Cardiovascular: normal peripheral pulses, normal rate Respiratory/Chest: chest wall non-tender, lungs clear Abdomen: normal bowel sounds, non tender Extremities: normal range of motion, non-tender, normal inspection Neurologic: alert, oriented x 3 Michael Ansari M.D. May 28, 2020 09:54
--- NOTE | 2020-05-28 10:48 | General Progress Note ---
Assessment/Plan Problem List: (1) Acute blood loss anemia ICD Codes: D62 - Acute posthemorrhagic anemia SNOMED: 528473991 (2) JAK2 gene mutation ICD Codes: Z15.89 - Genetic susceptibility to other disease SNOMED: 01490665 (3) HTN (hypertension) ICD Codes: I10 - Essential (primary) hypertension SNOMED: 24226717 (4) Acute kidney injury ICD Codes: N17.9 - Acute kidney failure, unspecified SNOMED: 6738286, 83875315 (5) Acute encephalopathy ICD Codes: G93.40 - Encephalopathy, unspecified SNOMED: 78026964, 278806128 Status: doing well, stable Assessment/Plan: Assessment/Plan: 89-year-old -Filipino male with past medical history of hypertension, dementia, 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 was presents from SNF with Hb 6.3, FOB+ #Acute blood loss Anemia #FOB+ #SHARI -given 2 units RBC in ED 05/27 -Protonix drip -hold ASA/anticoagulants -Monitor CBC closely -GI consulted - prep and possible endoscopic procedure -Hematology consulted - started on Venofer- When gi bleed resolves, START on hydrea 500mg pobid #Hypertension -hold amlodipine na dhome BP meds -start Hydralazine prn #Essential Thrombosis -hold Hydrea for now -Heme consulted #Dementia with behavioral disturbance #encephalopathy -Psychiatry consult -on home zyprexa I spent 45 minutes on this patient's case, and 36 minutes was dedicated to counseling and/or care coordination with RN, ED team, clinical science consultant MDs I spent an additional 36 minutes on review of medical records including prior hospital records, consult notes, progress notes, procedures, imaging, labs, hemodynamics, and other clinical documentation. Subjective Date patient seen: May 28, 2020 Time patient seen: 10:20 ROS Limited/Unobtainable: No Constitutional: Denies: chills, diaphoresis, fever HEENT: Reports: no symptoms Cardiovascular: Reports: no symptoms Respiratory: Reports: no symptoms Gastrointestinal/Abdominal: Reports: diarrhea; Denies: abdominal pain, tarry stools, blood in stool Genitourinary: Reports: no symptoms Endocrine: Reports: no symptoms Hematologic/Lymphatic: Reports: no symptoms Allergies: Coded Allergies: No Known Allergies (Unverified , 09/06/19) All Systems: reviewed and negative except above Subjective Patient denies bleeding. Feels good overall. Objective Last 24 Hour Vital Signs Date Time Temp Pulse Resp B/P (MAP) Pulse Ox O2 Delivery O2 Flow Rate FiO2 05/28/20 08:00 97.5 66 20 157/91 (113) 98 05/28/20 07:58 65 05/28/20 04:00 97.4 57 20 145/82 (103) 98 05/28/20 03:33 55 05/28/20 00:00 97.4 87 20 144/70 (94) 99 05/27/20 23:47 58 05/27/20 20:00 Room Air 05/27/20 20:00 97.5 85 20 137/78 (97) 98 05/27/20 19:01 121 05/27/20 16:52 168/92 05/27/20 16:00 90 05/27/20 16:00 97.7 82 18 168/92 (117) 99 05/27/20 12:00 51 05/27/20 12:00 97.9 52 20 154/85 (108) 98 Intake and Output 05/27/20 05/28/20 19:00 07:00 Intake Total 340 ml 1017 ml Output Total 800 ml 950 ml Balance -460 ml 67 ml Intake Oral 240 ml IV Total 100 ml 1017 ml Output Urine Total 800 ml 950 ml # Bowel Movements 1 2 Laboratory Tests 05/28/20 06:12: White Blood Count 7.4, Red Blood Count 3.77L, Hemoglobin 10.0L, Hematocrit 32.9L , Mean Corpuscular Volume 87, Mean Corpuscular Hemoglobin 26.5L, Mean Corpuscular Hemoglobin Concent 30.4L, Red Cell Distribution Width 18.8H, Platelet Count 694H, Mean Platelet Volume 5.4L, Neutrophils (%) (Auto) , Lymphocytes (%) (Auto) , Monocytes (%) (Auto) , Eosinophils (%) (Auto) , Basophils (%) (Auto) , Differential Total Cells Counted 100, Neutrophils % ( Manual) 60, Lymphocytes % (Manual) 17L, Monocytes % (Manual) 23H, Eosinophils % (Manual) 0, Basophils % (Manual) 0, Band Neutrophils 0, Platelet Estimate IncreasedH, Platelet Morphology Normal, Polychromasia 3+, Hypochromasia 1+, Anisocytosis 1+, Prothrombin Time 12.2H, Prothromb Time International Ratio 1.1 , Sodium Level 143, Potassium Level 3.9, Chloride Level 107, Carbon Dioxide Level 29, Anion Gap 7, Blood Urea Nitrogen 9, Creatinine 1.0, Estimat Glomerular Filtration Rate > 60, Glucose Level 91, Calcium Level 8.8 Height (Feet): 5 Height (Inches): 7.00 Weight (Pounds): 130 General Appearance: no apparent distress, alert, thin EENT: PERRL/EOMI Neck: non-tender, normal alignment, supple Cardiovascular: normal peripheral pulses, normal rate, regular rhythm, no gallop/murmur, no JVD Respiratory/Chest: chest wall non-tender, lungs clear, normal breath sounds, no respiratory distress, no accessory muscle use Abdomen: normal bowel sounds, non tender, soft, no organomegaly, no mass, hyperactive bowel sounds Pelvis: normal external exam Edema: no edema noted Arm (L), no edema noted Arm (R), no edema noted Leg (L), no edema noted Leg (R), no edema noted Pedal (L), no edema noted Pedal (R), no edema noted Generalized Neurologic: no motor/sensory deficits, alert, responsive, normal mood/affect Skin: normal pigmentation, warm/dry, no diaphoresis Bruce Jimenez M.D. May 28, 2020 10:48
[2020-05-28 10:54] LABS: % IRON SATURATION 7 % (15-50); IRON 21 ug/dL (50-175); TOTAL IRON BINDING CAPACITY 284 ug/dL (250-450)
--- NOTE | 2020-05-28 11:04 | Hematology/Onc Progress Note ---
Assessment/Plan Assessment/Plan Assessment and Recs: # Essential Thrombocytosis, JAK2++, high-risk given age >60 meets the criteria, has consistently been elevated over the past 6 months, have reviewed last admissiona s well --> will evaluate liver and spleen r/o hepatosplenomegaly--> last admission did not show splenomegaly --> obtain peripheral smear, reviewed and no early immature cells noted --> JAK2 ++ again --> plt trend 705k-->794->803-->989 -->949-->701-->694 --> When gi bleed resolves, START on hydrea 500mg po daily --> OFF ASA --> have discussed with Pcp --> If any lower ext symptoms, get duplex, at increased risk for dvt # Anemia due to gi bleedingand iron deficiency --> on iv iron started --> 05/12 for colo and egd-->polyps noted --> ferritin goal >200 --> hgb trend: 6.4-->9-->10 # LEukocytosis r/o reactive process, likely due to gi bleed --> abx as needed prn --> wbc trend: 8 -->20-->40-->20-->12-->18.6-->11 --> on hydrea, needs to be adjusted as outpatient # Hypercalcemia -- with elev Ca on admission --> current 9.1 --> likely improved with ivf --> w/u if worsens # Near syncope --> generalized weakness # Dehydration --> ivf started # Essential hypertension --> per cards, TTE normal --> imaging reviewed --> Continue Amlodipine # Acute encephlopathy, metabolic vs. psychiatric. dehydration v psych, improved --> psych eval --> Patient currently lives at home by himself # LAUREL- resolved --> Holding HCTZ as above --> monitor renal function # DVt ppx with scds # DC PLANNING--> needs outpatient f/u stat at our offce --> [phone] pls schedule within several days of dc --> for high plt count, need to monitor hydrea and asa use Appreciate consultation and saurabh RN Subjective Constitutional: Denies: no symptoms, chills, fever, malaise, weakness, other HEENT: Denies: no symptoms, eye pain, blurred vision, tearing, double vision, ear pain, ear discharge, nose pain, nose congestion, throat pain, throat swelling, mouth pain, mouth swelling, other Cardiovascular: Denies: no symptoms, chest pain, edema, irregular heart rate, lightheadedness, palpitations, syncope, other Respiratory: Denies: no symptoms, cough, shortness of breath, SOB with excertion, SOB at rest, sputum, wheezing, other Gastrointestinal/Abdominal: Denies: no symptoms, abdomen distended, abdominal pain, black stools, tarry stools, blood in stool, constipated, diarrhea, difficulty swallowing, nausea, poor appetite, poor fluid intake, rectal bleeding , vomiting, other Genitourinary: Denies: no symptoms, burning, discharge, frequency, flank pain, hematuria, incontinence, pain, urgency, other Neurologic/Psychiatric: Denies: no symptoms, anxiety, depressed, emotional problems, headache, numbness, paresthesia, pre-existing deficit, seizure, tingling, tremors, weakness, other Endocrine: Denies: no symptoms, excessive sweating, flushing, intolerance to cold, intolerance to heat, increased hunger, increased thirst, increased urine, unexplained weight gain, unexplained weight loss, other Allergies: Coded Allergies: No Known Allergies (Unverified , 09/06/19) Subjective 05/28 labs noted, on iv iron, no bleeding, meds reviewed, off hydrea Objective Objective Current Medications Medications (Trade) Dose Ordered Sig/Elliot Route PRN Reason Start Time Stop Time Status Last Admin Dose Admin Acetaminophen (Tylenol) 650 mg Q4H PRN ORAL Mild Pain (Pain Scale 1-3) 05/26/20 18:15 06/25/20 18:14 Albuterol/ Ipratropium (Albuterol/ Ipratropium) 3 ml Q6H PRN HHN Shortness of Breath 05/26/20 18:15 05/31/20 18:14 Dextrose (Dextrose 50%) 25 ml Q30M PRN IV Hypoglycemia 05/26/20 18:15 08/24/20 18:14 Dextrose (Dextrose 50%) 50 ml Q30M PRN IV Hypoglycemia 05/26/20 18:15 08/24/20 18:14 Dextrose/Sodium Chloride 1,000 ml @ 75 mls/hr [id number] IV 05/26/20 19:13 06/25/20 19:12 05/27/20 20:51 Diphenhydramine HCl (Benadryl) 25 mg Q6H PRN ORAL Itching/Pruritis 05/26/20 18:15 06/25/20 18:14 Hydralazine HCl (Apresoline) 25 mg Q6H PRN ORAL For High Blood Pressure 05/26/20 18:30 08/24/20 18:29 05/27/20 16:52 Iron Sucrose 100 mg/Sodium Chloride 60 ml @ 240 mls/hr BEDTIME IV 05/28/20 21:00 06/01/20 21:14 Olanzapine (ZyPREXA) 5 mg BEDTIME ORAL 05/26/20 21:00 07/10/20 20:59 05/27/20 20:51 Ondansetron HCl (Zofran) 4 mg Q6H PRN IVP Nausea & Vomiting 05/26/20 18:15 06/25/20 18:14 Pantoprazole 80 mg/Sodium Chloride 250 ml @ 25 mls/hr Q10H IV 05/27/20 04:00 06/26/20 03:59 05/28/20 09:41 Last 24 Hour Vital Signs Date Time Temp Pulse Resp B/P (MAP) Pulse Ox O2 Delivery O2 Flow Rate FiO2 05/28/20 09:00 Room Air 05/28/20 08:00 97.5 66 20 157/91 (113) 98 05/28/20 07:58 65 05/28/20 04:00 97.4 57 20 145/82 (103) 98 05/28/20 03:33 55 05/28/20 00:00 97.4 87 20 144/70 (94) 99 05/27/20 23:47 58 05/27/20 20:00 Room Air 05/27/20 20:00 97.5 85 20 137/78 (97) 98 05/27/20 19:01 121 05/27/20 16:52 168/92 05/27/20 16:00 90 05/27/20 16:00 97.7 82 18 168/92 (117) 99 05/27/20 12:00 51 05/27/20 12:00 97.9 52 20 154/85 (108) 98 05/27/20 08:14 Room Air 05/27/20 08:00 97.5 56 18 147/87 (107) 99 05/27/20 08:00 55 05/27/20 04:00 97.9 58 16 135/80 (98) 97 05/27/20 04:00 60 05/27/20 00:00 60 05/27/20 00:00 96.6 71 20 150/84 (106) 99 05/26/20 22:00 98.8 82 20 158/97 (117) 99 05/26/20 22:00 Room Air 05/26/20 21:55 86 05/26/20 21:35 97.9 85 17 149/89 94 Room Air 05/26/20 21:25 97.9 83 05/26/20 21:10 98.7 83 05/26/20 19:40 98.7 82 05/26/20 19:25 98.0 91 05/26/20 19:04 97.9 85 17 142/88 94 Room Air 05/26/20 17:00 97.9 85 19 130/69 95 Room Air 05/26/20 15:52 97.9 93 20 128/71 93 Room Air 05/26/20 15:38 97.9 93 20 128/71 (90) 93 Room Air Intake and Output 05/27/20 05/28/20 19:00 07:00 Intake Total 340 ml 1017 ml Output Total 800 ml 950 ml Balance -460 ml 67 ml Intake Oral 240 ml IV Total 100 ml 1017 ml Output Urine Total 800 ml 950 ml # Bowel Movements 1 2 Labs Test 05/26/20 16:20 05/26/20 16:40 05/26/20 17:34 05/27/20 06:39 White Blood Count 10.8 K/UL (4.8-10.8) 9.4 K/UL (4.8-10.8) Red Blood Count 2.61 M/UL (4.70-6.10) 3.51 M/UL (4.70-6.10) Hemoglobin 6.6 G/DL (14.2-18.0) 9.4 G/DL (14.2-18.0) Hematocrit 22.8 % (42.0-52.0) 30.6 % (42.0-52.0) Mean Corpuscular Volume 87 FL (80-99) 87 FL (80-99) Mean Corpuscular Hemoglobin 25.3 PG (27.0-31.0) 26.8 PG (27.0-31.0) Mean Corpuscular Hemoglobin Concent 29.0 G/DL (32.0-36.0) 30.7 G/DL (32.0-36.0) Red Cell Distribution Width 23.4 % (11.6-14.8) 19.2 % (11.6-14.8) Platelet Count 701 K/UL (150-450) 678 K/UL (150-450) Mean Platelet Volume 6.0 FL (6.5-10.1) 5.3 FL (6.5-10.1) Neutrophils (%) (Auto) % (45.0-75.0) % (45.0-75.0) Lymphocytes (%) (Auto) % (20.0-45.0) % (20.0-45.0) Monocytes (%) (Auto) % (1.0-10.0) % (1.0-10.0) Eosinophils (%) (Auto) % (0.0-3.0) % (0.0-3.0) Basophils (%) (Auto) % (0.0-2.0) % (0.0-2.0) Differential Total Cells Counted 100 100 Neutrophils % (Manual) 64 % (45-75) 63 % (45-75) Lymphocytes % (Manual) 16 % (20-45) 13 % (20-45) Monocytes % (Manual) 20 % (1-10) 22 % (1-10) Eosinophils % (Manual) 0 % (0-3) 2 % (0-3) Basophils % (Manual) 0 % (0-2) 0 % (0-2) Band Neutrophils 0 % (0-8) 0 % (0-8) Nucleated Red Blood Cells 1 /100 WBC Platelet Estimate Increased Increased Platelet Morphology Normal Normal Polychromasia 2+ 3+ Hypochromasia 2+ 1+ Anisocytosis 3+ 2+ Prothrombin Time 11.4 SEC (9.30-11.50) Prothromb Time International Ratio 1.0 (0.9-1.1) Activated Partial Thromboplast Time 28 SEC (23-33) Sodium Level 145 MMOL/L (136-145) 140 MMOL/L (136-145) Potassium Level 4.4 MMOL/L (3.5-5.1) 3.8 MMOL/L (3.5-5.1) Chloride Level 110 MMOL/L (98-107) 106 MMOL/L (98-107) Carbon Dioxide Level 28 MMOL/L (21-32) 26 MMOL/L (21-32) Anion Gap 7 mmol/L (5-15) 8 mmol/L (5-15) Blood Urea Nitrogen 22 mg/dL (7-18) 14 mg/dL (7-18) Creatinine 1.0 MG/DL (0.55-1.30) 0.9 MG/DL (0.55-1.30) Estimat Glomerular Filtration Rate > 60 mL/min (>60) > 60 mL/min (>60) Glucose Level 99 MG/DL (74-106) 94 MG/DL (74-106) Calcium Level 8.9 MG/DL (8.5-10.1) 9.0 MG/DL (8.5-10.1) Total Bilirubin 0.2 MG/DL (0.2-1.0) Aspartate Amino Transf (AST/SGOT) 14 U/L (15-37) Alanine Aminotransferase (ALT/SGPT) 15 U/L (12-78) Alkaline Phosphatase 107 U/L (46-116) Total Protein 6.9 G/DL (6.4-8.2) Albumin 3.2 G/DL (3.4-5.0) Globulin 3.7 g/dL Albumin/Globulin Ratio 0.9 (1.0-2.7) Lipase 199 U/L (73-393) Urine Color Pale yellow Urine Appearance Clear Urine pH 5 (4.5-8.0) Urine Specific [place] 1.015 (1.005-1.035) Urine Protein Negative (NEGATIVE) Urine Glucose (UA) Negative (NEGATIVE) Urine Ketones Negative (NEGATIVE) Urine Blood Negative (NEGATIVE) Urine Nitrite Negative (NEGATIVE) Urine Bilirubin Negative (NEGATIVE) Urine Urobilinogen Normal MG/DL (0.0-1.0) Urine Leukocyte Esterase Negative (NEGATIVE) Lab Scanned Report Blood Bank/Transfusion Test 05/28/20 06:12 White Blood Count 7.4 K/UL (4.8-10.8) Red Blood Count 3.77 M/UL (4.70-6.10) Hemoglobin 10.0 G/DL (14.2-18.0) Hematocrit 32.9 % (42.0-52.0) Mean Corpuscular Volume 87 FL (80-99) Mean Corpuscular Hemoglobin 26.5 PG (27.0-31.0) Mean Corpuscular Hemoglobin Concent 30.4 G/DL (32.0-36.0) Red Cell Distribution Width 18.8 % (11.6-14.8) Platelet Count 694 K/UL (150-450) Mean Platelet Volume 5.4 FL (6.5-10.1) Neutrophils (%) (Auto) % (45.0-75.0) Lymphocytes (%) (Auto) % (20.0-45.0) Monocytes (%) (Auto) % (1.0-10.0) Eosinophils (%) (Auto) % (0.0-3.0) Basophils (%) (Auto) % (0.0-2.0) Differential Total Cells Counted 100 Neutrophils % (Manual) 60 % (45-75) Lymphocytes % (Manual) 17 % (20-45) Monocytes % (Manual) 23 % (1-10) Eosinophils % (Manual) 0 % (0-3) Basophils % (Manual) 0 % (0-2) Band Neutrophils 0 % (0-8) Platelet Estimate Increased Platelet Morphology Normal Polychromasia 3+ Hypochromasia 1+ Anisocytosis 1+ Prothrombin Time 12.2 SEC (9.30-11.50) Prothromb Time International Ratio 1.1 (0.9-1.1) Sodium Level 143 MMOL/L (136-145) Potassium Level 3.9 MMOL/L (3.5-5.1) Chloride Level 107 MMOL/L (98-107) Carbon Dioxide Level 29 MMOL/L (21-32) Anion Gap 7 mmol/L (5-15) Blood Urea Nitrogen 9 mg/dL (7-18) Creatinine 1.0 MG/DL (0.55-1.30) Estimat Glomerular Filtration Rate > 60 mL/min (>60) Glucose Level 91 MG/DL (74-106) Calcium Level 8.8 MG/DL (8.5-10.1) Iron Level 21 ug/dL (50-175) Total Iron Binding Capacity 284 ug/dL (250-450) Percent Iron Saturation 7 % (15-50) Unsaturated Iron Binding 263 ug/dL (112-346) Height (Feet): 5 Height (Inches): 7.00 Weight (Pounds): 130 Objective General Appearance: WD/WN, no apparent distress, alert EENT: PERRL/EOMI, normal ENT inspection Neck: non-tender, normal alignment, supple Cardiovascular: normal peripheral pulses, normal rate, regular rhythm, no JVD Respiratory/Chest: chest wall non-tender, lungs clear, normal breath sounds Abdomen: normal bowel sounds, non tender, soft, no organomegaly Extremities: normal range of motion, non-tender Edema: other - No lower extremity edema bilaterally 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
--- NOTE | 2020-05-28 11:19 | General Progress Note ---
Assessment/Plan Problem List: (1) Colon polyps ICD Codes: K63.5 - Polyp of colon SNOMED: 92513368 (2) Gastritis ICD Codes: K29.70 - Gastritis, unspecified, without bleeding SNOMED: 0907144 (3) LGI bleed ICD Codes: K92.2 - Gastrointestinal hemorrhage, unspecified SNOMED: 20705412 (4) Anemia ICD Codes: D64.9 - Anemia, unspecified SNOMED: 532254083 Qualifiers: Qualified Codes: D64.9 - Anemia, unspecified (5) Acute blood loss anemia ICD Codes: D62 - Acute posthemorrhagic anemia SNOMED: 368806142 (6) JAK2 gene mutation ICD Codes: Z15.89 - Genetic susceptibility to other disease SNOMED: 97080887 (7) HTN (hypertension) ICD Codes: I10 - Essential (primary) hypertension SNOMED: 85961459 (8) Thrombocytosis ICD Codes: D47.3 - Essential (hemorrhagic) thrombocythemia SNOMED: 6446479 Status: doing well, stable Assessment/Plan: chart reviewed multiple GI procedures in the last admission EGD/colonoscopy x2/capsule endoscopy fu H&H advance diet plan GI procedures if rebleeds Subjective ROS Limited/Unobtainable: Yes Allergies: Coded Allergies: No Known Allergies (Unverified , 09/06/19) Objective Last 24 Hour Vital Signs Date Time Temp Pulse Resp B/P (MAP) Pulse Ox O2 Delivery O2 Flow Rate FiO2 05/28/20 09:00 Room Air 05/28/20 08:00 97.5 66 20 157/91 (113) 98 05/28/20 07:58 65 05/28/20 04:00 97.4 57 20 145/82 (103) 98 05/28/20 03:33 55 05/28/20 00:00 97.4 87 20 144/70 (94) 99 05/27/20 23:47 58 05/27/20 20:00 Room Air 05/27/20 20:00 97.5 85 20 137/78 (97) 98 05/27/20 19:01 121 05/27/20 16:52 168/92 05/27/20 16:00 90 05/27/20 16:00 97.7 82 18 168/92 (117) 99 05/27/20 12:00 51 05/27/20 12:00 97.9 52 20 154/85 (108) 98 Intake and Output 05/27/20 05/28/20 19:00 07:00 Intake Total 340 ml 1017 ml Output Total 800 ml 950 ml Balance -460 ml 67 ml Intake Oral 240 ml IV Total 100 ml 1017 ml Output Urine Total 800 ml 950 ml # Bowel Movements 1 2 Laboratory Tests 05/28/20 06:12: White Blood Count 7.4, Red Blood Count 3.77L, Hemoglobin 10.0L, Hematocrit 32.9L , Mean Corpuscular Volume 87, Mean Corpuscular Hemoglobin 26.5L, Mean Corpuscular Hemoglobin Concent 30.4L, Red Cell Distribution Width 18.8H, Platelet Count 694H, Mean Platelet Volume 5.4L, Neutrophils (%) (Auto) , Lymphocytes (%) (Auto) , Monocytes (%) (Auto) , Eosinophils (%) (Auto) , Basophils (%) (Auto) , Differential Total Cells Counted 100, Neutrophils % ( Manual) 60, Lymphocytes % (Manual) 17L, Monocytes % (Manual) 23H, Eosinophils % (Manual) 0, Basophils % (Manual) 0, Band Neutrophils 0, Platelet Estimate IncreasedH, Platelet Morphology Normal, Polychromasia 3+, Hypochromasia 1+, Anisocytosis 1+, Prothrombin Time 12.2H, Prothromb Time International Ratio 1.1 , Sodium Level 143, Potassium Level 3.9, Chloride Level 107, Carbon Dioxide Level 29, Anion Gap 7, Blood Urea Nitrogen 9, Creatinine 1.0, Estimat Glomerular Filtration Rate > 60, Glucose Level 91, Calcium Level 8.8, Iron Level 21L, Total Iron Binding Capacity 284, Percent Iron Saturation 7L, Unsaturated Iron Binding 263 Height (Feet): 5 Height (Inches): 7.00 Weight (Pounds): 130 General Appearance: alert EENT: normal ENT inspection Neck: supple Cardiovascular: normal rate Respiratory/Chest: decreased breath sounds Abdomen: normal bowel sounds, non tender, soft Extremities: non-tender José Luis Juares MD May 28, 2020 11:19
[2020-05-28 12:00] VITALS: BP 157/95
[2020-05-28] MEDS: D5 1/2NS 1,000 ML IV SCH ×2 (12:45→21:00)
--- NOTE | 2020-05-28 15:01 | Psych Consult Progress Note ---
Psychiatry Progress Note Psychiatry Progress Note Medications Current Medications Medications (Trade) Dose Ordered Sig/Elliot Route PRN Reason Start Time Stop Time Status Last Admin Dose Admin Acetaminophen (Tylenol) 650 mg Q4H PRN ORAL Mild Pain (Pain Scale 1-3) 05/26/20 18:15 06/25/20 18:14 Albuterol/ Ipratropium (Albuterol/ Ipratropium) 3 ml Q6H PRN HHN Shortness of Breath 05/26/20 18:15 05/31/20 18:14 Dextrose (Dextrose 50%) 25 ml Q30M PRN IV Hypoglycemia 05/26/20 18:15 08/24/20 18:14 Dextrose (Dextrose 50%) 50 ml Q30M PRN IV Hypoglycemia 05/26/20 18:15 08/24/20 18:14 Dextrose/Sodium Chloride 1,000 ml @ 75 mls/hr [id number] IV 05/26/20 19:13 06/25/20 19:12 05/28/20 12:45 Diphenhydramine HCl (Benadryl) 25 mg Q6H PRN ORAL Itching/Pruritis 05/26/20 18:15 06/25/20 18:14 Hydralazine HCl (Apresoline) 25 mg Q6H PRN ORAL For High Blood Pressure 05/26/20 18:30 08/24/20 18:29 05/27/20 16:52 Iron Sucrose 100 mg/Sodium Chloride 60 ml @ 240 mls/hr BEDTIME IV 05/28/20 21:00 06/01/20 21:14 Olanzapine (ZyPREXA) 5 mg BEDTIME ORAL 05/26/20 21:00 07/10/20 20:59 05/27/20 20:51 Ondansetron HCl (Zofran) 4 mg Q6H PRN IVP Nausea & Vomiting 05/26/20 18:15 06/25/20 18:14 Pantoprazole 80 mg/Sodium Chloride 250 ml @ 25 mls/hr Q10H IV 05/27/20 04:00 06/26/20 03:59 05/28/20 09:41 Allergies: Coded Allergies: No Known Allergies (Unverified , 09/06/19) Objective Data Height (Feet): 5 Height (Inches): 7.00 Weight (Pounds): 130 Assessment/Plan Status: doing well, stable Adriana Contreras MD May 28, 2020 15:01
[2020-05-28 15:42] VITALS: BP 153/89
--- NOTE | 2020-05-28 19:58 | Initial Psychiatric Evaluation ---
Psychiatry Consultation Psychiatry Consultation Referring physician: 05/27 Chief Complaint: Abnormal Labs History of Present Illness: 88-year-old male with a history of hypertension who has been admitted to the hospital for medical stabilization. The patient is more confused than baseline. I was consulted to assess the patient for confusion and refusing care. The patient has been uncooperative with the staff and at times, refusing medications, refusing food, refusing to drink, refusing care. The patient has memory impairment. The patient is unable to understand, process, communicate rationally. Allergies: Coded Allergies: No Known Allergies (Unverified , 09/06/19) Past Psychiatric History: dementia encephalopathy Medical History: PAST MEDICAL HISTORY: Hypertension. ALLERGIES: No known drug allergies. SUBSTANCE ABUSE HISTORY: No known history of illicit drug use or alcohol. Medication History Scheduled Amlodipine Besylate* (Amlodipine Besylate*), 10 MG ORAL DAILY, (Reported) Aspirin* (Aspirin*), 81 MG ORAL DAILY Hydroxyurea* (HYDREA 500mg*), 500 MG ORAL DAILY Olanzapine* (Zyprexa*), 5 MG ORAL BEDTIME, (Reported) Pantoprazole* (Pantoprazole*), 40 MG ORAL DAILY AC BREAKFAST, (Reported) Scheduled PRN Hydralazine Hcl* (Hydralazine Hcl*), 25 MG ORAL EVERY 6 HOURS PRN for For High Blood Pressure, (Reported) Objective Data Height (Feet): 5 Height (Inches): 7.00 Weight (Pounds): 130 Additional Comments: MENTAL STATUS EXAMINATION: The patient is alert, oriented times self, place. Mood is irritable and anxious. Affect is flat. Thought process is concrete. Thought content, no suicidal or homicidal ideation. Cognition is impaired. Insight and judgment is impaired. Assessment/Plan Diagnosis [place] I: ASSESSMENT: [place] I Acute encephalopathy dementia. [place] II Deferred. [place] III As above. [place] IV Low to moderate. [place] V 25. PLAN: 1. Start the patient on Zyprexa 5 mg at bedtime. 2. Continue Haldol 5 mg IM p.r.n. for agitation. 3. The patient lacks capacity to make decisions. The patient may now refuse medication or care. Adriana Contreras MD May 28, 2020 19:58
[2020-05-28 20:00] VITALS: BP 126/75
[2020-05-28] MEDS ORDERED: HydrALAZINE 25mg tab ORAL PRN (20:00)
[2020-05-28] MEDS ORDERED: Albuterol/Ipratropium 3ml neb HHN PRN (20:00)
[2020-05-28] MEDS ORDERED: Iron Sucrose 100 MG in NS 55 ML IV SCH (21:00)
[2020-05-28] MEDS: Iron Sucrose 100 MG in NS 55 ML IV SCH (21:36)
--- NOTE | 2020-05-28 23:24 | Neurology Progress Note ---
Interim History Interim History ROS Limited/Unobtainable: Yes Interim History no new deficits Objective Physical Exam Last Vital Signs Date Time Temp Pulse Resp B/P (MAP) Pulse Ox O2 Delivery O2 Flow Rate FiO2 05/28/20 21:00 Room Air 05/28/20 20:00 98.2 111 21 126/75 (92) 96 Laboratory Tests Test 05/28/20 06:12 05/28/20 16:30 White Blood Count 7.4 K/UL (4.8-10.8) Red Blood Count 3.77 M/UL (4.70-6.10) L Hemoglobin 10.0 G/DL (14.2-18.0) L Hematocrit 32.9 % (42.0-52.0) L Mean Corpuscular Volume 87 FL (80-99) Mean Corpuscular Hemoglobin 26.5 PG (27.0-31.0) L Mean Corpuscular Hemoglobin Concent 30.4 G/DL (32.0-36.0) L Red Cell Distribution Width 18.8 % (11.6-14.8) H Platelet Count 694 K/UL (150-450) H Mean Platelet Volume 5.4 FL (6.5-10.1) L Neutrophils (%) (Auto) % (45.0-75.0) Lymphocytes (%) (Auto) % (20.0-45.0) Monocytes (%) (Auto) % (1.0-10.0) Eosinophils (%) (Auto) % (0.0-3.0) Basophils (%) (Auto) % (0.0-2.0) Differential Total Cells Counted 100 Neutrophils % (Manual) 60 % (45-75) Lymphocytes % (Manual) 17 % (20-45) L Monocytes % (Manual) 23 % (1-10) H Eosinophils % (Manual) 0 % (0-3) Basophils % (Manual) 0 % (0-2) Band Neutrophils 0 % (0-8) Platelet Estimate Increased H Platelet Morphology Normal Polychromasia 3+ Hypochromasia 1+ Anisocytosis 1+ Prothrombin Time 12.2 SEC (9.30-11.50) H Prothromb Time International Ratio 1.1 (0.9-1.1) Sodium Level 143 MMOL/L (136-145) Potassium Level 3.9 MMOL/L (3.5-5.1) Chloride Level 107 MMOL/L (98-107) Carbon Dioxide Level 29 MMOL/L (21-32) Anion Gap 7 mmol/L (5-15) Blood Urea Nitrogen 9 mg/dL (7-18) Creatinine 1.0 MG/DL (0.55-1.30) Estimat Glomerular Filtration Rate > 60 mL/min (>60) Glucose Level 91 MG/DL (74-106) Calcium Level 8.8 MG/DL (8.5-10.1) Iron Level 21 ug/dL (50-175) L Total Iron Binding Capacity 284 ug/dL (250-450) Percent Iron Saturation 7 % (15-50) L Unsaturated Iron Binding 263 ug/dL (112-346) Stool Occult Blood Pending General: well developed Head: normocophalic Neck: no rigidity EENT: benign Neurologic Exam Mental Status: awake Speech: normal speech Cranial Nerve II: visual rees Cranial Nerves III, IV, : PERRLA Cranial Nerve V: normal facial sensations Cranial Nerve VIII: normal hearing Cranial Nerve X: no voice hoarseness Motor System: normal muscle tone Sensory: normal pinprick Objective alert but confused mves all 4 Impression/Recommendations Problems: (1) Acute encephalopathy (2) Syncope (3) Hypokalemia (4) Essential thrombocytosis (5) Acute kidney injury (6) Polycythemia (7) UTI (urinary tract infection) (8) Anemia (9) LGI bleed (10) Acute blood loss anemia (11) Gastritis (12) Thrombocytosis (13) HTN (hypertension) (14) Colon polyps (15) JAK2 gene mutation Status: doing well, stable Diagnostic Impression Acute encephalopathy likely metabolic Dementia with behavioral disturbances plan for rbc transfusion no neuro focal deficits monitor for deliirum pt ot Bryan Telles MD May 28, 2020 23:24
[2020-05-29] VITALS: BP 144/95
[2020-05-29 04:00] VITALS: BP 132/67
[2020-05-29] MEDS: Pantoprazole 80 MG in NS 250 ML IV SCH ×2 (05:07→15:50)
[2020-05-29 06:33] LABS: HEMATOCRIT 34.3 % (42.0-52.0); HEMOGLOBIN 10.4 G/DL (14.2-18.0); MEAN CORPUSCULAR VOLUME 88 FL (80-99); PLATELET COUNT 681 K/UL (150-450); RED BLOOD COUNT 3.89 M/UL (4.70-6.10); RED CELL DISTRIBUTION WIDTH 19.7 % (11.6-14.8); WHITE BLOOD COUNT 7.8 K/UL (4.8-10.8)
[2020-05-29 07:43] LABS: ALANINE AMINOTRANSFERASE 7 U/L (12-78); ALBUMIN 3.2 G/DL (3.4-5.0); ALBUMIN/GLOBULIN RATIO 0.9 (1.0-2.7); ALKALINE PHOSPHATASE 115 U/L (46-116); ANION GAP 8 mmol/L (5-15); ASPARTATE AMINO TRANSFERASE 12 U/L (15-37); BILIRUBIN,TOTAL 0.3 MG/DL (0.2-1.0); BLOOD UREA NITROGEN 12 mg/dL (7-18); CALCIUM 8.8 MG/DL (8.5-10.1); CARBON DIOXIDE 26 MMOL/L (21-32); CHLORIDE 107 MMOL/L (98-107); CREATININE 1.2 MG/DL (0.55-1.30); POTASSIUM 3.9 MMOL/L (3.5-5.1); SODIUM 141 MMOL/L (136-145)
[2020-05-29 08:00] VITALS: BP 149/95
[2020-05-29] MEDS: D5 1/2NS 1,000 ML IV SCH ×2 (08:57→23:01)
[2020-05-29] MEDS ORDERED: Hydroxyurea 500mg cap ORAL SCH (09:00)
[2020-05-29] MEDS ORDERED: Aspirin Baby 81mg ORAL SCH (09:00)
--- NOTE | 2020-05-29 09:06 | Hematology/Onc Progress Note ---
Assessment/Plan Assessment/Plan Assessment and Recs: # Essential Thrombocytosis, JAK2++, high-risk given age >60 meets the criteria, has consistently been elevated over the past 6 months, have reviewed last admissiona s well --> will evaluate liver and spleen r/o hepatosplenomegaly--> last admission did not show splenomegaly --> obtain peripheral smear, reviewed and no early immature cells noted --> JAK2 ++ again --> plt trend 705k-->794->803-->989 -->949-->701-->694 --> When gi bleed resolves, START on hydrea 500mg po daily --> OFF ASA --> have discussed with Pcp --> If any lower ext symptoms, get duplex, at increased risk for dvt # Anemia due to gi bleedingand iron deficiency --> on iv iron started --> 05/12 for colo and egd-->polyps noted --> ferritin goal >200 --> hgb trend: 6.4-->9-->10 # LEukocytosis r/o reactive process, likely due to gi bleed --> abx as needed prn --> wbc trend: 8 -->20-->40-->20-->12-->18.6-->11 --> on hydrea, needs to be adjusted as outpatient # Hypercalcemia -- with elev Ca on admission --> current 9.1 --> likely improved with ivf --> w/u if worsens # Near syncope --> generalized weakness # Dehydration --> ivf started # Essential hypertension --> per cards, TTE normal --> imaging reviewed --> Continue Amlodipine # Acute encephlopathy, metabolic vs. psychiatric. dehydration v psych, improved --> psych eval --> Patient currently lives at home by himself # LAUREL- resolved --> Holding HCTZ as above --> monitor renal function # DVt ppx with scds # DC PLANNING--> needs outpatient f/u stat at our offce --> [phone] pls schedule within several days of dc --> for high plt count, need to monitor hydrea and asa use Appreciate consultation and saurabh RN Subjective Allergies: Coded Allergies: No Known Allergies (Unverified , 09/06/19) Subjective 05/28 labs noted, on iv iron, no bleeding, meds reviewed, off hydrea 05/29 hgb remains stable, no night sweats, hgb 10.4 Objective Objective Current Medications Medications (Trade) Dose Ordered Sig/Elliot Route PRN Reason Start Time Stop Time Status Last Admin Dose Admin Acetaminophen (Tylenol) 650 mg Q4H PRN ORAL Mild Pain (Pain Scale 1-3) 05/28/20 20:00 06/25/20 19:59 Albuterol/ Ipratropium (Albuterol/ Ipratropium) 3 ml Q6H PRN HHN Shortness of Breath 05/28/20 20:00 06/02/20 19:59 Amlodipine Besylate (Norvasc) 10 mg DAILY ORAL 05/29/20 09:00 06/28/20 08:59 05/29/20 08:57 Dextrose (Dextrose 50%) 25 ml Q30M PRN IV Hypoglycemia 05/28/20 19:45 08/24/20 18:14 Dextrose (Dextrose 50%) 50 ml Q30M PRN IV Hypoglycemia 05/28/20 19:45 08/24/20 18:14 Dextrose/Sodium Chloride 1,000 ml @ 75 mls/hr [id number] IV 05/28/20 19:45 06/25/20 19:12 05/29/20 08:57 Diphenhydramine HCl (Benadryl) 25 mg Q6H PRN ORAL Itching/Pruritis 05/29/20 20:00 06/25/20 19:59 Hydralazine HCl (Apresoline) 25 mg Q6H PRN ORAL SBP > 160mmHg 05/28/20 20:00 08/26/20 19:59 Iron Sucrose 100 mg/Sodium Chloride 60 ml @ 240 mls/hr BEDTIME IV 05/28/20 21:00 06/01/20 21:14 05/28/20 21:36 Olanzapine (ZyPREXA) 5 mg BEDTIME ORAL 05/28/20 21:00 07/10/20 20:59 05/28/20 21:00 Ondansetron HCl (Zofran) 4 mg Q6H PRN IVP Nausea & Vomiting 05/28/20 20:00 06/27/20 19:59 Pantoprazole 80 mg/Sodium Chloride 250 ml @ 25 mls/hr Q10H IV 05/28/20 20:00 06/26/20 19:59 05/29/20 05:07 Last 24 Hour Vital Signs Date Time Temp Pulse Resp B/P (MAP) Pulse Ox O2 Delivery O2 Flow Rate FiO2 05/29/20 08:57 89 149/95 05/29/20 08:00 97.8 89 18 149/95 (113) 95 05/29/20 04:00 97.5 60 18 132/67 (88) 93 05/29/20 00:00 97.7 97 22 144/95 (111) 94 05/28/20 21:00 Room Air 05/28/20 20:00 98.2 111 21 126/75 (92) 96 05/28/20 16:02 86 05/28/20 15:42 97.0 80 20 153/89 (110) 96 05/28/20 12:00 97.2 66 18 157/95 (115) 97 05/28/20 11:38 59 05/28/20 09:00 Room Air 05/28/20 08:00 97.5 66 20 157/91 (113) 98 05/28/20 07:58 65 05/28/20 04:00 97.4 57 20 145/82 (103) 98 05/28/20 03:33 55 05/28/20 00:00 97.4 87 20 144/70 (94) 99 05/27/20 23:47 58 05/27/20 20:00 Room Air 05/27/20 20:00 97.5 85 20 137/78 (97) 98 05/27/20 19:01 121 05/27/20 16:52 168/92 05/27/20 16:00 90 05/27/20 16:00 97.7 82 18 168/92 (117) 99 05/27/20 12:00 51 05/27/20 12:00 97.9 52 20 154/85 (108) 98 Intake and Output 05/28/20 05/29/20 19:00 07:00 Intake Total 1385 ml 1241 ml Output Total 850 ml Balance 535 ml 1241 ml Intake Oral 360 ml IV Total 1025 ml 1241 ml Output Urine Total 850 ml # Voids 1 # Bowel Movements 4 Labs Test 05/26/20 16:20 05/26/20 16:40 05/26/20 17:34 05/27/20 06:39 White Blood Count 10.8 K/UL (4.8-10.8) 9.4 K/UL (4.8-10.8) Red Blood Count 2.61 M/UL (4.70-6.10) 3.51 M/UL (4.70-6.10) Hemoglobin 6.6 G/DL (14.2-18.0) 9.4 G/DL (14.2-18.0) Hematocrit 22.8 % (42.0-52.0) 30.6 % (42.0-52.0) Mean Corpuscular Volume 87 FL (80-99) 87 FL (80-99) Mean Corpuscular Hemoglobin 25.3 PG (27.0-31.0) 26.8 PG (27.0-31.0) Mean Corpuscular Hemoglobin Concent 29.0 G/DL (32.0-36.0) 30.7 G/DL (32.0-36.0) Red Cell Distribution Width 23.4 % (11.6-14.8) 19.2 % (11.6-14.8) Platelet Count 701 K/UL (150-450) 678 K/UL (150-450) Mean Platelet Volume 6.0 FL (6.5-10.1) 5.3 FL (6.5-10.1) Neutrophils (%) (Auto) % (45.0-75.0) % (45.0-75.0) Lymphocytes (%) (Auto) % (20.0-45.0) % (20.0-45.0) Monocytes (%) (Auto) % (1.0-10.0) % (1.0-10.0) Eosinophils (%) (Auto) % (0.0-3.0) % (0.0-3.0) Basophils (%) (Auto) % (0.0-2.0) % (0.0-2.0) Differential Total Cells Counted 100 100 Neutrophils % (Manual) 64 % (45-75) 63 % (45-75) Lymphocytes % (Manual) 16 % (20-45) 13 % (20-45) Monocytes % (Manual) 20 % (1-10) 22 % (1-10) Eosinophils % (Manual) 0 % (0-3) 2 % (0-3) Basophils % (Manual) 0 % (0-2) 0 % (0-2) Band Neutrophils 0 % (0-8) 0 % (0-8) Nucleated Red Blood Cells 1 /100 WBC Platelet Estimate Increased Increased Platelet Morphology Normal Normal Polychromasia 2+ 3+ Hypochromasia 2+ 1+ Anisocytosis 3+ 2+ Prothrombin Time 11.4 SEC (9.30-11.50) Prothromb Time International Ratio 1.0 (0.9-1.1) Activated Partial Thromboplast Time 28 SEC (23-33) Sodium Level 145 MMOL/L (136-145) 140 MMOL/L (136-145) Potassium Level 4.4 MMOL/L (3.5-5.1) 3.8 MMOL/L (3.5-5.1) Chloride Level 110 MMOL/L (98-107) 106 MMOL/L (98-107) Carbon Dioxide Level 28 MMOL/L (21-32) 26 MMOL/L (21-32) Anion Gap 7 mmol/L (5-15) 8 mmol/L (5-15) Blood Urea Nitrogen 22 mg/dL (7-18) 14 mg/dL (7-18) Creatinine 1.0 MG/DL (0.55-1.30) 0.9 MG/DL (0.55-1.30) Estimat Glomerular Filtration Rate > 60 mL/min (>60) > 60 mL/min (>60) Glucose Level 99 MG/DL (74-106) 94 MG/DL (74-106) Calcium Level 8.9 MG/DL (8.5-10.1) 9.0 MG/DL (8.5-10.1) Total Bilirubin 0.2 MG/DL (0.2-1.0) Aspartate Amino Transf (AST/SGOT) 14 U/L (15-37) Alanine Aminotransferase (ALT/SGPT) 15 U/L (12-78) Alkaline Phosphatase 107 U/L (46-116) Total Protein 6.9 G/DL (6.4-8.2) Albumin 3.2 G/DL (3.4-5.0) Globulin 3.7 g/dL Albumin/Globulin Ratio 0.9 (1.0-2.7) Lipase 199 U/L (73-393) Urine Color Pale yellow Urine Appearance Clear Urine pH 5 (4.5-8.0) Urine Specific [place] 1.015 (1.005-1.035) Urine Protein Negative (NEGATIVE) Urine Glucose (UA) Negative (NEGATIVE) Urine Ketones Negative (NEGATIVE) Urine Blood Negative (NEGATIVE) Urine Nitrite Negative (NEGATIVE) Urine Bilirubin Negative (NEGATIVE) Urine Urobilinogen Normal MG/DL (0.0-1.0) Urine Leukocyte Esterase Negative (NEGATIVE) Lab Scanned Report Blood Bank/Transfusion Test 05/28/20 06:12 05/28/20 16:30 05/29/20 05:00 White Blood Count 7.4 K/UL (4.8-10.8) 7.8 K/UL (4.8-10.8) Red Blood Count 3.77 M/UL (4.70-6.10) 3.89 M/UL (4.70-6.10) Hemoglobin 10.0 G/DL (14.2-18.0) 10.4 G/DL (14.2-18.0) Hematocrit 32.9 % (42.0-52.0) 34.3 % (42.0-52.0) Mean Corpuscular Volume 87 FL (80-99) 88 FL (80-99) Mean Corpuscular Hemoglobin 26.5 PG (27.0-31.0) 26.7 PG (27.0-31.0) Mean Corpuscular Hemoglobin Concent 30.4 G/DL (32.0-36.0) 30.2 G/DL (32.0-36.0) Red Cell Distribution Width 18.8 % (11.6-14.8) 19.7 % (11.6-14.8) Platelet Count 694 K/UL (150-450) 681 K/UL (150-450) Mean Platelet Volume 5.4 FL (6.5-10.1) 5.4 FL (6.5-10.1) Neutrophils (%) (Auto) % (45.0-75.0) % (45.0-75.0) Lymphocytes (%) (Auto) % (20.0-45.0) % (20.0-45.0) Monocytes (%) (Auto) % (1.0-10.0) % (1.0-10.0) Eosinophils (%) (Auto) % (0.0-3.0) % (0.0-3.0) Basophils (%) (Auto) % (0.0-2.0) % (0.0-2.0) Differential Total Cells Counted 100 Neutrophils % (Manual) 60 % (45-75) Lymphocytes % (Manual) 17 % (20-45) Monocytes % (Manual) 23 % (1-10) Eosinophils % (Manual) 0 % (0-3) Basophils % (Manual) 0 % (0-2) Band Neutrophils 0 % (0-8) Platelet Estimate Increased Platelet Morphology Normal Polychromasia 3+ Hypochromasia 1+ Anisocytosis 1+ Prothrombin Time 12.2 SEC (9.30-11.50) Prothromb Time International Ratio 1.1 (0.9-1.1) Sodium Level 143 MMOL/L (136-145) 141 MMOL/L (136-145) Potassium Level 3.9 MMOL/L (3.5-5.1) 3.9 MMOL/L (3.5-5.1) Chloride Level 107 MMOL/L (98-107) 107 MMOL/L (98-107) Carbon Dioxide Level 29 MMOL/L (21-32) 26 MMOL/L (21-32) Anion Gap 7 mmol/L (5-15) 8 mmol/L (5-15) Blood Urea Nitrogen 9 mg/dL (7-18) 12 mg/dL (7-18) Creatinine 1.0 MG/DL (0.55-1.30) 1.2 MG/DL (0.55-1.30) Estimat Glomerular Filtration Rate > 60 mL/min (>60) > 60 mL/min (>60) Glucose Level 91 MG/DL (74-106) 100 MG/DL (74-106) Calcium Level 8.8 MG/DL (8.5-10.1) 8.8 MG/DL (8.5-10.1) Iron Level 21 ug/dL (50-175) Total Iron Binding Capacity 284 ug/dL (250-450) Percent Iron Saturation 7 % (15-50) Unsaturated Iron Binding 263 ug/dL (112-346) Stool Occult Blood Positive (NEGATIVE) Total Bilirubin 0.3 MG/DL (0.2-1.0) Aspartate Amino Transf (AST/SGOT) 12 U/L (15-37) Alanine Aminotransferase (ALT/SGPT) 7 U/L (12-78) Alkaline Phosphatase 115 U/L (46-116) Total Protein 6.9 G/DL (6.4-8.2) Albumin 3.2 G/DL (3.4-5.0) Globulin 3.7 g/dL Albumin/Globulin Ratio 0.9 (1.0-2.7) Micro Microbiology Date/Time Source Procedure Growth Status 05/28/20 16:30 Stool Clostridium difficile Toxin Assay - Final Complete Height (Feet): 5 Height (Inches): 7.00 Weight (Pounds): 130 Objective General Appearance: WD/WN, no apparent distress, alert EENT: PERRL/EOMI, normal ENT inspection Neck: non-tender, normal alignment, supple Cardiovascular: normal peripheral pulses, normal rate, regular rhythm, no JVD Respiratory/Chest: chest wall non-tender, lungs clear, normal breath sounds Abdomen: normal bowel sounds, non tender, soft, no organomegaly Extremities: normal range of motion, non-tender Edema: other - No lower extremity edema bilaterally Neurologic: video system repairer II-XII grossly normal, no motor/sensory deficits, alert, oriented x 2, responsive Skin: normal pigmentation, warm/dry Virgilio Su MD May 29, 2020 09:06
--- NOTE | 2020-05-29 11:31 | General Progress Note ---
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 - Genetic susceptibility to other disease SNOMED: 98732608 (3) HTN (hypertension) ICD Codes: I10 - Essential (primary) hypertension SNOMED: 21692905 (4) Acute kidney injury ICD Codes: N17.9 - Acute kidney failure, unspecified SNOMED: 9525092, 50692683 (5) Acute encephalopathy ICD Codes: G93.40 - Encephalopathy, unspecified SNOMED: 41294050, 079068450 Status: doing well, stable Assessment/Plan: Assessment/Plan: 89-year-old -Mexican male with past medical history of hypertension, dementia, 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 was presents from SNF with Hb 6.3, FOB+ #Acute blood loss Anemia - improving #FOB+ #SHARI -improving #Thrombocytosis - improving -given 2 units RBC in ED 05/27 -hold ASA/anticoagulants -Monitor CBC closely -GI consulted - no EGD until evidence of bleed -Hematology consulted - started on Venofer- When gi bleed resolves, START on hydrea 500mg po daily #Hypertension -restart amlodipine -start Hydralazine prn #Essential Thrombocytosis -starting Hydrea 500 mg daily -Heme consulted #Dementia with behavioral disturbance #encephalopathy -Psychiatry consult -on home zyprexa Dispo: back to SNF pending covid test. I spent 45 minutes on this patient's case, and 36 minutes was dedicated to counseling and/or care coordination with RN, ED team, hospice care sales consultant MDs Subjective Date patient seen: May 29, 2020 Time patient seen: 09:00 ROS Limited/Unobtainable: No Constitutional: Reports: no symptoms HEENT: Reports: no symptoms Cardiovascular: Reports: no symptoms Respiratory: Reports: no symptoms Gastrointestinal/Abdominal: Reports: no symptoms Genitourinary: Reports: no symptoms Neurologic/Psychiatric: Reports: no symptoms Endocrine: Reports: no symptoms Hematologic/Lymphatic: Reports: anemia Allergies: Coded Allergies: No Known Allergies (Unverified , 09/06/19) Subjective Patient denies bleeding. Feels better than yesterday. Objective Last 24 Hour Vital Signs Date Time Temp Pulse Resp B/P (MAP) Pulse Ox O2 Delivery O2 Flow Rate FiO2 05/29/20 09:00 Room Air 05/29/20 08:57 89 149/95 05/29/20 08:00 97.8 89 18 149/95 (113) 95 05/29/20 04:00 97.5 60 18 132/67 (88) 93 05/29/20 00:00 97.7 97 22 144/95 (111) 94 05/28/20 21:00 Room Air 05/28/20 20:00 98.2 111 21 126/75 (92) 96 05/28/20 16:02 86 05/28/20 15:42 97.0 80 20 153/89 (110) 96 05/28/20 12:00 97.2 66 18 157/95 (115) 97 05/28/20 11:38 59 Intake and Output 05/28/20 05/29/20 19:00 07:00 Intake Total 1385 ml 1241 ml Output Total 850 ml Balance 535 ml 1241 ml Intake Oral 360 ml IV Total 1025 ml 1241 ml Output Urine Total 850 ml # Voids 1 # Bowel Movements 4 Laboratory Tests 05/28/20 16:30: Stool Occult Blood Positive 05/29/20 05:00: White Blood Count 7.8, Red Blood Count 3.89L, Hemoglobin 10.4L, Hematocrit 34.3L , Mean Corpuscular Volume 88, Mean Corpuscular Hemoglobin 26.7L, Mean Corpuscular Hemoglobin Concent 30.2L, Red Cell Distribution Width 19.7H, Platelet Count 681H, Mean Platelet Volume 5.4L, Neutrophils (%) (Auto) , Lymphocytes (%) (Auto) , Monocytes (%) (Auto) , Eosinophils (%) (Auto) , Basophils (%) (Auto) , Differential Total Cells Counted 100, Neutrophils % ( Manual) 54, Lymphocytes % (Manual) 26, Monocytes % (Manual) 19H, Eosinophils % ( Manual) 1, Basophils % (Manual) 0, Band Neutrophils 0, Platelet Estimate IncreasedH, Platelet Morphology Normal, Hypochromasia 2+, Anisocytosis 2+, Sodium Level 141, Potassium Level 3.9, Chloride Level 107, Carbon Dioxide Level 26, Anion Gap 8, Blood Urea Nitrogen 12, Creatinine 1.2, Estimat Glomerular Filtration Rate > 60, Glucose Level 100, Calcium Level 8.8, Total Bilirubin 0.3 , Aspartate Amino Transf (AST/SGOT) 12L, Alanine Aminotransferase (ALT/SGPT) 7L , Alkaline Phosphatase 115, Total Protein 6.9, Albumin 3.2L, Globulin 3.7, Albumin/Globulin Ratio 0.9L Height (Feet): 5 Height (Inches): 7.00 Weight (Pounds): 130 General Appearance: no apparent distress, alert EENT: PERRL/EOMI, normal ENT inspection Neck: normal alignment, supple, normal inspection Cardiovascular: normal rate, regular rhythm, no gallop/murmur, no JVD Respiratory/Chest: chest wall non-tender, lungs clear, normal breath sounds, no respiratory distress, no accessory muscle use Abdomen: normal bowel sounds, non tender, soft, no organomegaly, no mass Pelvis: normal external exam Extremities: non-tender, normal inspection Edema: no edema noted Arm (L), no edema noted Arm (R), no edema noted Leg (L), no edema noted Leg (R), no edema noted Pedal (L), no edema noted Pedal (R), no edema noted Generalized Neurologic: alert, responsive Skin: normal pigmentation, warm/dry Bruce Jimenez M.D. May 29, 2020 11:31
[2020-05-29 12:00] VITALS: BP 133/78
--- NOTE | 2020-05-29 12:25 | General Progress Note ---
Assessment/Plan Problem List: (1) Colon polyps ICD Codes: K63.5 - Polyp of colon SNOMED: 24276933 (2) Gastritis ICD Codes: K29.70 - Gastritis, unspecified, without bleeding SNOMED: 4614700 (3) LGI bleed ICD Codes: K92.2 - Gastrointestinal hemorrhage, unspecified SNOMED: 67830420 (4) Anemia ICD Codes: D64.9 - Anemia, unspecified SNOMED: 844266298 Qualifiers: Qualified Codes: D64.9 - Anemia, unspecified (5) Acute blood loss anemia ICD Codes: D62 - Acute posthemorrhagic anemia SNOMED: 904587961 (6) JAK2 gene mutation ICD Codes: Z15.89 - Genetic susceptibility to other disease SNOMED: 81751944 (7) HTN (hypertension) ICD Codes: I10 - Essential (primary) hypertension SNOMED: 84850488 (8) Thrombocytosis ICD Codes: D47.3 - Essential (hemorrhagic) thrombocythemia SNOMED: 4657408 Status: doing well, stable Assessment/Plan: chart reviewed multiple GI procedures in the last admission EGD/colonoscopy x2/capsule endoscopy fu H&H stool for C.diff stool ob positive Consider GI procedures on Monday if still bleeding Subjective ROS Limited/Unobtainable: Yes Allergies: Coded Allergies: No Known Allergies (Unverified , 09/06/19) Objective Last 24 Hour Vital Signs Date Time Temp Pulse Resp B/P (MAP) Pulse Ox O2 Delivery O2 Flow Rate FiO2 05/29/20 09:00 Room Air 05/29/20 08:57 89 149/95 05/29/20 08:00 97.8 89 18 149/95 (113) 95 05/29/20 04:00 97.5 60 18 132/67 (88) 93 05/29/20 00:00 97.7 97 22 144/95 (111) 94 05/28/20 21:00 Room Air 05/28/20 20:00 98.2 111 21 126/75 (92) 96 05/28/20 16:02 86 05/28/20 15:42 97.0 80 20 153/89 (110) 96 Intake and Output 05/28/20 05/29/20 19:00 07:00 Intake Total 1385 ml 1241 ml Output Total 850 ml Balance 535 ml 1241 ml Intake Oral 360 ml IV Total 1025 ml 1241 ml Output Urine Total 850 ml # Voids 1 # Bowel Movements 4 Laboratory Tests 05/28/20 16:30: Stool Occult Blood Positive 05/29/20 05:00: White Blood Count 7.8, Red Blood Count 3.89L, Hemoglobin 10.4L, Hematocrit 34.3L , Mean Corpuscular Volume 88, Mean Corpuscular Hemoglobin 26.7L, Mean Corpuscular Hemoglobin Concent 30.2L, Red Cell Distribution Width 19.7H, Platelet Count 681H, Mean Platelet Volume 5.4L, Neutrophils (%) (Auto) , Lymphocytes (%) (Auto) , Monocytes (%) (Auto) , Eosinophils (%) (Auto) , Basophils (%) (Auto) , Differential Total Cells Counted 100, Neutrophils % ( Manual) 54, Lymphocytes % (Manual) 26, Monocytes % (Manual) 19H, Eosinophils % ( Manual) 1, Basophils % (Manual) 0, Band Neutrophils 0, Platelet Estimate IncreasedH, Platelet Morphology Normal, Hypochromasia 2+, Anisocytosis 2+, Sodium Level 141, Potassium Level 3.9, Chloride Level 107, Carbon Dioxide Level 26, Anion Gap 8, Blood Urea Nitrogen 12, Creatinine 1.2, Estimat Glomerular Filtration Rate > 60, Glucose Level 100, Calcium Level 8.8, Total Bilirubin 0.3 , Aspartate Amino Transf (AST/SGOT) 12L, Alanine Aminotransferase (ALT/SGPT) 7L , Alkaline Phosphatase 115, Total Protein 6.9, Albumin 3.2L, Globulin 3.7, Albumin/Globulin Ratio 0.9L Height (Feet): 5 Height (Inches): 7.00 Weight (Pounds): 130 General Appearance: no apparent distress EENT: normal ENT inspection Neck: supple Cardiovascular: normal rate Respiratory/Chest: decreased breath sounds Abdomen: normal bowel sounds, non tender, soft Extremities: non-tender José Luis Juares MD May 29, 2020 12:25
--- NOTE | 2020-05-29 13:33 | Nephrology Progress Note ---
Assessment/Plan Plan #Acute blood loss Anemia #Essential Thrombosis #Hypertension #Dementia with behavioral disturbance -prbc transfusion -Protonix drip - IV iron -hold ASA/anticoagulants -Monitor CBC closely -GI consulted -Hematology consutled -hold amlodipine for now -start Hydralazine prn -hold Hydrea time spent 35 min > 50% on care coordination and counseling Subjective ROS Limited/Unobtainable: No Constitutional: Reports: malaise, weakness HEENT: Denies: no symptoms, eye pain, blurred vision, tearing, double vision, ear pain, ear discharge, nose pain, nose congestion, throat pain, throat swelling, mouth pain, mouth swelling, other Genitourinary: Denies: no symptoms, burning, discharge, frequency, flank pain, hematuria, incontinence, pain, urgency, other Neurologic/Psychiatric: Denies: no symptoms, anxiety, depressed, emotional problems, headache, numbness, paresthesia, pre-existing deficit, seizure, tingling, tremors, weakness, other Subjective hemoglobin stable vitals stable Objective Objective Last 24 Hour Vital Signs Date Time Temp Pulse Resp B/P (MAP) Pulse Ox O2 Delivery O2 Flow Rate FiO2 05/29/20 12:00 97.8 71 18 133/78 (96) 97 05/29/20 09:00 Room Air 05/29/20 08:57 89 149/95 05/29/20 08:00 97.8 89 18 149/95 (113) 95 05/29/20 04:00 97.5 60 18 132/67 (88) 93 05/29/20 00:00 97.7 97 22 144/95 (111) 94 05/28/20 21:00 Room Air 05/28/20 20:00 98.2 111 21 126/75 (92) 96 05/28/20 16:02 86 05/28/20 15:42 97.0 80 20 153/89 (110) 96 Intake and Output 05/28/20 05/29/20 19:00 07:00 Intake Total 1385 ml 1241 ml Output Total 850 ml Balance 535 ml 1241 ml Intake Oral 360 ml IV Total 1025 ml 1241 ml Output Urine Total 850 ml # Voids 1 # Bowel Movements 4 Laboratory Tests 05/28/20 16:30: Stool Occult Blood Positive 05/29/20 05:00: White Blood Count 7.8, Red Blood Count 3.89L, Hemoglobin 10.4L, Hematocrit 34.3L , Mean Corpuscular Volume 88, Mean Corpuscular Hemoglobin 26.7L, Mean Corpuscular Hemoglobin Concent 30.2L, Red Cell Distribution Width 19.7H, Platelet Count 681H, Mean Platelet Volume 5.4L, Neutrophils (%) (Auto) , Lymphocytes (%) (Auto) , Monocytes (%) (Auto) , Eosinophils (%) (Auto) , Basophils (%) (Auto) , Differential Total Cells Counted 100, Neutrophils % ( Manual) 54, Lymphocytes % (Manual) 26, Monocytes % (Manual) 19H, Eosinophils % ( Manual) 1, Basophils % (Manual) 0, Band Neutrophils 0, Platelet Estimate IncreasedH, Platelet Morphology Normal, Hypochromasia 2+, Anisocytosis 2+, Sodium Level 141, Potassium Level 3.9, Chloride Level 107, Carbon Dioxide Level 26, Anion Gap 8, Blood Urea Nitrogen 12, Creatinine 1.2, Estimat Glomerular Filtration Rate > 60, Glucose Level 100, Calcium Level 8.8, Total Bilirubin 0.3 , Aspartate Amino Transf (AST/SGOT) 12L, Alanine Aminotransferase (ALT/SGPT) 7L , Alkaline Phosphatase 115, Total Protein 6.9, Albumin 3.2L, Globulin 3.7, Albumin/Globulin Ratio 0.9L Height (Feet): 5 Height (Inches): 7.00 Weight (Pounds): 130 Michael Ansari M.D. May 29, 2020 13:33
[2020-05-29 16:00] VITALS: BP 126/85
[2020-05-29 20:00] VITALS: BP 122/79
[2020-05-29] MEDS: Iron Sucrose 100 MG in NS 55 ML IV SCH (20:02)
--- NOTE | 2020-05-29 23:06 | Psych Consult Progress Note ---
Psychiatry Progress Note Psychiatry Progress Note Medications Current Medications Medications (Trade) Dose Ordered Sig/Elliot Route PRN Reason Start Time Stop Time Status Last Admin Dose Admin Acetaminophen (Tylenol) 650 mg Q4H PRN ORAL Mild Pain (Pain Scale 1-3) 05/28/20 20:00 06/25/20 19:59 Albuterol/ Ipratropium (Albuterol/ Ipratropium) 3 ml Q6H PRN HHN Shortness of Breath 05/28/20 20:00 06/02/20 19:59 Amlodipine Besylate (Norvasc) 10 mg DAILY ORAL 05/29/20 09:00 06/28/20 08:59 05/29/20 08:57 Dextrose (Dextrose 50%) 25 ml Q30M PRN IV Hypoglycemia 05/28/20 19:45 08/24/20 18:14 Dextrose (Dextrose 50%) 50 ml Q30M PRN IV Hypoglycemia 05/28/20 19:45 08/24/20 18:14 Dextrose/Sodium Chloride 1,000 ml @ 75 mls/hr [id number] IV 05/28/20 19:45 06/25/20 19:12 05/29/20 23:01 Diphenhydramine HCl (Benadryl) 25 mg Q6H PRN ORAL Itching/Pruritis 05/29/20 20:00 06/25/20 19:59 Hydralazine HCl (Apresoline) 25 mg Q6H PRN ORAL SBP > 160mmHg 05/28/20 20:00 08/26/20 19:59 Iron Sucrose 100 mg/Sodium Chloride 60 ml @ 240 mls/hr BEDTIME IV 05/28/20 21:00 06/01/20 21:14 05/29/20 20:02 Olanzapine (ZyPREXA) 5 mg BEDTIME ORAL 05/28/20 21:00 07/10/20 20:59 05/29/20 20:02 Ondansetron HCl (Zofran) 4 mg Q6H PRN IVP Nausea & Vomiting 05/28/20 20:00 06/27/20 19:59 Pantoprazole 80 mg/Sodium Chloride 250 ml @ 25 mls/hr Q10H IV 05/28/20 20:00 06/26/20 19:59 05/29/20 15:50 Neurological/Psychiatric: Reports: anxiety, depressed, emotional problems Allergies: Coded Allergies: No Known Allergies (Unverified , 09/06/19) Objective Data Height (Feet): 5 Height (Inches): 7.00 Weight (Pounds): 130 Additional Comments: MENTAL STATUS EXAMINATION: The patient is alert, oriented times self, place. Mood is irritable and anxious. Affect is flat. Thought process is concrete. Thought content, no suicidal or homicidal ideation. Cognition is impaired. Insight and judgment is impaired. Assessment/Plan Status: doing well, stable Assessment/Plan: Assessment/Plan Assessment/Plan Diagnosis [place] I: ASSESSMENT: [place] I Acute encephalopathy dementia. [place] II Deferred. [place] III As above. [place] IV Low to moderate. [place] V 25. PLAN: 1. Start the patient on Zyprexa 5 mg at bedtime. 2. Continue Haldol 5 mg IM p.r.n. for agitation. 3. The patient lacks capacity to make decisions. The patient may now refuse medication or care. Adriana Contreras MD May 29, 2020 23:06
[2020-05-30] VITALS: BP 119/78
[2020-05-30] MEDS: Pantoprazole 80 MG in NS 250 ML IV SCH (02:33)
[2020-05-30 04:00] VITALS: BP 125/76
[2020-05-30 07:27] LABS: HEMATOCRIT 30.1 % (42.0-52.0); HEMOGLOBIN 9.4 G/DL (14.2-18.0); MEAN CORPUSCULAR VOLUME 86 FL (80-99); PLATELET COUNT 563 K/UL (150-450); RED BLOOD COUNT 3.48 M/UL (4.70-6.10); RED CELL DISTRIBUTION WIDTH 18.7 % (11.6-14.8); WHITE BLOOD COUNT 6.9 K/UL (4.8-10.8)
[2020-05-30 07:42] LABS: ANION GAP 7 mmol/L (5-15); BLOOD UREA NITROGEN 17 mg/dL (7-18); CALCIUM 8.3 MG/DL (8.5-10.1); CARBON DIOXIDE 26 MMOL/L (21-32); CHLORIDE 108 MMOL/L (98-107); CREATININE 1.3 MG/DL (0.55-1.30); POTASSIUM 3.5 MMOL/L (3.5-5.1); SODIUM 141 MMOL/L (136-145)
[2020-05-30 08:00] VITALS: BP 130/86
--- NOTE | 2020-05-30 11:27 | General Progress Note ---
Assessment/Plan Problem List: (1) Acute blood loss anemia ICD Codes: D62 - Acute posthemorrhagic anemia SNOMED: 090850638 (2) JAK2 gene mutation ICD Codes: Z15.89 - Genetic susceptibility to other disease SNOMED: 21748787 (3) HTN (hypertension) ICD Codes: I10 - Essential (primary) hypertension SNOMED: 98899576 (4) Acute kidney injury ICD Codes: N17.9 - Acute kidney failure, unspecified SNOMED: 4585224, 90104287 (5) Acute encephalopathy ICD Codes: G93.40 - Encephalopathy, unspecified SNOMED: 23401056, 074834579 Status: doing well, stable Assessment/Plan: Assessment/Plan: 89-year-old -Dominican male with past medical history of hypertension, dementia, 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 was presents from SNF with Hb 6.3, FOB+ #Acute blood loss Anemia - improving #FOB+ #SHARI -improving #Thrombocytosis - improving -given 2 units RBC in ED 05/27 -hold ASA/anticoagulants -Monitor CBC closely 1 unit drop today -GI consulted - no EGD until evidence of bleed -Hematology consulted - started on Venofer- When gi bleed resolves, START on hydrea 500mg po daily #Hypertension -restart amlodipine -start Hydralazine prn #Essential Thrombocytosis -starting Hydrea 500 mg daily -Heme consulted #Dementia with behavioral disturbance #encephalopathy -Psychiatry consult -on home zyprexa Dispo: back to SNF pending covid test. I spent 40 minutes on this patient's case, and 26 minutes was dedicated to counseling and/or care coordination with RN, ED team, pmo consultant MDs Subjective Date patient seen: May 30, 2020 Time patient seen: 11:25 ROS Limited/Unobtainable: No Constitutional: Reports: no symptoms HEENT: Reports: no symptoms Cardiovascular: Reports: no symptoms Respiratory: Reports: no symptoms Gastrointestinal/Abdominal: Reports: no symptoms Genitourinary: Reports: no symptoms Neurologic/Psychiatric: Reports: no symptoms Endocrine: Reports: no symptoms Hematologic/Lymphatic: Reports: no symptoms Allergies: Coded Allergies: No Known Allergies (Unverified , 09/06/19) All Systems: reviewed and negative except above Subjective Patient denies bleeding. Feels better than yesterday. Objective Last 24 Hour Vital Signs Date Time Temp Pulse Resp B/P (MAP) Pulse Ox O2 Delivery O2 Flow Rate FiO2 05/30/20 10:07 89 130/86 05/30/20 08:00 97.9 89 18 130/86 (101) 95 05/30/20 04:00 97.4 64 15 125/76 (92) 97 05/30/20 00:00 98.1 80 16 119/78 (92) 93 05/29/20 21:00 Room Air 05/29/20 20:00 97.9 91 18 122/79 (93) 94 05/29/20 16:00 96.8 87 20 126/85 (99) 97 05/29/20 12:00 97.8 71 18 133/78 (96) 97 Intake and Output 05/29/20 05/30/20 19:00 07:00 Intake Total 1865 ml 1247 ml Output Total 600 ml 800 ml Balance 1265 ml 447 ml Intake Oral 840 ml 200 ml IV Total 1025 ml 1047 ml Output Urine Total 600 ml 800 ml # Voids 5 # Bowel Movements 2 Laboratory Tests 05/30/20 05:45: White Blood Count 6.9, Red Blood Count 3.48L, Hemoglobin 9.4L, Hematocrit 30.1L , Mean Corpuscular Volume 86, Mean Corpuscular Hemoglobin 27.1, Mean Corpuscular Hemoglobin Concent 31.3L, Red Cell Distribution Width 18.7H, Platelet Count 563H, Mean Platelet Volume 5.6L, Neutrophils (%) (Auto) , Lymphocytes (%) (Auto) , Monocytes (%) (Auto) , Eosinophils (%) (Auto) , Basophils (%) (Auto) , Differential Total Cells Counted 100, Neutrophils % ( Manual) 48, Lymphocytes % (Manual) 34, Monocytes % (Manual) 16H, Eosinophils % ( Manual) 1, Basophils % (Manual) 1, Band Neutrophils 0, Platelet Estimate IncreasedH, Platelet Morphology Normal, Hypochromasia 2+, Anisocytosis 2+, Sodium Level 141, Potassium Level 3.5, Chloride Level 108H, Carbon Dioxide Level 26, Anion Gap 7, Blood Urea Nitrogen 17, Creatinine 1.3, Estimat Glomerular Filtration Rate > 60, Glucose Level 111H, Calcium Level 8.3L Height (Feet): 5 Height (Inches): 7.00 Weight (Pounds): 130 General Appearance: no apparent distress, alert EENT: PERRL/EOMI Cardiovascular: normal rate, regular rhythm, no gallop/murmur, no JVD Respiratory/Chest: lungs clear, normal breath sounds, no respiratory distress, no accessory muscle use Abdomen: normal bowel sounds, non tender, soft, no organomegaly, no mass Extremities: normal range of motion Edema: no edema noted Arm (L), no edema noted Arm (R), no edema noted Leg (L), no edema noted Leg (R), no edema noted Pedal (L), no edema noted Pedal (R), no edema noted Generalized Neurologic: alert, oriented x 3, responsive Skin: normal pigmentation, warm/dry Bruce Jimenez M.D. May 30, 2020 11:27
[2020-05-30 12:00] VITALS: BP 127/53
--- NOTE | 2020-05-30 13:24 | General Progress Note ---
Assessment/Plan Status: doing well, stable Assessment/Plan: Assessment/Plan Problem List: (1) Colon polyps ICD Codes: K63.5 - Polyp of colon SNOMED: 41917172 (2) Gastritis ICD Codes: K29.70 - Gastritis, unspecified, without bleeding SNOMED: 7868570 (3) LGI bleed ICD Codes: K92.2 - Gastrointestinal hemorrhage, unspecified SNOMED: 41698538 (4) Anemia ICD Codes: D64.9 - Anemia, unspecified SNOMED: 039358849 Qualifiers: Qualified Codes: D64.9 - Anemia, unspecified (5) Acute blood loss anemia ICD Codes: D62 - Acute posthemorrhagic anemia SNOMED: 742603101 (6) JAK2 gene mutation ICD Codes: Z15.89 - Genetic susceptibility to other disease SNOMED: 27234228 (7) HTN (hypertension) ICD Codes: I10 - Essential (primary) hypertension SNOMED: 13112996 (8) Thrombocytosis ICD Codes: D47.3 - Essential (hemorrhagic) thrombocythemia SNOMED: 7785355 Status: doing well, stable Assessment/Plan: chart reviewed multiple GI procedures in the last admission EGD/colonoscopy x2/capsule endoscopy fu H&H stool for C.diff stool ob positive Consider GI procedures if still bleeding Subjective Allergies: Coded Allergies: No Known Allergies (Unverified , 09/06/19) Subjective Above noted feels OK no rectal bleeding (+) BM Objective Last 24 Hour Vital Signs Date Time Temp Pulse Resp B/P (MAP) Pulse Ox O2 Delivery O2 Flow Rate FiO2 05/30/20 10:07 89 130/86 05/30/20 08:00 97.9 89 18 130/86 (101) 95 05/30/20 04:00 97.4 64 15 125/76 (92) 97 05/30/20 00:00 98.1 80 16 119/78 (92) 93 05/29/20 21:00 Room Air 05/29/20 20:00 97.9 91 18 122/79 (93) 94 05/29/20 16:00 96.8 87 20 126/85 (99) 97 Intake and Output 05/29/20 05/30/20 19:00 07:00 Intake Total 1865 ml 1247 ml Output Total 600 ml 800 ml Balance 1265 ml 447 ml Intake Oral 840 ml 200 ml IV Total 1025 ml 1047 ml Output Urine Total 600 ml 800 ml # Voids 5 # Bowel Movements 2 Laboratory Tests 05/30/20 05:45: White Blood Count 6.9, Red Blood Count 3.48L, Hemoglobin 9.4L, Hematocrit 30.1L , Mean Corpuscular Volume 86, Mean Corpuscular Hemoglobin 27.1, Mean Corpuscular Hemoglobin Concent 31.3L, Red Cell Distribution Width 18.7H, Platelet Count 563H, Mean Platelet Volume 5.6L, Neutrophils (%) (Auto) , Lymphocytes (%) (Auto) , Monocytes (%) (Auto) , Eosinophils (%) (Auto) , Basophils (%) (Auto) , Differential Total Cells Counted 100, Neutrophils % ( Manual) 48, Lymphocytes % (Manual) 34, Monocytes % (Manual) 16H, Eosinophils % ( Manual) 1, Basophils % (Manual) 1, Band Neutrophils 0, Platelet Estimate IncreasedH, Platelet Morphology Normal, Hypochromasia 2+, Anisocytosis 2+, Sodium Level 141, Potassium Level 3.5, Chloride Level 108H, Carbon Dioxide Level 26, Anion Gap 7, Blood Urea Nitrogen 17, Creatinine 1.3, Estimat Glomerular Filtration Rate > 60, Glucose Level 111H, Calcium Level 8.3L Height (Feet): 5 Height (Inches): 7.00 Weight (Pounds): 130 Objective Elderly AA man NCAT Supple CTA RRR Abd soft no edema Winter Delgado MD May 30, 2020 13:24
[2020-05-30 16:00] VITALS: BP 121/80
[2020-05-30 20:00] VITALS: BP 134/85
[2020-05-30] MEDS: Iron Sucrose 100 MG in NS 55 ML IV SCH (20:08)
--- NOTE | 2020-05-30 21:02 | Nephrology Progress Note ---
Assessment/Plan Plan #Acute blood loss Anemia #Essential Thrombosis #Hypertension #Dementia with behavioral disturbance -prbc transfusion -Protonix drip - IV iron -hold ASA/anticoagulants -Monitor CBC closely -GI consulted -Hematology consutled -hold amlodipine for now -start Hydralazine prn -hold Hydrea time spent 35 min > 50% on care coordination and counseling Subjective ROS Limited/Unobtainable: No Constitutional: Reports: weakness HEENT: Denies: no symptoms, eye pain, blurred vision, tearing, double vision, ear pain, ear discharge, nose pain, nose congestion, throat pain, throat swelling, mouth pain, mouth swelling, other Genitourinary: Denies: no symptoms, burning, discharge, frequency, flank pain, hematuria, incontinence, pain, urgency, other Neurologic/Psychiatric: Denies: no symptoms, anxiety, depressed, emotional problems, headache, numbness, paresthesia, pre-existing deficit, seizure, tingling, tremors, weakness, other Subjective hemoglobin stable vitals stable Objective Objective Last 24 Hour Vital Signs Date Time Temp Pulse Resp B/P (MAP) Pulse Ox O2 Delivery O2 Flow Rate FiO2 05/30/20 16:00 97.3 97 18 121/80 (94) 96 05/30/20 12:00 97.9 78 18 127/53 (77) 94 05/30/20 10:07 89 130/86 05/30/20 09:00 Room Air 05/30/20 08:00 97.9 89 18 130/86 (101) 95 05/30/20 04:00 97.4 64 15 125/76 (92) 97 05/30/20 00:00 98.1 80 16 119/78 (92) 93 Intake and Output 05/29/20 05/30/20 19:00 07:00 Intake Total 1865 ml 1247 ml Output Total 600 ml 800 ml Balance 1265 ml 447 ml Intake Oral 840 ml 200 ml IV Total 1025 ml 1047 ml Output Urine Total 600 ml 800 ml # Voids 5 # Bowel Movements 2 Laboratory Tests 05/30/20 05:45: White Blood Count 6.9, Red Blood Count 3.48L, Hemoglobin 9.4L, Hematocrit 30.1L , Mean Corpuscular Volume 86, Mean Corpuscular Hemoglobin 27.1, Mean Corpuscular Hemoglobin Concent 31.3L, Red Cell Distribution Width 18.7H, Platelet Count 563H, Mean Platelet Volume 5.6L, Neutrophils (%) (Auto) , Lymphocytes (%) (Auto) , Monocytes (%) (Auto) , Eosinophils (%) (Auto) , Basophils (%) (Auto) , Differential Total Cells Counted 100, Neutrophils % ( Manual) 48, Lymphocytes % (Manual) 34, Monocytes % (Manual) 16H, Eosinophils % ( Manual) 1, Basophils % (Manual) 1, Band Neutrophils 0, Platelet Estimate IncreasedH, Platelet Morphology Normal, Hypochromasia 2+, Anisocytosis 2+, Sodium Level 141, Potassium Level 3.5, Chloride Level 108H, Carbon Dioxide Level 26, Anion Gap 7, Blood Urea Nitrogen 17, Creatinine 1.3, Estimat Glomerular Filtration Rate > 60, Glucose Level 111H, Calcium Level 8.3L Height (Feet): 5 Height (Inches): 7.00 Weight (Pounds): 130 Michael Ansari M.D. May 30, 2020 21:02
[2020-05-31] VITALS: BP 145/70
[2020-05-31 04:00] VITALS: BP 134/81
[2020-05-31 08:00] VITALS: BP 121/76
--- NOTE | 2020-05-31 08:42 | Hematology/Onc Progress Note ---
Assessment/Plan Assessment/Plan Assessment and Recs: # Essential Thrombocytosis, JAK2++, high-risk given age >60 meets the criteria, has consistently been elevated over the past 6 months, have reviewed last admissiona s well --> will evaluate liver and spleen r/o hepatosplenomegaly--> last admission did not show splenomegaly --> obtain peripheral smear, reviewed and no early immature cells noted --> JAK2 ++ again --> plt trend 705k-->794->803-->989 -->949-->701-->694-->563 --> START on hydrea 500mg po daily --> OFF ASA --> have discussed with Pcp --> If any lower ext symptoms, get duplex, at increased risk for dvt # Anemia due to gi bleedingand iron deficiency --> on iv iron started --> 05/12 for colo and egd-->polyps noted --> ferritin goal >200 --> hgb trend: 6.4-->9-->10-->9 # LEukocytosis r/o reactive process, likely due to gi bleed --> abx as needed prn --> wbc trend: 8 -->20-->40-->20-->12-->18.6-->11-->7 --> on hydrea, needs to be adjusted as outpatient # Hypercalcemia -- with elev Ca on admission --> current 9.1 --> likely improved with ivf --> w/u if worsens # Near syncope --> generalized weakness # Dehydration --> ivf started # Essential hypertension --> per cards, TTE normal --> imaging reviewed --> Continue Amlodipine # Acute encephlopathy, metabolic vs. psychiatric. dehydration v psych, improved --> psych eval --> Patient currently lives at home by himself # LAUREL- resolved --> Holding HCTZ as above --> monitor renal function # DVt ppx with scds # DC PLANNING--> needs outpatient f/u stat at our offce --> [phone] pls schedule within several days of dc --> for high plt count, need to monitor hydrea and asa use Appreciate consultation and saurabh RN Subjective Constitutional: Denies: no symptoms, chills, fever, malaise, weakness, other HEENT: Denies: no symptoms, eye pain, blurred vision, tearing, double vision, ear pain, ear discharge, nose pain, nose congestion, throat pain, throat swelling, mouth pain, mouth swelling, other Respiratory: Denies: no symptoms, cough, shortness of breath, SOB with excertion, SOB at rest, sputum, wheezing, other Gastrointestinal/Abdominal: Denies: no symptoms, abdomen distended, abdominal pain, black stools, tarry stools, blood in stool, constipated, diarrhea, difficulty swallowing, nausea, poor appetite, poor fluid intake, rectal bleeding , vomiting, other Genitourinary: Denies: no symptoms, burning, discharge, frequency, flank pain, hematuria, incontinence, pain, urgency, other Neurologic/Psychiatric: Denies: no symptoms, anxiety, depressed, emotional problems, headache, numbness, paresthesia, pre-existing deficit, seizure, tingling, tremors, weakness, other Endocrine: Denies: no symptoms, excessive sweating, flushing, intolerance to cold, intolerance to heat, increased hunger, increased thirst, increased urine, unexplained weight gain, unexplained weight loss, other Allergies: Coded Allergies: No Known Allergies (Unverified , 09/06/19) Subjective 05/28 labs noted, on iv iron, no bleeding, meds reviewed, off hydrea 05/29 hgb remains stable, no night sweats, hgb 10.4 05/31 labs noted, no night sweats, hgb 9.5, on hydrea Objective Objective Current Medications Medications (Trade) Dose Ordered Sig/Elliot Route PRN Reason Start Time Stop Time Status Last Admin Dose Admin Acetaminophen (Tylenol) 650 mg Q4H PRN ORAL Mild Pain (Pain Scale 1-3) 05/28/20 20:00 06/25/20 19:59 Albuterol/ Ipratropium (Albuterol/ Ipratropium) 3 ml Q6H PRN HHN Shortness of Breath 05/28/20 20:00 06/02/20 19:59 Amlodipine Besylate (Norvasc) 10 mg DAILY ORAL 05/29/20 09:00 06/28/20 08:59 05/30/20 10:07 Dextrose (Dextrose 50%) 25 ml Q30M PRN IV Hypoglycemia 05/28/20 19:45 08/24/20 18:14 Dextrose (Dextrose 50%) 50 ml Q30M PRN IV Hypoglycemia 05/28/20 19:45 08/24/20 18:14 Diphenhydramine HCl (Benadryl) 25 mg Q6H PRN ORAL Itching/Pruritis 05/29/20 20:00 06/25/20 19:59 Hydralazine HCl (Apresoline) 25 mg Q6H PRN ORAL SBP > 160mmHg 05/28/20 20:00 08/26/20 19:59 Hydroxyurea (Hydrea) 500 mg DAILY ORAL 05/31/20 09:00 06/05/20 08:59 Iron Sucrose 100 mg/Sodium Chloride 60 ml @ 240 mls/hr BEDTIME IV 05/28/20 21:00 06/01/20 21:14 05/30/20 20:08 Olanzapine (ZyPREXA) 5 mg BEDTIME ORAL 05/28/20 21:00 07/10/20 20:59 05/30/20 20:09 Ondansetron HCl (Zofran) 4 mg Q6H PRN IVP Nausea & Vomiting 05/28/20 20:00 06/27/20 19:59 Pantoprazole (Protonix) 40 mg DAILY ORAL 05/31/20 09:00 06/30/20 08:59 Last 24 Hour Vital Signs Date Time Temp Pulse Resp B/P (MAP) Pulse Ox O2 Delivery O2 Flow Rate FiO2 05/31/20 04:00 97.5 71 20 134/81 (98) 97 05/31/20 00:00 97.7 64 18 145/70 (95) 97 05/30/20 21:00 Room Air 05/30/20 20:00 97.5 86 20 134/85 (101) 96 05/30/20 16:00 97.3 97 18 121/80 (94) 96 05/30/20 12:00 97.9 78 18 127/53 (77) 94 05/30/20 10:07 89 130/86 05/30/20 09:00 Room Air 05/30/20 08:00 97.9 89 18 130/86 (101) 95 05/30/20 04:00 97.4 64 15 125/76 (92) 97 05/30/20 00:00 98.1 80 16 119/78 (92) 93 05/29/20 21:00 Room Air 05/29/20 20:00 97.9 91 18 122/79 (93) 94 05/29/20 16:00 96.8 87 20 126/85 (99) 97 05/29/20 12:00 97.8 71 18 133/78 (96) 97 05/29/20 09:00 Room Air 05/29/20 08:57 89 149/95 Intake and Output 05/30/20 05/31/20 19:00 07:00 Intake Total 480 ml 710 ml Output Total 900 ml 900 ml Balance -420 ml -190 ml Intake Oral 480 ml 650 ml IV Total 60 ml Output Urine Total 900 ml 900 ml # Voids 1 5 Labs Test 05/28/20 16:30 05/29/20 05:00 05/30/20 05:45 Stool Occult Blood Positive (NEGATIVE) White Blood Count 7.8 K/UL (4.8-10.8) 6.9 K/UL (4.8-10.8) Red Blood Count 3.89 M/UL (4.70-6.10) 3.48 M/UL (4.70-6.10) Hemoglobin 10.4 G/DL (14.2-18.0) 9.4 G/DL (14.2-18.0) Hematocrit 34.3 % (42.0-52.0) 30.1 % (42.0-52.0) Mean Corpuscular Volume 88 FL (80-99) 86 FL (80-99) Mean Corpuscular Hemoglobin 26.7 PG (27.0-31.0) 27.1 PG (27.0-31.0) Mean Corpuscular Hemoglobin Concent 30.2 G/DL (32.0-36.0) 31.3 G/DL (32.0-36.0) Red Cell Distribution Width 19.7 % (11.6-14.8) 18.7 % (11.6-14.8) Platelet Count 681 K/UL (150-450) 563 K/UL (150-450) Mean Platelet Volume 5.4 FL (6.5-10.1) 5.6 FL (6.5-10.1) Neutrophils (%) (Auto) % (45.0-75.0) % (45.0-75.0) Lymphocytes (%) (Auto) % (20.0-45.0) % (20.0-45.0) Monocytes (%) (Auto) % (1.0-10.0) % (1.0-10.0) Eosinophils (%) (Auto) % (0.0-3.0) % (0.0-3.0) Basophils (%) (Auto) % (0.0-2.0) % (0.0-2.0) Differential Total Cells Counted 100 100 Neutrophils % (Manual) 54 % (45-75) 48 % (45-75) Lymphocytes % (Manual) 26 % (20-45) 34 % (20-45) Monocytes % (Manual) 19 % (1-10) 16 % (1-10) Eosinophils % (Manual) 1 % (0-3) 1 % (0-3) Basophils % (Manual) 0 % (0-2) 1 % (0-2) Band Neutrophils 0 % (0-8) 0 % (0-8) Platelet Estimate Increased Increased Platelet Morphology Normal Normal Hypochromasia 2+ 2+ Anisocytosis 2+ 2+ Sodium Level 141 MMOL/L (136-145) 141 MMOL/L (136-145) Potassium Level 3.9 MMOL/L (3.5-5.1) 3.5 MMOL/L (3.5-5.1) Chloride Level 107 MMOL/L (98-107) 108 MMOL/L (98-107) Carbon Dioxide Level 26 MMOL/L (21-32) 26 MMOL/L (21-32) Anion Gap 8 mmol/L (5-15) 7 mmol/L (5-15) Blood Urea Nitrogen 12 mg/dL (7-18) 17 mg/dL (7-18) Creatinine 1.2 MG/DL (0.55-1.30) 1.3 MG/DL (0.55-1.30) Estimat Glomerular Filtration Rate > 60 mL/min (>60) > 60 mL/min (>60) Glucose Level 100 MG/DL (74-106) 111 MG/DL (74-106) Calcium Level 8.8 MG/DL (8.5-10.1) 8.3 MG/DL (8.5-10.1) Total Bilirubin 0.3 MG/DL (0.2-1.0) Aspartate Amino Transf (AST/SGOT) 12 U/L (15-37) Alanine Aminotransferase (ALT/SGPT) 7 U/L (12-78) Alkaline Phosphatase 115 U/L (46-116) Total Protein 6.9 G/DL (6.4-8.2) Albumin 3.2 G/DL (3.4-5.0) Globulin 3.7 g/dL Albumin/Globulin Ratio 0.9 (1.0-2.7) Height (Feet): 5 Height (Inches): 7.00 Weight (Pounds): 130 Objective General Appearance: WD/WN, no apparent distress, alert EENT: PERRL/EOMI, normal ENT inspection Neck: non-tender, normal alignment, supple Cardiovascular: normal peripheral pulses, normal rate, regular rhythm, no JVD Respiratory/Chest: chest wall non-tender, lungs clear, normal breath sounds Abdomen: normal bowel sounds, non tender, soft, no organomegaly Extremities: normal range of motion, non-tender Edema: other - No lower extremity edema bilaterally Neurologic: pie bottomer II-XII grossly normal, no motor/sensory deficits, alert, oriented x 2, responsive Skin: normal pigmentation, warm/dry Virgilio Su MD May 31, 2020 08:42
[2020-05-31] MEDS ORDERED: Hydroxyurea 500mg cap ORAL SCH (09:00)
--- NOTE | 2020-05-31 11:14 | Discharge Summary ---
Discharge Summary Hospital Course Date of Admission May 26, 2020 at 17:34 Date of Discharge 05/31/2020 Admitting Diagnosis weakness, anemia, lower GI bleed HPI Mane Cronin is a 89 year old male who was admitted on May 26, 2020 at 17:34 for Weakness, Anemia, Lower Gastrointestinal Bleed Consultations GI Hematology oncology Hospital Course Assessment/Plan: 89-year-old -[place] male with past medical history of hypertension, dementia, 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 was presents from SNF with Hb 6.3, FOB+. Patient was given 2 units pRBC. GI evaluated the patient there was no intervention unless evidence of bleed. Last admission Pt had EGD, Colonoscopy and pill camera. Heme/onc evaluated patient and was started on Venofer. He will restart Hydrea on discharge for thrombocytosis. Keep hemiglobin above 7. Patent needs to follow up with Dr. Su in 1 week and continue 2 more days of Venofer in SNF I spent 40 minutes on this patient's case, and 31 minutes was dedicated to counseling and/or care coordination with RN, ED team, sharepoint consultant MDs with advanced crae planning of SNF placement. Discharge Medications Continued Medications: Amlodipine Besylate* (Amlodipine Besylate*) 10 Mg Tablet 10 MG ORAL DAILY for HTN, TAB Hydralazine Hcl* (Hydralazine Hcl*) 25 Mg Tablet 25 MG ORAL EVERY 6 HOURS PRN for For High Blood Pressure, TAB 0 Refills Hydroxyurea* (HYDREA 500mg*) 500 Mg Capsule 500 MG ORAL DAILY for 10 Days, #10 CAP Olanzapine* (Zyprexa*) 5 Mg Tablet 5 MG ORAL BEDTIME, TAB Pantoprazole* (Pantoprazole*) 40 Mg Tablet. 40 MG ORAL DAILY AC BREAKFAST for GERD Discontinued Medications: Aspirin* (Aspirin*) 81 Mg Tab.chew 81 MG ORAL DAILY for 10 Days, #10 TAB Discharge Condition Upon Discharge: stable Discharge Vital Signs Last Vital Signs Date Time Temp Pulse Resp B/P (MAP) Pulse Ox O2 Delivery O2 Flow Rate FiO2 05/31/20 09:35 61 121/76 05/31/20 08:00 98.6 18 96 05/30/20 21:00 Room Air Discharge Disposition Patient was discharged to Discharge Diagnoses: (1) Anemia (2) Acute blood loss anemia (3) Thrombocytosis (4) JAK2 gene mutation Bruce Jimenez M.D. May 31, 2020 11:14
[2020-05-31 11:41] LABS: BASOPHILS % (AUTO) 2.8 % (0.0-2.0); EOSINOPHILS % (AUTO) 0.3 % (0.0-3.0); HEMATOCRIT 38.5 % (42.0-52.0); HEMOGLOBIN 11.5 G/DL (14.2-18.0); LYMPHOCYTES % (AUTO) 26.9 % (20.0-45.0); MEAN CORPUSCULAR VOLUME 87 FL (80-99); MONOCYTES % (AUTO) 16.7 % (1.0-10.0); NEUTROPHILS % (AUTO) 53.3 % (45.0-75.0); PLATELET COUNT 559 K/UL (150-450); RED BLOOD COUNT 4.44 M/UL (4.70-6.10); WHITE BLOOD COUNT 8.6 K/UL (4.8-10.8)
[2020-05-31 12:00] VITALS: BP 108/71
--- NOTE | 2020-05-31 12:27 | Nephrology Progress Note ---
Assessment/Plan Plan #Acute blood loss Anemia #Essential Thrombosis #Hypertension #Dementia with behavioral disturbance -prbc transfusion -Protonix drip - IV iron -hold ASA/anticoagulants -Monitor CBC closely -GI consulted -Hematology consutled -hold amlodipine for now -start Hydralazine prn -hold Hydrea time spent 35 min > 50% on care coordination and counseling Subjective ROS Limited/Unobtainable: No Constitutional: Reports: weakness HEENT: Denies: no symptoms, eye pain, blurred vision, tearing, double vision, ear pain, ear discharge, nose pain, nose congestion, throat pain, throat swelling, mouth pain, mouth swelling, other Genitourinary: Denies: no symptoms, burning, discharge, frequency, flank pain, hematuria, incontinence, pain, urgency, other Neurologic/Psychiatric: Denies: no symptoms, anxiety, depressed, emotional problems, headache, numbness, paresthesia, pre-existing deficit, seizure, tingling, tremors, weakness, other Subjective hemoglobin stable vitals stable Objective Objective Last 24 Hour Vital Signs Date Time Temp Pulse Resp B/P (MAP) Pulse Ox O2 Delivery O2 Flow Rate FiO2 05/31/20 09:35 61 121/76 05/31/20 09:00 Room Air 05/31/20 08:00 98.6 61 18 121/76 (91) 96 05/31/20 04:00 97.5 71 20 134/81 (98) 97 05/31/20 00:00 97.7 64 18 145/70 (95) 97 05/30/20 21:00 Room Air 05/30/20 20:00 97.5 86 20 134/85 (101) 96 05/30/20 16:00 97.3 97 18 121/80 (94) 96 Intake and Output 05/30/20 05/31/20 19:00 07:00 Intake Total 480 ml 710 ml Output Total 900 ml 900 ml Balance -420 ml -190 ml Intake Oral 480 ml 650 ml IV Total 60 ml Output Urine Total 900 ml 900 ml # Voids 1 5 Laboratory Tests 05/31/20 10:20: White Blood Count 8.6, Red Blood Count 4.44L, Hemoglobin 11.5L, Hematocrit 38.5L , Mean Corpuscular Volume 87, Mean Corpuscular Hemoglobin 25.9L, Mean Corpuscular Hemoglobin Concent 30.0L, Red Cell Distribution Width 19.0H, Platelet Count 559H, Mean Platelet Volume 5.2L, Neutrophils (%) (Auto) 53.3, Lymphocytes (%) (Auto) 26.9, Monocytes (%) (Auto) 16.7H, Eosinophils (%) (Auto) 0.3, Basophils (%) (Auto) 2.8H Height (Feet): 5 Height (Inches): 7.00 Weight (Pounds): 130 Michael Ansari M.D. May 31, 2020 12:27
--- NOTE | 2020-05-31 16:13 | General Progress Note ---
Assessment/Plan Status: doing well, stable Assessment/Plan: Assessment/Plan Problem List: (1) Colon polyps ICD Codes: K63.5 - Polyp of colon SNOMED: 31466063 (2) Gastritis ICD Codes: K29.70 - Gastritis, unspecified, without bleeding SNOMED: 5309170 (3) LGI bleed ICD Codes: K92.2 - Gastrointestinal hemorrhage, unspecified SNOMED: 21147904 (4) Anemia ICD Codes: D64.9 - Anemia, unspecified SNOMED: 408075664 Qualifiers: Qualified Codes: D64.9 - Anemia, unspecified (5) Acute blood loss anemia ICD Codes: D62 - Acute posthemorrhagic anemia SNOMED: 170083753 (6) JAK2 gene mutation ICD Codes: Z15.89 - Genetic susceptibility to other disease SNOMED: 74078346 (7) HTN (hypertension) ICD Codes: I10 - Essential (primary) hypertension SNOMED: 39949030 (8) Thrombocytosis ICD Codes: D47.3 - Essential (hemorrhagic) thrombocythemia SNOMED: 2124850 Status: doing well, stable Assessment/Plan: chart reviewed multiple GI procedures in the last admission EGD/colonoscopy x2/capsule endoscopy fu H&H stool for C.diff stool ob positive Consider GI procedures if still bleeding Subjective Allergies: Coded Allergies: No Known Allergies (Unverified , 09/06/19) Subjective Above noted seen this am ambulates with standby assist feels OK no rectal bleeding (+) BM Objective Last 24 Hour Vital Signs Date Time Temp Pulse Resp B/P (MAP) Pulse Ox O2 Delivery O2 Flow Rate FiO2 05/31/20 12:00 97.6 91 18 108/71 (83) 94 05/31/20 09:35 61 121/76 05/31/20 09:00 Room Air 05/31/20 08:00 98.6 61 18 121/76 (91) 96 05/31/20 04:00 97.5 71 20 134/81 (98) 97 05/31/20 00:00 97.7 64 18 145/70 (95) 97 05/30/20 21:00 Room Air 05/30/20 20:00 97.5 86 20 134/85 (101) 96 Intake and Output 05/30/20 05/31/20 18:59 06:59 Intake Total 480 ml 710 ml Output Total 900 ml 900 ml Balance -420 ml -190 ml Intake Oral 480 ml 650 ml IV Total 60 ml Output Urine Total 900 ml 900 ml # Voids 1 5 Laboratory Tests 05/31/20 10:20: White Blood Count 8.6, Red Blood Count 4.44L, Hemoglobin 11.5L, Hematocrit 38.5L , Mean Corpuscular Volume 87, Mean Corpuscular Hemoglobin 25.9L, Mean Corpuscular Hemoglobin Concent 30.0L, Red Cell Distribution Width 19.0H, Platelet Count 559H, Mean Platelet Volume 5.2L, Neutrophils (%) (Auto) 53.3, Lymphocytes (%) (Auto) 26.9, Monocytes (%) (Auto) 16.7H, Eosinophils (%) (Auto) 0.3, Basophils (%) (Auto) 2.8H 05/31/20 13:50: Stool Occult Blood [Pending] Height (Feet): 5 Height (Inches): 7.00 Weight (Pounds): 130 Objective Elderly AA man NCAT Supple CTA RRR Abd soft no edema Winter Delgado MD May 31, 2020 16:13
--- NOTE | 2020-06-01 23:52 | Psych Consult Progress Note ---
Psychiatry Progress Note Psychiatry Progress Note Subjective 05/31/20 Neurological/Psychiatric: Reports: anxiety, depressed, emotional problems Allergies: Coded Allergies: No Known Allergies (Unverified , 09/06/19) Objective Data Height (Feet): 5 Height (Inches): 7.00 Weight (Pounds): 130 General Appearance: WD/WN, no apparent distress, alert, confused Assessment/Plan Status: doing well, stable Assessment/Plan: Assessment/Plan Assessment/Plan Diagnosis Shalimar I: ASSESSMENT: Shalimar I Acute encephalopathy dementia. Shalimar II Deferred. Shalimar III As above. Shalimar IV Low to moderate. Shalimar V 25. PLAN: 1. Start the patient on Zyprexa 5 mg at bedtime. 2. Continue Haldol 5 mg IM p.r.n. for agitation. 3. The patient lacks capacity to make decisions. The patient may now refuse medication or care. Adriana Contreras MD Jun 01, 2020 23:52
== END 2020-05-31 15:20 | DRG 811 ==
LOC: EDBD 15:32 → EMR 17:27 → 2E 17:34 → EDBEDREQSVC 18:08 → EDBEDREQ 18:08 → 4E 05-28 19:00
PROC: 30233N1 Transfusion of Nonautologous Red Blood Cells into Peripheral Vein, Percutaneous Approach (ICD-10-PCS; principal; 2020-05-26)
DX: D62 Acute posthemorrhagic anemia (principal); G93.41 Metabolic encephalopathy; K29.71 Gastritis, unspecified, with bleeding; F03.91 Unspecified dementia, unspecified severity, with behavioral disturbance; N17.9 Acute kidney failure, unspecified; N39.0 Urinary tract infection, site not specified; D50.9 Iron deficiency anemia, unspecified; I10 Essential (primary) hypertension; E83.52 Hypercalcemia; E87.6 Hypokalemia; Z15.89 Genetic susceptibility to other disease; E86.0 Dehydration; K63.5 Polyp of colon; D47.3 Essential (hemorrhagic) thrombocythemia
CPT/HCPCS: 36415; 71045; 80048; 80053; 81003; 82270; 83540; 83550; 83690; 85007; 85025; 85610; 85730; 86850; 86900; 86901; 86920; 87081; 87324; 93005; 96360; 99285; J7030

== ENCOUNTER → 2020-08-13 | Outpatient (CLI) | payer MEDICARE, MEDICAID ==
[~2020-08-13] MED LIST changes: +ACETAMINOPHEN325 M1 ORAL; +AMLODIPINE BESY10 MG ORAL; +ASPIRIN EC81 MG ORAL; +CYANOCOBAL1000 MCG/M IM; +FUROSEMIDE20 M1 ORAL; +PANTOPRAZOLE SO40 MG ORAL; +VENOFER200 MG/10 IV
--- NOTE | 2020-08-13 14:29 | Diagnostic Imaging Report ---
Indication: Right ankle pain and swelling Technique: Sagittal and coronal T1-weighted images. Sagittal T2 fat saturated, axial proton-density fat-saturated, and axial and coronal STIR images Comparison: none Findings: No marrow signal abnormality demonstrated. Small amount of joint effusion is seen within the ankle joint. The large tendons appear intact. There is a small amount of fluid along the flexor hallucis longus tendon posterior to the talus, although this may be just joint fluid tracking along the tendon sheath. There is a tissue marker on the posterior medial ankle just above the ankle joint. There is considerable edema of the subcutaneous fat medially and laterally. No discrete organized fluid collections are demonstrated. The large tendons are intact. Large ligaments are intact. There is a small degenerative cyst within the cuboid distally. Impression: No evidence of significant bony or soft tissue trauma Small ankle joint effusion, nonspecific. Small amount of fluid around the flexor hallucis longus. This may be fluid tracking from the ankle joint effusion, but could indicate a component of mild tenosynovitis Edema of the subcutaneous fat. This may indicate cellulitis or could be hemodynamic in origin Small degenerative cyst in the distal cuboid
== END | disposition home or self-care (01) ==
LOC: MRI 09:15
DX: M25.571 Pain in right ankle and joints of right foot (principal); M85.671 Other cyst of bone, right ankle and foot